=== PATIENT | female | born 1950 | race Caucasian/White ===

== ENCOUNTER 2025-05-27 11:36 | Emergency (ER) | payer BC, MEDICARE, SELFPAY ==
--- NOTE | ~2025-05-27 | CT_ITS ---
EXAMINATION: CT HEAD WITHOUT CONTRAST CLINICAL INFORMATION: Fall, head trauma COMPARISON: None available. TECHNIQUE: Contiguous axial imaging was performed from the skull base to vertex without intravenous administration of contrast. This CT examination was performed using dose optimization techniques as appropriate, variously including the following: *Automated exposure control *Adjustment of mA and/or kV according to patient size (this includes techniques or standardized protocols for targeted exams where dose is matched to indication/reason for exam; i.e. extremities or head) *Use of iterative reconstruction technique FINDINGS: There is no acute ischemic change. There is no intracranial hemorrhage. There is no mass-effect or midline shift. There is mild generalized atrophy Basal cisterns and ventricles are within normal limits for age/cerebral volume. Orbits are symmetrical and unremarkable. Paranasal sinuses and mastoid air cells are pneumatized. There are no bony abnormalities. CT/CT head/brain wo IV con IMPRESSION: No acute intracranial abnormality. Electronically signed by: Satya Alegria MD 05/27/2025 01:12 PM [facility]
--- NOTE | ~2025-05-27 | CT_ITS ---
EXAMINATION: CT CERVICAL SPINE WITHOUT CONTRAST CLINICAL INFORMATION: Fall, head trauma COMPARISON: None available. TECHNIQUE: Axial imaging was performed from the base of the skull through T2 without IV contrast. Coronal and sagittal reformatted images were generated from the original axial data set. ALARA: The examination used one or more of the following radiation dose reduction techniques: Automated exposure control, iterative reconstruction, and/or adjustment of mA and/or KV. FINDINGS: There is straightening of the cervical lordosis. There is no prevertebral soft tissue swelling. There are osteophytes and degenerative irregularity of the anterior C1-C2 articulation. There are uncovertebral osteophytes in the mid to upper cervical spine. There is nonsegmentation of the left C2-3 facets. There are facet osteophytes throughout cervical spine on the left and in the mid to upper cervical spine on the right. There is a 14 mm short axis lymph node left of midline, adjacent the trachea, in the prevascular region at the level of the sternoclavicular joints. CT/CT cervical spine wo IV con IMPRESSION: Suspected mediastinal adenopathy. Consider nonemergent CT chest without contrast. There is straightening of the expected cervical lordosis. This can be idiopathic, but can also be related to degenerative change, muscle spasm, or posterior soft tissue injury. Uncovertebral and facet osteoarthritis Electronically signed by: Satya Alegria MD 05/27/2025 01:26 PM [facility]
--- NOTE | 2025-05-27 11:39 | ED.FALL ---
HPI - Fall General Chief Complaint: Fall Stated Complaint: FALL/KNEELING,HIT HEAD/L FACE LAC NO BLEEDIN,-LOC, Time Seen by Provider: 05/27/25 11:38 Source: patient, EMS, RN notes reviewed and old records reviewed Mode of arrival: EMS History of Present Illness ED Provider: Ellie Coon PA-C HPI Narrative: 74-year-old female with no significant past medical history presenting to the ED via EMS s/p mechanical trip and fall with + head strike and facial laceration [employer]. Patient states she bent down to pick something up and table slid forward causing her to fall and hit face on table. Denies LOC. Does take baby ASA. denies symptoms prior to fall. Up and ambulatory independently after incident, denies headache, neck/back pain, nausea/ vomiting, vision change or loss, lightheadedness / dizziness, CP/SOB. Tetanus unknown Related Data Previous Rx's ?Medication ?Instructions ?Recorded acetaminophen 500 mg capsule 1,000 mg (2 x 500 mg) PO Q6H 5 05/28/25 days #20 caps ibuprofen 400 mg tablet 400 mg PO Q6H PRN pain 5 days #20 05/28/25 tabs lidocaine 5 % topical patch 1 patch topical DAILY PRN pain #15 05/28/25 ea ondansetron 4 mg disintegrating 4 mg PO Q8H PRN nausea and 05/28/25 tablet vomiting #4 tabs oxycodone 5 mg tablet 5 mg PO Q6H PRN pain #10 tabs 05/28/25 Allergies Allergy/AdvReac Type Severity Reaction Status Date / Time No Known Allergies Allergy Verified 05/28/25 09:01 Review of Systems Review of Systems: Yes all other systems are reviewed and are negative Constitutional: Constitutional: Reports as per HPI Neurologic: Denies Abnormal speech present [facility] Past Medical History Attestation statement: The following information was validated with the patient. Source: old records reviewed Physical Exam Vital Signs: Vital Signs: Last Vital Signs Temp 98.1 F 05/27/25 14:36 Pulse 78 05/27/25 14:36 Resp 16 05/27/25 14:36 BP 119/55 L 05/27/25 14:36 Pulse Ox 95 05/27/25 14:36 O2 Del Method Room Air 05/27/25 14:36 BMI result Body Mass Index 35.6 Const: General: cooperative, healthy appearing and no acute distress Orientation/consciousness: patient oriented x3 Limitations: no limitations HEENT: Other: 1cm laceration noted to right eyebrow. Bleeding controlled. Head: Yes atraumatic Ears: hearing grossly normal bilaterally General nose exam: Normal external nose present Face and sinus: Yes normal facial exam Mouth: Normal oral and palatal mucosa present Throat: Yes posterior oropharynx normal Eyes: General: appearance normal, both eyes and all related structures Pupils: Equal, round and reactive pupils present EOM: EOMs intact bilaterally Neck: Other: C-collar in place Neck: Yes normal visual inspection and Yes no meningeal signs Resp: Effort & Inspection: normal respiratory effort and no respiratory distress Cardio: Rate: regular rate GI: Inspection: Yes normal to inspection Palpation (GI): Soft to palpation, nontender, no guarding and not rigid Back/Spine/Pelvis: Other: No midline cervical/thoracic/lumbar spinous tenderness/step-off or deformity Skin: Rashes: no rashes Wounds: no wounds Neuro: General: patient oriented x3, tone normal, moves all extremities, no meningeal signs, no focal motor deficits and CN's II-XI intact bilaterally Cranial nerves: Yes CN's II-XII intact bilaterally, Yes Equal, round and reactive pupils present and Yes Bilaterally intact EOM present Cognition (Neuro): normal cognition Speech: No Abnormal speech present Motor exam (neuro): 5/5 motor strength present throughout Extrem: General: Yes normal to inspection Course Course Course Narrative: 2:02 PM 05/27/2025 (Ellie Coon PA-C): CT head/brain wo IV con IMPRESSION: No acute intracranial abnormality. CT cervical spine wo IV con IMPRESSION: Suspected mediastinal adenopathy. Consider nonemergent CT chest without contrast. There is straightening of the expected cervical lordosis. This can be idiopathic, but can also be related to degenerative change, muscle spasm, or posterior soft tissue injury. Uncovertebral and facet osteoarthritis Results discussed with patient - patient is supplied with copy of CT cervical spine results. Recommended close outpatient PCP follow-up for further nonemergent chest CT discussed worrisome signs and symptoms and strict return precautions, and when to return to the emergency department. They verbalized understanding and feel safe for discharge at this time. Medications Administered Discontinued Medications Generic Name Dose Route Start Last Admin Trade Name Freq PRN Reason Stop Dose Admin Diphtheria/Tetanus/Acell Pertussis 0.5 ml 05/27/25 11:57 05/27/25 12:25 Diphth,Pertus(Acell),Tet Adult 0.5 Ml Syringe IM 05/27/25 11:58 0.5 ml .ONCE ONE Administration Procedures Laceration Laceration 1: Site: face Side (If applicable): right Size (cm): 1 Description: linear Depth: simple, single layer Skin layer closed with: skin adhesive Medical Decision Making Medical Decision Making MDM Narrative: 74-year-old female with no significant past medical history presenting to the ED via EMS s/p mechanical trip and fall with + head strike and facial laceration [employer]. Patient states she bent down to pick something up and table slid forward causing her to fall and hit face on table. on exam vital signs stable, NAD, nontoxic appearing, C-collar in place, no midline spinous tenderness throughout. No focal neuro deficits. Laceration noted to right eyebrow. Concern for ICH. Lower suspicion for fracture, metabolic abnormalities or infectious etiology. Unlikely ACS / dissection or CVA Plan: Head / C-spine CT, update tetanus, Dermabond wound Please refer to course for remaining clinical decision making, interpretation of labs/imaging results, and discussions with consultants and/or family members. Differential Diagnosis Differential Diagnoses: The differential diagnosis associated with the presentation includes As above Admission/Observation Consideration of admission/observation: Escalation of care including admission/observation considered Lab Data [facility] Lab Attestation statement: I reviewed the patient's lab results. Independent Interpretation I performed an independent interpretation of an: CT Scan Radiology Impression Discussion of test interpretation with radiology: I have reviewed the radiologist's reading. Independent Historian Clinical information obtained from an independent historian. History obtained from or confirmed by: EMS External Record Review External record reviewed: Inpatient record, Office record, Outpatient record, Prior outpatient labs, Prior outpatient radiology, Primary care record and Outside ED record Tests considered The following testing was considered but not selected: As above Prescription Management I considered prescription management with: Other Chronic Conditions Patient?s care impacted by: Other Social Determinants Patient?s care significantly limited by Social Determinants of Health including: Other Social Determinant of Health Discharge Plan Discharge Clinical Impression: Facial laceration, Fall, Head injury, Mediastinal adenopathy Patient Disposition: Home, Self-Care Instructions: Laceration (DC), Head Injury (DC) Additional Instructions: your head CT is reassuring. The CAT scan of your neck shows suspected mediastinal adenopathy. It is recommended that you have a outpatient chest CT with your primary care doctor. Please have close follow-up with them she can obtain this as soon as possible. Your wound was repaired with skin glue, avoid getting wet, keep area dry and clean if area begins to look infected, it is red, there is pus drainage or you have fever returns to the emergency department Review of concern worsening headache, neck pain, weakness, nausea or vomiting return to the ED CT cervical spine wo IV con IMPRESSION: Suspected mediastinal adenopathy. Consider nonemergent CT chest without contrast. There is straightening of the expected cervical lordosis. This can be idiopathic, but can also be related to degenerative change, muscle spasm, or posterior soft tissue injury. Uncovertebral and facet osteoarthritis Prescriptions: No Action acetaminophen 500 mg capsule 1,000 mg PO Q6H 5 Days Qty: 20 0RF ibuprofen 400 mg tablet 400 mg PO Q6H PRN (Reason: pain) 5 Days Qty: 20 0RF lidocaine 5 % adhesive patch,medicated 1 patch topical DAILY PRN (Reason: pain) Qty: 15 0RF Rx Instructions: leave on most painful area for up to 12 hrs oxycodone 5 mg tablet 5 mg PO Q6H PRN (Reason: pain) Qty: 10 0RF Rx Instructions: Partial Fill upon patient request. ondansetron 4 mg tablet,disintegrating 4 mg PO Q8H PRN (Reason: nausea and vomiting) Qty: 4 0RF Referrals: Brea Garcia PA [Primary Care Provider, Hospitalist] - 5 days Interventions: ED Discharge Assessment Last Done: 05/27/25 14:36 Discharge Date/Time: 05/27/25 14:37 Print Language: Faroese
[2025-05-27 11:50] VITALS: BP 128/72; PULSE 85; O2SAT 99
[2025-05-27 12:14] VITALS: BP 136/69; PULSE 82; RESP 18; TEMP 37.1; O2SAT 94; BMI 35.6
[2025-05-27] MEDS: Diphth,Pertus(ACell),Tet Adult 0.5 ML SYRINGE IM (12:25)
[2025-05-27 13:31] VITALS: BP 119/55; PULSE 78; RESP 16; TEMP 36.7; O2SAT 95
[2025-05-27 14:36] VITALS: BP 119/55; PULSE 78; RESP 16; TEMP 36.7; O2SAT 95
--- NOTE | 2025-05-27 14:36 | PC.NURSE ---
Per patient request patient taking [facility] shuttle back to provide place.
--- OUTSIDE RECORDS SUMMARY | 2025-05-27 15:32 | XMS_ITS | Continuity of Care Document ---
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 Reviewed the tests and lab values. Reviewed specialist consults. Reviewed allergies Reviewed medications and refills given. Answered all of patient's questions Discussed plan of care with patient. Patient is agreeable to the current plan of care. Advised patient to take medications according to the instructions on the label. Consultations and referrals as necessary I have spend 35 minutes in reviewing medications, allergies, vaccinations, problems, vitals, labs, detailed history, detailed examination, medical decision making, counselling, and documenting. Education was provided on healthy nutrition, including a diet rich in fruits and vegetables, minimizing simple carbohydrates, salt, and saturated fats. Encouraged regular cardiovascular exercise such as walking at least 30 minutes daily, 5 times per week. Emphasized preventive health measures and educated pt on fall prevention and community-based lifestyle interventions to help reduce health risks and promote healthy living. 4 months f/u with labs lipid, A1C, CMP 1. Type 2 Diabetes Mellitus Diabetes management continues effectively with Metformin 500 mg twice daily. Her glycemic control is stable with an A1c of 6.3%. 2. Hypertension Managed on lisinopril and metoprolol with stable blood pressure readings. No significant symptoms reported; cardiology follow-up in place. 3. Dyslipidemia Managed on atorvastatin. Cholesterol levels are satisfactory, encouraged to maintain a heart-healthy diet. 4. Sinus Congestion Mild sinus concerns are noted. Consideration may be given to using an OTC allergy medication. 1. Essential Hypertension Hypertension is managed by discontinuing lisinopril and initiating losartan 50 mg due to a suspected medication-linked cough. The patient's blood pressure was 150/90 mmHg. A follow-up will occur in one month to assess the efficacy of losartan. 2. Type 2 Diabetes Mellitus Diabetes control will be evaluated with blood work prior to the next visit. The patient is maintained on metformin 500 mg. 3. Chronic Cough The chronic cough is likely related to lisinopril use. The patient should follow up next month and monitor whether symptoms improve with the switch to losartan. 4. Hyperlipidemia The patient continues on atorvastatin 40 mg, and a fasting blood test before the next visit will guide further therapy. 5. Emphysema Emphysema is monitored through respiratory assessments with the intent of avoiding exacerbations. 1. Hypertension The patient presents with elevated blood pressure of 150/100 mmHg, indicating her current regimen of losartan 50 mg is not providing adequate control, despite her reported adherence. The plan is to increase her losartan dosage to 100 mg daily. She has been advised to obtain a blood pressure cuff to monitor her readings at home while at rest and to report the values back to the clinic. A 90-day prescription will be sent. 2. Type 2 Diabetes Mellitus The patient's diabetes is suboptimally controlled, as evidenced by a Hemoglobin A1c of 7.0%. Her adherence to blood glucose monitoring is intermittent. The plan is to increase her metformin to be taken twice daily. Prescriptions for test strips and lancets will be sent to the pharmacy to facilitate more regular home monitoring. 3. Mild Emphysema The patient has a history of mild emphysema and is a former smoker, but currently denies any respiratory symptoms such as shortness of breath. An inhaler will be prescribed for as-needed use, and she was instructed to consult with the pharmacist for proper usage technique. 4. Follow-up and Coordination of Care The patient finds the commute from [place] difficult and is actively seeking a new primary care physician closer to her home. As a contingency, a follow-up appointment will be scheduled in three months. The patient was instructed to cancel this appointment if she establishes care with a new provider. 1. Hypertension The patient's current medication, losartan, is considered ineffective. The plan is to discontinue losartan and prescribe chlorthalidone. She will continue taking metoprolol 25 mg. The patient is instructed to monitor her blood pressure at home and report the readings to the office. 2. Diabetes Mellitus The patient was instructed to begin taking metformin. Not available 05/09/2025 15:48:02 Plan of Treatment Reminders Order Date Submit Date Provider Last Modified By Organization Details Last Modified Time Details Appointments None recorded. Lab None recorded. Referral None recorded. Procedures None recorded. Surgeries None recorded. Imaging None recorded. Medication Orders chlorthalid one 25 mg tablet 2024 025 [facility] #[id number], [address] [place], [address], 13:59:09 Patient TargetsNo targets recorded. Patient Instructions Encounter Date Encounter Id Patient Instructions Last Modified By Organization Details Last Modified Time 05/09/2025 [id number] - Stop taking losartan. - You can tell the pharmacy that your medication was changed and you will not be picking up the losartan that is ready for you. 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 - Start taking metformin. 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 - Continue checking your blood pressure at home. - Call the office with your blood pressure readings. Not available 05/09/2025 15:46:09 Please note: Parts of this encounter note have been generated by AI based on audio conversation. Patient consent was required prior to utilizing this technology. Content review was required prior to finalizing the note. Not available 05/09/2025 15:46:09 Reason for Referral None Reported. Results Created Date Observation Date Name Description Value Unit Range Abnormal Flag Note LastModifiedBy Organization Detail LastModifiedTime 04/22/2004/22/2025 HEMOG LOBIN A1C hemoglobin A1C 7.0 % 4.4-6. 3 high Metho dolog y korey e to enzym atic HbA1c metho d. Refer ence range s and resul ts allen jimy to previ ous metho d. Not Available [address] , [place], [address], 04/22/2025 12:05:32 04/22/2004/22/2025 COMPR EHENS SUZIE METAB OLIC PANEL sodium 141 mEq/L 133-14 5 normal Not Available [address], [address], 04/22/2025 12:21:53 04/22/20 25 04/22/2025 COMPR EHENS SUZIE METAB OLIC PANEL potassium 4.5 mEq/L 3.5-5. 1 normal Not Available [address], [address], 04/22/2025 12:21:53 04/22/20 25 04/22/2025 COMPR EHENS SUZIE METAB OLIC PANEL chloride 106 mEq/L 98-112 normal Not Available [address], [address], 04/22/2025 12:21:53 04/22/20 25 04/22/2025 COMPR EHENS SUZIE METAB OLIC PANEL carbon dioxide 24 mEq/L 22-31 normal Not Available [address], [address], 04/22/2025 12:21:53 04/22/20 25 04/22/2025 COMPR EHENS SUZIE METAB OLIC PANEL anion gap 11 mEq/L 5-15 normal Not Available [address], [address], 04/22/2025 12:21:53 04/22/20 25 04/22/2025 COMPR EHENS SUZIE METAB OLIC PANEL blood urea nitrogen (BUN) 11 mg/dL 10-20 normal Not Available [address], [address], 04/22/2025 12:21:53 04/22/20 25 04/22/2025 COMPR EHENS SUZIE METAB OLIC PANEL creatinine 0.75 mg/dL 0.50-1 .02 normal Not Available [address], [address], 04/22/2025 12:21:53 04/22/20 25 04/22/2025 COMPR EHENS SUZIE METAB OLIC PANEL est.glomerul ar filtration rate > 60 Units : mL/mi n/1.7 3 m2 Estim ated GFR (eGFR ) shoul d not be used for patie nts with acute kidne y injur y or ESRD (crea tinin e shoul d be at stead y state and stabl e to use). eGFR is calcu lated using the Natio nal Kidne y Found ation 2020 CKD-E PI creat inine equat ion, which is now the recom cr d equat ion to estim ate GFR based on creat inine per lates t KDIGO (Kidn ey Disea se Impro ving Globa l Outco mes) Guide lines . KDIGO recom mends CKD now be class ified based on cause , GFR categ ory, and album inuri a categ ory. GFR categ ories will not be repor tony by the lab for G1 or G2 (eGFR >60). GFR categ ories shoul d be assig beau as: eGFR 45-59 = G3a (mild ly to moder ately decre ased) , eGFR 30-44 = G3b (mode ratel y to sever marc decre ased) , eGFR 15-29 G4 (danny rely decre ased) , eGFR< 15 G5 (kidn ey failu re). Not Available [address], [address], 04/22/2025 12:21:53 04/22/2004/22/2025 COMPR EHENS SUZIE METAB OLIC PANEL glucose 100 mg/dL 70-100 normal Fasti ng Refer ence Inter diony: 70-10 0mg/d L Non-f astin g Refer ence Inter diony: 70-14 0mg/d L Not Available [address], [address], 04/22/2025 12:21:53 04/22/2004/22/2025 COMPR EHENS SUZIE METAB OLIC PANEL calcium 9.3 mg/dL 8.4-10 .4 normal Not Available [address], [address], 04/22/2025 12:21:53 04/22/2030 0404/22/2025 COMPR EHENS SUZIE METAB OLIC PANEL bilirubin total 0.6 mg/dL 0.3-1. 2 normal Not Available [address], [address], 04/22/2025 12:21:53 04/22/20 25 04/22/2025 COMPR EHENS SUZIE METAB OLIC PANEL aspartate amino transferase 17 IU/L 11-34 normal Not Available [address], [address], 04/22/2025 12:21:53 04/22/20 25 04/22/2025 COMPR EHENS SUZIE METAB OLIC PANEL alanine aminotransfe rase 14 IU/L <34 Not Available [address], [address], 04/22/2025 12:21:53 04/22/20 25 04/22/2025 COMPR EHENS SUZIE METAB OLIC PANEL total protein 7.5 g/dL 5.8-8. 1 normal Not Available [address], [address], 04/22/2025 12:21:53 04/22/20 25 04/22/2025 COMPR EHENS SUZIE METAB OLIC PANEL albumin 4.0 g/dL 2.5-5. 0 normal Not Available [address], [address], 04/22/2025 12:21:53 04/22/20 25 04/22/2025 COMPR EHENS SUZIE METAB OLIC PANEL alkaline phosphatase 117 IU/L 40-150 normal Not Available [address], [address], 04/22/2025 12:21:53 04/22/20 25 04/22/2025 LIPID PANEL triglyceride s 117 mg/dL normal Audra l <=150 Audra l 150-1 99 Borde rline High 200-4 99 High >=500 Very High Not Available [address], [address], 04/22/2025 12:21:54 04/22/2004/22/2025 LIPID PANEL cholesterol 128 mg/dL normal Keenan able <200 Keenan able 200-2 39 Borde rline High >=240 High Not Available [address], [address], 04/22/2025 12:21:54 04/22/2004/22/2025 LIPID PANEL LDL cholesterol calculated 64 mg/dL normal Optim al <100 Optim al 100-1 29 Near optim al 130-1 59 Borde rline High 160-1 89 High >=190 Very High Not Available [address], [address], 04/22/2025 12:21:54 04/22/2004/22/2025 LIPID PANEL HDL cholesterol 41 mg/dL <40 Low >=60 Optim al Not Available [address], [address], 04/22/2025 12:21:54 Result Notes None recorded. Problems Name Problem SNOMED Code Status Onset Date Resolution Date Notes Provider Name and Address Organization Details Recorded Time Type 2 diabetes mellitus 35908589 Active 2018 KATIE Ravi [address] [place] [address], [address], [place], [address] , [place] - PMA/WIP 5 15:16:55 Hyperten sive disorder 63697304 Active 2018 Not Available [facility] 2 20:28:52 Body mass index 25-29 - overweig ht 424321851 Completed 201811/12/2020 Aleks diaz, [place] - PMA/WIP 1 11:37:29 Cardiova scular stress test abnormal 304138881 Active 2020 Not Available [facility] 2 20:28:52 Body mass index 30+ - obesity 243946199 Active 2020 Not Available [facility] 2 20:28:52 Stented coronary artery 786364616 Active 2020 LAD 95% [facility] December 2020 Not Available [facility] 2 20:28:52 Coronary arterios clerosis 20500804 Active 2020 Not Available [facility] 2 20:28:52 Mixed hyperlip idemia 023710645 Active 2024 KATIE Ravi [address] [facility], [address], [place], [address] , [place] - PMA/WIP 5 15:16:53 Problem Notes None recorded. Medical Equipment None Reported. Allergies Allergen ID Allergen Name Allergen Category Reaction Reaction Severity Criticality Documentation Date Start Date Code Code System Note Provider Name and Address Organization Details Recorded Time 70 lisinopri l medicatio n cough Not available Not available 04/01/2025 71191 RxNorm KATIE Ravi [address] [facility], [address], [place], [address], [place] - PMA/WIP 5 11:41:23 Medications Name Sig Start Date Stop Date Status Note LastModified by Organization Details LastModified Time losartan 50 mg tablet TAKE 1 TABLET BY MOUTH EVERY DAY 05/06 completed Not Available Not Available Not Available amoxicill in 500 mg capsule TAKE 1 CAPSULE BY MOUTH FOUR TIMES A DAY 01/24 completed Not Available Not Available Not Available atorvasta tin 40 mg tablet TAKE 1 TABLET BY MOUTH AT BEDTIME 2024 active Not Available Not Available Not Avai lable metformin 500 mg tablet TAKE 1 TABLET BY MOUTH TWICE A DAY 08/20 completed Not Available Not Available Not Available azithromy oscar 250 mg tablet TAKE 2 TABLETS (500 MG) BY ORAL ROUTE ONCE DAILY FOR 1 DAY THEN 1 TABLET (250 MG) BY ORAL ROUTE ONCE DAILY FOR 4 DAYS completed Not Available Not Available Not Available ibuprofen 800 mg tablet 09/06 completed Not Available Not Available Not Available ondansetr on HCl 4 mg tablet 01/08 completed Not Available Not Available Not Available chlorthal idone 25 mg tablet Take 1 tablet every day by oral route for 90 days. 2024 active Not Available Not Available Not Avai lable amlodipin e 5 mg tablet Take 1 tablet every day by oral route for 90 days. 2024 active Not Available Not Available Not Avai lable ketorolac 0.5 % eye drops INSTILL 1 DROP IN RIGHT EYE DAILY STARTING THE DAY BEFORE SURGERY 06/27 completed Not Available Not Available Not Available oxycodone -acetamin ophen 5 mg-325 mg tablet TAKE 1 TABLET BY MOUTH FOUR TIMES A DAY 01/24 completed Not Available Not Available Not Available prednisol one acetate 1 % eye drops,aiyana pension INSTILL 1 DROP IN RIGHT EYE FOUR TIMES A DAY STARTING AFTER SURGERY 06/27 completed Not Available Not Available Not Available lisinopri l 10 mg tablet TAKE 1 TABLET BY MOUTH EVERY DAY 04/01 completed Not Available Not Available Not Available polymyxin B sulfate 10,000 unit-trim ethoprim 1 mg/mL eye drops INSTILL 1 DROP IN SURGICAL EYE 4 TIMES A DAY STARTING THE DAY BEFORE SURGERY 06/27 completed Not Available Not Available Not Available nitroglyc lexx 0.4 mg sublingua l tablet PUT 1 TABLET UNDER TONGUE EVERY 5 MINS UP TO 3X NEEDED FOR CHEST PAIN. CALL 911 IF PAIN PERSISTS 06/18 completed Not Available Not Available Not Available Longs Adult Low Strength ASA 81 mg tablet,de layed release Take 1 tablet every day by oral route. active Not Available Not Available No t Available lisinopri l 5 mg tablet TAKE 2 TABLET BY MOUTH EVERY DAY 11/12 completed Not Available Not Available Not Available metoprolo l succinate ER 25 mg tablet,ex tended release 24 hr Take 1 tablet every day by oral route. 2024 active Not Available Not Available Not Avai lable albuterol sulfate HFA 90 mcg/actua tion aerosol inhaler INHALE 2 PUFFS EVERY 4 HOURS BY INHALATI ON ROUTE. active Not Available Not Available No t Available losartan 100 mg tablet Take 1 tablet every day by oral route for 90 days. 05/09 completed Not Available Not Available Not Available metformin ER 500 mg tablet,ex tended release 24 hr Take 2 tablets twice a day by oral route for 90 days. 2024 active Not Available Not Available Not Avai lable metformin ER 1,000 mg tablet,ex tended release 24hr (osmotic) TAKE 1 TABLET BY MOUTH TWICE A DAY 03/08 completed Not Available Not Available Not Available metformin ER 1,000 mg tablet,ex tended release 24 hr Take 1 tablet twice a day by oral route for 30 days. 03/08 completed Not Available Not Available Not Available Prevnar 13 (PF) 0.5 mL intramusc ular syringe 01/08 completed Not Available Not Available Not Available OneTouch Delica Lancets 33 gauge CHECK BLOOD SUGAR ONCE DAILY NIDDM E11.9 active Not Available Not Available No t Available Brilinta 90 mg tablet TAKE 1 TABLET BY MOUTH TWICE A DAY 03/[address] Meléndez stopped it 2 months ago Not Available Not Available Not Available Brilinta stent 12/2020 LAD 09/23 completed Not Available Not Available Not Available OneTouch Verio test strips USE TO TEST ONCE DAILY active Not Available Not Available No t Available Fluzone High-Dose (PF) 180 mcg/0.5 mL intramusc ular syringe 01/08 completed Not Available Not Available Not Available Vitals Date Recorded Body height Body mass index (BMI) Body weight Oxygen saturation Heart rate Systolic And Diastolic Provider Name and Address Organization Details Last Updated DateTime 5 157.48 cm 36.8 kg/m2 90326.0 7 g 96 % 81 /min 160/100 mm[Hg] Jarred power [place] - PMA/WIP 5 13:18:05 Social History Question Answer Notes LastModified by Organizat ion Details LastModified Time Tobacco Smoking Status Never Smoker Not Available [facility] 03/20/2020 03:13:01 Do You Have An Advance Directive? No Information not available 08/20/2020 Are You Blind Or Do You Have Difficulty Seeing? No Information not available 08/20/2020 Is Blood Transfusion Acceptable In An Emergency? Yes Information not available 08/20/2020 What Is Your Level Of Caffeine Consumption? Moderate Coffee - 2-3 Cups Information not available 08/20/2020 Are You Deaf Or Do You Have Serious Difficulty Hearing? No Information not available 08/20/2020 What Type Of Diet Are You Following? REGULAR Med Diet Information not available 08/20/2020 What Is The Highest Grade Or Level Of School You Have Completed Or The Highest Degree You Have Received? AF05797-2 Information not available 08/20/2020 Have There Been Any Changes To Your Family Or Social Situation? No Information not available 08/20/2020 Do You Have Any Pets? No Information not available 08/20/2020 What Is Your Relationship Status? Single Information not available 08/20/2020 Do You Use Your Seat Belt Or Car Seat Routinely? Yes Information not available 08/20/2020 Are You Sexually Active? No Information not available 08/20/2020 Do You Have Smoke And Carbon Monoxide Detectors In Your Home? No Information not available 08/20/2020 Do You Have Difficulty Walking Or Climbing Stairs? No Information not available 08/20/2020 Sex: Unknown Functional Status Question Answer Note LastModified by Organizat ion Details LastModified Time Do you use any illicit or recreational drugs? No Information not available 08/20/2020 Do you or have you ever used any other forms of tobacco or nicotine? No Information not available 08/20/2020 Are you currently employed? No Information not available 08/20/2020 Are you able to walk independently without assistance or assistive devices? YESWOREST Information not available 08/20/2020 Do you have difficulty doing errands alone? No Information not available 08/20/2020 Are you able to care for yourself independently? 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 No Information not available 08/20/2020 What is your exercise level? Occasional eery other day, 60min Information not available 08/20/2020 Mental Status Question Answer Note LastModified by Organization D etails LastModified Time Do you have difficulty concentrating, remembering or making decisions? No Information no t available 08/20/2020 Family History Relationship Description Onset Age of this Age Resolved Age Notes LastModified by Organization Details LastModified Time Father Hypertensive disorder Not available 2018 09:04:15 Mother Hypertensive disorder Not available 2018 09:04:15 Notes:- Non-contributory fro m provided conversation. - Family history was not discussed during the visit. Medical History No medical history recorded. Gynecological History Statement/Question Response Date of Last Pap Smear Sexually Active? N Obstetrics History GPAL:G 0 P 0 0 0 0 Immunizations Vaccine Type Date Status Note Provider Nam e and Address Organization Details Recorded Time Influenza, adjuvanted, quadrivalent, PF 2 completed KATIE Ravi [address] [place] [address], [place], [address], [place] - PMA/WIP 01/24/2023 12:50:11 COVID-19, mRNA, LNP-S, bivalent, PF, 30 mcg/0.3 mL dose 2 completed KATIE Ravi [address] [place] [address], [place], [address], [place] - PMA/WIP 04/01/2025 11:37:14 pneumococcal polysaccharide PPV23 9 completed KATIE Ravi [address] [place] [address], [place], [address], [place] - PMA/WIP 04/01/2025 11:37:14 Influenza, split virus, quadrivalent, preservative 9 completed KATIE Ravi [address] [place] [address], [place], [address], [place] - PMA/WIP 04/01/2025 11:37:14 influenza nasal, unspecified formulation 4 completed Ernestina Otto null, [place] - PMA/WIP 06/27/2024 13:14:39 SARS-COV-2 (COVID-19) vaccine, UNSPECIFIED 4 completed Ernestina Otto null, [place] - PMA/WIP 06/27/2024 13:14:49 Influenza, split virus, quadrivalent, preservative 0 completed KATIE Ravi [address] [place] [address], [place], [address], [place] - PMA/WIP 06/17/2023 16:03:45 COVID-19, mRNA, LNP-S, PF, 30 mcg/0.3 mL dose 1 completed Not Available [facility] 05/20/2025 08:08:59 COVID-19, mRNA, LNP-S, PF, 30 mcg/0.3 mL dose 1 completed Not Available [facility] 05/20/2025 08:08:59 Influenza, high-dose, quadrivalent, PF 3 completed Not Available [facility] 05/20/2025 08:08:59 Influenza, high-dose, trivalent, PF 5 completed Not Available [facility] 05/20/2025 08:08:59 COVID-19, mRNA, LNP-S, PF, 30 mcg/0.3 mL dose 1 completed Not Available [facility] 05/20/2025 08:08:59 Influenza, high-dose, quadrivalent, PF 1 completed Not Available [facility] 05/20/2025 08:08:59 COVID-19, mRNA, LNP-S, PF, mary-sucrose, 30 mcg/0.3 mL 5 completed Not Available [facility] 05/20/2025 08:08:59 Influenza, high-dose, trivalent, PF 8 completed Not Available [facility] 05/20/2025 08:08:59 Pneumococcal conjugate PCV 13 8 completed Not Available [facility] 05/20/2025 08:08:59 Influenza, split virus, quadrivalent, PF 9 completed KATIE Ravi [address] [place] [address], [place], [address], [place] - PMA/WIP 04/01/2025 11:37:14 Past Encounters Encounter ID Performer Location Encounter Start Date Encounter Closed Date Diagnosis/Indication Diagnosis SNOMED-CT Code Diagnosis ICD10 Code Diagnosis IMO Codes Diagnosis Note [id number] MD Paulette Tomlinisabell wiggins [place] [address] [place] [address] 05/06/2025 11:21:05 05/06/2025 13:18:51 Coronary arteriosclerosis 46309969 I25.10 [id number] #CAD: past medical history of obstructiv e coronary artery disease status post PCI with a drug-eludi ng stent to the LAD on December 26, 2020 at [facility] Lipid control: atorvastat in 40mgAC: Brilinta 90mg stopped December 26tente d coronary arteryabno rmal stress testFollow ing cardiology The patient is stable and asymptomat ic. The patient is to continue low-dose aspirin for secondary prevention . The patient has been counseled regarding heart healthy diet and exercise. Last visit with cards : Dr. Garner 22 November Screening for malignant neoplasm of colon 443978578 Z12.11 cologuard negative 12/2021, recheck in 2024 Screening mammography 24 045572 Z12.31 DECLINES Cough 19673286 R05.9 chronic cough since march She was seen here for pre-op. LDCT ordered due to her chronic cough for the past weeks. Her surgery has been postponedC XR was negative. She is here to go over the LDCT resultsShe denies any hemoptysis , weight loss LDCT as follows:Mi ld emphysemat ous lung disease. No acute chest finding.In terval placement of left anterior descending coronary artery stent. She is treated with zpak. She feels much better today Thyroid nodule 103499487 E04.1 Recent LDCT showed a noduleTHYR OID: There is a 1.8 cm nodule in the superior mediastinu m on series 2 image 26 which isinferior to the thyroid isthmus which may be on the basis of a exophytic thyroid nodule. Itmeasures 48 Hounsfield units internal density. This is unchanged from CT of the chest dated2020 EKG: T wave abnormal 164 703256 R94.31 new changes on EKG borderline st dep ov 0.5 t wave inversion on lateral leads and ASA Metoprolol , Nitro (if use this to ER) ETT fairly quickly new changes since Jan 2019 Type 2 toyn betes mellitus 83760947 E11.9 Medication s: metformin 500mg bid Reports compliance to medication s and dietDenies any hypoglycem ic episodesDe nies any SE to medication s Recent labs done on: 025- A1C: 6.3- BS: 5- microalbum in: not testedEndo referral and f/u: none Current Symptoms: noneMicrov ascular complicati ons: None Macrovascu lar complicati ons: none [place] [facility] exam: self check advisedLas t dental exam: encouraged to find anew dentist O n ACEi/ARB yesOn appropriat e statin if indicatedY es Management :Medicatio ns: continue current medication s. Lifestyle Modificati ons: Dietary advice, exercise recommenda tions, weight management . Monitoring : Home blood glucose monitoring , frequency of HbA1c checks. Education: Discussed the importance of glycemic control, potential complicati ons, and adherence to the treatment plan. Specialist Referrals: Referral to endocrinol ogist, ophthalmol ogist, or nephrologi st if indicated Follow-Up: Schedule follow-up visit in 3 months or sooner for lab f/u Hypertensive disorder 38 013220 I10 BP: 128/80Medi cation: metoprolol succinate ER 25mg and lisinopril 10mgDenies any SE. Reports compliance Plan:- Medication management : Continue current regimen- Encourage the patient to adopt a heart-heal thy diet rich in fruits, vegetables , and whole grains, and to reduce sodium intake.- Recommend regular aerobic exercise for at least 30 minutes a day, five days a week.- Advise the patient to limit alcohol intake and quit smoking if applicable . Monitoring : continue home BP monitoring Education: Provide patient education on the importance of medication adherence, lifestyle modificati ons, and the risks associated with uncontroll ed hypertensi on. follow up:- BP will be re-evaluat ed again in the f/u appointmen t.- regular labs and f/u stop lisinopril (cough)sta rt losartan 50mgrechec k with labs in a month Body mass index 30+ - obesity 751828911 Z68.31 Counseled on the Mediterran john diet: Daily consumptio n of vegetables , fruits, whole grains and healthy fats Weekly intake of fish, poultry, beans and eggs Moderate portions of dairy products Limited intake of red meat Focus on meal prep times, portion size and avoid processed foods. Snacks on carrots, apples, hard fruits and veggies. Counseled on the recommenda tions of weekly exercise to include daily aerobic exercise of atleast 20min. Active jobs do not count for this and it requires actually formalized exercise time, i.e. walking program which can be done inside or outside in any weather. Also should do some type of simple stretching /strengthe willie program. Total weekly exercise should be >=150min. Cardiovasc ular stress test abnormal 731021794 R94.39 CARDS [facility] medical history of obstructiv e coronary artery disease status post PCI with a drug-eluti ng stent to the LAD on December 26, 2020 at [facility] Pigmented skin lesion 20 2181950 L81.9 not interested in dermbirthm ark Stented co ronary artery 715478591 Z95.5 Not taking any nitro anymoreNo chest pain Anxiety 93252046 F41.9 stable Screening for malignant neoplasm of cervix 070399472 Z12.4 Not interested in seeing a PENSION AGENT now Body mass index 25-29 - overweight 129164307 Z68.25 stable Exposure t o SARS-CoV-2 892761410 Z20.828 Covid-19 discussion : patient was instructed on safety precaution s including frequent hand washing, social distancing , avoiding touching face with hands, and covering mouth with arm/elbow when coughing or sneezing. the symptoms of Covid 19 were reviewed and the patient was instructed on when to self quarantine , when to call the PCP, and when to seek emergency care. Systolic murmur 63634551 R01.1 - declines echo today - does not know what it is, but sounds? minimal - rec echo after next visit - declined today Bilateral cataracts 9572 2004 H26.9 Done recently and doing well Blood in urine 83725406 R31.9 She had trace blood in the urine past visits.no UTI symptomsch ecking Screening mammography of bilateral breasts 0427680926 65411 Z12.31 not interested Tobacco non-user [id number] 001 09914 Z13.89 never a smoker Ex-drinker 53791302 F10. 21 long time ago Active or passive immunization 844744423 Z23 Encouraged to get shingles and pneumococc alYearly flu and COVID boostersTD AP every 10 years Mixed hyperlipidemia 267 505146 E78.2 68385 Medication : atorvastat in 40mg Labs done on 08/07/2024 Triglyceri charmaine: 86Choleste rol:121LDL :55HDL:49 Reports compliance Denies any SE to the medication continue current regimen as directed. Patient is advised on low fat, low calorie diet, weight loss and regular exercise. Also advised on medication compliance and regular labs every 3 months. Vitamin D deficiency 347 95871 E55.9 vitamin D level: 28 Lab done on 08/07/2024 Medication : nonePrescr iption: none What You Can Do to Increase Vitamin D LevelsIncr ease Sunlight Exposure Aim for 15-30 minutes of midday sun (without sunscreen) on bare skin (face, arms, or legs) several times a week.If you live in a region with limited sunlight, supplement ation is often necessary. Eat More Vitamin D-Rich Foods Fatty Fish ([place], Mackerel, Tuna, Sardines)E gg YolksForti fied Foods (Milk, Thomas Juice, Cereals, Plant-base d Milk)Mushr ooms (Sun-expos ed varieties like Maitake & Shiitake)C od Liver Oil (Very high in Vitamin D)Consider a Vitamin D Supplement Vitamin D3 (cholecalc iferol) is preferred over D2 for better absorption .Typical dosage for deficiency : 2438-7429 IU daily (Check with a doctor for the right dose).Pair with Vitamin K2 & Magnesium Vitamin K2 helps direct calcium to bones (found in fermented foods, dairy, and natto).Mag nesium helps activate Vitamin D (found in nuts, seeds, and leafy greens). Pulmonary emphysema 8743 3001 J43.9 [id number] Ted Torrez MD [address] [place] [address] 05/07/2025 10:55:05 05/07/2025 13:26:21 Coronary arteriosclerosis 76412557 I25.10 [id number] #CAD: past medical history of obstructiv e coronary artery disease status post PCI with a drug-eludi ng stent to the LAD on December 26, 2020 at [facility] Lipid control: atorvastat in 40mgAC: Brilinta 90mg stopped December 26tente d coronary arteryabno rmal stress testFollow ing cardiology The patient is stable and asymptomat ic. The patient is to continue low-dose aspirin for secondary prevention . The patient has been counseled regarding heart healthy diet and exercise. Last visit with cards : Dr. Garner 22 November Screening for malignant neoplasm of colon 133302369 Z12.11 cologuard negative 12/2021, recheck in 2024 Screening mammography 24 536867 Z12.31 DECLINES Cough 54897289 R05.9 chronic cough since march She was seen here for pre-op. LDCT ordered due to her chronic cough for the past weeks. Her surgery has been postponedC XR was negative. She is here to go over the LDCT resultsShe denies any hemoptysis , weight loss LDCT as follows:Mi ld emphysemat ous lung disease. No acute chest finding.In terval placement of left anterior descending coronary artery stent. She is treated with zpak. She feels much better today Thyroid nodule 884967115 E04.1 Recent LDCT showed a noduleTHYR OID: There is a 1.8 cm nodule in the superior mediastinu m on series 2 image 26 which isinferior to the thyroid isthmus which may be on the basis of a exophytic thyroid nodule. Itmeasures 48 Hounsfield units internal density. This is unchanged from CT of the chest dated2020 EKG: T wave abnormal 164 296665 R94.31 new changes on EKG borderline st dep ov 0.5 t wave inversion on lateral leads and ASA Metoprolol , Nitro (if use this to ER) ETT fairly quickly new changes since Jan 2019 Type 2 tony betes mellitus 49147490 E11.9 Medication s: metformin 500mg bid Reports compliance to medication s and dietDenies any hypoglycem ic episodesDe nies any SE to medication s Recent labs done on: 025- A1C: 6.3- BS: 5- microalbum in: not testedEndo referral and f/u: none Current Symptoms: noneMicrov ascular complicati ons: None Macrovascu lar complicati ons: none [place] exam: [place], [place] [facility] foot exam: self check advisedLas t dental exam: encouraged to find anew dentist O n ACEi/ARB yesOn appropriat e statin if indicatedY es Management :Medicatio ns: continue current medication s. Lifestyle Modificati ons: Dietary advice, exercise recommenda tions, weight management . Monitoring : Home blood glucose monitoring , frequency of HbA1c checks. Education: Discussed the importance of glycemic control, potential complicati ons, and adherence to the treatment plan. Specialist Referrals: Referral to endocrinol ogist, ophthalmol ogist, or nephrologi st if indicated Follow-Up: Schedule follow-up visit in 3 months or sooner for lab f/u Hypertensive disorder 38 050830 I10 BP: 128/80Medi cation: metoprolol succinate ER 25mg and lisinopril 10mgDenies any SE. Reports compliance Plan:- Medication management : Continue current regimen- Encourage the patient to adopt a heart-heal thy diet rich in fruits, vegetables , and whole grains, and to reduce sodium intake.- Recommend regular aerobic exercise for at least 30 minutes a day, five days a week.- Advise the patient to limit alcohol intake and quit smoking if applicable . Monitoring : continue home BP monitoring Education: Provide patient education on the importance of medication adherence, lifestyle modificati ons, and the risks associated with uncontroll ed hypertensi on. follow up:- BP will be re-evaluat ed again in the f/u appointmen t.- regular labs and f/u stop lisinopril (cough)sta rt losartan 50mgrechec k with labs in a month Body mass index 30+ - obesity 164799606 Z68.31 Counseled on the Mediterran john diet: Daily consumptio n of vegetables , fruits, whole grains and healthy fats Weekly intake of fish, poultry, beans and eggs Moderate portions of dairy products Limited intake of red meat Focus on meal prep times, portion size and avoid processed foods. Snacks on carrots, apples, hard fruits and veggies. Counseled on the recommenda tions of weekly exercise to include daily aerobic exercise of atleast 20min. Active jobs do not count for this and it requires actually formalized exercise time, i.e. walking program which can be done inside or outside in any weather. Also should do some type of simple stretching /strengthe willie program. Total weekly exercise should be >=150min. Cardiovasc ular stress test abnormal 164405492 R94.39 CARDS [facility] medical history of obstructiv e coronary artery disease status post PCI with a drug-eluti ng stent to the LAD on December 26, 2020 at [facility] Pigmented skin lesion 20 7835451 L81.9 not interested in dermbirthm ark Stented co ronary artery 381444864 Z95.5 Not taking any nitro anymoreNo chest pain Anxiety 39669506 F41.9 stable Screening for malignant neoplasm of cervix 143048653 Z12.4 Not interested in seeing a PENSION AGENT now Body mass index 25-29 - overweight 112821847 Z68.25 stable Exposure t o SARS-CoV-2 423790515 Z20.828 Covid-19 discussion : patient was instructed on safety precaution s including frequent hand washing, social distancing , avoiding touching face with hands, and covering mouth with arm/elbow when coughing or sneezing. the symptoms of Covid 19 were reviewed and the patient was instructed on when to self quarantine , when to call the PCP, and when to seek emergency care. Systolic murmur 91353392 R01.1 - declines echo today - does not know what it is, but sounds? minimal - rec echo after next visit - declined today Bilateral cataracts 9572 2004 H26.9 Done recently and doing well Blood in urine 11044892 R31.9 She had trace blood in the urine past visits.no UTI symptomsch ecking Screening mammography of bilateral breasts 3059126692 68032 Z12.31 not interested Tobacco non-user 4672831 001 95640 Z13.89 never a smoker Ex-drinker 58777745 F10. 21 long time ago Active or passive immunization 184372146 Z23 Encouraged to get shingles and pneumococc alYearly flu and COVID boostersTD AP every 10 years Mixed hyperlipidemia 267 013439 E78.2 81176 Medication : atorvastat in 40mg Labs done on 08/07/2024 Triglyceri charmaine: 86Choleste rol:121LDL :55HDL:49 Reports compliance Denies any SE to the medication continue current regimen as directed. Patient is advised on low fat, low calorie diet, weight loss and regular exercise. Also advised on medication compliance and regular labs every 3 months. Vitamin D deficiency 347 36319 E55.9 vitamin D level: 28 Lab done on 08/07/2024 Medication : nonePrescr iption: none What You Can Do to Increase Vitamin D LevelsIncr ease Sunlight Exposure Aim for 15-30 minutes of midday sun (without sunscreen) on bare skin (face, arms, or legs) several times a week.If you live in a region with limited sunlight, supplement ation is often necessary. Eat More Vitamin D-Rich Foods Fatty Fish ([place], Mackerel, Tuna, Sardines)E gg YolksForti fied Foods (Milk, Thomas Juice, Cereals, Plant-base d Milk)Mushr ooms (Sun-expos ed varieties like Maitake & Shiitake)C od Liver Oil (Very high in Vitamin D)Consider a Vitamin D Supplement Vitamin D3 (cholecalc iferol) is preferred over D2 for better absorption .Typical dosage for deficiency : 4206-9471 IU daily (Check with a doctor for the right dose).Pair with Vitamin K2 & Magnesium Vitamin K2 helps direct calcium to bones (found in fermented foods, dairy, and natto).Mag nesium helps activate Vitamin D (found in nuts, seeds, and leafy greens). Pulmonary emphysema 8743 3001 J43.9 6850480 LDCT: mild emphysema [id number] Ted Torrez MD [address] [address] 05/09/2025 13:14:49 05/09/2025 15:49:17 Coronary arteriosclerosis 23731344 I25.10 [id number] #CAD: past medical history of obstructiv e coronary artery disease status post PCI with a drug-eludi ng stent to the LAD on December 26, 2020 at [facility] Lipid control: atorvastat in 40mgAC: Brilinta 90mg stopped December 26tente d coronary arteryabno rmal stress testFollow ing cardiology The patient is stable and asymptomat ic. The patient is to continue low-dose aspirin for secondary prevention . The patient has been counseled regarding heart healthy diet and exercise. Last visit with cards : Dr. Garner 22 November Screening for malignant neoplasm of colon 120168497 Z12.11 cologuard negative 12/2021, recheck in 2024 Screening mammography 24 836056 Z12.31 DECLINES Cough 48208545 R05.9 chronic cough since march She was seen here for pre-op. LDCT ordered due to her chronic cough for the past weeks. Her surgery has been postponedC XR was negative. She is here to go over the LDCT resultsShe denies any hemoptysis , weight loss LDCT as follows:Mi ld emphysemat ous lung disease. No acute chest finding.In terval placement of left anterior descending coronary artery stent. She is treated with zpak. She feels much better today Thyroid nodule 732617091 E04.1 Recent LDCT showed a noduleTHYR OID: There is a 1.8 cm nodule in the superior mediastinu m on series 2 image 26 which isinferior to the thyroid isthmus which may be on the basis of a exophytic thyroid nodule. Itmeasures 48 Hounsfield units internal density. This is unchanged from CT of the chest dated2020 EKG: T wave abnormal 164 682684 R94.31 new changes on EKG borderline st dep ov 0.5 t wave inversion on lateral leads and ASA Metoprolol , Nitro (if use this to ER) ETT fairly quickly new changes since Jan 2019 Type 2 tony betes mellitus 35297199 E11.9 Medication s: metformin 500mg bid Reports compliance to medication s and dietDenies any hypoglycem ic episodesDe nies any SE to medication s Recent labs done on: 025- A1C: 6.3- BS: 5- microalbum in: not testedEndo referral and f/u: none Current Symptoms: noneMicrov ascular complicati ons: None Macrovascu lar complicati ons: none [place] exam: [place], [place] [facility] foot exam: self check advisedLas t dental exam: encouraged to find anew dentist O n ACEi/ARB yesOn appropriat e statin if indicatedY es Management :Medicatio ns: continue current medication s. Lifestyle Modificati ons: Dietary advice, exercise recommenda tions, weight management . Monitoring : Home blood glucose monitoring , frequency of HbA1c checks. Education: Discussed the importance of glycemic control, potential complicati ons, and adherence to the treatment plan. Specialist Referrals: Referral to endocrinol ogist, ophthalmol ogist, or nephrologi st if indicated Follow-Up: Schedule follow-up visit in 3 months or sooner for lab f/u Hypertensive disorder 38 405021 I10 BP: 128/80Medi cation: metoprolol succinate ER 25mg and chlorthali done 25Denies any SE. Reports compliance Plan:- Medication management : Continue current regimen- Encourage the patient to adopt a heart-heal thy diet rich in fruits, vegetables , and whole grains, and to reduce sodium intake.- Recommend regular aerobic exercise for at least 30 minutes a day, five days a week.- Advise the patient to limit alcohol intake and quit smoking if applicable . Monitoring : continue home BP monitoring Education: Provide patient education on the importance of medication adherence, lifestyle modificati ons, and the risks associated with uncontroll ed hypertensi on. follow up:- BP will be re-evaluat ed again in the f/u appointmen t.- regular labs and f/u stop lisinopril (cough)sta rt losartan 50mg, did not work, stopstarte d chlorthali done Body mass index 30+ - obesity 480292539 Z68.31 Counseled on the Mediterran john diet: Daily consumptio n of vegetables , fruits, whole grains and healthy fats Weekly intake of fish, poultry, beans and eggs Moderate portions of dairy products Limited intake of red meat Focus on meal prep times, portion size and avoid processed foods. Snacks on carrots, apples, hard fruits and veggies. Counseled on the recommenda tions of weekly exercise to include daily aerobic exercise of atleast 20min. Active jobs do not count for this and it requires actually formalized exercise time, i.e. walking program which can be done inside or outside in any weather. Also should do some type of simple stretching /strengthe willie program. Total weekly exercise should be >=150min. Cardiovasc ular stress test abnormal 201112603 R94.39 CARDS [facility] medical history of obstructiv e coronary artery disease status post PCI with a drug-erika ng stent to the LAD on December 26, 2020 at [facility] Pigmented skin lesion 20 9375269 L81.9 not interested in dermbirthm ark Stented co ronary artery 575260338 Z95.5 Not taking any nitro anymoreNo chest pain Anxiety 65633046 F41.9 stable Screening for malignant neoplasm of cervix 962987953 Z12.4 Not interested in seeing a PENSION AGENT now Body mass index 25-29 - overweight 106364830 Z68.25 stable Exposure t o SARS-CoV-2 843817836 Z20.828 Covid-19 discussion : patient was instructed on safety precaution s including frequent hand washing, social distancing , avoiding touching face with hands, and covering mouth with arm/elbow when coughing or sneezing. the symptoms of Covid 19 were reviewed and the patient was instructed on when to self quarantine , when to call the PCP, and when to seek emergency care. Systolic murmur 48554876 R01.1 - declines echo today - does not know what it is, but sounds? minimal - rec echo after next visit - declined today Bilateral cataracts 9572 2003 H26.9 Done recently and doing well Blood in urine 79239769 R31.9 She had trace blood in the urine past visits.no UTI symptomsch ecking Screening mammography of bilateral breasts 7811716506 71908 Z12.31 not interested Tobacco non-user 7008550 001 13529 Z13.89 never a smoker Ex-drinker 83780207 F10. 21 long time ago Active or passive immunization 895108215 Z23 Encouraged to get shingles and pneumococc alYearly flu and COVID boostersTD AP every 10 years Mixed hyperlipidemia 267 326496 E78.2 75554 Medication : atorvastat in 40mg Labs done on 08/07/2024 Triglyceri charmaine: 86Choleste rol:121LDL :55HDL:49 Reports compliance Denies any SE to the medication continue current regimen as directed. Patient is advised on low fat, low calorie diet, weight loss and regular exercise. Also advised on medication compliance and regular labs every 3 months. Vitamin D deficiency 347 63017 E55.9 vitamin D level: 28 Lab done on 08/07/2024 Medication : nonePrescr iption: none What You Can Do to Increase Vitamin D LevelsIncr ease Sunlight Exposure Aim for 15-30 minutes of midday sun (without sunscreen) on bare skin (face, arms, or legs) several times a week.If you live in a region with limited sunlight, supplement ation is often necessary. Eat More Vitamin D-Rich Foods Fatty Fish ([place], Mackerel, Tuna, Sardines)E gg YolksForti fied Foods (Milk, Thomas Juice, Cereals, Plant-base d Milk)Mushr ooms (Sun-expos ed varieties like Maitake & Shiitake)C od Liver Oil (Very high in Vitamin D)Consider a Vitamin D Supplement Vitamin D3 (cholecalc iferol) is preferred over D2 for better absorption .Typical dosage for deficiency : 0105-6042 IU daily (Check with a doctor for the right dose).Pair with Vitamin K2 & Magnesium Vitamin K2 helps direct calcium to bones (found in fermented foods, dairy, and natto).Mag nesium helps activate Vitamin D (found in nuts, seeds, and leafy greens). Pulmonary emphysema 8743 3001 J43.9 8700576 LDCT: mild emphysema Health Concerns Section Related Observation LastModified by Organization Detai ls LastModified Time None Recorded Concern Status LastModified by Organization Details LastModified Time None Recorded Payers Encounter Date Sequence Insurance Name Policy Number Policy Lewis Covered Member ID Lewis Member ID Guarantor Name 05/09/2025 1 [place]ICARE [place]: [employer] Fatoumata Hewitt [id number] Fatoumata Hewitt 05/09/2025 2 BS-ID: [employer] [id number] Fatoumata Hewitt [id number] Fatoumata Hewitt Notes Date Note Type Note Provider Name and Address Organization Details Recorded Time 05/09/2025 text/html The patient is a 74 year old female presenting for follow-up on hypertension management. Her current regimen is believed to be ineffective. She is currently taking losartan, which will be discontinued, and she remains on metoprolol 25 mg. She has also been advised to start taking metformin. KATIE Ravi [address] [place] [address], [facility] [address], [place], [address], [place] - PMA/WIP 05/09/2025 15:48:28 OBGyn Episode No OBEpisode recorded.
--- OUTSIDE RECORDS SUMMARY | 2025-05-27 15:32 | XMS_ITS | Continuity of Care Document ---
Author Organization [facility] Address [address] [address] Care Team Providers Care Rn Community Name Role Phone [facility] OTHER [facility] (CARDIOLOGY) OTHER IWONA ROSENBERG Primary Care Provider Assessment Encounter Date Assessment Date Assessment LastModified by Organization Details LastModified Time 05/13/2025 05/13/2025 151/99 150/109 This is a established patient office visit with moderate complexity medical decision-making. time spend 35 minutes Reviewed the tests and lab values. Reviewed specialist consults. Reviewed allergies Reviewed medications and refills given. Answered all of patient's questions Discussed plan of care with patient. Patient is agreeable to the current plan of care. Advised patient to take medications according to the instructions on the label. Consultations and referrals as necessary 1. Type 2 Diabetes Mellitus Diabetes management [...] Care The patient finds the commute from [place] difficult and is actively seeking a new primary care physician closer to her home. As a contingency, a follow-up appointment will be scheduled in three months. The patient was instructed to cancel this appointment if she establishes care with a new provider. 1. Hypertension The patient's home blood pressure readings are elevated, with values of 168/92 mmHg and 161/102 mmHg noted. She is currently on two tablets of losartan 100 mg. She was provided with instructions for accurate home blood pressure measurement, which include resting quietly for five minutes before taking a reading. A follow-up call is scheduled for later today to obtain a new reading. 2. Continuity of Care The patient requires her medical records to be sent to [facility] to establish new primary care. Staff member Argenis will contact the patient to facilitate a signed release of information. This is a established patient office visit [...] Care The patient finds the commute from [place] difficult and is actively seeking a new [...] patient was instructed to begin taking metformin. 1. Hypertension The patient reports elevated home blood pressure readings of 151/99 mmHg and 160/109 mmHg, despite being on metoprolol and a diuretic. Due to persistent hypertension, amlodipine will be added to her medication regimen. She will continue to monitor her blood pressure at home, with a follow-up call scheduled in one week to assess her response to the new medication. 2. Abnormal weight gain The patient noted an increase in her weight to 193.6 pounds, which may be a contributing factor to her elevated blood pressure. Not available 05/13/2025 15:24:01 Plan of Treatment Reminders Order Date Submit Date Provider Last Modified By Organization Details Last Modified Time Details Appointments None recorded. Lab None recorded. Referral None recorded. Procedures None recorded. Surgeries None recorded. Imaging None recorded. Medication Orders amlodipine 5 mg tablet 2024 025 [facility][id number], [address] [facility] [place], [address], 15:22:41 Patient TargetsNo targets recorded. Patient Instructions Encounter Date Encounter Id Patient Instructions Last Modified By Organization Details Last Modified Time 05/13/2025 [id number] - You will start a new medication for your blood pressure called amlodipine. - Continue to take your other medications, including metoprolol, the water pill, and metformin. - Keep checking your blood pressure at home and write down the numbers. - The pharmacy will have your new prescription ready today, and you can pick it up tomorrow. - Expect a follow-up call from the doctor's office next Tuesday to check on how you are doing with the new medication. Not available 05/13/2025 15:24:01 Please note: Parts of this encounter note have been generated by AI based on audio conversation. Patient consent was required prior to utilizing this technology. Content review was required prior to finalizing the note. Not available 05/13/2025 15:24:01 Reason for Referral None Reported. Results Created Date Observation Date Name Description Value Unit Range Abnormal Flag Note LastModifiedBy Organization Detail LastModifiedTime 04/22/2004/22/2025 HEMOG LOBIN A1C hemoglobin A1C 7.0 % 4.4-6. 3 high Metho dolog y korey e to enzym atic HbA1c metho d. Refer ence range s and resul ts allen jimy to previ ous metho d. Not Available [address], [address], 04/22/2025 12:05:32 04/22/2004/22/2025 COMPR EHENS SUZIE METAB OLIC PANEL sodium 141 mEq/L 133-14 5 normal Not Available [address], [address], 04/22/2025 12:21:53 04/22/2004/22/2025 COMPR EHENS SUZIE METAB OLIC PANEL potassium 4.5 mEq/L 3.5-5. 1 normal Not Available [address], [address], 04/22/2025 12:21:53 04/22/20 25 04/22/2025 COMPR EHENS SUZIE METAB OLIC PANEL chloride 106 mEq/L 98-112 normal Not Available [address], [address], 04/22/2025 12:21:53 04/22/20 25 04/22/2025 COMPR EHENS SUZIE METAB OLIC PANEL carbon dioxide 24 mEq/L 22-31 normal Not Available [address], [address], 04/22/2025 12:21:53 04/22/20 25 04/22/2025 COMPR EHENS SUZIE METAB OLIC PANEL anion gap 11 mEq/L 5-15 normal Not Available [address], [address], 04/22/2025 12:21:53 04/22/20 25 04/22/2025 COMPR EHENS SUZIE METAB OLIC PANEL blood urea nitrogen (BUN) 11 mg/dL 10-20 normal Not Available [address], [address], 04/22/2025 12:21:53 04/22/20 25 04/22/2025 COMPR EHENS SUZIE METAB OLIC PANEL creatinine 0.75 mg/dL 0.50-1 .02 normal Not Available [address], [address], 04/22/2025 12:21:53 04/22/2004/22/2025 COMPR EHENS SUZIE METAB OLIC PANEL est.glomerul [...] G5 (kidn ey failu re). Not Available [address], [address], 04/22/2025 12:21:53 04/22/2004/22/2025 COMPR EHENS SUZIE METAB OLIC PANEL glucose 100 mg/dL 70-100 normal Fasti ng Refer ence Inter diony: 70-10 0mg/d L Non-f astin g Refer ence Inter diony: 70-14 0mg/d L Not Available [address], [address], 04/22/2025 12:21:53 04/22/20 25 04/22/2025 COMPR EHENS SUZIE METAB OLIC PANEL calcium 9.3 mg/dL 8.4-10 .4 normal Not Available [address], [address], 04/22/2025 12:21:53 04/22/20 25 04/22/2025 COMPR EHENS SUZIE METAB OLIC PANEL bilirubin total 0.6 mg/dL 0.3-1. 2 normal Not Available [address], [address], 04/22/2025 12:21:53 04/22/20 25 04/22/2025 COMPR EHENS SUZIE METAB OLIC PANEL aspartate amino transferase 17 IU/L 11-34 normal Not Available [address], [address], 04/22/2025 12:21:53 04/22/2004/22/2025 COMPR EHENS SUZIE METAB OLIC PANEL alanine aminotransfe rase 14 IU/L <34 Not Available [address], [address], 04/22/2025 12:21:53 04/22/20 25 04/22/2025 COMPR EHENS SUZIE METAB OLIC PANEL total protein 7.5 g/dL 5.8-8. 1 normal Not Available [address], [address], 04/22/2025 12:21:53 04/22/2004/22/2025 COMPR EHENS SUZIE METAB OLIC PANEL albumin 4.0 g/dL 2.5-5. 0 normal Not Available [address], [address], 04/22/2025 12:21:53 04/22/20 25 04/22/2025 COMPR EHENS SUZIE METAB OLIC PANEL alkaline phosphatase 117 IU/L 40-150 normal Not Available [address], [address], 04/22/2025 12:21:53 04/22/20 25 04/22/2025 LIPID PANEL triglyceride s 117 mg/dL normal Audra l <=150 Audra l 150-1 99 Borde rline High 200-4 99 High >=500 Very High Not Available [address], [address], 04/22/2025 12:21:54 04/22/2004/22/2025 LIPID PANEL cholesterol 128 mg/dL normal Keenan able <200 Keenan able 200-2 39 Borde rline High >=240 High Not Available [address], [address], 04/22/2025 12:21:54 04/22/20 25 04/22/2025 LIPID PANEL LDL cholesterol calculated 64 mg/dL normal Optim al <100 Optim al 100-1 29 Near optim al 130-1 59 Borde rline High 160-1 89 High >=190 Very High Not Available [address], [address], 04/22/2025 12:21:54 04/22/20 25 04/22/2025 LIPID PANEL HDL cholesterol 41 mg/dL <40 Low >=60 Optim al Not Available [address], [address], 04/22/2025 12:21:54 Result Notes None recorded. Problems Name Problem SNOMED Code Status Onset Date Resolution Date Notes Provider Name and Address Organization Details Recorded Time Type 2 diabetes mellitus 50194027 Active 2018 KATIE Ravi [address] [place] [address], [place], [address] , [place] - PMA/WIP 5 15:16:55 Hyperten sive disorder 94967023 Active 2018 Not Available [facility] 2 20:28:52 Body mass index 25-29 - overweig ht 412931179 Completed 201811/12/2020 Aleks diaz [place] - PMA/WIP 1 11:37:29 Cardiova scular stress test abnormal 062478259 Active 2020 Not Available [facility] 2 20:28:52 Body mass index 30+ - obesity 721090551 Active 2020 Not Available [facility] 2 20:28:52 Stented coronary artery 390318844 Active 2020 LAD 95% [facility] December 2020 Not Available [facility] 2 20:28:52 Coronary arterios clerosis 52399744 Active 2020 Not Available [facility] 2 20:28:52 Mixed hyperlip idemia 127701431 Active 2024 KATIE Ravi [address] [place] [address], [place], [address] , [place] - PMA/WIP 5 15:16:53 Problem Notes None recorded. Medical Equipment None Reported. Allergies Allergen ID Allergen Name Allergen Category Reaction Reaction Severity Criticality Documentation Date Start Date Code Code System Note Provider Name and Address Organization Details Recorded Time 7018 lisinopri l medicatio n cough Not available Not available 04/01/2025 81024 RxNorm KATIE Ravi [address] [facility], [address], [place], [address], [facility] - PMA/WIP 5 11:41:23 Medications Name Sig [...] Not Available No t Available Fluzone High-Dose 4120-3483 (PF) 180 mcg/0.5 mL intramusc ular syringe 01/08 completed Not Available Not Available Not Available Vitals None Recorded Social History Question Answer Notes LastModified by Organizat ion Details LastModified Time Tobacco Smoking Status Never Smoker Not Available [facility] 03/20/2020 03:13:01 Do You Have An Advance [...] Or The Highest Degree You Have Received? [id number] Information not available 08/20/2020 Have There Been [...] Immunizations Vaccine Type Date Status Note Provider Austyn lora and Address Organization Details Recorded Time Influenza, adjuvanted, quadrivalent, PF 2 completed KATIE Ravi [address] [place] [address], [address], [place], [address], [place] - PMA/WIP 01/24/2023 12:50:11 COVID-19, mRNA, LNP-S, bivalent, PF, 30 mcg/0.3 mL dose 2 completed KATIE Ravi [address] [place] [address], [place], [address], [facility] - PMA/WIP 04/01/2025 11:37:14 pneumococcal polysaccharide PPV23 9 completed Iwona Rosenberg [place] [address], [place], [address], [place] - PMA/WIP 04/01/2025 11:37:14 Influenza, split virus, quadrivalent, preservative 9 completed Iwona Rosenberg [address], [place] [address], [place], [address], [place] - PMA/WIP 04/01/2025 11:37:14 influenza nasal, unspecified formulation 4 completed Ernestina Otto null, [place] - PMA/WIP 06/27/2024 13:14:39 SARS-COV-2 (COVID-19) vaccine, UNSPECIFIED 4 completed Ernestina Otto null, [place] - PMA/WIP 06/27/2024 13:14:49 Influenza, split virus, quadrivalent, preservative 0 completed Iwona Rosenberg [address] [place] [address], [place], [address], [place] - PMA/WIP 06/17/2023 16:03:45 COVID-19, mRNA, LNP-S, PF, 30 mcg/0.3 mL dose 1 completed Not Available [facility] 05/20/2025 08:08:59 COVID-19, mRNA, LNP-S, PF, 30 mcg/0.3 mL dose 1 completed Not Available [facility] 05/20/2025 08:08:59 Influenza, high-dose, quadrivalent, PF 3 completed Not Available [facility] 05/20/2025 08:08:59 Influenza, high-dose, trivalent, PF 5 completed Not Available [facility] 05/20/2025 08:08:59 COVID-19, mRNA, LNP-S, PF, 30 mcg/0.3 mL dose 1 completed Not Available [facility] 05/20/2025 08:08:59 Influenza, high-dose, quadrivalent, PF 1 completed Not Available [facility] 05/20/2025 08:08:59 COVID-19, mRNA, LNP-S, PF, mary-sucrose, 30 mcg/0.3 mL 5 completed Not Available [facility] 05/20/2025 08:08:59 Influenza, high-dose, trivalent, PF 8 completed Not Available [facility] 05/20/2025 08:08:59 Pneumococcal conjugate PCV 13 8 completed Not Available [facility] 05/20/2025 08:08:59 Influenza, split virus, quadrivalent, PF 9 completed KATIE Ravi [address] [place] [address], [place], [address], [facility] - PMA/WIP 04/01/2025 11:37:14 Past Encounters Encounter ID Performer Location Encounter Start Date Encounter Closed Date Diagnosis/Indication Diagnosis SNOMED-CT Code Diagnosis ICD10 Code Diagnosis IMO Codes Diagnosis Note [id number] Ted Torrez MD [address] [address] 05/06/2025 11:21:05 05/06/2025 13:18:51 Coronary arteriosclerosis 29262726 I25.10 [id number] #CAD: past medical history of obstructiv e coronary artery disease status post PCI with a drug-eludi ng stent to the LAD on December 26, 2020 at [facility] Lipid control: atorvastat in 40mgAC: Brilinta 90mg stopped December 26tente d coronary arteryabno rmal stress testFollow ing cardiology The patient is stable and asymptomat ic. The patient is to continue low-dose aspirin for secondary prevention . The patient has been counseled regarding heart healthy diet and exercise. Last visit with cards : Dr. Garner 22 November Screening for malignant neoplasm of colon 969916888 Z12.11 cologuard negative 12/2021, recheck in 2024 Screening mammography 24 602446 Z12.31 DECLINES Cough 86317831 R05.9 chronic cough since march She was [...] She feels much better today Thyroid nodule 845220365 E04.1 Recent LDCT showed a noduleTHYR OID: There is a 1.8 cm nodule in the superior mediastinu m on series 2 image 26 which isinferior to the thyroid isthmus which may be on the basis of a exophytic thyroid nodule. Itmeasures 48 Hounsfield units internal density. This is unchanged from CT of the chest dated2020 EKG: T wave abnormal 164 799135 R94.31 new changes on EKG borderline st dep ov 0.5 t wave inversion on lateral leads and ASA Metoprolol , Nitro (if use this to ER) ETT fairly quickly new changes since Jan 2019 Type 2 tony betes mellitus 52578290 E11.9 Medication s: metformin 500mg bid Reports compliance to medication s and dietDenies any hypoglycem ic episodesDe nies any SE to medication s Recent labs done on: 025- A1C: 6.3- BS: 5- microalbum in: not testedEndo referral and f/u: none Current Symptoms: noneMicrov ascular complicati ons: None Macrovascu lar complicati ons: none L ast eye exam: Apr, 2024 huntly eyeLast foot exam: self check advisedLas t [...] sooner for lab f/u Hypertensive disorder 38 866534 I10 BP: 128/80Medi cation: metoprolol succinate ER [...] month Body mass index 30+ - obesity 000555428 Z68.31 Counseled on the Mediterran john diet: [...] be >=150min. Cardiovasc ular stress test abnormal 533897513 R94.[address] medical history of obstructiv e coronary artery disease status post PCI with a drug-jaguti ng stent to the LAD on December 26, 2020 at [facility] Pigmented skin lesion 20 3120663 L81.9 not interested in dermbirthm ark Stented co ronary artery 718185909 Z95.5 Not taking any nitro anymoreNo chest pain Anxiety 35147582 F41.9 stable Screening for malignant neoplasm of cervix 956848124 Z12.4 Not interested in seeing a VISUAL MERCHANDISING MANAGER now Body mass index 25-29 - overweight 660091634 Z68.25 stable Exposure t o SARS-CoV-2 370755991 Z20.828 Covid-19 discussion : patient was instructed on safety precaution s including frequent hand washing, social distancing , avoiding touching face with hands, and covering mouth with arm/elbow when coughing or sneezing. the symptoms of Covid 19 were reviewed and the patient was instructed on when to self quarantine , when to call the PCP, and when to seek emergency care. Systolic murmur 59776244 R01.1 - declines echo today - does not know what it is, but sounds? minimal - rec echo after next visit - declined today Bilateral cataracts 9572 2004 H26.9 Done recently and doing well Blood in urine 44072200 R31.9 She had trace blood in the urine past visits.no UTI symptomsch ecking Screening mammography of bilateral breasts 4572313561 18703 Z12.31 not interested Tobacco non-user 2713784 001 12991 Z13.89 never a smoker Ex-drinker 60611842 F10. 21 long time ago Active or passive immunization 060004650 Z23 Encouraged to get shingles and pneumococc alYearly flu and COVID boostersTD AP every 10 years Mixed hyperlipidemia 267 249389 E78.2 73849 Medication : atorvastat in 40mg Labs done on 08/07/2024 Triglyceri charmaine: 86Choleste rol:121LDL :55HDL:49 Reports compliance Denies any SE to the medication continue current regimen as directed. Patient is advised on low fat, low calorie diet, weight loss and regular exercise. Also advised on medication compliance and regular labs every 3 months. Vitamin D deficiency 347 51779 E55.9 vitamin D level: 28 Lab done [...] Eat More Vitamin D-Rich Foods Fatty Fish (Misenheimer, Mackerel, Tuna, Sardines)E gg YolksForti fied Foods (Milk, [place] Juice, Cereals, Plant-base d Milk)Mushr ooms (Sun-expos ed varieties like Maitake & Shiitake)C od Liver Oil (Very high in Vitamin D)Consider a Vitamin D Supplement Vitamin D3 (cholecalc iferol) is preferred over D2 for better absorption .Typical dosage for deficiency : 3547-3336 IU daily (Check with a doctor for the right dose).Pair with Vitamin K2 & Magnesium Vitamin K2 helps direct calcium to bones (found in fermented foods, dairy, and natto).Mag nesium helps activate Vitamin D (found in nuts, seeds, and leafy greens). Pulmonary emphysema 8743 3001 J43.9 [id number] Ted Torrez MD [facility] dimitri [place] [address] [place] [address] 05/07/2025 10:55:05 05/07/2025 13:26:21 Coronary arteriosclerosis 76921436 I25.10 [id number] #CAD: past medical history of obstructiv e coronary artery disease status post PCI with a drug-eludi ng stent to the LAD on December 26, 2020 at [facility] Lipid control: atorvastat in 40mgAC: Brilinta 90mg stopped December 26tente d coronary arteryabno rmal stress testFollow ing cardiology The patient is stable and asymptomat ic. The patient is to continue low-dose aspirin for secondary prevention . The patient has been counseled regarding heart healthy diet and exercise. Last visit with cards : Dr. Garner 22 November Screening for malignant neoplasm of colon 094887844 Z12.11 cologuard negative 12/2021, recheck in 2024 Screening mammography 24 885538 Z12.31 DECLINES Cough 09711735 R05.9 chronic cough since march She was [...] She feels much better today Thyroid nodule 009799558 E04.1 Recent LDCT showed a noduleTHYR OID: There is a 1.8 cm nodule in the superior mediastinu m on series 2 image 26 which isinferior to the thyroid isthmus which may be on the basis of a exophytic thyroid nodule. Itmeasures 48 Hounsfield units internal density. This is unchanged from CT of the chest dated2020 EKG: T wave abnormal 164 203029 R94.31 new changes on EKG borderline st dep ov 0.5 t wave inversion on lateral leads and ASA Metoprolol , Nitro (if use this to ER) ETT fairly quickly new changes since Jan 2019 Type 2 tony betes mellitus 58269786 E11.9 Medication s: metformin 500mg bid Reports compliance to medication s and dietDenies any hypoglycem ic episodesDe nies any SE to medication s Recent labs done on: 025- A1C: 6.3- BS: 5- microalbum in: not testedEndo referral and f/u: none Current Symptoms: noneMicrov ascular complicati ons: None Macrovascu lar complicati ons: none L ast eye exam: Apr, 2024 huntly eyeLast foot exam: self check advisedLas t [...] sooner for lab f/u Hypertensive disorder 38 597490 I10 BP: 128/80Medi cation: metoprolol succinate ER [...] month Body mass index 30+ - obesity 648459957 Z68.31 Counseled on the Mediterran john diet: [...] be >=150min. Cardiovasc ular stress test abnormal 428200527 R94.39 CARDS [facility] medical history of obstructiv e coronary artery disease status post PCI with a drug-eluti ng stent to the LAD on December 26, 2020 at [facility] Pigmented skin lesion 20 9049035 L81.9 not interested in dermbirthm ark Stented co ronary artery 602284322 Z95.5 Not taking any nitro anymoreNo chest pain Anxiety 74547324 F41.9 stable Screening for malignant neoplasm of cervix 893620425 Z12.4 Not interested in seeing a VISUAL MERCHANDISING MANAGER now Body mass index 25-29 - overweight 376090268 Z68.25 stable Exposure t o SARS-CoV-2 765847234 Z20.828 Covid-19 discussion : patient was instructed on safety precaution s including frequent hand washing, social distancing , avoiding touching face with hands, and covering mouth with arm/elbow when coughing or sneezing. the symptoms of Covid 19 were reviewed and the patient was instructed on when to self quarantine , when to call the PCP, and when to seek emergency care. Systolic murmur 50112367 R01.1 - declines echo today - does not know what it is, but sounds? minimal - rec echo after next visit - declined today Bilateral cataracts 9572 2003 H26.9 Done recently and doing well Blood in urine 56488591 R31.9 She had trace blood in the urine past visits.no UTI symptomsch ecking Screening mammography of bilateral breasts 0329384253 57063 Z12.31 not interested Tobacco non-user 7476499 001 69245 Z13.89 never a smoker Ex-drinker 11464273 F10. 21 long time ago Active or passive immunization 935637826 Z23 Encouraged to get shingles and pneumococc alYearly flu and COVID boostersTD AP every 10 years Mixed hyperlipidemia 267 640798 E78.2 55934 Medication : atorvastat in 40mg Labs done on 08/07/2024 Triglyceri charmaine: 86Choleste rol:121LDL :55HDL:49 Reports compliance Denies any SE to the medication continue current regimen as directed. Patient is advised on low fat, low calorie diet, weight loss and regular exercise. Also advised on medication compliance and regular labs every 3 months. Vitamin D deficiency 347 84901 E55.9 vitamin D level: 28 Lab done [...] Eat More Vitamin D-Rich Foods Fatty Fish (Misenheimer, Mackerel, Tuna, Sardines)E gg YolksForti fied Foods (Milk, [place] Juice, Cereals, Plant-base d Milk)Mushr ooms (Sun-expos ed varieties like Maitake & Shiitake)C od Liver Oil (Very high in Vitamin D)Consider a Vitamin D Supplement Vitamin D3 (cholecalc iferol) is preferred over D2 for better absorption .Typical dosage for deficiency : 0494-6805 IU daily (Check with a doctor for the right dose).Pair with Vitamin K2 & Magnesium Vitamin K2 helps direct calcium to bones (found in fermented foods, dairy, and natto).Mag nesium helps activate Vitamin D (found in nuts, seeds, and leafy greens). Pulmonary emphysema 8743 3001 J43.9 2511362 LDCT: mild emphysema [id number] Ted Torrez MD [address] [place] [address] 05/09/2025 13:14:49 05/09/2025 15:49:17 Coronary arteriosclerosis 24665318 I25.10 [id number] #CAD: past medical history of obstructiv e coronary artery disease status post PCI with a drug-eludi ng stent to the LAD on December 26, 2020 at [facility] Lipid control: atorvastat in 40mgAC: Brilinta 90mg stopped December 26tente d coronary arteryabno rmal stress testFollow ing cardiology The patient is stable and asymptomat ic. The patient is to continue low-dose aspirin for secondary prevention . The patient has been counseled regarding heart healthy diet and exercise. Last visit with cards : Dr. Garner 22 November Screening for malignant neoplasm of colon 709353276 Z12.11 cologuard negative 12/2021, recheck in 2024 Screening mammography 24 801086 Z12.31 DECLINES Cough 50577679 R05.9 chronic cough since march She was [...] She feels much better today Thyroid nodule 130003801 E04.1 Recent LDCT showed a noduleTHYR OID: There is a 1.8 cm nodule in the superior mediastinu m on series 2 image 26 which isinferior to the thyroid isthmus which may be on the basis of a exophytic thyroid nodule. Itmeasures 48 Hounsfield units internal density. This is unchanged from CT of the chest dated2020 EKG: T wave abnormal 164 613921 R94.31 new changes on EKG borderline st dep ov 0.5 t wave inversion on lateral leads and ASA Metoprolol , Nitro (if use this to ER) ETT fairly quickly new changes since Jan 2019 Type 2 tony betes mellitus 26586429 E11.9 Medication s: metformin 500mg bid Reports compliance to medication s and dietDenies any hypoglycem ic episodesDe nies any SE to medication s Recent labs done on: 025- A1C: 6.3- BS: 5- microalbum in: not testedEndo referral and f/u: none Current Symptoms: noneMicrov ascular complicati ons: None Macrovascu lar complicati ons: none L ast eye exam: Apr, 2024 huntly eyeLast foot exam: self check advisedLas t [...] sooner for lab f/u Hypertensive disorder 38 678075 I10 BP: 128/80Medi cation: metoprolol succinate ER [...] done Body mass index 30+ - obesity 005633272 Z68.31 Counseled on the Mediterran john diet: [...] be >=150min. 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 the symptoms of Covid 19 were reviewed and the patient was instructed on when to self quarantine , when to call the PCP, and when to seek emergency care. Systolic murmur 61995824 R01.1 - declines echo today - does not know what it is, but sounds? minimal - rec echo after next visit - declined today Bilateral cataracts 9572 2004 H26.9 Done recently and doing well Blood in urine 21725897 R31.9 She had trace blood in the urine past visits.no UTI symptomsch ecking Screening mammography of bilateral breasts [id number] 76767 Z12.31 not interested Tobacco non-user [id number] 001 53478 Z13.89 never a smoker Ex-drinker 38392917 F10. 21 long time ago Active or passive immunization 874132003 Z23 Encouraged to get shingles and pneumococc alYearly flu and COVID boostersTD AP every 10 years Mixed hyperlipidemia 267 639934 E78.2 45347 Medication : atorvastat in 40mg Labs done on 08/07/2024 Triglyceri charmaine: 86Choleste rol:121LDL :55HDL:49 Reports compliance Denies any SE to the medication continue current regimen as directed. Patient is advised on low fat, low calorie diet, weight loss and regular exercise. Also advised on medication compliance and regular labs every 3 months. Vitamin D deficiency 347 77020 E55.9 vitamin D level: 28 Lab done [...] Eat More Vitamin D-Rich Foods Fatty Fish (Misenheimer, Mackerel, Tuna, Sardines)E gg YolksForti fied Foods (Milk, [place] Juice, Cereals, Plant-base d Milk)Mushr ooms (Sun-expos ed varieties like Maitake & Shiitake)C od Liver Oil (Very high in Vitamin D)Consider a Vitamin D Supplement Vitamin D3 (cholecalc iferol) is preferred over D2 for better absorption .Typical dosage for deficiency : 6173-2828 IU daily (Check with a doctor for the right dose).Pair with Vitamin K2 & Magnesium Vitamin K2 helps direct calcium to bones (found in fermented foods, dairy, and natto).Mag nesium helps activate Vitamin D (found in nuts, seeds, and leafy greens). Pulmonary emphysema 8743 3001 J43.9 6192466 LDCT: mild emphysema 66039 MD Sheree Tomlin [place] [address] [place] [address] 05/13/2025 09:53:52 05/14/2025 13:06:35 Coronary arteriosclerosis 29916567 I25.10 [id number] #CAD: past medical history of obstructiv e coronary artery disease status post PCI with a drug-eludi ng stent to the LAD on December 26, 2020 at [facility] Lipid control: atorvastat in 40mgAC: Brilinta 90mg stopped December 262Stente d coronary arteryabno rmal stress testFollow ing cardiology The patient is stable and asymptomat ic. The patient is to continue low-dose aspirin for secondary prevention . The patient has been counseled regarding heart healthy diet and exercise. Last visit with cards : Dr. Garner 22 November Screening for malignant neoplasm of colon 001112358 Z12.11 cologuard negative 12/2021, recheck in 2024 Screening mammography 24 836749 Z12.31 DECLINES Cough 87379238 R05.9 chronic cough since march She was [...] She feels much better today Thyroid nodule 204179790 E04.1 Recent LDCT showed a noduleTHYR OID: There is a 1.8 cm nodule in the superior mediastinu m on series 2 image 26 which isinferior to the thyroid isthmus which may be on the basis of a exophytic thyroid nodule. Itmeasures 48 Hounsfield units internal density. This is unchanged from CT of the chest dated2020 EKG: T wave abnormal 164 122333 R94.31 new changes on EKG borderline st dep ov 0.5 t wave inversion on lateral leads and ASA Metoprolol , Nitro (if use this to ER) ETT fairly quickly new changes since Jan 2019 Type 2 tony betes mellitus 76045141 E11.9 Medication s: metformin 500mg bid Reports compliance to medication s and dietDenies any hypoglycem ic episodesDe nies any SE to medication s Recent labs done on: 025- A1C: 6.3- BS: 5- microalbum in: not testedEndo referral and f/u: none Current Symptoms: noneMicrov ascular complicati ons: None Macrovascu lar complicati ons: none L ast eye exam: Apr, 2024 huntly eyeLast foot exam: self check advisedLas t [...] sooner for lab f/u Hypertensive disorder 38 256488 I10 BP: elevatedMe dication: metoprolol succinate ER 25mg, chlorthali done 25, amlodipine 5mgDenies any SE. Reports compliance Plan:- Medication management [...] f/u appointmen t.- regular labs and f/u Body mass index 30+ - obesity 257724843 Z68.31 Counseled on the Mediterran john diet: [...] be >=150min. 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 the symptoms of Covid 19 were reviewed and the patient was instructed on when to self quarantine , when to call the PCP, and when to seek emergency care. Systolic murmur 06635619 R01.1 - declines echo today - does not know what it is, but sounds? minimal - rec echo after next visit - declined today Bilateral cataracts 9572 2004 H26.9 Done recently and doing well Blood in urine 05956143 R31.9 She had trace blood in the urine past visits.no UTI symptomsch ecking Screening mammography of bilateral breasts 2816632333 70779 Z12.31 not interested Tobacco non-user [id number] 001 71928 Z13.89 never a smoker Ex-drinker 70578906 F10. 21 long time ago Active or passive immunization 071634922 Z23 Encouraged to get shingles and pneumococc alYearly flu and COVID boostersTD AP every 10 years Mixed hyperlipidemia 267 693640 E78.2 83045 Medication : atorvastat in 40mg Labs done on 08/07/2024 Triglyceri charmaine: 86Choleste rol:121LDL :55HDL:49 Reports compliance Denies any SE to the medication continue current regimen as directed. Patient is advised on low fat, low calorie diet, weight loss and regular exercise. Also advised on medication compliance and regular labs every 3 months. Vitamin D deficiency 347 10820 E55.9 vitamin D level: 28 Lab done [...] Eat More Vitamin D-Rich Foods Fatty Fish ([place], Mackerel, Tuna, Sardines)E gg YolksForti fied Foods (Milk, [place] Juice, Cereals, Plant-base d Milk)Mushr ooms (Sun-expos ed varieties like Maitake & Shiitake)C od Liver Oil (Very high in Vitamin D)Consider a Vitamin D Supplement Vitamin D3 (cholecalc iferol) is preferred over D2 for better absorption .Typical dosage for deficiency : 1813-1637 IU daily (Check with a doctor for the right dose).Pair with Vitamin K2 & Magnesium Vitamin K2 helps direct calcium to bones (found in fermented foods, dairy, and natto).Mag nesium helps activate Vitamin D (found in nuts, seeds, and leafy greens). Pulmonary emphysema 8743 3001 J43.9 3810122 LDCT: mild emphysema Health Concerns Section Related Observation LastModified by Organization Jerrellai ls LastModified Time None Recorded Concern Status LastModified by Organization Details LastModified Time None Recorded Payers Encounter Date Sequence Insurance Name Policy Number Policy Lewis Covered Member ID Lewis Member ID Guarantor Name 05/13/2025 1 [place]IC[place] [employer] Fatoumata Hewitt [id number] Fatoumata Hewitt 05/13/2025 2 BCBS-ID: [facility] - [employer] [id number] Fatoumata Hewitt [id number] Fatoumata Hewitt Notes Date Note Type Note Provider Name and Address Organization Details Recorded Time 05/13/2025 text/html The patient is a 74 year old female presenting for follow-up on her elevated blood pressure. She has been monitoring her blood pressure at home and reports recent readings of 151/99 mmHg and 160/109 mmHg. Her current medications include metoprolol, a diuretic, low-dose aspirin, and metformin. She also reports recent weight gain, weighing 193.6 pounds this morning. KATIE Ravi [address], [address], [place], [address], [place] - PMA/WIP 05/13/2025 21:37:34 OBGyn Episode No OBEpisode recorded.
--- OUTSIDE RECORDS SUMMARY | 2025-05-27 15:32 | XMS_ITS | Continuity of Care Document ---
Author Organization TIFFANY [facility]DLE/[facility]urel[facility] Address [address] [address] Care Team Providers Care Rod Mill Tender Name Role Phone [facility] OTHER [phone] [facility] (CARDIOLOGY) OTHER IWONA SUERO Primary Care Provider Assessment Encounter Date Assessment Date Assessment LastModified by Organization Details LastModified Time 05/06/2025 05/06/2025 This is a established patient office visit [...] and referrals as necessary I have spend 45 minutes in reviewing medications, allergies, vaccinations, problems, [...] Care The patient finds the commute from [place] difficult and is actively seeking a new primary care physician closer to her home. As a contingency, a follow-up appointment will be scheduled in three months. The patient was instructed to cancel this appointment if she establishes care with a new provider. Not available 05/06/2025 11:57:57 Plan of Treatment Reminders Order Date Submit Date Provider Last Modified By Organization Details Last Modified Time Details Appointments None recorded. Lab None recorded. Referral None recorded. Procedures None recorded. Surgeries None recorded. Imaging None recorded. Medication Orders albuterol sulfate HFA 90 mcg/actuat ion aerosol inhaler 2024 025 [id number], [address] [place], [address], 11:56:43 losartan 100 mg tablet 2024 025 [id number], [address] [place], [address], 13:57:31 metformin ER 500 mg tablet,ext ended release 24 hr 2024 025 [id number], [address] [place], [address], 11:53:09 OneTouch Verio test strips 2024 025 [id number], [address] [place], [address], 11:54:55 Patient TargetsNo targets recorded. Patient Instructions Encounter Date Encounter Id Patient Instructions Last Modified By Organization Details Last Modified Time 05/06/2025 [id number] - Take 100 mg of losartan every day for your blood pressure. - If you have 50 mg losartan pills left, take two pills at the same time. - Take your metformin medication two times a day for your diabetes. - Get a blood pressure machine to use at home. - Check your blood pressure in the morning when you are resting quietly, and call the office with the results. - Check your blood sugar with your monitor more often. - A new prescription for an inhaler will be sent to your pharmacy for you to use only when you have trouble breathing. - Ask the pharmacist to show you how to use your new inhaler. - We have scheduled a follow-up appointment for you in three months, just in case you need it. - You should look for a new doctor closer to your home in [place]. - If you find a new doctor, please let us know so we can send them your medical records and you can cancel your follow-up appointment. Not available 05/06/2025 11:57:57 Please note: Parts of this encounter note have been generated by AI based on audio conversation. Patient consent was required prior to utilizing this technology. Content review was required prior to finalizing the note. Not available 05/06/2025 11:57:57 Reason for Referral None Reported. Results Created Date Observation Date Name Description Value Unit Range Abnormal Flag Note LastModifiedBy Organization Detail LastModifiedTime 04/22/2004/22/2025 HEMOG LOBIN A1C hemoglobin A1C 7.0 % 4.4-6. 3 high Metho dolog y nair e to enzym atic HbA1c metho d. Refer ence range s and resul ts allen bluele to previ ous metho d. Not Available [address], [address], 04/22/2025 12:05:32 04/22/2004/22/2025 COMPR EHENS SUZIE METAB OLIC PANEL sodium 141 mEq/L 133-14 5 normal Not Available [address], [address], 04/22/2025 12:21:53 04/22/2004/22/2025 COMPR EHENS SUZIE METAB OLIC PANEL potassium 4.5 mEq/L 3.5-5. 1 normal Not Available [address], [address], 04/22/2025 12:21:53 04/22/2004/22/2025 COMPR EHENS SUZIE METAB OLIC PANEL chloride 106 mEq/L 98-112 normal Not Available [address], [address], 04/22/2025 12:21:53 04/22/2004/22/2025 COMPR EHENS SUZIE METAB OLIC PANEL carbon dioxide 24 mEq/L 22-31 normal Not Available [address], [address], 04/22/2025 12:21:53 04/22/20 25 04/22/2025 COMPR EHENS SUZIE METAB OLIC PANEL anion gap 11 mEq/L 5-15 normal Not Available [address], [address], 04/22/2025 12:21:53 04/22/20 25 04/22/2025 COMPR EHENS SUZIE METAB OLIC PANEL blood urea nitrogen (BUN) 11 mg/dL 10-20 normal Not Available [address], [address], 04/22/2025 12:21:53 04/22/20 25 04/22/2025 COMPR EHENS SUZIE METAB OLIC PANEL creatinine 0.75 mg/dL 0.50-1 .02 normal Not Available [address], [address], 04/22/2025 12:21:53 04/22/2004/22/2025 COMPR EHENS SUZIE METAB [...] G5 (kidn ey failu re). Not Available [address], [address], 04/22/2025 12:21:53 04/22/20 25 04/22/2025 COMPR EHENS SUZIE METAB OLIC PANEL glucose 100 mg/dL 70-100 normal Fasti ng Refer ence Inter diony: 70-10 0mg/d L Non-f astin g Refer ence Inter diony: 70-14 0mg/d L Not Available [address], [address], 04/22/2025 12:21:53 04/22/20 25 04/22/2025 COMPR EHENS SUZIE METAB OLIC PANEL calcium 9.3 mg/dL 8.4-10 .4 normal Not Available [address], [address], 04/22/2025 12:21:53 04/22/20 25 04/22/2025 COMPR EHENS SUZIE METAB OLIC PANEL bilirubin total 0.6 mg/dL 0.3-1. 2 normal Not Available [address], [address], 04/22/2025 12:21:53 04/22/20 25 04/22/2025 COMPR EHENS SUZIE METAB OLIC PANEL aspartate amino transferase 17 IU/L 11-34 normal Not Available [address], [address], 04/22/2025 12:21:53 04/22/20 25 04/22/2025 COMPR EHENS SUZIE METAB OLIC PANEL alanine aminotransfe rase 14 IU/L <34 Not Available [address], [address], 04/22/2025 12:21:53 04/22/20 25 04/22/2025 COMPR EHENS SUZIE METAB OLIC PANEL total protein 7.5 g/dL 5.8-8. 1 normal Not Available [address], [address], 04/22/2025 12:21:53 04/22/2004/22/2025 COMPR EHENS SUZIE METAB OLIC PANEL albumin 4.0 g/dL 2.5-5. 0 normal Not Available [address], [address], 04/22/2025 12:21:53 04/22/2004/22/2025 COMPR EHENS SUZIE METAB OLIC PANEL alkaline phosphatase 117 IU/L 40-150 normal Not Available [address], [address], 04/22/2025 12:21:53 04/22/2004/22/2025 LIPID PANEL triglyceride s 117 mg/dL normal Audra l <=150 Audra l 150-1 99 Borde rline High 200-4 99 High >=500 Very High Not Available [address], [address], 04/22/2025 12:21:54 04/22/2004/22/2025 LIPID PANEL cholesterol 128 mg/dL normal Keenan able <200 Keenan able 200-2 39 Borde rline High >=240 High Not Available [address], [address], 04/22/2025 12:21:54 04/22/2004/22/2025 LIPID PANEL LDL cholesterol calculated 64 mg/dL normal Optim al <100 Optim al 100-1 29 Near optim al 130-1 59 Borde rline High 160-1 89 High >=190 Very High Not Available [address], [address], 04/22/2025 12:21:54 04/22/2004/22/2025 LIPID PANEL HDL cholesterol 41 mg/dL <40 Low >=60 Optim al Not Available [address], [address], 04/22/2025 12:21:54 Result Notes None recorded. Problems Name Problem SNOMED Code Status Onset Date Resolution Date Notes Provider Name and Address Organization Details Recorded Time Type 2 diabetes mellitus 52220733 Active 2018 KATIE Ravi [address] [place] [address], [place], [address] , [place] - PMA/WIP 5 15:16:55 Hyperten sive disorder 28331821 Active 2018 Not Available [facility] 2 20:28:52 Body mass index 25-29 - overweig ht 767181754 Completed 201811/12/2020 Aleks Osiris null, [place] - PMA/WIP 1 11:37:29 Cardiova scular stress test abnormal 421525509 Active 2020 Not Available [facility] 2 20:28:52 Body mass index 30+ - obesity 102809432 Active 2020 Not Available [facility] 2 20:28:52 Stented coronary artery 478924586 Active 2020 LAD 95% [facility] December 2020 Not Available [facility] 2 20:28:52 Coronary arterios clerosis 88890249 Active 2020 Not Available [facility] 2 20:28:52 Mixed hyperlip idemia 493235749 Active 2024 KATIE Ravi [address] [place] [address], [place], [address] , [place] - PMA/WIP 5 15:16:53 Problem Notes None recorded. Medical Equipment None Reported. Allergies Allergen ID Allergen Name Allergen Category Reaction Reaction Severity Criticality Documentation Date Start Date Code Code System Note Provider Name and Address Organization Details Recorded Time 7018 lisinopri l medicatio n cough Not available Not available 04/01/2025 97368 RxNorm KATIE Ravi [address] [place] [address], [place], [address], [place] - PMA/WIP 5 11:41:23 Medications [...] Not Available Not Available Not Available OneTouch Yasmin Lancets 33 gauge CHECK BLOOD SUGAR ONCE [...] Not Available No t Available Fluzone High-Dose 2351-6915 (PF) 180 mcg/0.5 mL intramusc ular syringe 01/08 completed Not Available Not Available Not Available Vitals Date Recorded Body height Body mass index (BMI) Body weight Oxygen saturation Heart rate Systolic And Diastolic Provider Name and Address Organization Details Last Updated DateTime 5 157.48 cm 37.4 kg/m2 71715 g 96 % 89 /min 150/100 mm[Hg] Marli Oliver-geovanny ach [place] - PMA/WIP 5 11:26:02 Social History Question Answer Notes LastModified by Organizat ion Details LastModified Time Tobacco Smoking Status Never Smoker Not Available [facility] 03/20/2020 03:13:01 Do You Have An Advance [...] Or The Highest Degree You Have Received? DV29646-0 Information not available 08/20/2020 Have There Been [...] adjuvanted, quadrivalent, PF 2 completed KATIE Ravi [address] [place] [address], [place], [address], [place] - PMA/WIP 01/24/2023 12:50:11 COVID-19, mRNA, LNP-S, bivalent, PF, 30 mcg/0.3 mL dose 2 completed KATIE Ravi [address] [place] [address], [place], [address], [place] - PMA/WIP 04/01/2025 11:37:14 pneumococcal polysaccharide PPV23 9 completed KATIE Ravi [address] [place] [address], [place], [address], [place] - PMA/WIP 04/01/2025 11:37:14 Influenza, split virus, quadrivalent, preservative 9 completed KATIE Ravi [address] [place] [address], [place], [address], [place] - PMA/WIP 04/01/2025 11:37:14 influenza nasal, unspecified formulation 4 completed Ernestina Otto null, [place] - PMA/WIP 06/27/2024 13:14:39 SARS-COV-2 (COVID-19) vaccine, UNSPECIFIED 4 completed Ernestina Otto null, [place] - PMA/WIP 06/27/2024 13:14:49 Influenza, split virus, quadrivalent, preservative 0 completed KATIE Ravi [address] [place] [address], [place], [address], [place] - PMA/WIP 06/17/2023 16:03:45 COVID-19, mRNA, LNP-S, PF, 30 mcg/0.3 mL dose 1 completed Not Available [facility] 05/20/2025 08:08:59 COVID-19, mRNA, LNP-S, PF, 30 mcg/0.3 mL dose 1 completed Not Available [facility] 05/20/2025 08:08:59 Influenza, high-dose, quadrivalent, PF 3 completed Not Available [facility] 05/20/2025 08:08:59 Influenza, high-dose, trivalent, PF 5 completed Not Available [facility] 05/20/2025 08:08:59 COVID-19, mRNA, LNP-S, PF, 30 mcg/0.3 mL dose 1 completed Not Available [facility] 05/20/2025 08:08:59 Influenza, high-dose, quadrivalent, PF 1 completed Not Available [facility] 05/20/2025 08:08:59 COVID-19, mRNA, LNP-S, PF, mary-sucrose, 30 mcg/0.3 mL 5 completed Not Available [facility] 05/20/2025 08:08:59 Influenza, high-dose, trivalent, PF 8 completed Not Available [facility] 05/20/2025 08:08:59 Pneumococcal conjugate PCV 13 8 completed Not Available [facility] 05/20/2025 08:08:59 Influenza, split virus, quadrivalent, PF 9 completed KATIE Ravi [address] [facility], [address], [place], [address], [place] - PMA/WIP 04/01/2025 11:37:14 Past Encounters Encounter ID Performer Location Encounter Start Date Encounter Closed Date Diagnosis/Indication Diagnosis SNOMED-CT Code Diagnosis ICD10 Code Diagnosis IMO Codes Diagnosis Note [id number] Ted Torrez MD [facility] [address] [facility] [address] [place] [address] 05/06/2025 11:21:05 05/06/2025 13:18:51 Coronary arteriosclerosis 86211894 I25.10 [id number] #CAD: past medical history of obstructiv e coronary artery disease status post PCI with a drug-eludi ng stent to the LAD on December 26, 2020 at [facility] Lipid control: atorvastat in 40mgAC: Brilinta 90mg stopped December 26tente d coronary arteryabno rmal stress testFollow ing cardiology The patient is stable and asymptomat ic. The patient is to continue low-dose aspirin for secondary prevention . The patient has been counseled regarding heart healthy diet and exercise. Last visit with cards : Dr. Garner 22 November Screening for malignant neoplasm of colon 406340235 Z12.11 cologuard negative 12/2021, recheck in 2024 Screening mammography 24 908355 Z12.31 DECLINES Cough 83351881 R05.9 chronic cough since march She was [...] She feels much better today Thyroid nodule 078836787 E04.1 Recent LDCT showed a noduleTHYR OID: There is a 1.8 cm nodule in the superior mediastinu m on series 2 image 26 which isinferior to the thyroid isthmus which may be on the basis of a exophytic thyroid nodule. Itmeasures 48 Hounsfield units internal density. This is unchanged from CT of the chest dated2020 EKG: T wave abnormal 164 721590 R94.31 new changes on EKG borderline st dep ov 0.5 t wave inversion on lateral leads and ASA Metoprolol , Nitro (if use this to ER) ETT fairly quickly new changes since Jan 2019 Type 2 tony betes mellitus 08991651 E11.9 Medication s: metformin 500mg bid Reports compliance to medication s and dietDenies any hypoglycem ic episodesDe nies any SE to medication s Recent labs done on: 025- A1C: 6.3- BS: 5- microalbum in: not testedEndo referral and f/u: none Current Symptoms: noneMicrov ascular complicati ons: None Macrovascu lar complicati ons: none [place] [facility] self check advisedLas t [...] sooner for lab f/u Hypertensive disorder 38 900880 I10 BP: 128/80Medi cation: metoprolol succinate ER [...] month Body mass index 30+ - obesity 593681916 Z68.31 Counseled on the Mediterran john diet: [...] be >=150min. Cardiovasc ular stress test abnormal 564781701 R94.39 CARDS [facility] medical history of obstructiv e coronary artery disease status post PCI with a drug-eluti ng stent to the LAD on December 26, 2020 at [facility] Pigmented skin lesion 20 0516427 L81.9 not interested in dermbirthm ark Stented co ronary artery 995771798 Z95.5 Not taking any nitro anymoreNo chest pain Anxiety 84808985 F41.9 stable Screening for malignant neoplasm of cervix 858940890 Z12.4 Not interested in seeing a SEATING CAPTAIN now Body mass index 25-29 - overweight 955450139 Z68.25 stable Exposure t o SARS-CoV-2 931273868 Z20.828 Covid-19 discussion : patient was instructed on safety precaution s including frequent hand washing, social distancing , avoiding touching face with hands, and covering mouth with arm/elbow when coughing or sneezing. the symptoms of Covid 19 were reviewed and the patient was instructed on when to self quarantine , when to call the PCP, and when to seek emergency care. Systolic murmur 40888684 R01.1 - declines echo today - does not know what it is, but sounds? minimal - rec echo after next visit - declined today Bilateral cataracts 9572 2004 H26.9 Done recently and doing well Blood in urine 72542293 R31.9 She had trace blood in the urine past visits.no UTI symptomsch ecking Screening mammography of bilateral breasts 4311856313 20911 Z12.31 not interested Tobacco non-user 6885227 001 44651 Z13.89 never a smoker Ex-drinker 18006208 F10. 21 long time ago Active or passive immunization 253389937 Z23 Encouraged to get shingles and pneumococc alYearly flu and COVID boostersTD AP every 10 years Mixed hyperlipidemia 267 955033 E78.2 11138 Medication : atorvastat in 40mg Labs done on 08/07/2024 Triglyceri charmaine: 86Choleste rol:121LDL :55HDL:49 Reports compliance Denies any SE to the medication continue current regimen as directed. Patient is advised on low fat, low calorie diet, weight loss and regular exercise. Also advised on medication compliance and regular labs every 3 months. Vitamin D deficiency 347 41536 E55.9 vitamin D level: 28 Lab done [...] Eat More Vitamin D-Rich Foods Fatty Fish (Rio, Mackerel, Tuna, Sardines)E gg YolksForti fied Foods (Milk, Cherry Juice, Cereals, Plant-base d Milk)Mushr ooms (Sun-expos ed varieties like Maitake & Shiitake)C od Liver Oil (Very high in Vitamin D)Consider a Vitamin D Supplement Vitamin D3 (cholecalc iferol) is preferred over D2 for better absorption .Typical dosage for deficiency : 9897-7824 IU daily (Check with a doctor for the right dose).Pair with Vitamin K2 & Magnesium Vitamin K2 helps direct calcium to bones (found in fermented foods, dairy, and natto).Mag nesium helps activate Vitamin D (found in nuts, seeds, and leafy greens). Pulmonary emphysema 8743 3001 J43.9 0863332 Health Concerns Section Related Observation LastModified by Organization Detai ls LastModified Time None Recorded Concern Status LastModified by Organization Details LastModified Time None Recorded Payers Encounter Date Sequence Insurance Name Policy Number Policy Lewis Covered Member ID Lewis Member ID Guarantor Name 05/06/2025 1 MEDICARE B-[place]: [employer] Fatoumata Campbell Marcelina [id number] Fatoumata Adrian Marcelina 05/06/2025 2 BS-ID: [employer] [id number] Fatoumata A Marcelina [id number] Fatoumata Hewitt Notes Date Note Type Note Provider Name and Address Organization Details Recorded Time 05/06/2025 text/html The patient is a 74 year old female presenting for management of her chronic conditions. She has a history of hypertension and is currently taking losartan 50 mg, which she took this morning, and metoprolol. The patient does not monitor her blood pressure at home. Regarding her history of diabetes, her recent Hemoglobin A1c was elevated at 7.0. She takes metformin and checks her blood sugar intermittently but has noticed it has been a little elevated recently. The patient also has a history of a trace of emphysema and is a former smoker. She denies any current problems with breathing. The patient resides in [place] and reports difficulty with the long travel to the clinic, and she is planning to find a new primary care physician closer to her home. KATIE Ravi [address] [facility], [address], [place], [address], [place] - PMA/WIP 05/06/2025 13:15:51 OBGyn Episode No OBEpisode recorded.
--- OUTSIDE RECORDS SUMMARY | 2025-05-27 15:32 | XMS_ITS | Data Portability ---
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 As a contingency, a follow-up appointment will be scheduled in three months. The patient was instructed to cancel this appointment if she establishes care with a new provider. Not available 05/06/2025 11:57:57 05/07/2025 05/07/2025 This is a established patient office visit [...] Care The patient finds the commute from [place] difficult and is actively seeking a new [...] her medical records to be sent to [facility] to establish new primary care. Staff member Argenis will contact the patient to facilitate a signed release of information. Not available 05/07/2025 13:22:15 05/09/2025 05/09/2025 This is a established patient [...] Care The patient finds the commute from [place] difficult and is actively seeking a new [...] begin taking metformin. Not available 05/09/2025 15:48:02 05/13/2025 05/13/2025 151/99 150/109 This is a [...] Care The patient finds the commute from [place] difficult and is actively seeking a new [...] her medical records to be sent to [facility] to establish new primary care. Staff [...] Care The patient finds the commute from [place] difficult and is actively seeking a new [...] elevated blood pressure. Not available 05/13/2025 15:24:01 05/20/2025 05/20/2025 128/92 124/82 ------> 120/94 135/93 121/98 1. Type 2 Diabetes Mellitus Diabetes management [...] Care The patient finds the commute from [place] difficult and is actively seeking a new [...] later today to obtain a new reading. 1. Type 2 Diabetes Mellitus Diabetes management [...] Care The patient finds the commute from [place] difficult and is actively seeking a new [...] contributing factor to her elevated blood pressure. Hypertension: Assessment The patient is a 74-year-old female with hypertension, presenting for chronic management. Her self-monitored blood pressure readings show fluctuating diastolic pressures, with some readings above the target goal, such as 128/92 mmHg and 135/104 mmHg, though one recent reading of 124/83 mmHg was good. Plan The patient was advised to continue monitoring her blood pressure daily. She was counseled on lifestyle modifications including salt intake reduction, weight reduction, and exercise. Refills for all her current medications will be provided to bridge her care until she establishes with a new primary care provider. She was strongly encouraged to schedule an appointment with her new primary care provider as soon as possible. A follow-up call is scheduled with Emma on the at 3:00 PM to review blood pressure readings. Acid indigestion: Assessment The patient reports acid indigestion, which she suspects is related to her diuretic medication. Plan The patient was advised that she can take [id number] Tums for her symptoms. Procedure Documentation: No procedures were performed during the visit. Not available 05/20/2025 15:42:09 Plan of Treatment Reminders Order Date Submit Date Provider Last Modified By Organization Details Last Modified Time Details Appointments None recorded. Lab None recorded. Referral None recorded. Procedures None recorded. Surgeries None recorded. Imaging None recorded. Medication Orders atorvastati n 40 mg tablet 2024 025 [facility], [address] [place], [address], 15:42:01 amlodipine 5 mg tablet 2024 025 [facility], [address] [place], [address], 15:42:00 chlorthalid one 25 mg tablet 2024 [facility], [address] [place], [address], 15:42:01 metformin ER 500 mg tablet,exte nded release 24 hr 2024 025 [facility], [address] [place], [address], 15:42:00 metoprolol succinate ER 25 mg tablet,exte nded release 24 hr 2024 025 [facility], [address] [place], [address], 15:42:00 amlodipine 5 mg tablet 2024 025 [facility], [address] [place], [address], 15:22:41 chlorthalid one 25 mg tablet 2024 025 [facility], [address] [place], [address], 13:59:09 albuterol sulfate HFA 90 mcg/actuati on aerosol inhaler 2024 025 [facility], [address] [place], [address], 13:14:07 albuterol sulfate HFA 90 mcg/actuati on aerosol inhaler 2024 025 [facility] [address] [place], [address], 11:56:43 losartan 100 mg tablet 2024 025 [facility] [address] [place], [address], 13:57:31 metformin ER 500 mg tablet,exte nded release 24 hr 2024 025 [facility] [address] [place], [address], 11:53:09 OneTouch Verio test strips 2024 025 [facility] [address] [place], [address], 11:54:55 Patient TargetsNo targets recorded. Patient Instructions Encounter Date Encounter Id Patient Instructions Last Modified By Organization Details Last Modified Time 05/06/2025 [id number] - Take 100 mg of losartan every [...] new doctor closer to your home in [place]. - If you find a new doctor, [...] finalizing the note. Not available 05/06/2025 11:57:57 05/07/2025 [id number] - To take your blood pressure, put the cuff on, sit quietly for five minutes with your legs touching the floor, and then press the start button. - A member of our staff, Argenis, will call you to help with sending your medical records to [facility]. - Expect a call back around 2 p.m. to check your blood pressure reading. Not available 05/07/2025 13:15:40 Please note: Parts of this encounter note have been generated by AI based on audio conversation. Patient consent was required prior to utilizing this technology. Content review was required prior to finalizing the note. Not available 05/07/2025 13:15:40 05/09/2025 [id number] - Stop taking losartan. - You can tell the pharmacy that your medication was changed and you will not be picking up the losartan that is ready for you. 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 - Start taking metformin. - supervisor slitting and shipping - strepsinol. - Continue checking your blood pressure at home. - Call the office with your blood pressure readings. Not available 05/09/2025 15:46:09 Please note: Parts of this encounter note have been generated by AI based on audio conversation. Patient consent was required prior to utilizing this technology. Content review was required prior to finalizing the note. Not available 05/09/2025 15:46:09 05/13/2025 [id number] - You will start a new medication [...] finalizing the note. Not available 05/13/2025 15:24:01 05/20/2025 [id number] - Continue to check your blood pressure every morning. - Try to reduce the salt in your diet, lose weight, and get some exercise. - You can take Tums for your acid indigestion. - Please call to make an appointment with your new primary care doctor as soon as possible. - We are sending refills for your medications to the pharmacy. - Expect a call from Emma on the at 3:00 PM to check on your blood pressure readings. - Be careful in the cold weather to avoid slipping and falling. - Call us if you have any problems. Not available 05/20/2025 15:42:06 Please note: Parts of this encounter note have been generated by AI based on audio conversation. Patient consent was required prior to utilizing this technology. Content review was required prior to finalizing the note. Not available 05/20/2025 15:42:06 Reason for Referral None Reported. Results Created Date Observation Date Name Description Value Unit Range Abnormal Flag Note LastModifiedBy Organization Detail LastModifiedTime 04/22/2004/22/2025 HEMOG LOBIN A1C hemoglobin A1C 7.0 % 4.4-6. 3 high Metho dolog y korey e to enzym atic HbA1c metho d. Refer ence range s and resul suresh ahn to previ ous metho d. Not Available [address], [address], 04/22/2025 12:05:32 04/22/2004/22/2025 COMPR EHENS SUZIE METAB OLIC PANEL sodium 141 mEq/L 133-14 5 normal Not Available [address], [address], 04/22/2025 12:21:53 04/22/20 25 04/22/2025 COMPR EHENS SUZIE METAB OLIC PANEL potassium 4.5 mEq/L 3.5-5. 1 normal Not Available [address], [address], 04/22/2025 12:21:53 04/22/20 25 04/22/2025 COMPR EHENS SUZIE METAB OLIC PANEL chloride 106 mEq/L 98-112 normal Not Available [address], [address], 04/22/2025 12:21:53 04/22/20 25 04/22/2025 COMPR EHENS SUZIE METAB OLIC PANEL carbon dioxide 24 mEq/L 22-31 normal Not Available [address], [address], 04/22/2025 12:21:53 04/22/2004/22/2025 COMPR EHENS SUZIE METAB OLIC PANEL anion gap 11 mEq/L 5-15 normal Not Available [address], [address], 04/22/2025 12:21:53 04/22/20 25 04/22/2025 COMPR EHENS SUZIE METAB OLIC PANEL blood urea nitrogen (BUN) 11 mg/dL 10-20 normal Not Available [address], [address], 04/22/2025 12:21:53 04/22/20 25 04/22/2025 COMPR EHENS SUZIE METAB OLIC PANEL creatinine 0.75 mg/dL 0.50-1 .02 normal Not Available [address], [address], 04/22/2025 12:21:53 04/22/20 25 04/22/2025 COMPR EHENS SUZIE METAB OLIC PANEL est.glomerul ar filtration rate > 60 Units : mL/mi n/1.7 3 m2 Estim ated GFR (eGFR ) shoul d not be used for patie nts with acute kidne y injur y or ESRD (crea tishain e radhaul d be at stead y state and stabl e to use). eGFR is calcu lated using the Natio nal Kidne y Found ation 2020 CKD-E PI creat inine equat ion, which is now the recom cr d equat ion to estim ate GFR based on creat inine per etta t KDIGO (Kidn ey Disea se Impro [...] G5 (kidn ey failu re). Not Available [address], [address], 04/22/2025 12:21:53 04/22/2004/22/2025 COMPR EHENS SUZIE METAB OLIC PANEL glucose 100 mg/dL 70-100 normal Fasti ng Refer ence Inter diony: 70-10 0mg/d L Non-f astin g Refer ence Inter diony: 70-14 0mg/d L Not Available [address], [address], 04/22/2025 12:21:53 04/22/20 25 04/22/2025 COMPR EHENS SUZIE METAB OLIC PANEL calcium 9.3 mg/dL 8.4-10 .4 normal Not Available [address], [address], 04/22/2025 12:21:53 04/22/2004/22/2025 COMPR EHENS SUZIE METAB OLIC PANEL bilirubin total 0.6 mg/dL 0.3-1. 2 normal Not Available [address], [address], 04/22/2025 12:21:53 04/22/2004/22/2025 COMPR EHENS SUZIE METAB OLIC PANEL aspartate amino transferase 17 IU/L 11-34 normal Not Available [address], [address], 04/22/2025 12:21:53 04/22/20 25 04/22/2025 COMPR EHENS SUZIE METAB OLIC PANEL alanine aminotransfe rase 14 IU/L <34 Not Available [address], [address], 04/22/2025 12:21:53 04/22/20 25 04/22/2025 COMPR EHENS SUZIE METAB OLIC PANEL total protein 7.5 g/dL 5.8-8. 1 normal Not Available [address], [address], 04/22/2025 12:21:53 04/22/20 25 04/22/2025 COMPR EHENS SUZIE METAB OLIC PANEL albumin 4.0 g/dL 2.5-5. 0 normal Not Available [address], [address], 04/22/2025 12:21:53 04/22/20 25 04/22/2025 COMPR EHENS SUZIE METAB OLIC PANEL alkaline phosphatase 117 IU/L 40-150 normal Not Available [address], [address], 04/22/2025 12:21:53 04/22/20 25 04/22/2025 LIPID PANEL triglyceride s 117 mg/dL normal Audra l <=150 Audra l 150-1 99 Borde rline High 200-4 99 High >=500 Very High Not Available [address], [address], 04/22/2025 12:21:54 04/22/20 25 04/22/2025 LIPID PANEL cholesterol 128 mg/dL normal Keenan able <200 Keenan able 200-2 39 Borde rline High >=240 High Not Available [address], [address], 04/22/2025 12:21:54 04/22/20 25 04/22/2025 LIPID PANEL LDL cholesterol calculated 64 mg/dL normal Optim al <100 Optim al 100-1 29 Near optim al 130-1 59 Borde rline High 160-1 89 High >=190 Very High Not Available [address] [place], [address], 04/22/2025 12:21:54 04/22/20 25 04/22/2025 LIPID PANEL HDL cholesterol 41 mg/dL <40 Low >=60 Optim al Not Available [facility] [address] [place], [address], 04/22/2025 12:21:54 Result Notes None recorded. Problems Name Problem SNOMED Code Status Onset Date Resolution Date Notes Provider Name and Address Organization Details Recorded Time Type 2 diabetes mellitus 60104020 Active 2018 [address]ATIE Ravi [address] [place] [address], [place], [address] , [facility] - PMA/WIP 5 15:16:55 Hyperten sive disorder 95469519 Active 2018 Not Available [facility] 2 20:28:52 Body mass index 25-29 - overweig ht 750949312 Completed 201811/12/2020 Miya diaz, [place] - PMA/WIP 1 11:37:29 Cardiova scular stress test abnormal 852128037 Active 2020 Not Available [facility] 2 20:28:52 Body mass index 30+ - obesity 712638911 Active 2020 Not Available [facility] 2 20:28:52 Stented coronary artery 864596878 Active 2020 LAD 95% [facility] December 2020 Not Available [facility] 2 20:28:52 Coronary arterios clerosis 53387727 Active 2020 Not Available [facility] 2 20:28:52 Mixed hyperlip idemia 557253629 Active 2024 KATIE Ravi [address] [facility] [address], [place], [address] , [facility] - PMA/WIP 5 15:16:53 Problem Notes None recorded. Medical Equipment None Reported. Allergies Allergen ID Allergen Name Allergen Category Reaction Reaction Severity Criticality Documentation Date Start Date Code Code System Note Provider Name and Address Organization Details Recorded Time 70 lisinopri l medicatio n cough Not available Not available 04/01/2025 78440 RxNorm KATIE Ravi [address] [facility], [address], [place], [address], [facility] - PMA/WIP 5 11:41:23 Medications Name Sig [...] completed Not Available Not Available Not Available [employer] Hoffman Lancets 33 gauge CHECK BLOOD SUGAR ONCE [...] Not Available No t Available Fluzone High-Dose [id number] (PF) 180 mcg/0.5 mL intramusc ular syringe 01/08 completed Not Available Not Available Not Available Vitals Date Recorded Body height Body mass index (BMI) Body weight Oxygen saturation Heart rate Systolic And Diastolic Provider Name and Address Organization Details Last Updated DateTime 5 157.48 cm 37.4 kg/m2 02252 g 96 % 89 /min 150/100 mm[Hg] Marli Sheikh ach [place] - [facility] 5 11:26:02 Date Recorded Body height Body mass index (BMI) Body weight Oxygen saturation Heart rate Systolic And Diastolic Provider Name and Address Organization Details Last Updated DateTime 5 157.48 cm 36.8 kg/m2 92209.0 7 g 96 % 81 /min 160/100 mm[Hg] Marli Sheikh ach [place] - PMA/WIP 5 13:18:05 Social History Question Answer Notes LastModified by Organizat ion Details LastModified Time Tobacco Smoking Status Never Smoker Not Available [facility] 03/20/2020 03:13:01 Do You Have An Advance [...] Or The Highest Degree You Have Received? [id number] Information not available 08/20/2020 Have There Been [...] adjuvanted, quadrivalent, PF 2 completed KATIE Ravi [address] [place] [address], [place], [address], [place] - PMA/WIP 01/24/2023 12:50:11 COVID-19, mRNA, LNP-S, bivalent, PF, 30 mcg/0.3 mL dose 2 completed KATIE Ravi [address] [place] [address], [place], [address], [place] - P[facility]IP 04/01/2025 11:37:14 pneumococcal polysaccharide PPV23 9 completed KATIE Ravi [address] [place] [address], [place], [address], [place] - PMA/[facility]IP 04/01/2025 11:37:14 Influenza, split virus, quadrivalent, preservative 9 completed KATIE Ravi [address] [place] [address], [place], [address], [place] - PMA/[facility]IP 04/01/2025 11:37:14 influenza nasal, unspecified formulation 4 completed Ernestina Otto null, [place] - P[facility]IP 06/27/2024 13:14:39 SARS-COV-2 (COVID-19) vaccine, UNSPECIFIED 4 completed Ernestina Otto null, [place] - [facility]IP 06/27/2024 13:14:49 Influenza, split virus, quadrivalent, preservative 0 completed KATIE Ravi [address] [place] [address], [place], [address], [place] - PMA/WIP 06/17/2023 16:03:45 COVID-19, mRNA, LNP-S, PF, 30 mcg/0.3 mL dose 1 completed Not Available [facility] 05/20/2025 08:08:59 COVID-19, mRNA, LNP-S, PF, 30 mcg/0.3 mL dose 1 completed Not Available [facility] 05/20/2025 08:08:59 Influenza, high-dose, quadrivalent, PF 3 completed Not Available [facility] 05/20/2025 08:08:59 Influenza, high-dose, trivalent, PF 5 completed Not Available [facility] 05/20/2025 08:08:59 COVID-19, mRNA, LNP-S, PF, 30 mcg/0.3 mL dose 1 completed Not Available [facility] 05/20/2025 08:08:59 Influenza, high-dose, quadrivalent, PF 1 completed Not Available [facility] 05/20/2025 08:08:59 COVID-19, mRNA, LNP-S, PF, mary-sucrose, 30 mcg/0.3 mL 5 completed Not Available [facility] 05/20/2025 08:08:59 Influenza, high-dose, trivalent, PF 8 completed Not Available [facility] 05/20/2025 08:08:59 Pneumococcal conjugate PCV 13 8 completed Not Available [facility] 05/20/2025 08:08:59 Influenza, split virus, quadrivalent, PF 9 completed KATIE Ravi [address] [place] [address], [place], [address], [place] - PMA/WIP 04/01/2025 11:37:14 Past Encounters Encounter ID Performer Location Encounter Start Date Encounter Closed Date Diagnosis/Indication Diagnosis SNOMED-CT Code Diagnosis ICD10 Code Diagnosis IMO Codes Diagnosis Note [id number] MD Sheree Monsivais [address] [place] [address] 08/21/2018 09:12:57 08/22/2018 14:17:40 [id number] MD Sheree Monsivais [address] [place], [place] [address] 12/21/2018 08:42:56 12/25/2018 07:23:31 [id number] MIYA mosley [address] [address] [place] [address] 05/15/2019 08:32:27 05/16/2019 07:52:46 Type 2 diabetes mellitus 93293010 E11.9 Hypertensive disorder 38 453472 I10 Body mass index 25-29 - overweight 022473844 Z68.25 Hyperlipidemia 60126840 E78.5 Systolic murmur 87844154 R01.1 - declines echo today - does not know what it is, but sounds? minimal - rec echo after next visit - declined today [id number] MIYA mosley [place] [address] [place], [place] [address] 09/07/2019 09:52:00 09/07/2019 14:15:04 Type 2 diabetes mellitus 87316096 E11.9 fbs have been excellent with around 100 she had cut back the metformin to 500mg daily and could do a trial of no meds if so check FBS and if < 126 can remain off she perferrs to stay on Hypertensive disorder 38 655940 I10 might consider home bp monitor - last time was okay Exposure t o SARS-CoV-2 330184746 Z20.828 Covid-19 discussion : patient was instructed on safety precaution s including frequent hand washing, social distancing , avoiding touching face with hands, and covering mouth with arm/elbow when coughing or sneezing. the symptoms of Covid 19 were reviewed and the patient was instructed on when to self quarantine , when to call the PCP, and when to seek emergency care. [id number] MIYA mosley [place] [address] [place], [place] [address] 01/09/2020 08:26:27 01/09/2020 19:29:31 Body mass index 25-29 - overweight 261757557 Z68.25 stable Hypertensive disorder 38 984252 I10 might consider home bp monitor - last time was okay okay today as well Type 2 tony betes mellitus 27460426 E11.9 fbs have been excellent with around 100 she had cut back the metformin to 500mg daily and could do a trial of no meds if so check FBS and if < 126 can remain off she prefers to stay on Anxiety 43802318 F41.9 stable with out meds, not a sig issues and sounds just like normal living MIYA Patelisabell [place] [address] [place] [address] 08/20/2020 13:04:23 08/20/2020 17:10:22 Screening mammography 18179405 Z12.31 DECLINES Screening for malignant neoplasm of colon 970729907 Z12.11 may not want to do can EKG: T wave abnormal 164 558006 R94.31 new changes on EKG borderline st dep ov 0.5 t wave inversion on lateral leads and ASA Metoprolol , Nitro (if use this to ER) ETT fairly quickly new changes since Jan 2019 Type 2 tony betes mellitus 33134494 E11.9 a1c okay here today follow closely Hyperlipidemia 22450013 E78.5 lipids not able to Hypertensive disorder 38 997713 I10 might consider home bp monitor - last time was okay okay today as well [id number] MIYA Patellos [facility] [place] [address] [place] [address] 11/12/2020 10:49:46 11/12/2020 12:07:41 Body mass index 30+ - obesity 439388427 Z68.31 Counseled on the Mediterran john diet: [...] be >=150min. Cardiovasc ular stress test abnormal 632912864 R94.39 CARDS managing has upcoming imaging Hypertensive disorder 38 345094 I10 might consider home bp monitor - last time was okay okay today as well Type 2 tony betes mellitus 08411186 E11.9 a1c okay follow closely diet controlled RD consult Hyperlipidemia 81373489 E78.5 lipitor will check next visit Pigmented skin lesion 20 3646308 L81.9 [id number] K[address] Ravi [address] [address] 04/08/2021 08:45:27 04/08/2021 17:25:04 Hypertensive disorder 30224089 I10 On goal today at 120/76Medi cation: Lisinopril 10mg and metoprolol succinate 25mg , continue Type 2 tony betes mellitus 56071878 E11.9 #T2DM:A1C 5.6 on 08/20/2020 Not on any medication s Mixed hyperlipidemia 267 724295 E78.2 #HLD:Medic ations: atorvastat in 40mg, continue Coronary arteriosclerosis 99219748 I25.10 #CAD:LIpid control: atorvastat in 40mgAC: Brilinta 90mgStente d coronary arteryabno rmal stress testFollow ing cardiology Last visit with cards : November 2020Next visit with cards: June 21, 2020 [id number] KATIE Ravi [address] [address] 08/05/2021 08:46:49 08/06/2021 08:34:08 Hypertensive disorder 34552145 I10 On goal today at 120/76Medi cation: Lisinopril 10mg and metoprolol succinate 25mg , continue Type 2 tony betes mellitus 42773475 E11.9 #T2DM:A1C 5.6 on 08/20/2020 Not on any medication s Mixed hyperlipidemia 267 835445 E78.2 #HLD:Medic ations: atorvastat in 40mg, continue Coronary arteriosclerosis 79510394 I25.10 #CAD:LIpid control: atorvastat in 40mgAC: Brilinta 90mg (can stop on December 26)Stent ed coronary arteryabno rmal stress testFollow ing cardiology Last visit with cards : November 2020Next visit with cards: June 21, 2020 [id number] [facility] [address] [place] [address] 12/02/2021 08:44:34 12/04/2021 08:11:13 Coronary arteriosclerosis 26563160 I25.10 #CAD:LIpid control: atorvastat in 40mgAC: Brilinta 90mg (can stop on December 26)Stent ed coronary arteryabno rmal stress testFollow ing cardiology (Rosy staton) Last visit with cards : Jun 2020Next visit with cards: Jun 2021 Body mass index 30+ - obesity 121744544 Z68.31 Still 5 pounds loss Hypertensive disorder 38 438608 I10 On goal today at 120/76Medi cation: Lisinopril 10mg and metoprolol succinate 25mg , continue Stented co ronary artery 617679407 Z95.5 Not taking any nitro anymoreNo chest pain Cardiovasc ular stress test abnormal 057615692 R94.39 following cards Type 2 tony betes mellitus 64123026 E11.9 #T2DM:A1C 5.6 on 08/20/2020 Not on any medication s Anxiety 06018383 F41.9 stable Screening for malignant neoplasm of colon 221719068 Z12.11 Never had a colonoscop yNo family hx of colon cancerNo blood in the stool Screening mammography 24 876928 Z12.31 screening Screening for malignant neoplasm of cervix 092427314 Z12.4 Not interested in seeing a RECONCILING CLERK now [id number] Ted [facility]rez [facility] [address] [place] [address] 03/04/2022 09:02:01 03/07/2022 13:13:26 Screening mammography 11030107 Z12.31 DECLINES Screening for malignant neoplasm of colon 649108375 Z12.11 negative cologuard - 12/28 EKG: T wave abnormal 164 260377 R94.31 new changes on EKG borderline st dep ov 0.5 t wave inversion on lateral leads and ASA Metoprolol , Nitro (if use this to ER) ETT fairly quickly new changes since Jan 2019 Type 2 tony betes mellitus 35156339 E11.9 a1c 6.9 okay here today follow closely Hypertensive disorder 38 354330 I10 might consider home bp monitor - last time was okay okay today as well Body mass index 25-29 - overweight 236707062 Z68.25 stable Anxiety 94928000 F41.9 stable with out meds, not a sig issues and sounds just like normal living Exposure t o SARS-CoV-2 371846040 Z20.828 Covid-19 discussion : patient was instructed on safety precaution s including frequent hand washing, social distancing , avoiding touching face with hands, and covering mouth with arm/elbow when coughing or sneezing. the symptoms of Covid 19 were reviewed and the patient was instructed on when to self quarantine , when to call the PCP, and when to seek emergency care. Systolic murmur 58612067 R01.1 - declines echo today - does not know what it is, but sounds? minimal - rec echo after next visit - declined today Body mass index 30+ - obesity 191142478 Z68.31 Counseled on the Mediterran john diet: [...] be >=150min. Cardiovasc ular stress test abnormal 708951489 R94.39 CARDS managing has upcoming imaging Pigmented skin lesion 20 9598354 L81.9 not interested in dermbirthm ark Mixed hyperlipidemia 267 763239 E78.2 #HLD:Medic ations: atorvastat in 40mg, continue Coronary arteriosclerosis 12115410 I25.10 #CAD:LIpid control: atorvastat in 40mgAC: Brilinta 90mgStente d coronary arteryabno rmal stress testFollow ing cardiology Last visit with cards : November 2020Next visit with cards: June 21, 2020 Stented co ronary artery 561284066 Z95.5 Not taking any nitro anymoreNo chest pain Screening for malignant neoplasm of cervix 410383919 Z12.4 Not interested in seeing a RECONCILING CLERK now Bilateral cataracts 9572 2003 H26.9 noted [id number] MD Sheree Tomlin [address] [facility] [place] [address] 06/18/2022 13:00:01 06/22/2022 12:55:33 Screening mammography 19238448 Z12.31 DECLINES Screening for malignant neoplasm of colon 866364367 Z12.11 cologuard negative 12/2021 EKG: T wave abnormal 164 423577 R94.31 new changes on EKG borderline st dep ov 0.5 t wave inversion on lateral leads and ASA Metoprolol , Nitro (if use this to ER) ETT fairly quickly new changes since Jan 2019 Type 2 tony betes mellitus 64071949 E11.9 a1c okay here today follow closely Hyperlipidemia 68353449 E78.5 lipids not able to Hypertensive disorder 38 351788 I10 might consider home bp monitor - last time was okay okay today as well Body mass index 30+ - obesity 081389052 Z68.31 Counseled on the Mediterran john diet: [...] be >=150min. Cardiovasc ular stress test abnormal 357388488 R94.39 CARDS managing has upcoming imaging Pigmented skin lesion 20 2651293 L81.9 not interested in dermbirthm ark Mixed hyperlipidemia 267 134316 E78.2 #HLD:Medic ations: atorvastat in 40mg, continue Coronary arteriosclerosis 44956023 I25.10 #CAD:LIpid control: atorvastat in 40mgAC: Brilinta 90mg stopped December 26tente d coronary arteryabno rmal stress testFollow ing cardiology Last visit with cards : November 2020Next visit with cards: June 21, 2020 Stented co ronary artery 923006101 Z95.5 Not taking any nitro anymoreNo chest pain Anxiety 00717600 F41.9 stable Screening for malignant neoplasm of cervix 477600555 Z12.4 Not interested in seeing a RECONCILING CLERK now Body mass index 25-29 - overweight 896315226 Z68.25 stable Exposure t o SARS-CoV-2 684464889 Z20.828 Covid-19 discussion : patient was instructed on safety precaution s including frequent hand washing, social distancing , avoiding touching face with hands, and covering mouth with arm/elbow when coughing or sneezing. the symptoms of Covid 19 were reviewed and the patient was instructed on when to self quarantine , when to call the PCP, and when to seek emergency care. Systolic murmur 69428218 R01.1 - declines echo today - does not know what it is, but sounds? minimal - rec echo after next visit - declined today Bilateral cataracts 9572 2003 H26.9 noted [id number] Ted Torrez MD [address] [place] [address] 07/23/2022 12:59:02 07/27/2022 09:41:10 Screening mammography 14308513 Z12.31 DECLINES Screening for malignant neoplasm of colon 990054377 Z12.11 cologuard negative 12/2021 EKG: T wave abnormal 164 700211 R94.31 new changes on EKG borderline st dep ov 0.5 t wave inversion on lateral leads and ASA Metoprolol , Nitro (if use this to ER) ETT fairly quickly new changes since Jan 2019 Type 2 tony betes mellitus 54397562 E11.9 a1c 5.8 okay here today follow closely Hyperlipidemia 44916322 E78.5 lipids not able to Hypertensive disorder 38 432253 I10 might consider home bp monitor - last time was okay okay today as well Body mass index 30+ - obesity 083634305 Z68.31 Counseled on the Mediterran john diet: [...] be >=150min. Cardiovasc ular stress test abnormal 168868588 R94.39 CARDS managing has upcoming imaging Pigmented skin lesion 20 4629365 L81.9 not interested in dermbirthm ark Mixed hyperlipidemia 267 508358 E78.2 #HLD:Medic ations: atorvastat in 40mg, continue Coronary arteriosclerosis 51155304 I25.10 #CAD:LIpid control: atorvastat in 40mgAC: Brilinta 90mg stopped December 26tente d coronary arteryabno rmal stress testFollow ing cardiology Last visit with cards : November 2020Next visit with cards: June 21, 2020 Stented co ronary artery 103854568 Z95.5 Not taking any nitro anymoreNo chest pain Anxiety 15551079 F41.9 stable Screening for malignant neoplasm of cervix 341350770 Z12.4 Not interested in seeing a RECONCILING CLERK now Body mass index 25-29 - overweight 077349577 Z68.25 stable Exposure t o SARS-CoV-2 876547512 Z20.828 Covid-19 discussion : patient was instructed on safety precaution s including frequent hand washing, social distancing , avoiding touching face with hands, and covering mouth with arm/elbow when coughing or sneezing. the symptoms of Covid 19 were reviewed and the patient was instructed on when to self quarantine , when to call the PCP, and when to seek emergency care. Systolic murmur 78679944 R01.1 - declines echo today - does not know what it is, but sounds? minimal - rec echo after next visit - declined today Bilateral cataracts 9572 2004 H26.9 noted Blood in urine 38457989 R31.9 She had trace blood in the urine past visits.no UTI symptomsch ecking [id number] MD Sheree Tomlin [address] [place], [place] [address] 09/23/2022 12:44:32 09/23/2022 13:34:57 Screening mammography 43217394 Z12.31 DECLINES Screening for malignant neoplasm of colon 395897752 Z12.11 cologuard negative 12/2021, recheck in 2024 EKG: T wave abnormal 164 419965 R94.31 new changes on EKG borderline st dep ov 0.5 t wave inversion on lateral leads and ASA Metoprolol , Nitro (if use this to ER) ETT fairly quickly new changes since Jan 2019 Type 2 tony betes mellitus 08592406 E11.9 #T2DM:Medi cations:me tformin ER 1000mgRepo rts compliance A1C: 5.8encoura ged losing weight, getting regular physical activity and following a healthy, reduced-ca lacy eating plan. Hyperlipidemia 08708833 E78.5 #Hyperlipi demia:Medi cations: atorvastat in 40mgReport s compliance Last lipid panelDenie s any muscle pain or joint pain Hypertensive disorder 38 441971 I10 Medication s: metoprolol succinate ER 25mg and lisinopril 10mgReport s compliance Last kidney panel stableDeni es chest pain, SOB, headache, dizziness Body mass index 30+ - obesity 908814599 Z68.31 Counseled on the Mediterran john diet: [...] be >=150min. Cardiovasc ular stress test abnormal 776155431 R94.39 CARDS managing Pigmented skin lesion 20 0486014 L81.9 not interested in dermbirthm ark Coronary arteriosclerosis 52767690 I25.10 #CAD:Lipid control: atorvastat in 40mgAC: Brilinta 90mg stopped December 26tente d coronary arteryabno rmal stress testFollow ing cardiology Last visit with cards : Dr. Garner Stented co ronary artery 459249784 Z95.5 Not taking any nitro anymoreNo chest pain Anxiety 26812362 F41.9 stable Screening for malignant neoplasm of cervix 648532731 Z12.4 Not interested in seeing a RECONCILING CLERK now Body mass index 25-29 - overweight 800166520 Z68.25 stable Exposure t o SARS-CoV-2 472858694 Z20.828 Covid-19 discussion : patient was instructed on safety precaution s including frequent hand washing, social distancing , avoiding touching face with hands, and covering mouth with arm/elbow when coughing or sneezing. the symptoms of Covid 19 were reviewed and the patient was instructed on when to self quarantine , when to call the PCP, and when to seek emergency care. Systolic murmur 13616467 R01.1 - declines echo today - does not know what it is, but sounds? minimal - rec echo after next visit - declined today Bilateral cataracts 9572 2003 H26.9 noted Blood in urine 60321416 R31.9 She had trace blood in the urine past visits.no UTI symptomsch ecking [id number] Ted Torrez MD [address] [address] 01/24/2023 12:43:26 02/10/2023 09:29:49 Screening mammography 34946668 Z12.31 DECLINES Screening for malignant neoplasm of colon 296926220 Z12.11 cologuard negative 12/2021, recheck in 2024 EKG: T wave abnormal 164 397252 R94.31 new changes on EKG borderline st dep ov 0.5 t wave inversion on lateral leads and ASA Metoprolol , Nitro (if use this to ER) ETT fairly quickly new changes since Jan 2019 Type 2 tony betes mellitus 12077768 E11.9 #T2DM:Medi cations:me tformin ER 1000mgRepo rts compliance A1C: 5.8encoura ged losing weight, getting regular physical activity and following a healthy, reduced-ca lacy eating plan.nair ed to 500mg twice a dayNow the A1C: is 6.2. patient wants to wait before increasing the tablets. Hyperlipidemia 93471884 E78.5 #Hyperlipi demia:Medi cations: atorvastat in 40mgReport s compliance Last lipid panelDenie s any muscle pain or joint pain Hypertensive disorder 38 598253 I10 Medication s: metoprolol succinate ER 25mg and lisinopril 10mgReport s compliance Last kidney panel stableDeni es chest pain, SOB, headache, dizziness Body mass index 30+ - obesity 800650834 Z68.31 Counseled on the Mediterran john diet: [...] be >=150min. Cardiovasc ular stress test abnormal 370951724 R94.39 CARDS managing Pigmented skin lesion 20 0590395 L81.9 not interested in dermbirthm ark Coronary arteriosclerosis 47552049 I25.10 #CAD:Lipid control: atorvastat in 40mgAC: Brilinta 90mg stopped December 262Stente d coronary arteryabno rmal stress testFollow ing cardiology Last visit with cards : Dr. Garner Stented co ronary artery 123545191 Z95.5 Not taking any nitro anymoreNo chest pain Anxiety 57026168 F41.9 stable Screening for malignant neoplasm of cervix 089165274 Z12.4 Not interested in seeing a RECONCILING CLERK now Body mass index 25-29 - overweight 452368916 Z68.25 stable Exposure t o SARS-CoV-2 096582521 Z20.828 Covid-19 discussion : patient was instructed on safety precaution s including frequent hand washing, social distancing , avoiding touching face with hands, and covering mouth with arm/elbow when coughing or sneezing. the symptoms of Covid 19 were reviewed and the patient was instructed on when to self quarantine , when to call the PCP, and when to seek emergency care. Systolic murmur 87923324 R01.1 - declines echo today - does not know what it is, but sounds? minimal - rec echo after next visit - declined today Bilateral cataracts 9572 2004 H26.9 noted Blood in urine 77830837 R31.9 She had trace blood in the urine past visits.no UTI symptomsch ecking [id number] MD Sheree Tomlin [address] [facility] [place] [address] 06/13/2023 09:51:07 06/14/2023 15:00:03 Screening mammography 16628166 Z12.31 DECLINES Screening for malignant neoplasm of colon 669192010 Z12.11 cologuard negative 12/2021, recheck in 2024 EKG: T wave abnormal 164 894742 R94.31 new changes on EKG borderline st dep ov 0.5 t wave inversion on lateral leads and ASA Metoprolol , Nitro (if use this to ER) ETT fairly quickly new changes since Jan 2019 Type 2 tony betes mellitus 13528582 E11.9 #T2DM:Medi cations:me tformin ER 1000mgRepo rts compliance A1C: 5.8encoura ged losing weight, getting regular physical activity and following a healthy, reduced-ca lacy eating plan.nair ed to 500mg twice a dayNow the A1C: is 6.2. patient wants to wait before increasing the tablets. Hyperlipidemia 08020702 E78.5 #Hyperlipi demia:Medi cations: atorvastat in 40mgReport s compliance Last lipid panelDenie s any muscle pain or joint pain Hypertensive disorder 38 223762 I10 Medication s: metoprolol succinate ER 25mg and lisinopril 10mgReport s compliance Last kidney panel stableDeni es chest pain, SOB, headache, dizziness Body mass index 30+ - obesity 070785452 Z68.31 Counseled on the Mediterran john diet: [...] be >=150min. Cardiovasc ular stress test abnormal 612101676 R94.39 CARDS managing Pigmented skin lesion 20 3053370 L81.9 not interested in dermbirthm ark Coronary arteriosclerosis 55547553 I25.10 #CAD:Lipid control: atorvastat in 40mgAC: Brilinta 90mg stopped December 262Stente d coronary arteryabno rmal stress testFollow ing cardiology Last visit with cards : Dr. Garner Stented co ronary artery 787217379 Z95.5 Not taking any nitro anymoreNo chest pain Anxiety 48234057 F41.9 stable Screening for malignant neoplasm of cervix 063603268 Z12.4 Not interested in seeing a RECONCILING CLERK now Body mass index 25-29 - overweight 537859656 Z68.25 stable Exposure t o SARS-CoV-2 537761760 Z20.828 Covid-19 discussion : patient was instructed on safety precaution s including frequent hand washing, social distancing , avoiding touching face with hands, and covering mouth with arm/elbow when coughing or sneezing. the symptoms of Covid 19 were reviewed and the patient was instructed on when to self quarantine , when to call the PCP, and when to seek emergency care. Systolic murmur 95977445 R01.1 - declines echo today - does not know what it is, but sounds? minimal - rec echo after next visit - declined today Bilateral cataracts 9572 2003 H26.9 noted Blood in urine 83106737 R31.9 She had trace blood in the urine past visits.no UTI symptomsch ecking Pre-surger y evaluation 010475961 Z01.818 #pre-op evaluation :- based on 2014 ACC/AHA pre-op cardiovasc ular evaluation for patient undergoing non-cardia c surgery pt is undergoing low/interm ediate/hig h risk surgery and has low risk factors for cardiac complicati ons-report s ability to achieve >4 METS functional capacity without limitation s-chart, labs, EKG reviewed-c hronic illnesses stable-pt cleared for surgery at discretion of operating surgeon Cough 68364648 R05.9 chronic cough since ENDUM- CXR normal- CTChest ordered [id number] MD Sheree Tomlin [address] [place] [address] 06/17/2023 07:51:11 06/21/2023 09:09:04 Cough 31219825 R05.9 chronic cough since s visit was carried out as a telehealth visit by telephone. I reached the patient at their home from my office. After descriptio n of the limitation s of telephone consultati on, they agreed to verbally proceed. She was seen here for pre-op. LDCT ordered due to her chronic cough for the past weeks. Her surgery has been postponedC XR was negative. She is here to go over the LDCT resultsShe denies any hemoptysis , weight loss LDCT as follows: Mild emphysemat ous lung disease. No acute chest finding.In terval placement of left anterior descending coronary artery stent. She is treated with zpak. She feels much better today Thyroid nodule 695395792 E04.1 Recent LDCT showed a noduleTHYR OID: There is a 1.8 cm nodule in the superior mediastinu m on series 2 image 26 which isinferior to the thyroid isthmus which may be on the basis of a exophytic thyroid nodule. Itmeasures 48 Hounsfield units internal density. This is unchanged from CT of the chest dated2020 Screening mammography 24 742048 Z12.31 DECLINES Screening for malignant neoplasm of colon 532182486 Z12.11 cologuard negative 12/2021, recheck in 2024 EKG: T wave abnormal 164 242762 R94.31 new changes on EKG borderline st dep ov 0.5 t wave inversion on lateral leads and ASA Metoprolol , Nitro (if use this to ER) ETT fairly quickly new changes since Jan 2019 Type 2 tony betes mellitus 65326288 E11.9 #T2DM:Medi cations:me tformin ER 1000mgRepo rts compliance A1C: 5.8encoura ged losing weight, getting regular physical activity and following a healthy, reduced-ca lacy eating plan.nair ed to 500mg twice a dayNow the A1C: is 6.2. patient wants to wait before increasing the tablets. Hyperlipidemia 59864568 E78.5 #Hyperlipi demia:Medi cations: atorvastat in 40mgReport s compliance Last lipid panelDenie s any muscle pain or joint pain Hypertensive disorder 38 704518 I10 Medication s: metoprolol succinate ER 25mg and lisinopril 10mgReport s compliance Last kidney panel stableDeni es chest pain, SOB, headache, dizziness Body mass index 30+ - obesity 260301794 Z68.31 Counseled on the Mediterran john diet: [...] be >=150min. Cardiovasc ular stress test abnormal 731844381 R94.39 CARDS managing Pigmented skin lesion 20 2181705 L81.9 not interested in dermbirthm ark Coronary arteriosclerosis 27423381 I25.10 #CAD:Lipid control: atorvastat in 40mgAC: Brilinta 90mg stopped December 262Stente d coronary arteryabno rmal stress testFollow ing cardiology Last visit with cards : Dr. Garner Stented co ronary artery 093441504 Z95.5 Not taking any nitro anymoreNo chest pain Anxiety 85475510 F41.9 stable Screening for malignant neoplasm of cervix 061902028 Z12.4 Not interested in seeing a RECONCILING CLERK now Body mass index 25-29 - overweight 915543453 Z68.25 stable Exposure t o SARS-CoV-2 093863194 Z20.828 Covid-19 discussion : patient was instructed on safety precaution s including frequent hand washing, social distancing , avoiding touching face with hands, and covering mouth with arm/elbow when coughing or sneezing. the symptoms of Covid 19 were reviewed and the patient was instructed on when to self quarantine , when to call the PCP, and when to seek emergency care. Systolic murmur 29564095 R01.1 - declines echo today - does not know what it is, but sounds? minimal - rec echo after next visit - declined today Bilateral cataracts 9572 2003 H26.9 noted Blood in urine 13215387 R31.9 She had trace blood in the urine past visits.no UTI symptomsch ecking Pre-surger y evaluation 099726005 Z01.818 #pre-op evaluation :- based on 2014 ACC/AHA pre-op cardiovasc ular evaluation for patient undergoing non-cardia c surgery pt is undergoing low/interm ediate/hig h risk surgery and has low risk factors for cardiac complicati ons-report s ability to achieve >4 METS functional capacity without limitation s-chart, labs, EKG reviewed-c hronic illnesses stable-pt cleared for surgery at discretion of operating surgeon [id number] Ted Torrez MD [address] [place] [address] 08/04/2023 10:48:32 08/04/2023 13:39:34 Adult health examination 135392694 Z00.00 Health Wellness:d iscussed seat belt wear 100% of timesunblo ck and sun avoidance, all seasonsexe rcise encouraged 150min a week in > 20min episodes. Active job does not accomplish the same thing and this requires formal exercise.C ounsel on health eating and the mediterran john diet. Focusing on eating unprocesse d foods and keeping red meat < 2 times per week and enjoying meal prep and time at the table. Avoid fast food, processed foods, and sugarColon cancer screen to start at age 50 for normal risk; discussed about colonoscop y vs Cologuard; discussed Cologuard and efficacy Screening for malignant neoplasm of colon 057760356 Z12.11 cologuard negative 12/2021, recheck in 2025 Screening mammography 24 590919 Z12.31 DECLINES Cough 75873959 R05.9 chronic cough since s visit was carried out as a telehealth visit by telephone. I reached the patient at their home from my office. After descriptio n of the limitation s of telephone consultati on, they agreed to verbally proceed. She was seen here for pre-op. LDCT ordered due to her chronic cough for the past weeks. Her surgery has been postponedC XR was negative. She is here to go over the LDCT resultsShe denies any hemoptysis , weight loss LDCT as follows: Mild emphysemat ous lung disease. No acute chest finding.In terval placement of left anterior descending coronary artery stent. She is treated with zpak. She feels much better today Thyroid nodule 382655653 E04.1 Recent LDCT showed a noduleTHYR OID: There is a 1.8 cm nodule in the superior mediastinu m on series 2 image 26 which isinferior to the thyroid isthmus which may be on the basis of a exophytic thyroid nodule. Itmeasures 48 Hounsfield units internal density. This is unchanged from CT of the chest dated2020 EKG: T wave abnormal 164 882721 R94.31 new changes on EKG borderline st dep ov 0.5 t wave inversion on lateral leads and ASA Metoprolol , Nitro (if use this to ER) ETT fairly quickly new changes since Jan 2019 Type 2 tony betes mellitus 22150227 E11.9 #T2DM:Medi cations:me tformin ER 500mg bid, continueRe ports compliance A1C: 5.8encoura ged losing weight, getting regular physical activity and following a healthy, reduced-ca lacy eating plan.nair ed to 500mg twice a day Hyperlipidemia 51905382 E78.5 #Hyperlipi demia:Medi cations: atorvastat in 40mgReport s compliance Last lipid panelDenie s any muscle pain or joint pain Hypertensive disorder 38 120822 I10 Medication s: metoprolol succinate ER 25mg and lisinopril 10mgReport s compliance Last kidney panel stableDeni es chest pain, SOB, headache, dizziness Body mass index 30+ - obesity 096785981 Z68.31 Counseled on the Mediterran john diet: [...] be >=150min. Cardiovasc ular stress test abnormal 427718936 R94.39 CARDS managing Pigmented skin lesion 20 0739615 L81.9 not interested in dermbirthm ark Coronary arteriosclerosis 23152463 I25.10 #CAD:Lipid control: atorvastat in 40mgAC: Brilinta 90mg stopped December 26tente d coronary arteryabno rmal stress testFollow ing cardiology Last visit with cards : Dr. Garner Stented co ronary artery 231247784 Z95.5 Not taking any nitro anymoreNo chest pain Anxiety 17139100 F41.9 stable Screening for malignant neoplasm of cervix 200424686 Z12.4 Not interested in seeing a RECONCILING CLERK now Body mass index 25-29 - overweight 316260382 Z68.25 stable Exposure t o SARS-CoV-2 971712173 Z20.828 Covid-19 discussion : patient was instructed on safety precaution s including frequent hand washing, social distancing , avoiding touching face with hands, and covering mouth with arm/elbow when coughing or sneezing. the symptoms of Covid 19 were reviewed and the patient was instructed on when to self quarantine , when to call the PCP, and when to seek emergency care. Systolic murmur 27062144 R01.1 - declines echo today - does not know what it is, but sounds? minimal - rec echo after next visit - declined today Bilateral cataracts 9572 2003 H26.9 noted Blood in urine 33390323 R31.9 She had trace blood in the urine past visits.no UTI symptomsch ecking Pre-surger y evaluation 507432412 Z01.818 #pre-op evaluation :- based on 2014 ACC/AHA pre-op cardiovasc ular evaluation for patient undergoing non-cardia c surgery pt is undergoing low/interm ediate/hig h risk surgery and has low risk factors for cardiac complicati ons-report s ability to achieve >4 METS functional capacity without limitation s-chart, labs, EKG reviewed-c hronic illnesses stable-pt cleared for surgery at discretion of operating surgeon [id number] MD Sheree Tomlin [address] [facility] [place] [address] 08/17/2023 10:56:14 08/17/2023 11:47:36 EKG: T wave abnormal 654893995 R94.31 new changes on EKG borderline st dep ov 0.5 t wave inversion on lateral leads and ASA Metoprolol , Nitro (if use this to ER) ETT fairly quickly new changes since Jan 2019 Type 2 tony betes mellitus 99364839 E11.9 #T2DM:Medi cations:me tformin ER 1000mgRepo rts compliance A1C: 5.8encoura ged losing weight, getting regular physical activity and following a healthy, reduced-ca lacy eating plan.nair ed to 500mg twice a dayNow the A1C: is 6.2. patient wants to wait before increasing the tablets. Hyperlipidemia 36715356 E78.5 #Hyperlipi demia:Medi cations: atorvastat in 40mgReport s compliance Last lipid panelDenie s any muscle pain or joint pain Hypertensive disorder 38 729488 I10 Medication s: metoprolol succinate ER 25mg and lisinopril 10mgReport s compliance Last kidney panel stableDeni es chest pain, SOB, headache, dizziness Cardiovasc ular stress test abnormal 266861725 R94.39 CARDS managing Coronary arteriosclerosis 85895987 I25.10 #CAD:Lipid control: atorvastat in 40mgAC: Brilinta 90mg stopped December 262Stente d coronary arteryabno rmal stress testFollow ing cardiology Last visit with cards : Dr. Garner Stented co ronary artery [id number] Z95.5 Not taking any nitro anymoreNo chest pain Anxiety 02041348 F41.9 stable Systolic murmur 09889348 R01.1 - declines echo today - does not know what it is, but sounds? minimal - rec echo after next visit - declined today Bilateral cataracts 9572 2003 H26.9 noted Pre-surger y evaluation 989139858 Z01.818 #pre-op evaluation :- based on ACC/AHA pre-op cardiovasc ular evaluation for patient undergoing non-cardia c surgery pt is undergoing low risk surgery and has low risk factors for cardiac complicati ons-report s ability to achieve >4 METS functional capacity without limitation s-chart, labs, EKG reviewed-c hronic illnesses stable-pt cleared for surgery at discretion of operating surgeon [id number] MD Paulette Tomlinisabell mosley [address] [place] [address] 11/03/2023 09:30:35 11/03/2023 10:36:39 Screening for malignant neoplasm of colon 422129346 Z12.11 cologuard negative 12/2021, recheck in 2024 Screening mammography 24 000356 Z12.31 DECLINES Cough 38267477 R05.9 chronic cough since s visit was carried out as a telehealth visit by telephone. I reached the patient at their home from my office. After descriptio n of the limitation s of telephone consultati on, they agreed to verbally proceed. She was seen here for pre-op. LDCT ordered due to her chronic cough for the past weeks. Her surgery has been postponedC XR was negative. She is here to go over the LDCT resultsShe denies any hemoptysis , weight loss LDCT as follows: Mild emphysemat ous lung disease. No acute chest finding.In terval placement of left anterior descending coronary artery stent. She is treated with zpak. She feels much better today Thyroid nodule 864290549 E04.1 Recent LDCT showed a noduleTHYR OID: There is a 1.8 cm nodule in the superior mediastinu m on series 2 image 26 which isinferior to the thyroid isthmus which may be on the basis of a exophytic thyroid nodule. Itmeasures 48 Hounsfield units internal density. This is unchanged from CT of the chest dated2020 EKG: T wave abnormal 164 403661 R94.31 new changes on EKG borderline st dep ov 0.5 t wave inversion on lateral leads and ASA Metoprolol , Nitro (if use this to ER) ETT fairly quickly new changes since Jan 2019 Type 2 tony betes mellitus 31870042 E11.9 #T2DM:Medi cations:me tformin ER 500mg bid, continueRe ports compliance A1C: 5.8encoura ged losing weight, getting regular physical activity and following a healthy, reduced-ca lacy eating plan.nair ed to 500mg twice a day Hyperlipidemia 90550272 E78.5 #Hyperlipi demia:Medi cations: atorvastat in 40mgReport s compliance Last lipid panelDenie s any muscle pain or joint pain Hypertensive disorder 38 610438 I10 Medication s: metoprolol succinate ER 25mg and lisinopril 10mgReport s compliance Last kidney panel stableDeni es chest pain, SOB, headache, dizziness Body mass index 30+ - obesity 534342715 Z68.31 Counseled on the Mediterran john diet: [...] be >=150min. Cardiovasc ular stress test abnormal 066250326 R94.39 CARDS managing Pigmented skin lesion 20 0640308 L81.9 not interested in dermbirthm ark Coronary arteriosclerosis 59305227 I25.10 #CAD:Lipid control: atorvastat in 40mgAC: Brilinta 90mg stopped December 262Stente d coronary arteryabno rmal stress testFollow ing cardiology Last visit with cards : Dr. Garner 22 November Stented co ronary artery 275455656 Z95.5 Not taking any nitro anymoreNo chest pain Anxiety 92535798 F41.9 stable Screening for malignant neoplasm of cervix 691945572 Z12.4 Not interested in seeing a RECONCILING CLERK now Body mass index 25-29 - overweight 021648143 Z68.25 stable Exposure t o SARS-CoV-2 686807432 Z20.828 Covid-19 discussion : patient was instructed on safety precaution s including frequent hand washing, social distancing , avoiding touching face with hands, and covering mouth with arm/elbow when coughing or sneezing. the symptoms of Covid 19 were reviewed and the patient was instructed on when to self quarantine , when to call the PCP, and when to seek emergency care. Systolic murmur 81022441 R01.1 - declines echo today - does not know what it is, but sounds? minimal - rec echo after next visit - declined today Bilateral cataracts 9572 2004 H26.9 Done recently and doing well Blood in urine 14022518 R31.9 She had trace blood in the urine past visits.no UTI symptomsch ecking 11303 Ted Torrez MD [address] [address] 02/03/2024 09:59:29 02/03/2024 10:49:02 Screening for malignant neoplasm of colon 162469100 Z12.11 cologuard negative 12/2021, recheck in 2024 Screening mammography 24 591629 Z12.31 DECLINES Cough 56408761 R05.9 chronic cough since s visit was carried out as a telehealth visit by telephone. I reached the patient at their home from my office. After descriptio n of the limitation s of telephone consultati on, they agreed to verbally proceed. She was seen here for pre-op. LDCT ordered due to her chronic cough for the past weeks. Her surgery has been postponedC XR was negative. She is here to go over the LDCT resultsShe denies any hemoptysis , weight loss LDCT as follows: Mild emphysemat ous lung disease. No acute chest finding.In terval placement of left anterior descending coronary artery stent. She is treated with zpak. She feels much better today Thyroid nodule 081554510 E04.1 Recent LDCT showed a noduleTHYR OID: There is a 1.8 cm nodule in the superior mediastinu m on series 2 image 26 which isinferior to the thyroid isthmus which may be on the basis of a exophytic thyroid nodule. Itmeasures 48 Hounsfield units internal density. This is unchanged from CT of the chest dated2020 EKG: T wave abnormal 164 971144 R94.31 new changes on EKG borderline st dep ov 0.5 t wave inversion on lateral leads and ASA Metoprolol , Nitro (if use this to ER) ETT fairly quickly new changes since Jan 2019 Type 2 tony betes mellitus 24237022 E11.9 #T2DM:Medi cations:me tformin ER 500mg bid, continueRe ports compliance A1C: 5.8encoura ged losing weight, getting regular physical activity and following a healthy, reduced-ca lacy eating plan.nair ed to 500mg twice a day Hyperlipidemia 18344635 E78.5 #Hyperlipi demia:Medi cations: atorvastat in 40mgReport s compliance Last lipid panelDenie s any muscle pain or joint pain Hypertensive disorder 38 036812 I10 Medication s: metoprolol succinate ER 25mg and lisinopril 10mgReport s compliance Last kidney panel stableDeni es chest pain, SOB, headache, dizziness Body mass index 30+ - obesity 971763560 Z68.31 Counseled on the Mediterran john diet: [...] be >=150min. Cardiovasc ular stress test abnormal 658380583 R94.39 CARDS managing Pigmented skin lesion 20 6169585 L81.9 not interested in dermbirthm ark Coronary arteriosclerosis 97863046 I25.10 #CAD:Lipid control: atorvastat in 40mgAC: Brilinta 90mg stopped December 262Stente d coronary arteryabno rmal stress testFollow ing cardiology Last visit with cards : Dr. Garner 22 November Stented co ronary artery 708312204 Z95.5 Not taking any nitro anymoreNo chest pain Anxiety 33763339 F41.9 stable Screening for malignant neoplasm of cervix 985962319 Z12.4 Not interested in seeing a RECONCILING CLERK now Body mass index 25-29 - overweight 370573111 Z68.25 stable Exposure t o SARS-CoV-2 101269841 Z20.828 Covid-19 discussion : patient was instructed on safety precaution s including frequent hand washing, social distancing , avoiding touching face with hands, and covering mouth with arm/elbow when coughing or sneezing. the symptoms of Covid 19 were reviewed and the patient was instructed on when to self quarantine , when to call the PCP, and when to seek emergency care. Systolic murmur 51458553 R01.1 - declines echo today - does not know what it is, but sounds? minimal - rec echo after next visit - declined today Bilateral cataracts 9572 2004 H26.9 Done recently and doing well Blood in urine 62276160 R31.9 She had trace blood in the urine past visits.no UTI symptomsch ecking Screening mammography of bilateral breasts 5759965107 51428 Z12.31 not interested Tobacco non-user [id number] 001 58562 Z13.89 never a smoker Ex-drinker 22040858 F10. 21 long time ago Active or passive immunization 225744345 Z23 Encouraged to get shingles and pneumococc alYearly flu and COVID boostersTD AP every 10 years 568[address] Ted Torrez MD [address] [place] [address] 06/27/2024 13:06:49 06/28/2024 09:18:33 Screening for malignant neoplasm of colon 758027321 Z12.11 cologuard negative 12/2021, recheck in 2024 Screening mammography 24 316477 Z12.31 DECLINES Cough 94344700 R05.9 chronic cough since s visit was carried out as a telehealth visit by telephone. I reached the patient at their home from my office. After descriptio n of the limitation s of telephone consultati on, they agreed to verbally proceed. She was seen here for pre-op. LDCT ordered due to her chronic cough for the past weeks. Her surgery has been postponedC XR was negative. She is here to go over the LDCT resultsShe denies any hemoptysis , weight loss LDCT as follows: Mild emphysemat ous lung disease. No acute chest finding.In terval placement of left anterior descending coronary artery stent. She is treated with zpak. She feels much better today Thyroid nodule 069754314 E04.1 Recent LDCT showed a noduleTHYR OID: There is a 1.8 cm nodule in the superior mediastinu m on series 2 image 26 which isinferior to the thyroid isthmus which may be on the basis of a exophytic thyroid nodule. Itmeasures 48 Hounsfield units internal density. This is unchanged from CT of the chest dated2020 EKG: T wave abnormal 164 556932 R94.31 new changes on EKG borderline st dep ov 0.5 t wave inversion on lateral leads and ASA Metoprolol , Nitro (if use this to ER) ETT fairly quickly new changes since Jan 2019 Type 2 tony betes mellitus 82619649 E11.9 #T2DM:Medi cations:me tformin ER 500mg bid, continueRe ports compliance A1C: 5.8encoura ged losing weight, getting regular physical activity and following a healthy, reduced-ca lacy eating plan.nair ed to 500mg twice a day Hyperlipidemia 15253747 E78.5 #Hyperlipi demia:Medi cations: atorvastat in 40mgReport s compliance Last lipid panelDenie s any muscle pain or joint pain Hypertensive disorder 38 235976 I10 Medication s: metoprolol succinate ER 25mg and lisinopril 10mgReport s compliance Last kidney panel stableDeni es chest pain, SOB, headache, dizziness Body mass index 30+ - obesity 580830284 Z68.31 Counseled on the Mediterran john diet: [...] be >=150min. Cardiovasc ular stress test abnormal 522394982 R94.39 CARDS managing Pigmented skin lesion 20 7035423 L81.9 not interested in dermbirthm ark Coronary arteriosclerosis 59239255 I25.10 #CAD:Lipid control: atorvastat in 40mgAC: Brilinta 90mg stopped December 262Stente d coronary arteryabno rmal stress testFollow ing cardiology Last visit with cards : Dr. Garner 22 November Stented co ronary artery 592912987 Z95.5 Not taking any nitro anymoreNo chest pain Anxiety 56889413 F41.9 stable Screening for malignant neoplasm of cervix 157235515 Z12.4 Not interested in seeing a RECONCILING CLERK now Body mass index 25-29 - overweight 012672982 Z68.25 stable Exposure t o SARS-CoV-2 326159243 Z20.828 Covid-19 discussion : patient was instructed on safety precaution s including frequent hand washing, social distancing , avoiding touching face with hands, and covering mouth with arm/elbow when coughing or sneezing. the symptoms of Covid 19 were reviewed and the patient was instructed on when to self quarantine , when to call the PCP, and when to seek emergency care. Systolic murmur 28499349 R01.1 - declines echo today - does not know what it is, but sounds? minimal - rec echo after next visit - declined today Bilateral cataracts 9572 2004 H26.9 Done recently and doing well Blood in urine 05554586 R31.9 She had trace blood in the urine past visits.no UTI symptomsch ecking Screening mammography of bilateral breasts 2814909797 47891 Z12.31 not interested Tobacco non-user 7669309 001 61731 Z13.89 never a smoker Ex-drinker 09348148 F10. 21 long time ago Active or passive immunization 786474121 Z23 Encouraged to get shingles and pneumococc alYearly flu and COVID boostersTD AP every 10 years Mixed hyperlipidemia 267 753704 E78.2 #HLD:Medic ations: atorvastat in 40mg, continue Vitamin D deficiency 347 10078 E55.9 low vitamin D 99119 MD Sheree Tomlin [address] [place] [address] 10/01/2024 14:28:55 10/01/2024 15:22:51 General examination of patient 058200441 Z00.01 87791587 Health Wellness:d iscussed seat belt wear 100% of timesunblo ck and sun avoidance, all seasonsexe rcise encouraged 150min a week in > 20min episodes. Active job does not accomplish the same thing and this requires formal exercise.C daisy on health eating and the mediterran john diet. Focusing on eating unprocesse d foods and keeping red meat < 2 times per week and enjoying meal prep and time at the table. Avoid fast food, processed foods, and sugarColon cancer screen to start at age 50 for normal risk; discussed about colonoscop y vs Cologuard; discussed Cologuard and efficacy Coronary arteriosclerosis 30163509 I25.10 0882465099 #CAD: past medical history of obstructiv e coronary artery disease status post PCI with a drug-eludi ng stent to the LAD on December 26, 2020 at [facility] Lipid control: atorvastat in 40mgAC: Brilinta 90mg stopped December 262Stente d coronary arteryabno rmal stress testFollow ing cardiology The patient is stable and asymptomat ic. The patient is to continue low-dose aspirin for secondary prevention . The patient has been counseled regarding heart healthy diet and exercise. Last visit with cards : Dr. Garner 22 November Screening for malignant neoplasm of colon 950285624 Z12.11 cologuard negative 12/2021, recheck in 2024 Screening mammography 24 399856 Z12.31 DECLINES Cough 40839907 R05.9 chronic cough since s visit was carried out as a telehealth visit by telephone. I reached the patient at their home from my office. After descriptio n of the limitation s of telephone consultati on, they agreed to verbally proceed. She was seen here for pre-op. LDCT ordered due to her chronic cough for the past weeks. Her surgery has been postponedC XR was negative. She is here to go over the LDCT resultsShe denies any hemoptysis , weight loss LDCT as follows: Mild emphysemat ous lung disease. No acute chest finding.In terval placement of left anterior descending coronary artery stent. She is treated with zpak. She feels much better today Thyroid nodule 838101636 E04.1 Recent LDCT showed a noduleTHYR OID: There is a 1.8 cm nodule in the superior mediastinu m on series 2 image 26 which isinferior to the thyroid isthmus which may be on the basis of a exophytic thyroid nodule. Itmeasures 48 Hounsfield units internal density. This is unchanged from CT of the chest dated2020 EKG: T wave abnormal 164 469932 R94.31 new changes on EKG borderline st dep ov 0.5 t wave inversion on lateral leads and ASA Metoprolol , Nitro (if use this to ER) ETT fairly quickly new changes since Jan 2019 Type 2 tony betes mellitus 68906638 E11.9 Medication s: metformin 500mg bid Reports compliance to medication s and dietDenies any hypoglycem ic episodesDe nies any SE to medication s Recent labs done on: 025- A1C: 6.3- BS: 5- microalbum in: not testedEndo referral and f/u: none Current Symptoms: noneMicrov ascular complicati ons: None Macrovascu lar complicati ons: none [facility] exam: [facility], 2024 [facility]: self check advisedLas t [...] sooner for lab f/u Hypertensive disorder 38 814379 I10 BP: 128/80Medi cation: metoprolol succinate ER [...] f/u Body mass index 30+ - obesity 080805329 Z68.31 Counseled on the Mediterran john diet: [...] be >=150min. Cardiovasc ular stress test abnormal 187703282 R94.[address] [facility] medical history of obstructiv e coronary artery disease status post PCI with a drug-eluti ng stent to the LAD on December 26, 2020 at [facility] Pigmented skin lesion 20 2754209 L81.9 not interested in dermbirthm ark Stented co ronary artery 637088969 Z95.5 Not taking any nitro anymoreNo chest pain Anxiety 94582095 F41.9 stable Screening for malignant neoplasm of cervix 490790473 Z12.4 Not interested in seeing a RECONCILING CLERK now Body mass index 25-29 - overweight 728621356 Z68.25 stable Exposure t o SARS-CoV-2 395364856 Z20.828 Covid-19 discussion : patient was instructed on safety precaution s including frequent hand washing, social distancing , avoiding touching face with hands, and covering mouth with arm/elbow when coughing or sneezing. the symptoms of Covid 19 were reviewed and the patient was instructed on when to self quarantine , when to call the PCP, and when to seek emergency care. Systolic murmur 62502460 R01.1 - declines echo today - does not know what it is, but sounds? minimal - rec echo after next visit - declined today Bilateral cataracts 9572 2004 H26.9 Done recently and doing well Blood in urine 17113730 R31.9 She had trace blood in the urine past visits.no UTI symptomsch ecking Screening mammography of bilateral breasts 6692625950 72522 Z12.31 not interested Tobacco non-user [id number] 001 80462 Z13.89 never a smoker Ex-drinker 52107586 F10. 21 long time ago Active or passive immunization 928265667 Z23 Encouraged to get shingles and pneumococc alYearly flu and COVID boostersTD AP every 10 years Mixed hyperlipidemia 267 259451 E78.2 72180 Medication : atorvastat in 40mg Labs done on 08/07/2024 Triglyceri charmaine: 86Choleste rol:121LDL :55HDL:49 Reports compliance Denies any SE to the medication continue current regimen as directed. Patient is advised on low fat, low calorie diet, weight loss and regular exercise. Also advised on medication compliance and regular labs every 3 months. Vitamin D deficiency 347 68624 E55.9 vitamin D level: 28 Lab done [...] Eat More Vitamin D-Rich Foods Fatty Fish (Goff, Mackerel, Tuna, Sardines)E gg YolksForti fied Foods (Milk, Burleson Juice, Cereals, Plant-base d Milk)Mushr ooms (Sun-expos ed varieties like Maitake & Shiitake)C od Liver Oil (Very high in Vitamin D)Consider a Vitamin D Supplement Vitamin D3 (cholecalc iferol) is preferred over D2 for better absorption .Typical dosage for deficiency : 5749-3650 IU daily (Check with a doctor for the right dose).Pair with Vitamin K2 & Magnesium Vitamin K2 helps direct calcium to bones (found in fermented foods, dairy, and natto).Mag nesium helps activate Vitamin D (found in nuts, seeds, and leafy greens). [address] MD Sheree Tomlin [address] [place] [address] 04/01/2025 11:01:07 04/01/2025 11:59:42 Coronary arteriosclerosis 44493359 I25.10 1231591227 #CAD: past medical history of obstructiv e coronary artery disease status post PCI with a drug-eludi ng stent to the LAD on December 26, 2020 at [facility] Lipid control: atorvastat in 40mgAC: Brilinta 90mg stopped December 26tente d coronary arteryabno rmal stress testFollow ing cardiology The patient is stable and asymptomat ic. The patient is to continue low-dose aspirin for secondary prevention . The patient has been counseled regarding heart healthy diet and exercise. Last visit with cards : Dr. Garner 22 November Screening for malignant neoplasm of colon 448880024 Z12.11 cologuard negative 12/2021, recheck in 2024 Screening mammography 24 760854 Z12.31 DECLINES Cough 57709892 R05.9 chronic cough since march She was [...] She feels much better today Thyroid nodule 242687678 E04.1 Recent LDCT showed a noduleTHYR OID: There is a 1.8 cm nodule in the superior mediastinu m on series 2 image 26 which isinferior to the thyroid isthmus which may be on the basis of a exophytic thyroid nodule. Itmeasures 48 Hounsfield units internal density. This is unchanged from CT of the chest dated2020 EKG: T wave abnormal 164 531527 R94.31 new changes on EKG borderline st dep ov 0.5 t wave inversion on lateral leads and ASA Metoprolol , Nitro (if use this to ER) ETT fairly quickly new changes since Jan 2019 Type 2 tony betes mellitus 21932110 E11.9 Medication s: metformin 500mg bid Reports compliance to medication s and dietDenies any hypoglycem ic episodesDe nies any SE to medication s Recent labs done on: 025- A1C: 6.3- BS: 5- microalbum in: not testedEndo referral and f/u: none Current Symptoms: noneMicrov ascular complicati ons: None Macrovascu lar complicati ons: none [place] [facility] eye exam: Apr, 2024 [facility]: self check advisedLas t [...] sooner for lab f/u Hypertensive disorder 38 988283 I10 BP: 128/80Medi cation: metoprolol succinate ER [...] month Body mass index 30+ - obesity 251840257 Z68.31 Counseled on the Mediterran john diet: [...] be >=150min. Cardiovasc ular stress test abnormal 564159977 R94.[address] [facility] medical history of obstructiv e coronary artery disease status post PCI with a drug-eluti ng stent to the LAD on December 26, 2020 at [facility] Pigmented skin lesion 20 9886173 L81.9 not interested in dermbirthm ark Stented co ronary artery 515429663 Z95.5 Not taking any nitro anymoreNo chest pain Anxiety 01138340 F41.9 stable Screening for malignant neoplasm of cervix 402588124 Z12.4 Not interested in seeing a RECONCILING CLERK now Body mass index 25-29 - overweight 842964663 Z68.25 stable Exposure t o SARS-CoV-2 199138683 Z20.828 Covid-19 discussion : patient was instructed on safety precaution s including frequent hand washing, social distancing , avoiding touching face with hands, and covering mouth with arm/elbow when coughing or sneezing. the symptoms of Covid 19 were reviewed and the patient was instructed on when to self quarantine , when to call the PCP, and when to seek emergency care. Systolic murmur 45716068 R01.1 - declines echo today - does not know what it is, but sounds? minimal - rec echo after next visit - declined today Bilateral cataracts 9572 2004 H26.9 Done recently and doing well Blood in urine 29189085 R31.9 She had trace blood in the urine past visits.no UTI symptomsch ecking Screening mammography of bilateral breasts 9262289569 26252 Z12.31 not interested Tobacco non-user 2912984 001 80324 Z13.89 never a smoker Ex-drinker 87855226 F10. 21 long time ago Active or passive immunization 201191292 Z23 Encouraged to get shingles and pneumococc alYearly flu and COVID boostersTD AP every 10 years Mixed hyperlipidemia 267 429893 E78.2 98339 Medication : atorvastat in 40mg Labs done on 08/07/2024 Triglyceri charmaine: 86Choleste rol:121LDL :55HDL:49 Reports compliance Denies any SE to the medication continue current regimen as directed. Patient is advised on low fat, low calorie diet, weight loss and regular exercise. Also advised on medication compliance and regular labs every 3 months. Vitamin D deficiency 347 56344 E55.9 vitamin D level: 28 Lab done [...] Eat More Vitamin D-Rich Foods Fatty Fish (Goff, Mackerel, Tuna, Sardines)E gg YolksForti fied Foods (Milk, Burleson Juice, Cereals, Plant-base d Milk)Mushr ooms (Sun-expos ed varieties like Maitake & Shiitake)C od Liver Oil (Very high in Vitamin D)Consider a Vitamin D Supplement Vitamin D3 (cholecalc iferol) is preferred over D2 for better absorption .Typical dosage for deficiency : 0210-7817 IU daily (Check with a doctor for the right dose).Pair with Vitamin K2 & Magnesium Vitamin K2 helps direct calcium to bones (found in fermented foods, dairy, and natto).Mag nesium helps activate Vitamin D (found in nuts, seeds, and leafy greens). 51889 MD Sheree Tomlin [place] [address] [place] [address] 05/06/2025 11:21:05 05/06/2025 13:18:51 Coronary arteriosclerosis 51082032 I25.10 8735035717 #CAD: past medical history of obstructiv e coronary artery disease status post PCI with a drug-eludi ng stent to the LAD on December 26, 2020 at [facility] Lipid control: atorvastat in 40mgAC: Brilinta 90mg stopped December 26tente d coronary arteryabno rmal stress testFollow ing cardiology The patient is stable and asymptomat ic. The patient is to continue low-dose aspirin for secondary prevention . The patient has been counseled regarding heart healthy diet and exercise. Last visit with cards : Dr. Garner 22 November Screening for malignant neoplasm of colon 653512376 Z12.11 cologuard negative 12/2021, recheck in 2024 Screening mammography 24 536787 Z12.31 DECLINES Cough 65477025 R05.9 chronic cough since march She was [...] She feels much better today Thyroid nodule 086788652 E04.1 Recent LDCT showed a noduleTHYR OID: There is a 1.8 cm nodule in the superior mediastinu m on series 2 image 26 which isinferior to the thyroid isthmus which may be on the basis of a exophytic thyroid nodule. Itmeasures 48 Hounsfield units internal density. This is unchanged from CT of the chest dated2020 EKG: T wave abnormal 164 114189 R94.31 new changes on EKG borderline st dep ov 0.5 t wave inversion on lateral leads and ASA Metoprolol , Nitro (if use this to ER) ETT fairly quickly new changes since Jan 2019 Type 2 tony betes mellitus 26807371 E11.9 Medication s: metformin 500mg bid Reports compliance to medication s and dietDenies any hypoglycem ic episodesDe nies any SE to medication s Recent labs done on: 025- A1C: 6.3- BS: 5- microalbum in: not testedEndo referral and f/u: none Current Symptoms: noneMicrov ascular complicati ons: None Macrovascu lar complicati ons: none [place] [facility] exam: Apr, 2024 [facility] [facility]: self check advisedLas t [...] sooner for lab f/u Hypertensive disorder 38 672339 I10 BP: 128/80Medi cation: metoprolol succinate ER [...] month Body mass index 30+ - obesity 178960797 Z68.31 Counseled on the Mediterran john diet: [...] be >=150min. Cardiovasc ular stress test abnormal 076660841 R94.39 CARDS managingpa medical history of obstructiv e coronary artery disease status post PCI with a drug-eluti ng stent to the LAD on December 26, 2020 at [facility] Pigmented skin lesion 20 5012593 L81.9 not interested in dermbirthm ark Stented co ronary artery 538429626 Z95.5 Not taking any nitro anymoreNo chest pain Anxiety 14997284 F41.9 stable Screening for malignant neoplasm of cervix 534052082 Z12.4 Not interested in seeing a RECONCILING CLERK now Body mass index 25-29 - overweight 102360114 Z68.25 stable Exposure t o SARS-CoV-2 047629483 Z20.828 Covid-19 discussion : patient was instructed on safety precaution s including frequent hand washing, social distancing , avoiding touching face with hands, and covering mouth with arm/elbow when coughing or sneezing. the symptoms of Covid 19 were reviewed and the patient was instructed on when to self quarantine , when to call the PCP, and when to seek emergency care. Systolic murmur 10320284 R01.1 - declines echo today - does not know what it is, but sounds? minimal - rec echo after next visit - declined today Bilateral cataracts 9572 2004 H26.9 Done recently and doing well Blood in urine 18958018 R31.9 She had trace blood in the urine past visits.no UTI symptomsch ecking Screening mammography of bilateral breasts [id number] 03473 Z12.31 not interested Tobacco non-user [id number] 001 42495 Z13.89 never a smoker Ex-drinker 77373651 F10. 21 long time ago Active or passive immunization 833469299 Z23 Encouraged to get shingles and pneumococc alYearly flu and COVID boostersTD AP every 10 years Mixed hyperlipidemia 267 021551 E78.2 02533 Medication : atorvastat in 40mg Labs done on 08/07/2024 Triglyceri charmaine: 86Choleste rol:121LDL :55HDL:49 Reports compliance Denies any SE to the medication continue current regimen as directed. Patient is advised on low fat, low calorie diet, weight loss and regular exercise. Also advised on medication compliance and regular labs every 3 months. Vitamin D deficiency 347 28800 E55.9 vitamin D level: 28 Lab done [...] Eat More Vitamin D-Rich Foods Fatty Fish (Goff, Mackerel, Tuna, Sardines)E gg YolksForti fied Foods (Milk, Burleson Juice, Cereals, Plant-base d Milk)Mushr ooms (Sun-expos ed varieties like Maitake & Shiitake)C od Liver Oil (Very high in Vitamin D)Consider a Vitamin D Supplement Vitamin D3 (cholecalc iferol) is preferred over D2 for better absorption .Typical dosage for deficiency : 7114-3265 IU daily (Check with a doctor for the right dose).Pair with Vitamin K2 & Magnesium Vitamin K2 helps direct calcium to bones (found in fermented foods, dairy, and natto).Mag nesium helps activate Vitamin D (found in nuts, seeds, and leafy greens). Pulmonary emphysema 8743 3001 J43.9 4660349 30630 Ted Torrez MD [address] [address] 05/07/2025 10:55:05 05/07/2025 13:26:21 Coronary arteriosclerosis 20519586 I25.10 [id number] #CAD: past medical history of obstructiv e coronary artery disease status post PCI with a drug-eludi ng stent to the LAD on December 26, 2020 at [facility] Lipid control: atorvastat in 40mgAC: Brilinta 90mg stopped December 26tente d coronary arteryabno rmal stress testFollow ing cardiology The patient is stable and asymptomat ic. The patient is to continue low-dose aspirin for secondary prevention . The patient has been counseled regarding heart healthy diet and exercise. Last visit with cards : Dr. Garner 22 November Screening for malignant neoplasm of colon 056987897 Z12.11 cologuard negative 12/2021, recheck in 2024 Screening mammography 24 252131 Z12.31 DECLINES Cough 96103167 R05.9 chronic cough since march She was [...] She feels much better today Thyroid nodule 429716908 E04.1 Recent LDCT showed a noduleTHYR OID: There is a 1.8 cm nodule in the superior mediastinu m on series 2 image 26 which isinferior to the thyroid isthmus which may be on the basis of a exophytic thyroid nodule. Itmeasures 48 Hounsfield units internal density. This is unchanged from CT of the chest dated2020 EKG: T wave abnormal 164 274711 R94.31 new changes on EKG borderline st dep ov 0.5 t wave inversion on lateral leads and ASA Metoprolol , Nitro (if use this to ER) ETT fairly quickly new changes since Jan 2019 Type 2 tony betes mellitus 93617728 E11.9 Medication s: metformin 500mg bid Reports compliance to medication s and dietDenies any hypoglycem ic episodesDe nies any SE to medication s Recent labs done on: 025- A1C: 6.3- BS: 5- microalbum in: not testedEndo referral and f/u: none Current Symptoms: noneMicrov ascular complicati ons: None Macrovascu lar complicati ons: none L ast eye exam: Apr, 2024 [place] [facility] exam: self check advisedLas t [...] sooner for lab f/u Hypertensive disorder 38 105228 I10 BP: 128/80Medi cation: metoprolol succinate ER [...] month Body mass index 30+ - obesity 120741872 Z68.31 Counseled on the Mediterran john diet: [...] be >=150min. Cardiovasc ular stress test abnormal 195586632 R94.[address] medical history of obstructiv e coronary artery disease status post PCI with a drug-eluti ng stent to the LAD on December 26, 2020 at [facility] Pigmented skin lesion 20 8389870 L81.9 not interested in dermbirthm ark Stented co ronary artery 141204942 Z95.5 Not taking any nitro anymoreNo chest pain Anxiety 13724767 F41.9 stable Screening for malignant neoplasm of cervix 548253135 Z12.4 Not interested in seeing a RECONCILING CLERK now Body mass index 25-29 - overweight 496666251 Z68.25 stable Exposure t o SARS-CoV-2 100265917 Z20.828 Covid-19 discussion : patient was instructed on safety precaution s including frequent hand washing, social distancing , avoiding touching face with hands, and covering mouth with arm/elbow when coughing or sneezing. the symptoms of Covid 19 were reviewed and the patient was instructed on when to self quarantine , when to call the PCP, and when to seek emergency care. Systolic murmur 76099822 R01.1 - declines echo today - does not know what it is, but sounds? minimal - rec echo after next visit - declined today Bilateral cataracts 9572 2004 H26.9 Done recently and doing well Blood in urine 70016754 R31.9 She had trace blood in the urine past visits.no UTI symptomsch ecking Screening mammography of bilateral breasts 5274337911 66028 Z12.31 not interested Tobacco non-user 0630207 001 18863 Z13.89 never a smoker Ex-drinker 38236406 F10. 21 long time ago Active or passive immunization 039706918 Z23 Encouraged to get shingles and pneumococc alYearly flu and COVID boostersTD AP every 10 years Mixed hyperlipidemia 267 514184 E78.2 76659 Medication : atorvastat in 40mg Labs done on 08/07/2024 Triglyceri charmaine: 86Choleste rol:121LDL :55HDL:49 Reports compliance Denies any SE to the medication continue current regimen as directed. Patient is advised on low fat, low calorie diet, weight loss and regular exercise. Also advised on medication compliance and regular labs every 3 months. Vitamin D deficiency 347 92958 E55.9 vitamin D level: 28 Lab done [...] Eat More Vitamin D-Rich Foods Fatty Fish (Goff, Mackerel, Tuna, Sardines)E gg YolksForti fied Foods (Milk, Burleson Juice, Cereals, Plant-base d Milk)Mushr ooms (Sun-expos ed varieties like Maitake & Shiitake)C od Liver Oil (Very high in Vitamin D)Consider a Vitamin D Supplement Vitamin D3 (cholecalc iferol) is preferred over D2 for better absorption .Typical dosage for deficiency : 8956-0631 IU daily (Check with a doctor for the right dose).Pair with Vitamin K2 & Magnesium Vitamin K2 helps direct calcium to bones (found in fermented foods, dairy, and natto).Mag nesium helps activate Vitamin D (found in nuts, seeds, and leafy greens). Pulmonary emphysema 8743 3001 J43.9 6433314 LDCT: mild emphysema 93218 Ted Torrez MD [address] [address] 05/09/2025 13:14:49 05/09/2025 15:49:17 Coronary arteriosclerosis 10366681 I25.10 [id number] #CAD: past medical history of obstructiv e coronary artery disease status post PCI with a drug-eludi ng stent to the LAD on December 26, 2020 at [facility] Lipid control: atorvastat in 40mgAC: Brilinta 90mg stopped December 26tente d coronary arteryabno rmal stress testFollow ing cardiology The patient is stable and asymptomat ic. The patient is to continue low-dose aspirin for secondary prevention . The patient has been counseled regarding heart healthy diet and exercise. Last visit with cards : Dr. Garner 22 November Screening for malignant neoplasm of colon 847325344 Z12.11 cologuard negative 12/2021, recheck in 2024 Screening mammography 24 625557 Z12.31 DECLINES Cough 03983087 R05.9 chronic cough since march She was [...] She feels much better today Thyroid nodule 027248627 E04.1 Recent LDCT showed a noduleTHYR OID: There is a 1.8 cm nodule in the superior mediastinu m on series 2 image 26 which isinferior to the thyroid isthmus which may be on the basis of a exophytic thyroid nodule. Itmeasures 48 Hounsfield units internal density. This is unchanged from CT of the chest dated2020 EKG: T wave abnormal 164 142214 R94.31 new changes on EKG borderline st dep ov 0.5 t wave inversion on lateral leads and ASA Metoprolol , Nitro (if use this to ER) ETT fairly quickly new changes since Jan 2019 Type 2 tony betes mellitus 59057668 E11.9 Medication s: metformin 500mg bid Reports compliance to medication s and dietDenies any hypoglycem ic episodesDe nies any SE to medication s Recent labs done on: 025- A1C: 6.3- BS: 5- microalbum in: not testedEndo referral and f/u: none Current Symptoms: noneMicrov ascular complicati ons: None Macrovascu lar complicati ons: none [place] ast eye exam: Apr, 2024 [place] [facility] exam: self check advisedLas t [...] sooner for lab f/u Hypertensive disorder 38 123287 I10 BP: 128/80Medi cation: metoprolol succinate ER [...] done Body mass index 30+ - obesity 631993490 Z68.31 Counseled on the Mediterran john diet: [...] be >=150min. Cardiovasc ular stress test abnormal 178537990 R94.[address] medical history of obstructiv e coronary artery disease status post PCI with a drug-eluti ng stent to the LAD on December 26, 2020 at [facility] Pigmented skin lesion 20 3954386 L81.9 not interested in dermbirthm ark Stented co ronary artery 051367032 Z95.5 Not taking any nitro anymoreNo chest pain Anxiety 61687966 F41.9 stable Screening for malignant neoplasm of cervix 703366744 Z12.4 Not interested in seeing a RECONCILING CLERK now Body mass index 25-29 - overweight 254200016 Z68.25 stable Exposure t o SARS-CoV-2 912565852 Z20.828 Covid-19 discussion : patient was instructed on safety precaution s including frequent hand washing, social distancing , avoiding touching face with hands, and covering mouth with arm/elbow when coughing or sneezing. the symptoms of Covid 19 were reviewed and the patient was instructed on when to self quarantine , when to call the PCP, and when to seek emergency care. Systolic murmur 22851947 R01.1 - declines echo today - does not know what it is, but sounds? minimal - rec echo after next visit - declined today Bilateral cataracts 9572 2004 H26.9 Done recently and doing well Blood in urine 07713176 R31.9 She had trace blood in the urine past visits.no UTI symptomsch ecking Screening mammography of bilateral breasts 6419423711 81124 Z12.31 not interested Tobacco non-user [id number] 001 21848 Z13.89 never a smoker Ex-drinker 59736720 F10. 21 long time ago Active or passive immunization 706180575 Z23 Encouraged to get shingles and pneumococc alYearly flu and COVID boostersTD AP every 10 years Mixed hyperlipidemia 267 501520 E78.2 33960 Medication : atorvastat in 40mg Labs done on 08/07/2024 Triglyceri charmaine: 86Choleste rol:121LDL :55HDL:49 Reports compliance Denies any SE to the medication continue current regimen as directed. Patient is advised on low fat, low calorie diet, weight loss and regular exercise. Also advised on medication compliance and regular labs every 3 months. Vitamin D deficiency 347 79862 E55.9 vitamin D level: 28 Lab done [...] Eat More Vitamin D-Rich Foods Fatty Fish (Goff, Mackerel, Tuna, Sardines)E gg YolksForti fied Foods (Milk, Burleson Juice, Cereals, Plant-base d Milk)Mushr ooms (Sun-expos ed varieties like Maitake & Shiitake)C od Liver Oil (Very high in Vitamin D)Consider a Vitamin D Supplement Vitamin D3 (cholecalc iferol) is preferred over D2 for better absorption .Typical dosage for deficiency : 1251-3503 IU daily (Check with a doctor for the right dose).Pair with Vitamin K2 & Magnesium Vitamin K2 helps direct calcium to bones (found in fermented foods, dairy, and natto).Mag nesium helps activate Vitamin D (found in nuts, seeds, and leafy greens). Pulmonary emphysema 8743 3001 J43.9 3146103 LDCT: mild emphysema 81310 Ted Torrez [facility] [address] [place] [address] 05/13/2025 09:53:52 05/14/2025 13:06:35 Coronary arteriosclerosis 83278080 I25.10 [id number] #CAD: past medical history of obstructiv e coronary artery disease status post PCI with a drug-eludi ng stent to the LAD on December 26, 2020 at [facility] Lipid control: atorvastat in 40mgAC: Brilinta 90mg stopped December 26tente d coronary arteryabno rmal stress testFollow ing cardiology The patient is stable and asymptomat ic. The patient is to continue low-dose aspirin for secondary prevention . The patient has been counseled regarding heart healthy diet and exercise. Last visit with cards : Dr. Garner 22 November Screening for malignant neoplasm of colon 521937776 Z12.11 cologuard negative 12/2021, recheck in 2024 Screening mammography 24 962676 Z12.31 DECLINES Cough 40010467 R05.9 chronic cough since march She was [...] She feels much better today Thyroid nodule 998246354 E04.1 Recent LDCT showed a noduleTHYR OID: There is a 1.8 cm nodule in the superior mediastinu m on series 2 image 26 which isinferior to the thyroid isthmus which may be on the basis of a exophytic thyroid nodule. Itmeasures 48 Hounsfield units internal density. This is unchanged from CT of the chest dated2020 EKG: T wave abnormal 164 163094 R94.31 new changes on EKG borderline st dep ov 0.5 t wave inversion on lateral leads and ASA Metoprolol , Nitro (if use this to ER) ETT fairly quickly new changes since Jan 2019 Type 2 tony betes mellitus 81264484 E11.9 Medication s: metformin 500mg bid Reports compliance to medication s and dietDenies any hypoglycem ic episodesDe nies any SE to medication s Recent labs done on: 025- A1C: 6.3- BS: 5- microalbum in: not testedEndo referral and f/u: none Current Symptoms: noneMicrov ascular complicati ons: None Macrovascu lar complicati ons: none L ast eye exam: Apr, 2024 [place] [facility] exam: self check advisedLas t [...] sooner for lab f/u Hypertensive disorder 38 431133 I10 BP: elevatedMe dication: metoprolol succinate ER [...] f/u Body mass index 30+ - obesity 308049712 Z68.31 Counseled on the Mediterran john diet: [...] be >=150min. Cardiovasc ular stress test abnormal 662945634 R94.[address] [facility] medical history of obstructiv e coronary artery disease status post PCI with a drug-eluti ng stent to the LAD on December 26, 2020 at [facility] Pigmented skin lesion 20 8288677 L81.9 not interested in dermbirthm ark Stented co ronary artery 779672756 Z95.5 Not taking any nitro anymoreNo chest pain Anxiety 75992387 F41.9 stable Screening for malignant neoplasm of cervix 981068619 Z12.4 Not interested in seeing a RECONCILING CLERK now Body mass index 25-29 - overweight 319262859 Z68.25 stable Exposure t o SARS-CoV-2 487156699 Z20.828 Covid-19 discussion : patient was instructed on safety precaution s including frequent hand washing, social distancing , avoiding touching face with hands, and covering mouth with arm/elbow when coughing or sneezing. the symptoms of Covid 19 were reviewed and the patient was instructed on when to self quarantine , when to call the PCP, and when to seek emergency care. Systolic murmur 20447094 R01.1 - declines echo today - does not know what it is, but sounds? minimal - rec echo after next visit - declined today Bilateral cataracts 9572 2004 H26.9 Done recently and doing well Blood in urine 71659386 R31.9 She had trace blood in the urine past visits.no UTI symptomsch ecking Screening mammography of bilateral breasts 4778134161 67412 Z12.31 not interested Tobacco non-user 0799642 001 84208 Z13.89 never a smoker Ex-drinker 35532872 F10. 21 long time ago Active or passive immunization 179136737 Z23 Encouraged to get shingles and pneumococc alYearly flu and COVID boostersTD AP every 10 years Mixed hyperlipidemia 267 430706 E78.2 66302 Medication : atorvastat in 40mg Labs done on 08/07/2024 Triglyceri charmaine: 86Choleste rol:121LDL :55HDL:49 Reports compliance Denies any SE to the medication continue current regimen as directed. Patient is advised on low fat, low calorie diet, weight loss and regular exercise. Also advised on medication compliance and regular labs every 3 months. Vitamin D deficiency 347 22915 E55.9 vitamin D level: 28 Lab done [...] Eat More Vitamin D-Rich Foods Fatty Fish (Goff, Mackerel, Tuna, Sardines)E gg YolksForti fied Foods (Milk, Burleson Juice, Cereals, Plant-base d Milk)Mushr ooms (Sun-expos ed varieties like Maitake & Shiitake)C od Liver Oil (Very high in Vitamin D)Consider a Vitamin D Supplement Vitamin D3 (cholecalc iferol) is preferred over D2 for better absorption .Typical dosage for deficiency : 6797-4405 IU daily (Check with a doctor for the right dose).Pair with Vitamin K2 & Magnesium Vitamin K2 helps direct calcium to bones (found in fermented foods, dairy, and natto).Mag nesium helps activate Vitamin D (found in nuts, seeds, and leafy greens). Pulmonary emphysema 8743 3001 J43.9 3644358 LDCT: mild emphysema 39779 MD Sheree Tomlin [address] [place] [address] [place] [address] 05/20/2025 08:08:23 05/21/2025 09:10:21 Coronary arteriosclerosis 09764387 I25.10 [id number] #CAD: past medical history of obstructiv e coronary artery disease status post PCI with a drug-eludi ng stent to the LAD on December 26, 2020 at [facility] Lipid control: atorvastat in 40mgAC: Brilinta 90mg stopped December 26tente d coronary arteryabno rmal stress testFollow ing cardiology The patient is stable and asymptomat ic. The patient is to continue low-dose aspirin for secondary prevention . The patient has been counseled regarding heart healthy diet and exercise. Last visit with cards : Dr. Garner 22 November Screening for malignant neoplasm of colon 768519019 Z12.11 cologuard negative 12/2021, recheck in 2024 Screening mammography 24 673287 Z12.31 DECLINES Cough 69394803 R05.9 chronic cough since march She was [...] She feels much better today Thyroid nodule 415417930 E04.1 Recent LDCT showed a noduleTHYR OID: There is a 1.8 cm nodule in the superior mediastinu m on series 2 image 26 which isinferior to the thyroid isthmus which may be on the basis of a exophytic thyroid nodule. Itmeasures 48 Hounsfield units internal density. This is unchanged from CT of the chest dated2020 EKG: T wave abnormal 164 200504 R94.31 new changes on EKG borderline st dep ov 0.5 t wave inversion on lateral leads and ASA Metoprolol , Nitro (if use this to ER) ETT fairly quickly new changes since Jan 2019 Type 2 tony betes mellitus 86852412 E11.9 Medication s: metformin 500mg bid Reports compliance to medication s and dietDenies any hypoglycem ic episodesDe nies any SE to medication s Recent labs done on: 025- A1C: 6.3- BS: 5- microalbum in: not testedEndo referral and f/u: none Current Symptoms: noneMicrov ascular complicati ons: None Macrovascu lar complicati ons: none L ast eye exam: Apr, 2024 [place] [facility] exam: self check advisedLas t [...] sooner for lab f/u Hypertensive disorder 38 479950 I10 BP: elevatedMe dication: metoprolol succinate ER [...] f/u Body mass index 30+ - obesity 622319856 Z68.31 Counseled on the Mediterran john diet: [...] be >=150min. Cardiovasc ular stress test abnormal 626497378 R94.[address] [facility] medical [facility] of obstructiv e coronary artery disease status post PCI with a drug-eluti ng stent to the LAD on December 26, 2020 at [facility] Pigmented skin lesion 20 8512719 L81.9 not interested in dermbirthm ark Stented co ronary artery 046641368 Z95.5 Not taking any nitro anymoreNo chest pain Anxiety 86173626 F41.9 stable Screening for malignant neoplasm of cervix 691184372 Z12.4 Not interested in seeing a RECONCILING CLERK now Body mass index 25-29 - overweight 278164087 Z68.25 stable Exposure t o SARS-CoV-2 233339342 Z20.828 Covid-19 discussion : patient was instructed on safety precaution s including frequent hand washing, social distancing , avoiding touching face with hands, and covering mouth with arm/elbow when coughing or sneezing. the symptoms of Covid 19 were reviewed and the patient was instructed on when to self quarantine , when to call the PCP, and when to seek emergency care. Systolic murmur 86251466 R01.1 - declines echo today - does not know what it is, but sounds? minimal - rec echo after next visit - declined today Bilateral cataracts 9572 2004 H26.9 Done recently and doing well Blood in urine 16920351 R31.9 She had trace blood in the urine past visits.no UTI symptomsch ecking Screening mammography of bilateral breasts 3554660850 87768 Z12.31 not interested Tobacco non-user 7148775 001 42123 Z13.89 never a smoker Ex-drinker 64595154 F10. 21 long time ago Active or passive immunization 931680050 Z23 Encouraged to get shingles and pneumococc alYearly flu and COVID boostersTD AP every 10 years Mixed hyperlipidemia 267 561087 E78.2 21108 Medication : atorvastat in 40mg Labs done on 08/07/2024 Triglyceri charmaine: 86Choleste rol:121LDL :55HDL:49 Reports compliance Denies any SE to the medication continue current regimen as directed. Patient is advised on low fat, low calorie diet, weight loss and regular exercise. Also advised on medication compliance and regular labs every 3 months. Vitamin D deficiency 347 66861 E55.9 vitamin D level: 28 Lab done [...] Eat More Vitamin D-Rich Foods Fatty Fish (Goff, Mackerel, Tuna, Sardines)E gg YolksForti fied Foods (Milk, Burleson Juice, Cereals, Plant-base d Milk)Mushr ooms (Sun-expos ed varieties like Maitake & Shiitake)C od Liver Oil (Very high in Vitamin D)Consider a Vitamin D Supplement Vitamin D3 (cholecalc iferol) is preferred over D2 for better absorption .Typical dosage for deficiency : 8489-9862 IU daily (Check with a doctor for the right dose).Pair with Vitamin K2 & Magnesium Vitamin K2 helps direct calcium to bones (found in fermented foods, dairy, and natto).Mag nesium helps activate Vitamin D (found in nuts, seeds, and leafy greens). Pulmonary emphysema [id number] J43.9 [id number] LDCT: mild emphysema Health Concerns Section Related Observation LastModified by Organization Detai ls LastModified Time None Recorded Concern Status LastModified by Organization Details LastModified Time None Recorded Advance Directives Directive N: Payers Insurance Date Sequence Insurance Name Policy Number Policy Lewis Covered Member ID Lewis Member ID Guarantor Name 05/06/2025 1 [place]IC[place] [employer] Fatoumata Hewitt [id number] Fatoumata Campbell Armazeem 05/19/2025 2 BCBS-ID: [facility] [employer] [id number] Fatoumata Hewitt [id number] Fatoumata Hewitt 06/27/2024 1 BCBS-ID [facility] [id number] Fatoumata Campbell Armazeem [id number] Fatoumata Hewitt Notes Date Note Type Note [...] problems with breathing. The patient resides in [place] and reports difficulty with the long travel to the clinic, and she is planning to find a new primary care physician closer to her home. KATIE Ravi [address] [place] [address], [phone], [employer] 05/06/2025 13:15:51 05/07/2025 text/html The patient is a 74 year old female presenting for follow-up on her hypertension. She has a home blood pressure machine and reports recent readings of 168/92 mmHg and 161/102 mmHg with a pulse of 78 bpm. She has been taking two tablets of losartan 50mg. The patient also reports needing to establish primary care at [facility], which requires her medical records to be sent. KATIE Ravi [address] [place] [address], [place], [phone], [employer] 05/07/2025 13:22:36 05/09/2025 text/html The patient is a 74 year old female presenting for follow-up on hypertension management. Her current regimen is believed to be ineffective. She is currently taking losartan, which will be discontinued, and she remains on metoprolol 25 mg. She has also been advised to start taking metformin. KATIE Ravi [address] [place] [address], [place], [phone], [employer] 05/09/2025 15:48:28 05/13/2025 text/html The patient is a 74 year old female presenting for follow-up on her elevated blood pressure. She has been monitoring her blood pressure at home and reports recent readings of 151/99 mmHg and 160/109 mmHg. Her current medications include metoprolol, a diuretic, low-dose aspirin, and metformin. She also reports recent weight gain, weighing 193.6 pounds this morning. KATIE Ravi [address] [facility], [place] [address], [place], [phone], [facility] [employer] 05/13/2025 21:37:34 05/20/2025 text/html The patient is a 74-year-old female presenting for management of chronic conditions, primarily hypertension. She reports feeling a little blah and has been monitoring her blood pressure at home in the mornings. Her recent readings include 128/92 mmHg today, 124/83 mmHg yesterday, 120/94 mmHg the day before, 135/104 mmHg on the , and 123/98 mmHg on the . Her weight today is 193.6 lbs. The patient also reports acid indigestion, which she believes may be a side effect of her water pill. The patient is in the process of establishing care with a new primary care provider and has not yet secured an appointment, but plans to call to schedule one. KATIE Ravi [address] [facility], [facility] [address], [place], [phone], [employer] 05/20/2025 22:21:41 OBGyn Episode No OBEpisode recorded.
--- OUTSIDE RECORDS SUMMARY | 2025-05-27 15:33 | XMS_ITS | Continuity of Care Document ---
Author Organization [facility]FF[facility] R[facility]DLE/Aureliano [facility] Address [address] [address] Care Team Providers Care Button Buttonhole Marker Name Role Phone [facility] OTHER [phone] [facility] (CARDIOLOGY) OTHER IWONA SUERO Primary Care Provider Assessment Encounter Date Assessment Date Assessment LastModified by Organization Details LastModified Time 05/20/2025 05/20/2025 128/92 124/82 ------> 120/94 135/93 [...] Care The patient finds the commute from [place] difficult and is actively seeking a new [...] Care The patient finds the commute from [place] difficult and is actively seeking a new [...] patient was advised that she can take oush-qab-xufwfhb Tums for her symptoms. Procedure Documentation: No procedures were performed during the visit. Not available 05/20/2025 15:42:09 Plan of Treatment Reminders Order Date Submit Date Provider Last Modified By Organization Details Last Modified Time Details Appointments None recorded. Lab None recorded. Referral None recorded. Procedures None recorded. Surgeries None recorded. Imaging None recorded. Medication Orders atorvastati n [address] [facility]/Pharmacy #[id number], [address] [place], [address], 5 15:42:01 amlodipine 5 mg tablet 2024 025 [facility]/Pharmacy #[id number], [address] [place], [address], 15:42:00 chlorthalid one 25 mg tablet 2024 025 [id number] [address] [place], [address], 15:42:01 metformin ER 500 mg tablet,exte nded release 24 hr 2024 025 [id number], [address] [place], [address], 15:42:00 metoprolol succinate ER 25 mg tablet,exte nded release 24 hr 2024 025 [id number], [address] [place], [address], 15:42:00 Patient TargetsNo targets recorded. Patient Instructions Encounter Date Encounter Id Patient Instructions Last Modified By Organization Details Last Modified Time 05/20/2025 [id number] - Continue to check your blood pressure [...] to enzym atic HbA1c metho d. Refer pattie sincere s and resul ts allen ahn to previ ous metho d. Not Available [address], [address], 04/22/2025 12:05:32 04/22/20 25 04/22/2025 COMPR EHENS SUZIE METAB OLIC PANEL sodium 141 mEq/L 133-14 5 normal Not Available [address], [address], 04/22/2025 12:21:53 04/22/20 25 04/22/2025 COMPR EHENS SUZIE METAB OLIC PANEL potassium 4.5 mEq/L 3.5-5. 1 normal Not Available [address], [address], 04/22/2025 12:21:53 04/22/20 25 04/22/2025 COMPR EHENS SUZIE METAB OLIC PANEL chloride 106 mEq/L 98-112 normal Not Available [address], [address], 04/22/2025 12:21:53 04/22/20 25 04/22/2025 COMPR EHENS SUZIE METAB OLIC PANEL carbon dioxide 24 mEq/L 22-31 normal Not Available [address], [address], 04/22/2025 12:21:53 04/22/20 25 04/22/2025 COMPR EHENS SUZIE METAB OLIC PANEL anion gap 11 mEq/L 5-15 normal Not Available [address], [address], 04/22/2025 12:21:53 04/22/20 25 04/22/2025 COMPR EHENS SUZIE METAB OLIC PANEL blood urea nitrogen (BUN) 11 mg/dL 10-20 normal Not Available [address], [address], 04/22/2025 12:21:53 11/04/22/2025 COMPR EHENS SUZIE METAB OLIC PANEL creatinine 0.75 mg/dL 0.50-1 .02 normal Not Available [address], [address], 04/22/2025 12:21:53 04/22/2004/22/2025 COMPR EHENS SUZIE METAB [...] (kidn ey failu re). Not Available [address], [address], 04/22/2025 12:21:53 04/22/2004/22/2025 COMPR EHENS SUZIE METAB OLIC PANEL glucose 100 mg/dL 70-100 normal Fasti ng Refer ence Inter diony: 70-10 0mg/d L Non-f astin g Refer ence Inter diony: 70-14 0mg/d L Not Available [address], [address], 04/22/2025 12:21:53 04/22/20 25 04/22/2025 COMPR EHENS SUZIE METAB OLIC PANEL calcium 9.3 mg/dL 8.4-10 .4 normal Not Available [address], [address], 04/22/2025 12:21:53 04/22/20 25 04/22/2025 COMPR EHENS SUZIE METAB OLIC PANEL bilirubin total 0.6 mg/dL 0.3-1. 2 normal Not Available [address], [address], 04/22/2025 12:21:53 04/22/20 25 04/22/2025 COMPR EHENS SUZIE METAB OLIC PANEL aspartate amino transferase 17 IU/L 11-34 normal Not Available [address], [address], 04/22/2025 12:21:53 04/22/20 25 04/22/2025 COMPR EHENS SUZIE METAB OLIC PANEL alanine aminotransfe rase 14 IU/L <34 Not Available [address], [address], 04/22/2025 12:21:53 04/22/20 25 04/22/2025 COMPR EHENS SUZIE METAB OLIC PANEL total protein 7.5 g/dL 5.8-8. 1 normal Not Available [address], [address], 04/22/2025 12:21:53 04/22/20 25 04/22/2025 COMPR EHENS SUZIE METAB OLIC PANEL albumin 4.0 g/dL 2.5-5. 0 normal Not Available [address], [address], 04/22/2025 12:21:53 04/22/20 25 04/22/2025 COMPR EHENS SUZIE METAB OLIC PANEL alkaline phosphatase 117 IU/L 40-150 normal Not Available [address], [address], 04/22/2025 12:21:53 04/22/2004/22/2025 LIPID PANEL triglyceride s 117 mg/dL normal Audra l <=150 Audra l 150-1 99 Borde rline High 200-4 99 High >=500 Very High Not Available [address], [address], 04/22/2025 12:21:54 04/22/2004/22/2025 LIPID PANEL cholesterol 128 mg/dL normal Keenan able <200 Keenan able 200-2 39 Borde rline High >=240 High Not Available [address], [address], 04/22/2025 12:21:54 04/22/2004/22/2025 LIPID PANEL LDL cholesterol calculated 64 mg/dL normal Optim al <100 Optim al 100-1 29 Near optim al 130-1 59 Borde rline High 160-1 89 High >=190 Very High Not Available [address], [address], 04/22/2025 12:21:54 04/22/2004/22/2025 LIPID PANEL HDL cholesterol 41 mg/dL <40 Low >=60 Optim al Not Available [address], [address], 04/22/2025 12:21:54 Result Notes None recorded. Problems Name Problem SNOMED Code Status Onset Date Resolution Date Notes Provider Name and Address Organization Details Recorded Time Type 2 diabetes mellitus 31481003 Active 2018 KATIE Ravi [address] [facility], [address], [place], [address] , [place] - PMA/WIP 5 15:16:55 Hyperten sive disorder 05076924 Active 2018 Not Available [facility] 2 20:28:52 Body mass index 25-29 - overweig ht 025458554 Completed 201811/12/2020 Aleks diaz [place] - PMA/WIP 1 11:37:29 Cardiova scular stress test abnormal 863921374 Active 2020 Not Available [facility] 2 20:28:52 Body mass index 30+ - obesity 373929302 Active 2020 Not Available [facility] 2 20:28:52 Stented coronary artery 536229421 Active 2020 LAD 95% [facility] December 2020 Not Available [facility] 2 20:28:52 Coronary arterios clerosis 72148266 Active 2020 Not Available [facility] 2 20:28:52 Mixed hyperlip idemia 272493513 Active 2024 KATIE Ravi [address] [place] [address], [place], [address] , [facility] - PMA/WIP 5 15:16:53 Problem Notes None recorded. Medical Equipment None Reported. Allergies Allergen ID Allergen Name Allergen Category Reaction Reaction Severity Criticality Documentation Date Start Date Code Code System Note Provider Name and Address Organization Details Recorded Time 7018 lisinopri l medicatio n cough Not available Not available 04/01/2025 23309 RxNorm KATIE Ravi [address] [address], [place], [address], [place] - PMA/WIP 5 11:41:23 Medications [...] day by oral route for 90 days. 12/01/ 2025 12/04 /2025 completed Not Available Not Available Not Available metformin ER 500 mg tablet,ex tended release 24 hr Take 2 tablets twice a day by oral route for 90 days. 2024 active Not Available Not Available Not Peyton rdz metformin ER 1,000 mg tablet,ex tended release [...] Tobacco Smoking Status Never Smoker Not Available [facility] 03/20/2020 03:13:01 Do You Have An Advance [...] Or The Highest Degree You Have Received? HI69017-4 Information not available 08/20/2020 Have There Been [...] adjuvanted, quadrivalent, PF 2 completed KATIE Ravi [address] [place] [address], [place], [address], [place] - PMA/WIP 01/24/2023 12:50:11 COVID-19, mRNA, LNP-S, bivalent, PF, 30 mcg/0.3 mL dose 2 completed KATIE Ravi [address] [place] [address], [place], [address], [place] - PMA/WIP 04/01/2025 11:37:14 pneumococcal polysaccharide PPV23 9 completed KATIE Ravi [address] [place] [address], [place], [address], [place] - PMA/WIP 04/01/2025 11:37:14 Influenza, split virus, quadrivalent, preservative 9 completed KATIE Ravi [address] [place] [address], [place], [address], [place] - PMA/WIP 04/01/2025 11:37:14 influenza nasal, unspecified formulation 4 completed Ernestina Otto null, [place] - PMA/WIP 06/27/2024 13:14:39 SARS-COV-2 (COVID-19) vaccine, UNSPECIFIED 4 completed Ernestina Otto null, [place] - PMA/WIP 06/27/2024 13:14:49 Influenza, split virus, quadrivalent, preservative 0 completed KATIE Ravi [address] [place] [address], [place], [address], [place] - PMA/WIP 06/17/2023 16:03:45 COVID-19, mRNA, LNP-S, PF, 30 mcg/0.3 mL dose 1 completed Not Available [facility] 05/20/2025 08:08:59 COVID-19, mRNA, LNP-S, PF, 30 mcg/0.3 mL dose 1 completed Not Available [facility] 05/20/2025 08:08:59 Influenza, high-dose, quadrivalent, PF 3 completed Not Available [facility] 05/20/2025 08:08:59 Influenza, high-dose, trivalent, PF 5 completed Not Available [facility] 05/20/2025 08:08:59 COVID-19, mRNA, LNP-S, PF, 30 mcg/0.3 mL dose 1 completed Not Available [facility] 05/20/2025 08:08:59 Influenza, high-dose, quadrivalent, PF 1 completed Not Available [facility] 05/20/2025 08:08:59 COVID-19, mRNA, LNP-S, PF, mary-sucrose, 30 mcg/0.3 mL 5 completed Not Available [facility] 05/20/2025 08:08:59 Influenza, high-dose, trivalent, PF 8 completed Not Available [facility] 05/20/2025 08:08:59 Pneumococcal conjugate PCV 13 8 completed Not Available [facility] 05/20/2025 08:08:59 Influenza, split virus, quadrivalent, PF 9 completed KATIE Ravi [address] [place] [address], [place], [address], [place] - PMA/WIP 04/01/2025 11:37:14 Past Encounters Encounter ID Performer Location Encounter Start Date Encounter Closed Date Diagnosis/Indication Diagnosis SNOMED-CT Code Diagnosis ICD10 Code Diagnosis IMO Codes Diagnosis Note [id number] MD Paulette Tomlinisabell mosley [address] [place] [address] [place] [address] 05/06/2025 11:21:05 05/06/2025 13:18:51 Coronary arteriosclerosis 78063894 I25.10 [id number] #CAD: past medical history of obstructiv e coronary artery disease status post PCI with a drug-eludi ng stent to the LAD on December 26, 2020 at [facility] Lipid control: atorvastat in 40mgAC: Brilinta 90mg stopped December 26tente d coronary arteryabno rmal stress testFollow ing cardiology The patient is stable and asymptomat ic. The patient is to continue low-dose aspirin for secondary prevention . The patient has been counseled regarding heart healthy diet and exercise. Last visit with cards : Dr. Garner 22 November Screening for malignant neoplasm of colon 214301046 Z12.11 cologuard negative 12/2021, recheck in 2024 Screening mammography 24 659995 Z12.31 DECLINES Cough 26513102 R05.9 chronic cough since march She was [...] She feels much better today Thyroid nodule 881598915 E04.1 Recent LDCT showed a noduleTHYR OID: There is a 1.8 cm nodule in the superior mediastinu m on series 2 image 26 which isinferior to the thyroid isthmus which may be on the basis of a exophytic thyroid nodule. Itmeasures 48 Hounsfield units internal density. This is unchanged from CT of the chest dated2020 EKG: T wave abnormal 164 474894 R94.31 new changes on EKG borderline st dep ov 0.5 t wave inversion on lateral leads and ASA Metoprolol , Nitro (if use this to ER) ETT fairly quickly new changes since Jan 2019 Type 2 tony betes mellitus 73412276 E11.9 Medication s: metformin 500mg bid Reports compliance to medication s and dietDenies any hypoglycem ic episodesDe nies any SE to medication s Recent labs done on: 025- A1C: 6.3- BS: 5- microalbum in: not testedEndo referral and f/u: none Current Symptoms: noneMicrov ascular complicati ons: None Macrovascu lar complicati ons: none [place] exam: Apr, [facility] [place] [facility]: self check advisedLas t [...] sooner for lab f/u Hypertensive disorder 38 939589 I10 BP: 128/80Medi cation: metoprolol succinate ER [...] month Body mass index 30+ - obesity 904804915 Z68.31 Counseled on the Mediterran john diet: [...] be >=150min. Cardiovasc ular stress test abnormal 406247415 R94.39 CARDS [facility] medical history of obstructiv e coronary artery disease status post PCI with a drug-eluti ng stent to the LAD on December 26, 2020 at [facility] Pigmented skin lesion 20 1828118 L81.9 not interested in dermbirthm ark Stented co ronary artery 339337022 Z95.5 Not taking any nitro anymoreNo chest pain Anxiety 94897532 F41.9 stable Screening for malignant neoplasm of cervix 442581515 Z12.4 Not interested in seeing a MANAGER PERFORMANCE IMPROVEMENT now Body mass index 25-29 - overweight 624300820 Z68.25 stable Exposure t o SARS-CoV-2 495956485 Z20.828 Covid-19 discussion : patient was instructed on safety precaution s including frequent hand washing, social distancing , avoiding touching face with hands, and covering mouth with arm/elbow when coughing or sneezing. the symptoms of Covid 19 were reviewed and the patient was instructed on when to self quarantine , when to call the PCP, and when to seek emergency care. Systolic murmur 70205399 R01.1 - declines echo today - does not know what it is, but sounds? minimal - rec echo after next visit - declined today Bilateral cataracts 9572 2004 H26.9 Done recently and doing well Blood in urine 64149391 R31.9 She had trace blood in the urine past visits.no UTI symptomsch ecking Screening mammography of bilateral breasts 7284793297 95568 Z12.31 not interested Tobacco non-user 4038274 001 20098 Z13.89 never a smoker Ex-drinker 35713964 F10. 21 long time ago Active or passive immunization 302391520 Z23 Encouraged to get shingles and pneumococc alYearly flu and COVID boostersTD AP every 10 years Mixed hyperlipidemia 267 238069 E78.2 16733 Medication : atorvastat in 40mg Labs done on 08/07/2024 Triglyceri charmaine: 86Choleste rol:121LDL :55HDL:49 Reports compliance Denies any SE to the medication continue current regimen as directed. Patient is advised on low fat, low calorie diet, weight loss and regular exercise. Also advised on medication compliance and regular labs every 3 months. Vitamin D deficiency 347 63432 E55.9 vitamin D level: 28 Lab done [...] Eat More Vitamin D-Rich Foods Fatty Fish (Victor, Mackerel, Tuna, Sardines)E gg YolksForti fied Foods (Milk, [place] Juice, Cereals, Plant-base d Milk)Mushr ooms (Sun-expos ed varieties like Maitake & Shiitake)C od Liver Oil (Very high in Vitamin D)Consider a Vitamin D Supplement Vitamin D3 (cholecalc iferol) is preferred over D2 for better absorption .Typical dosage for deficiency : 0407-5818 IU daily (Check with a doctor for the right dose).Pair with Vitamin K2 & Magnesium Vitamin K2 helps direct calcium to bones (found in fermented foods, dairy, and natto).Mag nesium helps activate Vitamin D (found in nuts, seeds, and leafy greens). Pulmonary emphysema 8743 3001 J43.9 [id number] Ted Torrez MD [address] [place] [address] 05/07/2025 10:55:05 05/07/2025 13:26:21 Coronary arteriosclerosis 68245670 I25.10 [id number] #CAD: past medical history of obstructiv e coronary artery disease status post PCI with a drug-eludi ng stent to the LAD on December 26, 2020 at [facility] Lipid control: atorvastat in 40mgAC: Brilinta 90mg stopped December 26tente d coronary arteryabno rmal stress testFollow ing cardiology The patient is stable and asymptomat ic. The patient is to continue low-dose aspirin for secondary prevention . The patient has been counseled regarding heart healthy diet and exercise. Last visit with cards : Dr. Garner 22 November Screening for malignant neoplasm of colon 491025731 Z12.11 cologuard negative 12/2021, recheck in 2024 Screening mammography 24 204147 Z12.31 DECLINES Cough 21154719 R05.9 chronic cough since march She was [...] She feels much better today Thyroid nodule 698892462 E04.1 Recent LDCT showed a noduleTHYR OID: There is a 1.8 cm nodule in the superior mediastinu m on series 2 image 26 which isinferior to the thyroid isthmus which may be on the basis of a exophytic thyroid nodule. Itmeasures 48 Hounsfield units internal density. This is unchanged from CT of the chest dated2020 EKG: T wave abnormal 164 115600 R94.31 new changes on EKG borderline st dep ov 0.5 t wave inversion on lateral leads and ASA Metoprolol , Nitro (if use this to ER) ETT fairly quickly new changes since Jan 2019 Type 2 tony betes mellitus 98283590 E11.9 Medication s: metformin 500mg bid Reports compliance to medication s and dietDenies any hypoglycem ic episodesDe nies any SE to medication s Recent labs done on: 025- A1C: 6.3- BS: 5- microalbum in: not testedEndo referral and f/u: none Current Symptoms: noneMicrov ascular complicati ons: None Macrovascu lar complicati ons: none L ast eye exam: Apr, 2024 [place] [facility] foot exam: self check advisedLas t [...] sooner for lab f/u Hypertensive disorder 38 442513 I10 BP: 128/80Medi cation: metoprolol succinate ER [...] month Body mass index 30+ - obesity 554390985 Z68.31 Counseled on the Mediterran john diet: [...] be >=150min. Cardiovasc ular stress test abnormal 122042198 R94.39 CARDS [facility] medical history of obstructiv e coronary artery disease status post PCI with a drug-eluti ng stent to the LAD on December 26, 2020 at [facility] Pigmented skin lesion 20 5123668 L81.9 not interested in dermbirthm ark Stented co ronary artery 940787507 Z95.5 Not taking any nitro anymoreNo chest pain Anxiety 57948153 F41.9 stable Screening for malignant neoplasm of cervix 602573625 Z12.4 Not interested in seeing a MANAGER PERFORMANCE IMPROVEMENT now Body mass index 25-29 - overweight 663357070 Z68.25 stable Exposure t o SARS-CoV-2 927687812 Z20.828 Covid-19 discussion : patient was instructed on safety precaution s including frequent hand washing, social distancing , avoiding touching face with hands, and covering mouth with arm/elbow when coughing or sneezing. the symptoms of Covid 19 were reviewed and the patient was instructed on when to self quarantine , when to call the PCP, and when to seek emergency care. Systolic murmur 14730124 R01.1 - declines echo today - does not know what it is, but sounds? minimal - rec echo after next visit - declined today Bilateral cataracts 9572 2004 H26.9 Done recently and doing well Blood in urine 85016184 R31.9 She had trace blood in the urine past visits.no UTI symptomsch ecking Screening mammography of bilateral breasts 6262721931 72515 Z12.31 not interested Tobacco non-user 3525891 001 47983 Z13.89 never a smoker Ex-drinker 28857118 F10. 21 long time ago Active or passive immunization 030094570 Z23 Encouraged to get shingles and pneumococc alYearly flu and COVID boostersTD AP every 10 years Mixed hyperlipidemia 267 257227 E78.2 80325 Medication : atorvastat in 40mg Labs done on 08/07/2024 Triglyceri charmaine: 86Choleste rol:121LDL :55HDL:49 Reports compliance Denies any SE to the medication continue current regimen as directed. Patient is advised on low fat, low calorie diet, weight loss and regular exercise. Also advised on medication compliance and regular labs every 3 months. Vitamin D deficiency 347 50707 E55.9 vitamin D level: 28 Lab done [...] Eat More Vitamin D-Rich Foods Fatty Fish (Victor, Mackerel, Tuna, Sardines)E gg YolksForti fied Foods (Milk, [place] Juice, Cereals, Plant-base d Milk)Mushr ooms (Sun-expos ed varieties like Maitake & Shiitake)C od Liver Oil (Very high in Vitamin D)Consider a Vitamin D Supplement Vitamin D3 (cholecalc iferol) is preferred over D2 for better absorption .Typical dosage for deficiency : 1161-1050 IU daily (Check with a doctor for the right dose).Pair with Vitamin K2 & Magnesium Vitamin K2 helps direct calcium to bones (found in fermented foods, dairy, and natto).Mag nesium helps activate Vitamin D (found in nuts, seeds, and leafy greens). Pulmonary emphysema 8743 3001 J43.9 4259481 LDCT: mild emphysema [id number] Ted Torrez MD [address] [address] 05/09/2025 13:14:49 05/09/2025 15:49:17 Coronary arteriosclerosis 05284118 I25.10 [id number] #CAD: past medical history of obstructiv e coronary artery disease status post PCI with a drug-eludi ng stent to the LAD on December 26, 2020 at [facility] Lipid control: atorvastat in 40mgAC: Brilinta 90mg stopped December 26tente d coronary arteryabno rmal stress testFollow ing cardiology The patient is stable and asymptomat ic. The patient is to continue low-dose aspirin for secondary prevention . The patient has been counseled regarding heart healthy diet and exercise. Last visit with cards : Dr. Garner 22 November Screening for malignant neoplasm of colon 845927073 Z12.11 cologuard negative 12/2021, recheck in 2024 Screening mammography 24 686077 Z12.31 DECLINES Cough 42581754 R05.9 chronic cough since march She was [...] She feels much better today Thyroid nodule 691823830 E04.1 Recent LDCT showed a noduleTHYR OID: There is a 1.8 cm nodule in the superior mediastinu m on series 2 image 26 which isinferior to the thyroid isthmus which may be on the basis of a exophytic thyroid nodule. Itmeasures 48 Hounsfield units internal density. This is unchanged from CT of the chest dated2020 EKG: T wave abnormal 164 797984 R94.31 new changes on EKG borderline st dep ov 0.5 t wave inversion on lateral leads and ASA Metoprolol , Nitro (if use this to ER) ETT fairly quickly new changes since Jan 2019 Type 2 tony betes mellitus 91843693 E11.9 Medication s: metformin 500mg bid Reports compliance to medication s and dietDenies any hypoglycem ic episodesDe nies any SE to medication s Recent labs done on: 025- A1C: 6.3- BS: 5- microalbum in: not testedEndo referral and f/u: none Current Symptoms: noneMicrov ascular complicati ons: None Macrovascu lar complicati ons: none L ast eye exam: Apr, 2024 [place] [facility] foot exam: self check advisedLas t [...] sooner for lab f/u Hypertensive disorder 38 552911 I10 BP: 128/80Medi cation: metoprolol succinate ER [...] done Body mass index 30+ - obesity 210914017 Z68.31 Counseled on the Mediterran john diet: [...] be >=150min. Cardiovasc ular stress test abnormal 746729701 R94.39 CARDS [facility] medical history of obstructiv e coronary artery disease status post PCI with a drug-erika ng stent to the LAD on December 26, 2020 at [facility] Pigmented skin lesion 20 2204504 L81.9 not interested in dermbirthm ark Stented co ronary artery 298628586 Z95.5 Not taking any nitro anymoreNo chest pain Anxiety 57316916 F41.9 stable Screening for malignant neoplasm of cervix 274348193 Z12.4 Not interested in seeing a MANAGER PERFORMANCE IMPROVEMENT now Body mass index 25-29 - overweight 646301041 Z68.25 stable Exposure t o SARS-CoV-2 917803184 Z20.828 Covid-19 discussion : patient was instructed on safety precaution s including frequent hand washing, social distancing , avoiding touching face with hands, and covering mouth with arm/elbow when coughing or sneezing. the symptoms of Covid 19 were reviewed and the patient was instructed on when to self quarantine , when to call the PCP, and when to seek emergency care. Systolic murmur 31495373 R01.1 - declines echo today - does not know what it is, but sounds? minimal - rec echo after next visit - declined today Bilateral cataracts 9572 2003 H26.9 Done recently and doing well Blood in urine 75987863 R31.9 She had trace blood in the urine past visits.no UTI symptomsch ecking Screening mammography of bilateral breasts 1196142685 60227 Z12.31 not interested Tobacco non-user 0503877 001 36578 Z13.89 never a smoker Ex-drinker 87581561 F10. 21 long time ago Active or passive immunization 559728170 Z23 Encouraged to get shingles and pneumococc alYearly flu and COVID boostersTD AP every 10 years Mixed hyperlipidemia 267 657465 E78.2 41027 Medication : atorvastat in 40mg Labs done on 08/07/2024 Triglyceri charmaine: 86Choleste rol:121LDL :55HDL:49 Reports compliance Denies any SE to the medication continue current regimen as directed. Patient is advised on low fat, low calorie diet, weight loss and regular exercise. Also advised on medication compliance and regular labs every 3 months. Vitamin D deficiency 347 67726 E55.9 vitamin D level: 28 Lab done [...] Eat More Vitamin D-Rich Foods Fatty Fish (Victor, Mackerel, Tuna, Sardines)E gg YolksForti fied Foods (Milk, [place] Juice, Cereals, Plant-base d Milk)Mushr ooms (Sun-expos ed varieties like Maitake & Shiitake)C od Liver Oil (Very high in Vitamin D)Consider a Vitamin D Supplement Vitamin D3 (cholecalc iferol) is preferred over D2 for better absorption .Typical dosage for deficiency : 1643-6749 IU daily (Check with a doctor for the right dose).Pair with Vitamin K2 & Magnesium Vitamin K2 helps direct calcium to bones (found in fermented foods, dairy, and natto).Mag nesium helps activate Vitamin D (found in nuts, seeds, and leafy greens). Pulmonary emphysema 8743 3001 J43.9 4504301 LDCT: mild emphysema 30112 Ted Torrez MD [facility] [place] [address] [facility] [address] 05/13/2025 09:53:52 05/14/2025 13:06:35 Coronary arteriosclerosis 91342108 I25.10 [id number] #CAD: past medical history of obstructiv e coronary artery disease status post PCI with a drug-eludi ng stent to the LAD on December 26, 2020 at [facility] Lipid control: atorvastat in 40mgAC: Brilinta 90mg stopped December 26tente d coronary arteryabno rmal stress testFollow ing cardiology The patient is stable and asymptomat ic. The patient is to continue low-dose aspirin for secondary prevention . The patient has been counseled regarding heart healthy diet and exercise. Last visit with cards : Dr. Garner 22 November Screening for malignant neoplasm of colon 931158964 Z12.11 cologuard negative 12/2021, recheck in 2024 Screening mammography 24 164280 Z12.31 DECLINES Cough 58348487 R05.9 chronic cough since march She was [...] She feels much better today Thyroid nodule 519153574 E04.1 Recent LDCT showed a noduleTHYR OID: There is a 1.8 cm nodule in the superior mediastinu m on series 2 image 26 which isinferior to the thyroid isthmus which may be on the basis of a exophytic thyroid nodule. Itmeasures 48 Hounsfield units internal density. This is unchanged from CT of the chest dated2020 EKG: T wave abnormal 164 596020 R94.31 new changes on EKG borderline st dep ov 0.5 t wave inversion on lateral leads and ASA Metoprolol , Nitro (if use this to ER) ETT fairly quickly new changes since Jan 2019 Type 2 tony betes mellitus 97979548 E11.9 Medication s: metformin 500mg bid Reports compliance to medication s and dietDenies any hypoglycem ic episodesDe nies any SE to medication s Recent labs done on: 025- A1C: 6.3- BS: 5- microalbum in: not testedEndo referral and f/u: none Current Symptoms: noneMicrov ascular complicati ons: None Macrovascu lar complicati ons: none L ast eye exam: Apr, 20[place] [facility]: self check advisedLas t [...] sooner for lab f/u Hypertensive disorder 38 680004 I10 BP: elevatedMe dication: metoprolol succinate ER [...] f/u Body mass index 30+ - obesity 888704003 Z68.31 Counseled on the Naseem elainen diet: Daily consumptio n of vegetables , [...] be >=150min. Cardiovasc ular stress test abnormal 163129380 R94.39 CARDS [facility] medical history of obstructiv e coronary artery disease status post PCI with a drug-eluti ng stent to the LAD on December 26, 2020 at [facility] Pigmented skin lesion 20 8700989 L81.9 not interested in dermbirthm ark Stented co ronary artery 969853972 Z95.5 Not taking any nitro anymoreNo chest pain Anxiety 20773221 F41.9 stable Screening for malignant neoplasm of cervix 519346184 Z12.4 Not interested in seeing a MANAGER [employer] now Body mass index 25-29 - overweight 834604270 Z68.25 stable Exposure t o SARS-CoV-2 103505998 Z20.828 Covid-19 discussion : patient was instructed on safety precaution s including frequent hand washing, social distancing , avoiding touching face with hands, and covering mouth with arm/elbow when coughing or sneezing. the symptoms of Covid 19 were reviewed and the patient was instructed on when to self quarantine , when to call the PCP, and when to seek emergency care. Systolic murmur 47127536 R01.1 - declines echo today - does not know what it is, but sounds? minimal - rec echo after next visit - declined today Bilateral cataracts 9572 2004 H26.9 Done recently and doing well Blood in urine 92360375 R31.9 She had trace blood in the urine past visits.no UTI symptomsch ecking Screening mammography of bilateral breasts 3539901481 23851 Z12.31 not interested Tobacco non-user 4868894 001 92219 Z13.89 never a smoker Ex-drinker 17659917 F10. 21 long time ago Active or passive immunization 218752437 Z23 Encouraged to get shingles and pneumococc alYearly flu and COVID boostersTD AP every 10 years Mixed hyperlipidemia 267 516855 E78.2 94669 Medication : atorvastat in 40mg Labs done on 08/07/2024 Triglyceri charmaine: 86Choleste rol:121LDL :55HDL:49 Reports compliance Denies any SE to the medication continue current regimen as directed. Patient is advised on low fat, low calorie diet, weight loss and regular exercise. Also advised on medication compliance and regular labs every 3 months. Vitamin D deficiency 347 48395 E55.9 vitamin D level: 28 Lab done [...] Eat More Vitamin D-Rich Foods Fatty Fish (Victor, Mackerel, Tuna, Sardines)E gg YolksForti fied Foods (Milk, [place] Juice, Cereals, Plant-base d Milk)Mushr ooms (Sun-expos ed varieties like Maitake & Shiitake)C od Liver Oil (Very high in Vitamin D)Consider a Vitamin D Supplement Vitamin D3 (cholecalc iferol) is preferred over D2 for better absorption .Typical dosage for deficiency : 9954-3336 IU daily (Check with a doctor for the right dose).Pair with Vitamin K2 & Magnesium Vitamin K2 helps direct calcium to bones (found in fermented foods, dairy, and natto).Mag nesium helps activate Vitamin D (found in nuts, seeds, and leafy greens). Pulmonary emphysema 8743 3001 J43.9 4291143 LDCT: mild emphysema 85910 Ted Torrez MD [facility] [address] [facility] [address] [facility] [place] [address] 05/20/2025 08:08:23 05/21/2025 09:10:21 Coronary arteriosclerosis 33687739 I25.10 [id number] #CAD: past medical history of obstructiv e coronary artery disease status post PCI with a drug-eludi ng stent to the LAD on December 26, 2020 at [facility] Lipid control: atorvastat in 40mgAC: Brilinta 90mg stopped December 26tente d coronary arteryabno rmal stress testFollow ing cardiology The patient is stable and asymptomat ic. The patient is to continue low-dose aspirin for secondary prevention . The patient has been counseled regarding heart healthy diet and exercise. Last visit with cards : Dr. Garner 22 November Screening for malignant neoplasm of colon 459937078 Z12.11 cologuard negative 12/2021, recheck in 2024 Screening mammography 24 867294 Z12.31 DECLINES Cough 78647867 R05.9 chronic cough since march She was [...] She feels much better today Thyroid nodule 605537057 E04.1 Recent LDCT showed a noduleTHYR OID: There is a 1.8 cm nodule in the superior mediastinu m on series 2 image 26 which isinferior to the thyroid isthmus which may be on the basis of a exophytic thyroid nodule. Itmeasures 48 Hounsfield units internal density. This is unchanged from CT of the chest dated2020 EKG: T wave abnormal 164 215349 R94.31 new changes on EKG borderline st dep ov 0.5 t wave inversion on lateral leads and ASA Metoprolol , Nitro (if use this to ER) ETT fairly quickly new changes since Jan 2019 Type 2 tony betes mellitus 67662707 E11.9 Medication s: metformin 500mg bid Reports compliance to medication s and dietDenies any hypoglycem ic episodesDe nies any SE to medication s Recent labs done on: 025- A1C: 6.3- BS: 5- microalbum in: not testedEndo referral and f/u: none Current Symptoms: noneMicrov ascular complicati ons: None Macrovascu lar complicati ons: none L ast eye exam: Apr, 2024 [place] [facility] foot exam: self check advisedLas t [...] sooner for lab f/u Hypertensive disorder 38 317742 I10 BP: elevatedMe dication: metoprolol succinate ER [...] f/u Body mass index 30+ - obesity 557181974 Z68.31 Counseled on the Mediterran john diet: [...] be >=150min. Cardiovasc ular stress test abnormal 175785924 R94.39 CARDS [facility] medical history of obstructiv e coronary artery disease status post PCI with a drug-eluti ng stent to the LAD on December 26, 2020 at [facility] Pigmented skin lesion 20 9594995 L81.9 not interested in dermbirthm ark Stented co ronary artery 746302149 Z95.5 Not taking any nitro anymoreNo chest pain Anxiety 17821471 F41.9 stable Screening for malignant neoplasm of cervix 903323098 Z12.4 Not interested in seeing a MANAGER [employer] now Body mass index 25-29 - overweight 521755828 Z68.25 stable Exposure t o SARS-CoV-2 983916184 Z20.828 Covid-19 discussion : patient was instructed on safety precaution s including frequent hand washing, social distancing , avoiding touching face with hands, and covering mouth with arm/elbow when coughing or sneezing. the symptoms of Covid 19 were reviewed and the patient was instructed on when to self quarantine , when to call the PCP, and when to seek emergency care. Systolic murmur 20130182 R01.1 - declines echo today - does not know what it is, but sounds? minimal - rec echo after next visit - declined today Bilateral cataracts 9572 2003 H26.9 Done recently and doing well Blood in urine 45099483 R31.9 She had trace blood in the urine past visits.no UTI symptomsch ecking Screening mammography of bilateral breasts 6783605071 22987 Z12.31 not interested Tobacco non-user 1219587 001 69866 Z13.89 never a smoker Ex-drinker 27306180 F10. 21 long time ago Active or passive immunization 320129705 Z23 Encouraged to get shingles and pneumococc alYearly flu and COVID boostersTD AP every 10 years Mixed hyperlipidemia 267 905787 E78.2 18625 Medication : atorvastat in 40mg Labs done on 08/07/2024 Triglyceri charmaine: 86Choleste rol:121LDL :55HDL:49 Reports compliance Denies any SE to the medication continue current regimen as directed. Patient is advised on low fat, low calorie diet, weight loss and regular exercise. Also advised on medication compliance and regular labs every 3 months. Vitamin D deficiency 347 27699 E55.9 vitamin D level: 28 Lab done [...] Eat More Vitamin D-Rich Foods Fatty Fish (Victor, Mackerel, Tuna, Sardines)E gg YolksForti fied Foods (Milk, [place] Juice, Cereals, Plant-base d Milk)Mushr ooms (Sun-expos ed varieties like Maitake & Shiitake)C od Liver Oil (Very high in Vitamin D)Consider a Vitamin D Supplement Vitamin D3 (cholecalc iferol) is preferred over D2 for better absorption .Typical dosage for deficiency : 4030-1990 IU daily (Check with a doctor for the right dose).Pair with Vitamin K2 & Magnesium Vitamin K2 helps direct calcium to bones (found in fermented foods, dairy, and natto).Mag nesium helps activate Vitamin D (found in nuts, seeds, and leafy greens). Pulmonary emphysema 8743 3001 J43.9 4998714 LDCT: mild emphysema Health Concerns Section Related Observation LastModified by Organization Detai ls LastModified Time None Recorded Concern Status LastModified by Organization Details LastModified Time None Recorded Payers Encounter Date Sequence Insurance Name Policy Number Policy Lewis Covered Member ID Lewis Member ID Guarantor Name 05/20/2025 1 MEDICARE B-[place]: [employer] Fatoumata Hewitt [id number] Fatoumata Hewitt 05/20/2025 2 BCBS-ID: [employer] [facility] [employer] [id number] Fatoumata Hewitt [id number] Fatoumata Hewitt Notes Date Note Type Note Provider Name and Address Organization Details Recorded Time 05/20/2025 text/html The patient is a 74-year-old [...] to call to schedule one. KATIE Ravi [address] [place] [address], [address], [place], [address], TIFFANY - PMA/WIP 05/20/2025 22:21:41 OBGyn Episode No OBEpisode recorded.
--- OUTSIDE RECORDS SUMMARY | 2025-05-27 15:33 | XMS_ITS | Continuity of Care Document ---
Author Organization [facility]FF[facility]urel[facility] Address [address] [address] Care Team Providers Care Creative Resource Manager Name Role Phone [facility] OTHER [facility] (CARDIOLOGY) OTHER IWONA SUERO Primary Care Provider [phone] Assessment Encounter Date Assessment Date Assessment LastModified by Organization Details LastModified Time 05/07/2025 05/07/2025 This is a established patient [...] Care The patient finds the commute from [place] difficult and is actively seeking a new [...] her medical records to be sent to [facility] to establish new primary care. Staff member Argenis will contact the patient to facilitate a signed release of information. Not available 05/07/2025 13:22:15 Plan of Treatment Reminders Order Date Submit Date Provider Last Modified By Organization Details Last Modified Time Details Appointments None recorded. Lab None recorded. Referral None recorded. Procedures None recorded. Surgeries None recorded. Imaging None recorded. Medication Orders albuterol sulfate HFA 90 mcg/actuat ion aerosol inhaler 2024 025 [facility]/Pharmacy #[id number], [address] [facility], [place], [address], 13:14:07 Patient TargetsNo targets recorded. Patient Instructions Encounter Date Encounter Id Patient Instructions Last Modified By Organization Details Last Modified Time 05/07/2025 [id number] - To take your blood pressure, put the cuff on, sit quietly for five minutes with your legs touching the floor, and then press the start button. - A member of our staff, Argenis, will call you to help with sending your medical records to [facility]. - Expect a call back around 2 p.m. to check your blood pressure reading. Not available 05/07/2025 13:15:40 Please note: Parts of this encounter note have been generated by AI based on audio conversation. Patient consent was required prior to utilizing this technology. Content review was required prior to finalizing the note. Not available 05/07/2025 13:15:40 Reason for Referral None Reported. Results Created Date Observation Date Name Description Value Unit Range Abnormal Flag Note LastModifiedBy Organization Detail LastModifiedTime 04/22/2004/22/2025 HEMOG LOBIN A1C hemoglobin A1C 7.0 % 4.4-6. 3 high Metho dolog y korey lora to enzym atic HbA1c metho d. Refer ence range s and resul ts allen ahn to previ ous metho d. Not Available [address], [address], 04/22/2025 12:05:32 04/22/20 25 04/22/2025 COMPR EHENS SUZIE METAB OLIC PANEL sodium 141 mEq/L 133-14 5 normal Not Available [address], [address], 04/22/2025 12:21:53 04/22/202025 COMPR EHENS SUZIE METAB OLIC PANEL potassium 4.5 mEq/L 3.5-5. 1 normal Not Available [address], [address], 04/22/2025 12:21:53 04/22/20 25 04/22/2025 COMPR EHENS SUZIE METAB OLIC PANEL chloride 106 mEq/L 98-112 normal Not Available [address], [address], 04/22/2025 12:21:53 04/22/20 25 04/22/2025 COMPR EHENS SUZIE METAB OLIC PANEL carbon dioxide 24 mEq/L 22-31 normal Not Available [address], [address], 04/22/2025 12:21:53 04/22/20 25 04/22/2025 COMPR EHENS SUZIE METAB OLIC PANEL anion gap 11 mEq/L 5-15 normal Not Available [address], [address], 04/22/2025 12:21:53 04/22/20 25 04/22/2025 COMPR EHENS SUZIE METAB OLIC PANEL blood urea nitrogen (BUN) 11 mg/dL 10-20 normal Not Available [address], [address], 04/22/2025 12:21:53 04/22/20 25 04/22/2025 COMPR EHENS SUZIE METAB OLIC PANEL creatinine 0.75 mg/dL 0.50-1 .02 normal Not Available [address], [address], 04/22/2025 12:21:53 04/22/20 25 04/22/2025 COMPR EHENS SUZIE METAB OLIC PANEL est.glomerul ar filtration rate > 60 Units : mL/mi n/1.7 3 m2 Estim ated GFR (eGFR ) juan c wiggins not be used for patie nts with [...] G5 (kidn ey failu re). Not Available [address], [address], 04/22/2025 12:21:53 04/22/2004/22/2025 COMPR EHENS SUZIE METAB OLIC PANEL glucose 100 mg/dL 70-100 normal Fasti ng Refer ence Inter diony: 70-10 0mg/d L Non-f astin g Refer ence Inter diony: 70-14 0mg/d L Not Available [address], [address], 04/22/2025 12:21:53 04/22/2004/22/2025 COMPR EHENS SUZIE METAB OLIC PANEL calcium 9.3 mg/dL 8.4-10 .4 normal Not Available [address], [address], 04/22/2025 12:21:53 04/22/2004/22/2025 COMPR EHENS SUZIE METAB OLIC PANEL bilirubin total 0.6 mg/dL 0.3-1. 2 normal Not Available [address], [address], 04/22/2025 12:21:53 04/22/20 25 04/22/2025 COMPR EHENS SUZIE METAB OLIC PANEL aspartate amino transferase 17 IU/L 11-34 normal Not Available [address], [address], 04/22/2025 12:21:53 04/22/20 25 04/22/2025 COMPR EHENS SUZIE METAB OLIC PANEL alanine aminotransfe rase 14 IU/L <34 Not Available [address], [address], 04/22/2025 12:21:53 04/22/20 25 04/22/2025 COMPR EHENS SUZIE METAB OLIC PANEL total protein 7.5 g/dL 5.8-8. 1 normal Not Available [address], [address], 04/22/2025 12:21:53 04/22/20 25 04/22/2025 COMPR EHENS SUZIE METAB OLIC PANEL albumin 4.0 g/dL 2.5-5. 0 normal Not Available [address], [address], 04/22/2025 12:21:53 04/22/20 25 04/22/2025 COMPR EHENS SUZIE METAB OLIC PANEL alkaline phosphatase 117 IU/L 40-150 normal Not Available [address], [address], 04/22/2025 12:21:53 04/22/20 25 04/22/2025 LIPID PANEL triglyceride s 117 mg/dL normal Audra l <=150 Audra l 150-1 99 Borde rline High 200-4 99 High >=500 Very High Not Available [address], [address], 04/22/2025 12:21:54 04/22/20 25 04/22/2025 LIPID PANEL cholesterol 128 mg/dL normal Keenan able <200 Keenan able 200-2 39 Borde rline High >=240 High Not Available [facility] [address] [place], [address], 04/22/2025 12:21:54 04/22/2004/22/2025 LIPID PANEL LDL cholesterol calculated 64 mg/dL normal Optim al <100 Optim al 100-1 29 Near optim al 130-1 59 Borde rline High 160-1 89 High >=190 Very High Not Available [facility] [place] [address] [place], [address], 04/22/2025 12:21:54 04/22/2004/22/2025 LIPID PANEL HDL cholesterol 41 mg/dL <40 Low >=60 Optim al Not Available [address], [address], 04/22/2025 12:21:54 Result Notes None recorded. Problems Name Problem SNOMED Code Status Onset Date Resolution Date Notes Provider Name and Address Organization Details Recorded Time Type 2 diabetes mellitus 11053325 Active 2018 KATIE Ravi [address] [facility], [address], [place], [address] , [place] - PMA/WIP 5 15:16:55 Hyperten sive disorder 87038563 Active 2018 Not Available [facility] 2 20:28:52 Body mass index 25-29 - overweig ht 874063117 Completed 201811/12/2020 Aleks diaz, [place] - PMA/WIP 1 11:37:29 Cardiova scular stress test abnormal 145860341 Active 2020 Not Available [facility] 2 20:28:52 Body mass index 30+ - obesity 884275213 Active 2020 Not Available [facility] 2 20:28:52 Stented coronary artery 727304797 Active 2020 LAD 95% [facility] December 2020 Not Available [facility] 2 20:28:52 Coronary arterios clerosis 37547342 Active 2020 Not Available [facility] 2 20:28:52 Mixed hyperlip idemia 144647975 Active 2024 KATIE Ravi [address] [facility], [address], [place], [address] , [place] - PMA/WIP 5 15:16:53 Problem Notes None recorded. Medical Equipment None Reported. Allergies Allergen ID Allergen Name Allergen Category Reaction Reaction Severity Criticality Documentation Date Start Date Code Code System Note Provider Name and Address Organization Details Recorded Time 7018 lisinopri l medicatio n cough Not available Not available 04/01/2025 95679 RxNorm KATIE Ravi [address] [facility], [facility] [address], [place], [address], [place] - PMA/WIP 5 11:41:23 Medications [...] Not Available No t Available Fluzone High-Dose [id number] (PF) 180 mcg/0.5 mL intramusc ular syringe 01/08 completed Not Available Not Available Not Available Vitals None Recorded Social History Question Answer Notes LastModified by Organizat ion Details LastModified Time Tobacco Smoking Status Never Smoker Not Available [facility] 03/20/2020 03:13:01 Do You Have An Advance [...] Or The Highest Degree You Have Received? PP61614-2 Information not available 08/20/2020 Have There Been [...] adjuvanted, quadrivalent, PF 2 completed KATIE Ravi [address] [place] [address], [place], [address], [place] P[place]/WIP 01/24/2023 12:50:11 COVID-19, mRNA, LNP-S, bivalent, PF, 30 mcg/0.3 mL dose 2 completed KATIE Ravi [address] [place] [address], [place], [address], [place]IP 04/01/2025 11:37:14 pneumococcal polysaccharide PPV23 9 completed KATIE Ravi [address] [place] [address], [place], [address], [place] 04/01/2025 11:37:14 Influenza, split virus, quadrivalent, preservative 9 completed KATIE Ravi [address] [place] [address], [place], [address], [place] 04/01/2025 11:37:14 influenza nasal, unspecified formulation 4 completed Ernestina Otto null, [place] - [place] 06/27/2024 13:14:39 SARS-COV-2 (COVID-19) vaccine, UNSPECIFIED 4 completed Ernestina Otto null, [place] 06/27/2024 13:14:49 Influenza, split virus, quadrivalent, preservative 0 completed KATIE Ravi [address] [place] [address], [place], [address], [place] 06/17/2023 16:03:45 COVID-19, mRNA, LNP-S, PF, 30 mcg/0.3 mL dose 1 completed Not Available [facility] 05/20/2025 08:08:59 COVID-19, mRNA, LNP-S, PF, 30 mcg/0.3 mL dose 1 completed Not Available [facility] 05/20/2025 08:08:59 Influenza, high-dose, quadrivalent, PF 3 completed Not Available [facility] 05/20/2025 08:08:59 Influenza, high-dose, trivalent, PF 5 completed Not Available [facility] 05/20/2025 08:08:59 COVID-19, mRNA, LNP-S, PF, 30 mcg/0.3 mL dose 1 completed Not Available [facility] 05/20/2025 08:08:59 Influenza, high-dose, quadrivalent, PF 1 completed Not Available [facility] 05/20/2025 08:08:59 COVID-19, mRNA, LNP-S, PF, mary-sucrose, 30 mcg/0.3 mL 5 completed Not Available [facility] 05/20/2025 08:08:59 Influenza, high-dose, trivalent, PF 8 completed Not Available [facility] 05/20/2025 08:08:59 Pneumococcal conjugate PCV 13 8 completed Not Available [facility] 05/20/2025 08:08:59 Influenza, split virus, quadrivalent, PF 9 completed KATIE Ravi [address] [facility], [facility] [address], [place], [address], [facility] - PMA/WIP 04/01/2025 11:37:14 Past Encounters Encounter ID Performer Location Encounter Start Date Encounter Closed Date Diagnosis/Indication Diagnosis SNOMED-CT Code Diagnosis ICD10 Code Diagnosis IMO Codes Diagnosis Note [id number] Ted Torrez MD [address] [address] 05/06/2025 11:21:05 05/06/2025 13:18:51 Coronary arteriosclerosis 92661533 I25.10 [id number] #CAD: past medical history of obstructiv e coronary artery disease status post PCI with a drug-eludi ng stent to the LAD on December 26, 2020 at [facility] Lipid control: atorvastat in 40mgAC: [...] November Screening for malignant neoplasm of colon 664928214 Z12.11 cologuard negative 12/2021, recheck in 2024 Screening mammography 24 424116 Z12.31 DECLINES Cough 25945451 R05.9 chronic cough since march She was [...] She feels much better today Thyroid nodule 891770561 E04.1 Recent LDCT showed a noduleTHYR OID: There is a 1.8 cm nodule in the superior mediastinu m on series 2 image 26 which isinferior to the thyroid isthmus which may be on the basis of a exophytic thyroid nodule. Itmeasures 48 Hounsfield units internal density. This is unchanged from CT of the chest dated2020 EKG: T wave abnormal 164 973626 R94.31 new changes on EKG borderline st dep ov 0.5 t wave inversion on lateral leads and ASA Metoprolol , Nitro (if use this to ER) ETT fairly quickly new changes since Jan 2019 Type 2 tony betes mellitus 41431421 E11.9 Medication s: metformin 500mg bid Reports compliance to medication s and dietDenies any hypoglycem ic episodesDe nies any SE to medication s Recent labs done on: 025- A1C: 6.3- BS: 5- microalbum in: not testedEndo referral and f/u: none Current Symptoms: noneMicrov ascular complicati ons: None Macrovascu lar complicati ons: none L [place] eye exam: Apr, 20[place] [facility] exam: self check advisedLas t [...] sooner for lab f/u Hypertensive disorder 38 577835 I10 BP: 128/80Medi cation: metoprolol succinate ER [...] month Body mass index 30+ - obesity 549209255 Z68.31 Counseled on the Mediterran john diet: [...] be >=150min. Cardiovasc ular stress test abnormal 036571645 R94.[address] medical history of obstructiv e coronary artery disease status post PCI with a drug-eluti ng stent to the LAD on December 26, 2020 at [facility] Pigmented skin lesion 20 5446906 L81.9 not interested in dermbirthm ark Stented co ronary artery 044913539 Z95.5 Not taking any nitro anymoreNo chest pain Anxiety 43618726 F41.9 stable Screening for malignant neoplasm of cervix 941520826 Z12.4 Not interested in seeing a INSURANCE BUSINESS ANALYST now Body mass index 25-29 - overweight 732191027 Z68.25 stable Exposure t o SARS-CoV-2 222825750 Z20.828 Covid-19 discussion : patient was instructed on safety precaution s including frequent hand washing, social distancing , avoiding touching face with hands, and covering mouth with arm/elbow when coughing or sneezing. the symptoms of Covid 19 were reviewed and the patient was instructed on when to self quarantine , when to call the PCP, and when to seek emergency care. Systolic murmur 80392142 R01.1 - declines echo today - does not know what it is, but sounds? minimal - rec echo after next visit - declined today Bilateral cataracts 9572 2004 H26.9 Done recently and doing well Blood in urine 23439695 R31.9 She had trace blood in the urine past visits.no UTI symptomsch ecking Screening mammography of bilateral breasts 9494889816 09520 Z12.31 not interested Tobacco non-user 6093632 001 28249 Z13.89 never a smoker Ex-drinker 92931487 F10. 21 long time ago Active or passive immunization 808038433 Z23 Encouraged to get shingles and pneumococc alYearly flu and COVID boostersTD AP every 10 years Mixed hyperlipidemia 267 757138 E78.2 08662 Medication : atorvastat in 40mg Labs done on 08/07/2024 Triglyceri charmaine: 86Choleste rol:121LDL :55HDL:49 Reports compliance Denies any SE to the medication continue current regimen as directed. Patient is advised on low fat, low calorie diet, weight loss and regular exercise. Also advised on medication compliance and regular labs every 3 months. Vitamin D deficiency 347 84169 E55.9 vitamin D level: 28 Lab done [...] Eat More Vitamin D-Rich Foods Fatty Fish (Brevig [place], Mackerel, Tuna, Sardines)E gg YolksForti fied Foods (Milk, Dekalb Juice, Cereals, Plant-base d Milk)Mushr ooms (Sun-expos ed varieties like Maitake & Shiitake)C od Liver Oil (Very high in Vitamin D)Consider a Vitamin D Supplement Vitamin D3 (cholecalc iferol) is preferred over D2 for better absorption .Typical dosage for deficiency : 2432-2929 IU daily (Check with a doctor for the right dose).Pair with Vitamin K2 & Magnesium Vitamin K2 helps direct calcium to bones (found in fermented foods, dairy, and natto).Mag nesium helps activate Vitamin D (found in nuts, seeds, and leafy greens). Pulmonary emphysema 8743 3001 J43.9 [id number] Ted Torrez MD [address] [place] [address] 05/07/2025 10:55:05 05/07/2025 13:26:21 Coronary arteriosclerosis 21223261 I25.10 [id number] #CAD: past medical history of obstructiv e coronary artery disease status post PCI with a drug-eludi ng stent to the LAD on December 26, 2020 at [facility] Lipid control: atorvastat in 40mgAC: [...] November Screening for malignant neoplasm of colon 680373265 Z12.11 cologuard negative 12/2021, recheck in 2024 Screening mammography 24 081274 Z12.31 DECLINES Cough 12837609 R05.9 chronic cough since march She was [...] She feels much better today Thyroid nodule 522581221 E04.1 Recent LDCT showed a noduleTHYR OID: There is a 1.8 cm nodule in the superior mediastinu m on series 2 image 26 which isinferior to the thyroid isthmus which may be on the basis of a exophytic thyroid nodule. Itmeasures 48 Hounsfield units internal density. This is unchanged from CT of the chest dated2020 EKG: T wave abnormal 164 036639 R94.31 new changes on EKG borderline st dep ov 0.5 t wave inversion on lateral leads and ASA Metoprolol , Nitro (if use this to ER) ETT fairly quickly new changes since Jan 2019 Type 2 tony betes mellitus 13465855 E11.9 Medication s: metformin 500mg bid Reports compliance to medication s and dietDenies any hypoglycem ic episodesDe nies any SE to medication s Recent labs done on: 025- A1C: 6.3- BS: 5- microalbum in: not testedEndo referral and f/u: none Current Symptoms: noneMicrov ascular complicati ons: None Macrovascu lar complicati ons: none L ast eye exam: Apr, 2024 [place] [facility] foot exam: self check advisedLas t [...] sooner for lab f/u Hypertensive disorder 38 810522 I10 BP: 128/80Medi cation: metoprolol succinate ER [...] month Body mass index 30+ - obesity 280063700 Z68.31 Counseled on the Mediterran john diet: [...] be >=150min. Cardiovasc ular stress test abnormal 639256324 R94.39 CARDS [facility] medical history of obstructiv e coronary artery disease status post PCI with a drug-eluti ng stent to the LAD on December 26, 2020 at [facility] Pigmented skin lesion 20 9298389 L81.9 not interested in dermbirthm ark Stented co ronary artery 805247325 Z95.5 Not taking any nitro anymoreNo chest pain Anxiety 77660784 F41.9 stable Screening for malignant neoplasm of cervix 510399737 Z12.4 Not interested in seeing a INSURANCE BUSINESS ANALYST now Body mass index 25-29 - overweight 887755493 Z68.25 stable Exposure t o SARS-CoV-2 212595647 Z20.828 Covid-19 discussion : patient was instructed on safety precaution s including frequent hand washing, social distancing , avoiding touching face with hands, and covering mouth with arm/elbow when coughing or sneezing. the symptoms of Covid 19 were reviewed and the patient was instructed on when to self quarantine , when to call the PCP, and when to seek emergency care. Systolic murmur 04810794 R01.1 - declines echo today - does not know what it is, but sounds? minimal - rec echo after next visit - declined today Bilateral cataracts 9572 2004 H26.9 Done recently and doing well Blood in urine 88368944 R31.9 She had trace blood in the urine past visits.no UTI symptomsch ecking Screening mammography of bilateral breasts 3450065967 73808 Z12.31 not interested Tobacco non-user 8107497 001 22381 Z13.89 never a smoker Ex-drinker 86987168 F10. 21 long time ago Active or passive immunization 653772736 Z23 Encouraged to get shingles and pneumococc alYearly flu and COVID boostersTD AP every 10 years Mixed hyperlipidemia 267 333077 E78.2 70903 Medication : atorvastat in 40mg Labs done on 08/07/2024 Triglyceri charmaine: 86Choleste rol:121LDL :55HDL:49 Reports compliance Denies any SE to the medication continue current regimen as directed. Patient is advised on low fat, low calorie diet, weight loss and regular exercise. Also advised on medication compliance and regular labs every 3 months. Vitamin D deficiency 347 15523 E55.9 vitamin D level: 28 Lab done [...] Eat More Vitamin D-Rich Foods Fatty Fish (Brevig [place], Mackerel, Tuna, Sardines)E gg YolksForti fied Foods (Milk, Dekalb Juice, Cereals, Plant-base d Milk)Mushr ooms (Sun-expos ed varieties like Maitake & Shiitake)C od Liver Oil (Very high in Vitamin D)Consider a Vitamin D Supplement Vitamin D3 (cholecalc iferol) is preferred over D2 for better absorption .Typical dosage for deficiency : 1640-9552 IU daily (Check with a doctor for the right dose).Pair with Vitamin K2 & Magnesium Vitamin K2 helps direct calcium to bones (found in fermented foods, dairy, and natto).Mag nesium helps activate Vitamin D (found in nuts, seeds, and leafy greens). Pulmonary emphysema 8743 3001 J43.9 9214517 LDCT: mild emphysema Health Concerns Section Related Observation LastModified by Organization Detai ls LastModified Time None Recorded Concern Status LastModified by Organization Details LastModified Time None Recorded Payers Encounter Date Sequence Insurance Name Policy Number Policy Lewis Covered Member ID Lewis Member ID Guarantor Name 05/07/2025 1 MEDICARE B-[place]: [employer] Fatoumata Hewitt [id number] Fatoumata Hewitt 05/07/2025 2 BS-ID: [facility] - [employer] [id number] Fatoumata Hewitt [id number] Fatoumata Hewitt Notes Date Note Type Note Provider Name and Address Organization Details Recorded Time 05/07/2025 text/html The patient is a 74 year old female presenting for follow-up on her hypertension. She has a home blood pressure machine and reports recent readings of 168/92 mmHg and 161/102 mmHg with a pulse of 78 bpm. She has been taking two tablets of losartan 50mg. The patient also reports needing to establish primary care at [facility], which requires her medical records to be sent. KATIE Raiv [address] [place] [address], [address], [place], [address], [place] - PMA/WIP 05/07/2025 13:22:36 OBGyn Episode No OBEpisode recorded.
--- OUTSIDE RECORDS SUMMARY | 2025-05-27 15:33 | XMS_ITS | Continuity of Care Document ---
Author Organization [facility]FFANY [facility]/Aureliano [facility] Address [address] [address] Care Team Providers Care Hydro Technician Name Role Phone [facility] OTHER [facility] (CARDIOLOGY) OTHER IWONA ROSENBERG Primary Care Provider Assessment Encounter Date Assessment Date Assessment LastModified by Organization Details LastModified Time 04/01/2025 04/01/2025 This is a established patient office visit [...] assessments with the intent of avoiding exacerbations. Not available 04/01/2025 11:44:47 Plan of Treatment Reminders Order Date Submit Date Provider Last Modified By Organization Details Last Modified Time Details Appointments None recorded. Lab lipid panel, serum 2024 [facility], [address] [place] [address], [address], 12:21:54 CMP, serum or plasma 2024 [facility], [address] [place] [address], [address], 12:21:53 HbA1c (hemoglobi n A1c), blood 2024 [facility], [address] [place] [address], [address], 12:05:32 Referral None recorded. Procedures None recorded. Surgeries None recorded. Imaging None recorded. Medication Orders losartan 50 mg tablet 2024 [facility][id number], [address] [facility], [place], [address], 11:53:20 Patient TargetsNo targets recorded. Patient Instructions Encounter Date Encounter Id Patient Instructions Last Modified By Organization Details Last Modified Time 04/01/2025 [id number] Please note: Parts of this encounter note have been generated by AI based on audio conversation. Patient consent was required prior to utilizing this technology. Content review was required prior to finalizing the note. Not available 04/01/2025 11:44:47 Reason for Referral None Reported. Results Created Date Observation Date Name Description Value Unit Range Abnormal Flag Note LastModifiedBy Organization Detail LastModifiedTime 04/22/2004/22/2025 HEMOG LOBIN A1C hemoglobin A1C 7.0 % 4.4-6. 3 high Metho dolog y nair e to enzym atic HbA1c metho d. Refer ence range s and resul ts allen rable to previ ous metho d. Not Available [address], [address], 04/22/2025 12:05:32 04/22/2004/22/2025 COMPR EHENS SUZIE METAB OLIC PANEL sodium 141 mEq/L 133-14 5 normal Not Available [address], [address], 04/22/2025 12:21:53 04/22/2004/22/2025 COMPR EHENS SUZIE METAB OLIC PANEL potassium 4.5 mEq/L 3.5-5. 1 normal Not Available [address], [address], 04/22/2025 12:21:53 04/22/20 25 04/22/2025 COMPR EHENS SUZIE METAB OLIC PANEL chloride 106 mEq/L 98-112 normal Not Available [address], [address], 04/22/2025 12:21:53 04/22/20 25 04/22/2025 COMPR EHENS SUZIE METAB OLIC PANEL carbon dioxide 24 mEq/L 22-31 normal Not Available [address], [address], 04/22/2025 12:21:53 04/22/2004/22/2025 COMPR EHENS SUZIE METAB OLIC PANEL anion gap 11 mEq/L 5-15 normal Not Available [address], [address], 04/22/2025 12:21:53 04/22/20 25 04/22/2025 COMPR EHENS SUZIE METAB OLIC PANEL blood urea nitrogen (BUN) 11 mg/dL 10-20 normal Not Available [address], [address], 04/22/2025 12:21:53 04/22/20 25 04/22/2025 COMPR EHENS SUZIE METAB OLIC PANEL creatinine 0.75 mg/dL 0.50-1 .02 normal Not Available [address], [address], 04/22/2025 12:21:53 04/22/20 25 04/22/2025 COMPR EHENS [...] G5 (kidn ey failu re). Not Available [address], [address], 04/22/2025 12:21:53 04/22/20 25 04/22/2025 COMPR EHENS SUZIE METAB OLIC PANEL glucose 100 mg/dL 70-100 normal Fasti ng Refer ence Inter diony: 70-10 0mg/d L Non-f astin g Refer ence Inter diony: 70-14 0mg/d L Not Available [address], [address], 04/22/2025 12:21:53 04/22/20 25 04/22/2025 COMPR EHENS SUZIE METAB OLIC PANEL calcium 9.3 mg/dL 8.4-10 .4 normal Not Available [address], [address], 04/22/2025 12:21:53 04/22/20 25 04/22/2025 COMPR EHENS SUZIE METAB OLIC PANEL bilirubin total 0.6 mg/dL 0.3-1. 2 normal Not Available [address], [address], 04/22/2025 12:21:53 04/22/20 25 04/22/2025 COMPR EHENS SUZIE METAB OLIC PANEL aspartate amino transferase 17 IU/L 11-34 normal Not Available [address], [address], 04/22/2025 12:21:53 04/22/20 25 04/22/2025 COMPR EHENS SUZIE METAB OLIC PANEL alanine aminotransfe rase 14 IU/L <34 Not Available [address], [address], 04/22/2025 12:21:53 04/22/20 25 04/22/2025 COMPR EHENS SUZIE METAB OLIC PANEL total protein 7.5 g/dL 5.8-8. 1 normal Not Available [address], [address], 04/22/2025 12:21:53 04/22/2004/22/2025 COMPR EHENS SUZIE METAB OLIC PANEL albumin 4.0 g/dL 2.5-5. 0 normal Not Available [address], [address], 04/22/2025 12:21:53 04/22/2004/22/2025 COMPR EHENS SUZIE METAB OLIC PANEL alkaline phosphatase 117 IU/L 40-150 normal Not Available [address], [address], 04/22/2025 12:21:53 04/22/2004/22/2025 LIPID PANEL triglyceride s 117 mg/dL normal Audra l <=150 Audra l 150-1 99 Borde rline High 200-4 99 High >=500 Very High Not Available [address], [address], 04/22/2025 12:21:54 04/22/2004/22/2025 LIPID PANEL cholesterol 128 mg/dL normal Keenan able <200 Keenan able 200-2 39 Borde rline High >=240 High Not Available [address], [address], 04/22/2025 12:21:54 04/22/2004/22/2025 LIPID PANEL LDL cholesterol calculated 64 mg/dL normal Optim al <100 Optim al 100-1 29 Near optim al 130-1 59 Borde rline High 160-1 89 High >=190 Very High Not Available [address], [address], 04/22/2025 12:21:54 04/22/2004/22/2025 LIPID PANEL HDL cholesterol 41 mg/dL <40 Low >=60 Optim al Not Available [address], [address], 04/22/2025 12:21:54 Result Notes None recorded. Problems Name Problem SNOMED Code Status Onset Date Resolution Date Notes Provider Name and Address Organization Details Recorded Time Type 2 diabetes mellitus 08794340 Active 2018 KATIE Ravi [address] [place] [address], [place], [address] , [place] - PMA/WIP 5 15:16:55 Hyperten sive disorder 40877372 Active 2018 Not Available [facility] 2 20:28:52 Body mass index 25-29 - overweig ht 123867156 Completed 201811/12/2020 Aleks Osiris null, [place] - PMA/WIP 1 11:37:29 Cardiova scular stress test abnormal 431094799 Active 2020 Not Available [facility] 2 20:28:52 Body mass index 30+ - obesity 950229713 Active 2020 Not Available [facility] 2 20:28:52 Stented coronary artery 040141773 Active 2020 LAD 95% [facility] December 2020 Not Available [facility] 2 20:28:52 Coronary arterios clerosis 57818562 Active 2020 Not Available [facility] 2 20:28:52 Mixed hyperlip idemia 046299907 Active 2024 KATIE Ravi [address] [place] [address], [place], [address] , [place] - PMA/WIP 5 15:16:53 Problem Notes None recorded. Medical Equipment None Reported. Allergies Allergen ID Allergen Name Allergen Category Reaction Reaction Severity Criticality Documentation Date Start Date Code Code System Note Provider Name and Address Organization Details Recorded Time 7018 lisinopri l medicatio n cough Not available Not available 04/01/2025 95076 RxNorm KATIE Ravi [address] [place] [address], [facility] [place], [address], [place] - PMA/WIP 5 11:41:23 Medications [...] Not Available No t Available Fluzone High-Dose 5093-6719 (PF) 180 mcg/0.5 mL intramusc ular syringe 01/08 completed Not Available Not Available Not Available Vitals Date Recorded Oxygen saturation Respiratory rate Systolic And Diastolic Provider Name and Address Organization Details Last Updated DateTime 04/01/2025 97 % 16 /min 138/90 mm[Hg] KATIE Ravi [address] [place] [address], [address], [place], [address], [place] - PMA/WIP 04/01/2025 11:59:11 Date Recorded Body height Body mass index (BMI) Body weight Heart rate Provider Name and Address Organization Details Last Updated DateTime 04/01/2025 157.48 cm 38 kg/m2 66823.49 g 100 /min Ernestina Otto [place] - PMA/WIP 04/01/2025 11:28:00 Social History Question Answer Notes LastModified by Organizat ion Details LastModified Time Tobacco Smoking Status Never Smoker Not Available [facility] 03/20/2020 03:13:01 Do You Have An [...] Or The Highest Degree You Have Received? [id number] Information not available 08/20/2020 Have There Been [...] adjuvanted, quadrivalent, PF 2 completed KATIE Ravi [address] [place] [address], [address], [place], [address], [place] - PMA/WIP 01/24/2023 12:50:11 COVID-19, mRNA, LNP-S, bivalent, PF, 30 mcg/0.3 mL dose 2 completed KATIE Ravi [address] [place] [address], [place] [address], [place], [address], [facility] - PMA/WIP 04/01/2025 11:37:14 pneumococcal polysaccharide PPV23 9 completed Iwona Rosenberg, [address], [place] [address], [place], [address], [facility] - PMA/WIP 04/01/2025 11:37:14 Influenza, split virus, quadrivalent, preservative 9 completed Iwona Rosenberg [address], [place] [address], [place], [address], [facility] - PMA/WIP 04/01/2025 11:37:14 influenza nasal, unspecified formulation 4 completed Ernestina Otto null, [place] - PMA/WIP 06/27/2024 13:14:39 SARS-COV-2 (COVID-19) vaccine, UNSPECIFIED 4 completed Ernestina Otto null, [place] - PMA/WIP 06/27/2024 13:14:49 Influenza, split virus, quadrivalent, preservative 0 completed Iwona Rosenberg [place] [address], [place], [address], [facility] - PMA/WIP 06/17/2023 16:03:45 COVID-19, mRNA, LNP-S, PF, 30 mcg/0.3 mL dose 1 completed Not Available [facility] 05/20/2025 08:08:59 COVID-19, mRNA, LNP-S, PF, 30 mcg/0.3 mL dose 1 completed Not Available [facility] 05/20/2025 08:08:59 Influenza, high-dose, quadrivalent, PF 3 completed Not Available [facility] 05/20/2025 08:08:59 Influenza, high-dose, trivalent, PF 5 completed Not Available [facility] 05/20/2025 08:08:59 COVID-19, mRNA, LNP-S, PF, 30 mcg/0.3 mL dose 1 completed Not Available [facility] 05/20/2025 08:08:59 Influenza, high-dose, quadrivalent, PF 1 completed Not Available [facility] 05/20/2025 08:08:59 COVID-19, mRNA, LNP-S, PF, mary-sucrose, 30 mcg/0.3 mL 5 completed Not Available [facility] 05/20/2025 08:08:59 Influenza, high-dose, trivalent, PF 8 completed Not Available [facility] 05/20/2025 08:08:59 Pneumococcal conjugate PCV 13 8 completed Not Available [facility] 05/20/2025 08:08:59 Influenza, split virus, quadrivalent, PF 9 completed KATIE Ravi [address] [facility], [place], [address], [place] - PMA/WIP 04/01/2025 11:37:14 Past Encounters Encounter ID Performer Location Encounter Start Date Encounter Closed Date Diagnosis/Indication Diagnosis SNOMED-CT Code Diagnosis ICD10 Code Diagnosis IMO Codes Diagnosis Note [id number] Ted Torrez MD [address] [address] 04/01/2025 11:01:07 04/01/2025 11:59:42 Coronary arteriosclerosis 94370921 I25.10 9705292713 #CAD: past medical history of obstructiv e coronary artery disease status post PCI with a drug-eludi ng stent to the LAD on December 26, 2020 at [facility] Lipid control: atorvastat in 40mgAC: [...] November Screening for malignant neoplasm of colon 021193446 Z12.11 cologuard negative 12/2021, recheck in 2024 Screening mammography 24 824534 Z12.31 DECLINES Cough 55950268 R05.9 chronic cough since march She was [...] She feels much better today Thyroid nodule 208118102 E04.1 Recent LDCT showed a noduleTHYR OID: There is a 1.8 cm nodule in the superior mediastinu m on series 2 image 26 which isinferior to the thyroid isthmus which may be on the basis of a exophytic thyroid nodule. Itmeasures 48 Hounsfield units internal density. This is unchanged from CT of the chest dated2020 EKG: T wave abnormal 164 685209 R94.31 new changes on EKG borderline st dep ov 0.5 t wave inversion on lateral leads and ASA Metoprolol , Nitro (if use this to ER) ETT fairly quickly new changes since Jan 2019 Type 2 tony betes mellitus 19073790 E11.9 Medication s: metformin 500mg bid Reports compliance to medication s and dietDenies any hypoglycem ic episodesDe nies any SE to medication s Recent labs done on: 025- A1C: 6.3- BS: 5- microalbum in: not testedEndo referral and f/u: none Current Symptoms: noneMicrov ascular complicati ons: None Macrovascu lar complicati ons: none L ast eye exam: Apr, 2024 [facility]: self check advisedLas t [...] sooner for lab f/u Hypertensive disorder 38 990071 I10 BP: 128/80Medi cation: metoprolol succinate ER [...] month Body mass index 30+ - obesity 052719995 Z68.31 Counseled on the Mediterran john diet: [...] be >=150min. Cardiovasc ular stress test abnormal 154299059 R94.39 [facility] of obstructiv e coronary artery disease status post PCI with a drug-erika ng stent to the LAD on December 26, 2020 at [facility] Pigmented skin lesion 20 8029425 L81.9 not interested in dermbirthm ark Stented co ronary artery 896699498 Z95.5 Not taking any nitro anymoreNo chest pain Anxiety 85031438 F41.9 stable Screening for malignant neoplasm of cervix 237288054 Z12.4 Not interested in seeing a ANESTHESIOLOGIST now Body mass index 25-29 - overweight 277115635 Z68.25 stable Exposure t o SARS-CoV-2 077668693 Z20.828 Covid-19 discussion : patient was instructed on safety precaution s including frequent hand washing, social distancing , avoiding touching face with hands, and covering mouth with arm/elbow when coughing or sneezing. the symptoms of Covid 19 were reviewed and the patient was instructed on when to self quarantine , when to call the PCP, and when to seek emergency care. Systolic murmur 07145329 R01.1 - declines echo today - does not know what it is, but sounds? minimal - rec echo after next visit - declined today Bilateral cataracts 9572 2004 H26.9 Done recently and doing well Blood in urine 65305067 R31.9 She had trace blood in the urine past visits.no UTI symptomsch ecking Screening mammography of bilateral breasts 8436731663 16244 Z12.31 not interested Tobacco non-user 2157640 001 43491 Z13.89 never a smoker Ex-drinker 61872031 F10. 21 long time ago Active or passive immunization 387458275 Z23 Encouraged to get shingles and pneumococc alYearly flu and COVID boostersTD AP every 10 years Mixed hyperlipidemia 267 502877 E78.2 [address] Medication : atorvastat in 40mg Labs done on 08/07/2024 Triglyceri charmaine: 86Choleste rol:121LDL :55HDL:49 Reports compliance Denies any SE to the medication continue current regimen as directed. Patient is advised on low fat, low calorie diet, weight loss and regular exercise. Also advised on medication compliance and regular labs every 3 months. Vitamin D deficiency 347 52316 E55.9 vitamin D level: 28 Lab done [...] Eat More Vitamin D-Rich Foods Fatty Fish (Knapp, Mackerel, Tuna, Sardines)E gg YolksForti fied Foods (Milk, Owen Juice, Cereals, Plant-base d Milk)Mushr ooms (Sun-expos ed varieties like Maitake & Shiitake)C od Liver Oil (Very high in Vitamin D)Consider a Vitamin D Supplement Vitamin D3 (cholecalc iferol) is preferred over D2 for better absorption .Typical dosage for deficiency : 0683-8097 IU daily (Check with a doctor for the right dose).Pair with Vitamin K2 & Magnesium Vitamin K2 helps direct calcium to bones (found in fermented foods, dairy, and natto).Mag nesium helps activate Vitamin D (found in nuts, seeds, and leafy greens). Health Concerns Section Related Observation LastModified by Organization Detai ls LastModified Time None Recorded Concern Status LastModified by Organization Details LastModified Time None Recorded Payers Encounter Date Sequence Insurance Name Policy Number Policy Lewis Covered Member ID Lewis Member ID Guarantor Name 04/01/2025 1 MEDICARE B-[place]: [employer] Fatoumata Hewitt [id number] Fatoumata Hewitt 04/01/2025 2 BS-ID: [facility] [employer] [id number] Fatoumata Hewitt [id number] Fatoumata Hewitt Notes Date Note Type Note Provider Name and Address Organization Details Recorded Time 04/01/2025 text/html #HTN: Medications: metoprolol succinate ER 25mg and lisinopril 10mg Reports compliance Last kidney panel stable Denies chest pain, SOB, headache, dizziness #T2DM: Medications:metform in ER 500mg bid Reports compliance Last A1C: 6.1 #CKD: Labs stable #Hyperlipidemia: Medications: atorvastatin 40mg Reports compliance Last lipid panel Denies any muscle pain or joint pain The patient is a 74-year-old female presenting with hypertension and a chronic cough. She discussed her concerns including recent weight gain and high blood pressure. Her chronic cough has been persistent over the years and possibly related to lisinopril. We addressed her concerns regarding the cough linked to the medication and her hypertension treatment. She adheres to medication including atorvastatin, lisinopril, metoprolol, and metformin. Immunizations recently included flu and COVID-19 shots without adverse reactions. A low-dose chest scan indicated emphysema, a new topic in this discussion. KATIE Ravi [address] [place] [address], [address], [place], [address], [place] - PMA/WIP 04/01/2025 11:59:31 OBGyn Episode No OBEpisode recorded.
== END 2025-05-27 14:37 | disposition home or self-care (01) ==
PROVIDERS: Emergency Provider Emergency Medicine; PCP Physician Assistant
DX: S01.81XA Laceration without foreign body of other part of head, initial encounter (principal); R51.9 Headache, unspecified; M54.2 Cervicalgia; W26.9XXA Contact with unspecified sharp object(s), initial encounter; Y93.01 Activity, walking, marching and hiking; Y92.9 Unspecified place or not applicable; Y99.8 Other external cause status; Z23 Encounter for immunization
CPT/HCPCS: 12011; 70450; 72125; 90471; 90715; 99282; 99284

== ENCOUNTER → 2025-05-27 11:49 | Outpatient (BNV) | payer BC, MEDICARE, SELFPAY | PROVIDERS: Emergency Provider Emergency Medicine; PCP Physician Assistant; Visit Provider Radiology Diagnostic Radiology | DX: M47.812 Spondylosis without myelopathy or radiculopathy, cervical region (principal); S09.90XA Unspecified injury of head, initial encounter; Z04.3 Encounter for examination and observation following other accident | CPT/HCPCS: 70450; 72125 ==

== ENCOUNTER 2025-05-28 08:53 | Emergency (ER) | payer BC, MEDICARE, SELFPAY ==
--- NOTE | ~2025-05-28 | XR_ITS ---
EXAMINATION: XR LUMBOSACRAL SPINE CLINICAL INFORMATION: low back pain, no fall COMPARISON: None available. TECHNIQUE: Three views of the lumbosacral spine. FINDINGS: There is normal lumbar lordosis. There is loss of L1 vertebral height suggestive of acute compression fracture. Rest of the lumbar vertebral heights are normal. There is loss of T11-T12, T10-11 disc heights. There is mild to moderate bilateral facet arthropathy at L5-S1 and L4-5 disc level. The paravertebral soft tissues are normal. XR/XR lumbar spine 2-3V IMPRESSION: Acute L1 compression fracture. For now CT of dorsolumbar spine without contrast can be performed. Kyphoplasty as part of treatment can be performed if CT is positive. Electronically signed by: Sudheer Turner MD 05/28/2025 12:11 PM [facility]ORIO CALLEJAS
[2025-05-28 08:57] VITALS: BP 150/78; PULSE 98; O2SAT 94
[2025-05-28 08:59] VITALS: BP 143/69; PULSE 95; RESP 18; TEMP 36.3; O2SAT 92; BMI 37.8
--- NOTE | 2025-05-28 11:36 | ED.BACK ---
HPI - Back Pain/Injury General Chief Complaint: Back Pain/Injury Stated Complaint: BACK PAIN PER EMS Time Seen by Provider: 05/28/25 11:12 Source: patient and EMS Mode of arrival: EMS Limitations: no limitations History of Present Illness ED Provider: HPI Narrative: 74-year-old woman presenting with lower back pain, has been going on for the past 4 days started after she coughed, yesterday presented to emergency department after a fall had CAT scan of the head and neck, presented because she has been dealing with back pain she states she had mentioned it but did not have any imaging done, she has been able to get up and go to the bathroom without assistance, has had no loss of bowel or bladder function, no fevers or chills, no dysuria or hematuria no numbness or weakness in the legs. Denies abdominal pain. Related Data Previous Rx's ?Medication ?Instructions ?Recorded acetaminophen 500 mg capsule 1,000 mg (2 x 500 mg) PO Q6H 5 05/28/25 days #20 caps ibuprofen 400 mg tablet 400 mg PO Q6H PRN pain 5 days #20 05/28/25 tabs lidocaine 5 % topical patch 1 patch topical DAILY PRN pain #15 05/28/25 ea oxycodone 5 mg tablet 5 mg PO Q6H PRN pain #10 tabs 05/28/25 Allergies Allergy/AdvReac Type Severity Reaction Status Date / Time No Known Allergies Allergy Verified 05/28/25 09:01 Review of Systems Constitutional: Constitutional: Reports as per [facility] Social History Social History Advance Directives: No Advance Directives Information Provided: Yes Physical Exam Exam: Exam: ?General: ?Bruising around the right eye with supraorbital laceration to the right that has been repaired, some minimal bruising around her right higgins ?PERRLA, EOMI, MMM, Neck: Supple, no LAD ?CV: RRR, no obvious murmurs appreciated ?Resp: ?No wheezing rales rhonchi no stridor moving air well Abd: ?Bowel sounds are present, no tenderness no rebound no rigidity MSK: FROM, strength 5/5 all extremities, able to lift her legs off the gurney, distal plantar flexion and dorsiflexion deep tendon reflexes +1 bilaterally, she was noted to have pain with positioning, paraspinal tenderness no midline tenderness no step-offs no bruising, pelvis is stable, distal neurovascular function intact Skin: Warm, dry, intact, ?Neuro: ?Alert and oriented x3, moving upper and lower extremities symmetrically, no obvious facial asymmetry noted, cranial nerves 2-12 intact Vital Signs: Vital Signs: Last Vital Signs Temp 97.8 F 05/28/25 15:52 Pulse 78 05/28/25 15:52 Resp 16 05/28/25 15:52 BP 116/50 L 05/28/25 15:52 Pulse Ox 93 05/28/25 15:52 O2 Del Method Room Air 05/28/25 15:52 BMI result Body Mass Index 37.8 Medications Administered Discontinued Medications Generic Name Dose Route Start Last Admin Trade Name Freq PRN Reason Stop Dose Admin Ketorolac Tromethamine 15 mg 05/28/25 11:36 05/28/25 11:46 Ketorolac Tromethamine 15 Mg/Ml Vial IM 05/28/25 11:37 15 mg ONCE ONE Administration Lidocaine 1 patch 05/28/25 11:36 05/28/25 11:45 Lidocaine 4 % Patch Adh..Patch TRANSDERMA 05/28/25 11:37 1 patch ONCE ONE Administration Protocol Ondansetron HCl 4 mg 05/28/25 13:08 05/28/25 13:10 Ondansetron Odt 4 Mg Tab.Rapdis TRANSLINGU 05/28/25 13:09 4 mg ONCE ONE Administration Ondansetron HCl 4 mg 05/28/25 14:37 05/28/25 14:40 Ondansetron Odt 4 Mg Tab.Rapdis TRANSLINGU 05/28/25 14:38 4 mg ONCE ONE Administration Oxycodone HCl 10 mg 05/28/25 11:36 05/28/25 11:46 Oxycodone Hcl Immed Release 5 Mg Tablet PO 05/28/25 11:37 10 mg ONCE ONE Administration Medical Decision Making Medical Decision Making MDM Narrative: 11:45 AM 05/28/2025 (Dr. Slim Bowser): Nontraumatic low back pain without red flags to suspect infectious etiology such as diskitis osteomyelitis and no cord compressive symptoms to suspect cauda equina, we will obtain x-rays, yesterday she was seen here for imaging of the head and neck, she states she is living at assisted living and has still been able to ambulate, she states she fell yesterday because of back pain and it started few days before that after she coughed. We will medicate for pain we will re-evaluate after imaging is obtained we will hold off any blood work urinalysis for now, and we will determine whether she is able to be discharged or requires SNF 12:20 PM 05/28/2025 (Dr. Slim Bowser): Sent a text to IR to see if kyphoplasty we will be available that I would get a CT, there was no intrusion to the spinal canal 1:06 PM 05/28/2025 (Dr. Slim Bowser): Patient ambulated quite well with a walker, agreeable for discharge, we will have a follow up with Dr. Brito, and at the time of this note patient vomited my suspicion is likely due to the fact that she received oxycodone she is opiate naive , she is not complaining of any back pain and now sitting up on the gurney feeling better 1:40 PM 05/28/2025 (Dr. Slim Bowser): Dr. Turner states can follow up outpatient, recommended CT which will obtain she is still feeling somewhat nauseous due to opiates but otherwise no longer vomiting, Dr. Turner saw patient at bedside 4:07 PM 05/28/2025 (Dr. Slim Bowser): Nausea has abated, she will be picked up Differential Diagnosis Differential Diagnoses: The differential diagnosis associated with the presentation includes (Diskitis, osteomyelitis, spinal epidural abscess, cauda equina, musculoskeletal pain) Admission/Observation Consideration of admission/observation: Escalation of care including admission/observation considered Consult Healthcare Provider Management of the patient was discussed with: Computer Repair Technician (Sent a tiger text to Dr. Turner to see if there is indication and availability for kyphoplasty) Independent Interpretation I performed an independent interpretation of an: Plain X-Ray (L1 compression, no evidence for bony protrusion into the spinal canal) Interpretation: XR/XR lumbar spine 2-3V IMPRESSION: Acute L1 compression fracture. For now CT of dorsolumbar spine without contrast can be performed. Kyphoplasty as part of treatment can be performed if CT is positive. Radiology Impression Discussion of test interpretation with radiology: I have reviewed the radiologist's reading. Independent Historian Clinical information obtained from an independent historian. History obtained from or confirmed by: EMS Discharge Plan Discharge Clinical Impression: Closed compression fracture of L1 vertebra Qualifiers: Encounter type: initial encounter Qualified Code(s): S32.010A - Wedge compression fracture of first lumbar vertebra, initial encounter for closed fracture Patient Disposition: Home, Self-Care Additional Instructions: Evaluated with back pain, x-rays revealed lumbar 1 compressive fracture, this is typically non operative fracture, but there are potential minimally invasive procedures for this type of fracture we will just common in postmenopausal women due to history of osteoporosis, Use lidocaine patches right over the area that hurts the most, and then ibuprofen 400 mg every 6 hours around the clock, Tylenol 975 mg every 6 hours for additional pain control and use oxycodone 5 mg every 4-6 hours for additional pain control Zofran as needed for nausea and vomiting associated with opiates, ambulate with a walker, any other issues concerns, numbness in the groin, loss of bowel or bladder function come back to the ER please make and appointment to follow up with Dr. Turner for potential intervention for this injury Prescriptions: New acetaminophen 500 mg capsule 1,000 mg PO Q6H 5 Days Qty: 20 0RF ibuprofen 400 mg tablet 400 mg PO Q6H PRN (Reason: pain) 5 Days Qty: 20 0RF lidocaine 5 % adhesive patch,medicated 1 patch topical DAILY PRN (Reason: pain) Qty: 15 0RF Rx Instructions: leave on most painful area for up to 12 hrs oxycodone 5 mg tablet 5 mg PO Q6H PRN (Reason: pain) Qty: 10 0RF Rx Instructions: Partial Fill upon patient request. Referrals: Sudheer Turner MD [Physician, Radiology] - 1 week Clinical Impression: Closed compression fracture of L1 vertebra Print Language: Korean
[2025-05-28] MEDS: Lidocaine 4 % Patch ADH..PATCH 1 PATCH TRANSDERMA (11:45)
[2025-05-28] MEDS: oxyCODONE HCl Immed Release 5 MG TABLET 10 MG PO (11:46)
--- NOTE | 2025-05-28 15:26 | PC.NURSE ---
assumed care of pt at 1500. report received from Xochitl STACY.
[2025-05-28 15:52] VITALS: BP 116/50; PULSE 78; RESP 16; TEMP 36.6; O2SAT 93
[2025-05-28 16:14] VITALS: BP 116/50; PULSE 78; RESP 16; TEMP 36.6; O2SAT 93
== END 2025-05-28 16:15 | disposition home or self-care (01) ==
PROVIDERS: Emergency Provider Emergency Medicine; PCP Physician Assistant
DX: S32.010A Wedge compression fracture of first lumbar vertebra, initial encounter for closed fracture (principal); W19.XXXA Unspecified fall, initial encounter; Y93.89 Activity, other specified; Y92.89 Other specified places as the place of occurrence of the external cause; Y99.8 Other external cause status; R11.2 Nausea with vomiting, unspecified; T40.605A Adverse effect of unspecified narcotics, initial encounter; Y92.230 Patient room in hospital as the place of occurrence of the external cause; Z87.828 Personal history of other (healed) physical injury and trauma
CPT/HCPCS: 72100; 96372; 99284; J1885

== ENCOUNTER → 2025-05-28 11:36 | Outpatient (BNV) | payer BC, MEDICARE, SELFPAY | PROVIDERS: Emergency Provider Emergency Medicine; PCP Physician Assistant; Visit Provider Radiology Diagnostic Radiology | DX: S32.010A Wedge compression fracture of first lumbar vertebra, initial encounter for closed fracture (principal) | CPT/HCPCS: 72100 ==

== ENCOUNTER 2025-05-30 04:11 | Inpatient (IN) | payer MEDICARE, BC, SELFPAY ==
[2025-05-30] VITALS (19 sets, daily range): BP systolic 107–164; BP diastolic 55–82; PULSE 64–94; RESP 12–24; TEMP 36.5–37.2; O2SAT 92–100; BMI 38.4
--- NOTE | ~2025-05-30 | CT_ITS ---
CLINICAL HISTORY: L1 fx severe pain leg weakness r o cord compressio --- Additional Notes or Special Instructions: Pt has known L1 fx, and was very uncomfortable for prior scan. Provider will give fetanyl before spine scan - R 20:48 CT lumbar spine without contrast Comparison: X-rays of the lumbar spine from 05/28/2025 Findings: Acute comminuted fracture of the L1 vertebral body. (2:). No definite pedicle or facet process involvement by CT. Minimal retropulsion of the upper dorsal fragment with mild/minimal spinal stenosis at T12-L1. Mild bilateral foraminal narrowing of the L3-L4. Mild right and moderate left foraminal narrowing at L4-L5, where disc bulge is noted. Additional disc bulge including L5-S1. Facet arthropathy is multifocal. Gas phenomenon includes left L4-L5 facet and bilateral L5-S1 facets. Additional gas phenomenon involves imaged SI joints with degenerative changes. Soft tissue swelling noted adjacent to the L1 compression fracture. Severe stool burden noted in the [id number]. IMPRESSION: 1. Acute L1 compression fracture redemonstrated with mild height loss in mild/minimal thoracolumbar spinal stenosis. 2. Additional CT findings of spinal stenosis include mild-moderate foraminal narrowing at L4-L5. 3. Facet arthropathy is multifocal. This document has been electronically signed by: Victoriano Sanchez MD on 05/30/2025 21:42:42
--- NOTE | ~2025-05-30 | CT_ITS ---
CLINICAL HISTORY: mediastinal adenopathy and hyponatremia CT chest without contrast Comparison: Chest x-ray from 05/30/2025 Findings: Small mediastinal hilar lymph nodes are nonspecific and may be reactive. Trace-small bilateral pleural effusions with underlying atelectasis/consolidation, left worse than right. Mild emphysematous changes and scarring also present. No pneumothorax. Mild cardiomegaly with coronary artery calcifications. 1 cm short axis lymph nodes of the mediastinum including thoracic inlet, including paratracheal are nonspecific and may be reactive. Cholelithiasis of the imaged abdomen. Acute comminuted L1 compression fracture with mild height loss. Additional multifocal mild vertebral height losses appear old/chronic. Fusion of the sternum manubrium. Degenerative changes include imaged shoulders. IMPRESSION: 1. Acute L1 compression fracture with mild height loss. 2. Mediastinal lymphadenopathy is nonspecific. Upper anterior paratracheal lymph node at the thoracic inlet measures 1 cm short axis. 3. Mild bibasilar atelectasis/consolidation, left worse than right. Recommend attention on follow-up to ensure resolution. 4. Cholelithiasis in the imaged abdomen. This document has been electronically signed by: Victoriano Sanchez MD on 05/30/2025 19:36:20
--- NOTE | ~2025-05-30 | CT_ITS ---
CLINICAL HISTORY: nausea vomiting, recent fall r o ICH CT head without contrast Comparison: Head CT from 05/27/2025 Findings: No acute intracranial hemorrhage. No midline shift or hydrocephalus. No large arterial territorial infarction by CT. Mild volume loss is generalized with thin apical subdural hygromas. Mild white matter lesions suggested as can be associated with small-vessel ischemic disease. Fluid and mucosal thickening includes imaged paranasal sinuses. Bilateral nasal bone deformities appear old/chronic. No acute skull fracture. Imaged mastoid air cells are well aerated. Right upper-lateral scalp lesion is nonspecific and may reflect sebaceous cysts with calcifications. Other scalp and dermatologic lesions considered. Previous cataract procedure changes with mild bilateral myopia. Lucencies associated with multiple remaining teeth in the [id number]. IMPRESSION: 1. No acute intracranial abnormality by CT. This document has been electronically signed by: Victoriano Sanchez MD on 05/30/2025 19:45:23
--- NOTE | ~2025-05-30 | XR_ITS ---
CLINICAL HISTORY: hematemesis --- Additional Notes or Special Instructions: upright, eval for free air 1 view chest x-ray Comparison: None provided Findings: The lungs are clear. Slight apical lucency suggesting emphysema. No pneumothorax. Heart size is normal. No acute fracture. IMPRESSION: 1. No acute findings. This document has been electronically signed by: Anh Hall MD on 05/30/2025 05:29:14
--- NOTE | ~2025-05-30 | CT_ITS ---
CLINICAL HISTORY: Nausea vomiting diarrhea and back pain --- Additional Notes or Special Instructions: r o obs uropathy, partial sbo, colitis CT abdomen and pelvis without contrast Comparison: None provided Findings: The lung bases are clear. Gallstone within a nondilated gallbladder. Unremarkable liver and spleen. No biliary ductal dilation. Pancreas, adrenal glands and kidneys demonstrate no acute process. No focal bowel wall thickening or inflammation. Small hiatal hernia. No bowel obstruction, pneumoperitoneum, or pneumatosis. The bladder is distended. Unremarkable uterus. Left ovary not seen. Cystic right adnexal lesion measuring up to 2.2 cm, incompletely characterized. No drainable fluid collections or adenopathy. No vascular dilation. The bones are intact. IMPRESSION: No obstructive uropathy. No findings to suggest colitis. No bowel obstruction. Normal appendix. Cholelithiasis without findings of acute cholecystitis. 2.2 cm right adnexal hypodense lesion, likely a cyst. Recommend further characterization with nonemergent pelvic ultrasound. Distended bladder. This document has been electronically signed by: Anh Hall MD on 05/30/2025 07:48:55
--- NOTE | 2025-05-30 04:36 | ECG_ITS ---
Test Reason : N/V Blood Pressure : */* mmHG Vent. Rate : 89 BPM Atrial Rate : 89 BPM P-R Int : 174 ms QRS Dur : 108 ms QT Int : 420 ms P-R-T Axes : 49 -27 51 degrees QTcB Int : 511 ms Normal sinus rhythm Minimal voltage criteria for LVH, may be normal variant ( [place] product ) Nonspecific ST and T wave abnormality Abnormal ECG No previous ECGs available Referred By: Kala Bruno Electronically Signed By: FARHANA PAULSON MD
[2025-05-30 04:44] LABS: Hematocrit 35.1 % (37.0-47.0); Hemoglobin 12.9 g/dl (12.0-16.0); Imm Gran Abs Auto 0.03 X10*3/uL (0.00-0.03); Imm Gran Pct Auto 0.3 % (0.0-0.4); Lymphocytes Absolute Auto 1.0 X10*3/uL (1.2-4.9); MANUAL DIFF FLAG NO; Mean Corpuscular HGB Conc 36.8 g/dl (31.0-35.0); Mean Corpuscular Hemoglobin 28.1 pg (27.0-33.0); Mean Corpuscular Volume 76.5 fL (80.0-98.0); NRBC Abs Auto 0.000 X10*3/uL (0.0-0.012); NRBC Pct Auto 0.0 /100WBC (0.0-0.2); Platelet Count 225 X10*3/uL (160-400); Red Blood Count 4.59 X10*6/uL (4.20-5.50); White Blood Count 11.3 X10*3/uL (4.8-10.8)
[2025-05-30 04:51] LABS: INTERNATIONAL NORM RATIO 1.1 (0.9-1.1); Prothrombin Time 13.0 SEC (11.2-13.5)
[2025-05-30] MEDS: Lactated Ringers 1,000 ML 999 ML IV (04:59)
[2025-05-30 05:02] LABS: Alanine Aminotransferase 21 U/L (0-31); Albumin Level 4.3 g/dL (3.5-5.0); Alkaline Phosphatase 115 U/L (39-117); Anion Gap 18 (12-20); Aspartate Amino Transferase 57 U/L (5-31); Blood Urea Nitrogen 25 mg/dL (9-16); Calcium 9.3 mg/dL (8.4-10.2); Carbon Dioxide 26 mmol/L (22-29); Chloride 70 mmol/L (96-108); Creatinine Clr Calc Pharmacy 44.8; Estimated Glomerular Filt Rate 43; Lipase 28 U/L (8-78); Potassium 3.4 mmol/L (3.3-5.1); Sodium 111 mmol/L (135-145); Total Protein 7.9 g/dL (6.5-8.0)
[2025-05-30 05:03] LABS: Troponin-I High Sensitivity 4.5 ng/L (<3.5-17.0)
--- NOTE | 2025-05-30 05:05 | PC.NURSE ---
critical Labs report to Warren Morales and Dr. alejandre
--- NOTE | 2025-05-30 05:06 | PC.NURSE ---
critical sodium reported to MD Bruno. per MD to stop ivf infusion. sats 86-87% on RA, placed on 2L NC. sats 96%. seizure precautions in place.
--- NOTE | 2025-05-30 05:13 | ED_ITS ---
HPI - Nausea/Vomiting/Diarrhea General Chief complaint: Nausea/Vomiting/Diarrhea Stated complaint: BACK PAIN/FX 1W,FROM NOHEMI PER EMS Time Seen by Provider: 05/30/25 04:21 Source: patient and EMS Mode of arrival: EMS Limitations: no limitations History of Present Illness ED Provider: Dr. Kala Bruno HPI Narrative: 74-year-old female who presents with persistent vomiting since receiving her first dose of oxycodone three days ago following discharge for an L1 compression fracture. Vomitus was initially brown and tonight appeared red. She reports poor oral intake (only Jell-O today) and has had no bowel movement ?in a while.? She denies abdominal pain, diarrhea, chest pain, or shortness of breath. She denies fever over the last 24 h and has had no sick contacts, though she was recently hospitalized. She notes ongoing back pain radiating to her hip. She reports intermittent numbness in the LLE. Bruising is present around her eye from prior trauma. Medication history notable for intolerance to oxycodone; prior use of acetaminophen and ibuprofen without issues. Past reactions to IV ibuprofen or acetaminophen are denied. She affirms history of hypertension, diabetes, thyroid disease (recent labs: low TSH, T4 about 5), and coronary stent. She reports taking only low-dose aspirin at home; she specifically denies taking other blood thinners. Related Data Previous Rx's ?Medication ?Instructions ?Recorded acetaminophen 500 mg capsule 1,000 mg (2 x 500 mg) PO Q6H 5 05/28/25 days #20 caps ibuprofen 400 mg tablet 400 mg PO Q6H PRN pain 5 day s #20 05/28/25 tabs lidocaine 5 % topical patch 1 patch topical DAILY PRN pain #15 05/28/25 ea ondansetron 4 mg disintegrating 4 mg PO Q8H PRN nausea and 05/28/25 tablet vomiting #4 tabs oxycodone 5 mg tablet 5 mg PO Q6H PRN pain #10 tab s 05/28/25 Allergies Allergy/AdvReac Type Severity Reaction Status Date / Time No Known Allergies Allergy Verified 05/30/25 04:36 Review of Systems 2 Review of Systems: as per HPI, full review of systems performed and negative but for the above mentioned pertinent positives and negatives. [facility] Social History Social History Do you have a plan to hurt others: No Plan Physical Exam 2 Exam: Exam: GENERAL: Ill-Appearing, appears uncomfortable. SKIN: Normal skin color for ethnicity, warm, dry, no rashes noted. HEENT:? Normocephalic, atraumatic, no stridor, dry mucous membranes, dentition intact, EOMI. NECK: Soft, supple, full ROM, midline structures nontender, no step-offs, no deformities, no lymphadenopathy. CHEST: Heart regular tachycardia, no murmurs, symmetric chest rise and fall. PULMONARY: Clear to auscultation bilaterally, diminished at the bases, no labored breathing, no wheezes/rhales/rhonchi. ABDOMINAL: Soft, nondistended, nontender, positive bowel sounds in all quadrants. : Deferred. MUSCULOSKELETAL: Normal tone, full range of motion, no deformities, no peripheral edema. NEURO: Alert and oriented x3, CN II through XII intact, equal strength and sensation bilateral upper and lower extremities, no focal neurologic deficits.? PSYCHIATRIC: Flat affect, fluid speech, good eye contact and appropriate demeanor. Vital Signs: Vital Signs: Last Vital Signs Temp 98.5 F 05/30/25 04:34 Pulse 89 05/30/25 05:06 Resp 16 05/30/25 05:06 BP 157/82 H 05/30/25 05:06 Pulse Ox 95 05/30/25 05:06 O2 Del Method Nasal Cannula 05/30/25 05:06 O2 Flow Rate 2 05/30/25 05:06 BMI result Body Mass Index 38.4 Medications Administered Discontinued Medications Generic Name Dose Route Start Last Admin Trade Name Freq PRN Reason Stop Dose Admin Famotidine 20 mg 05/30/25 04:33 05/30/25 04:59 Famotidine/Pf 20 Mg/2 Ml Vial IVPUSH 05/30/25 04:34 20 mg ONCE ONE Administration Lactated Ringer's 1,000 mls @ 999 mls/hr 05/30/25 04:33 05/30/25 05:05 Lr IV 05/30/25 05:33 Infused .Q1H1M ONE Infusion Ondansetron HCl 4 mg 05/30/25 04:33 05/30/25 04:30 Ondansetron Hcl 4 Mg/2 Ml Vial IVPUSH 05/30/25 04:34 4 mg ONCE ONE Administration Medical Decision Making Medical Decision Making [facility] Narrative: 74-year-old female with multiple comorbidities presenting with persistent vomiting and possible hematemesis after recent initiation of oxycodone, in the setting of lumbar compression fracture, chronic anticoagulation, and abnormal thyroid studies. Problem #1: Persistent vomiting / possible hematemesis Assessment: Ongoing emesis since oxycodone initiation; tonight emesis appears red. No abdominal pain; differential includes medication intolerance, upper GI irritation/bleed, viral gastroenteritis (influenza prevalence high). Plan: - Administer IV antiemetic. - Administer IV fluids for hydration. - Give IV famotidine (Pepcid). - Influenza swab. - Monitor for continued or rigoberto hematemesis; reassess hemoglobin when labs result. - Chest X-ray to evaluate other causes of nausea/vomiting and screen for pneumonia. Problem #2: Lumbar compression fracture with acute back pain Assessment: Known L1 compression fracture; pain radiates to hip. Plan: - Continue conservative pain management; avoid oxycodone due to intolerance. - Re-evaluate need for further spine imaging if neurologic deficits worsen. Problem #3: Acute hyponatremia Assessment: In the setting of acute vomiting/intolerance of oxycodone. Plan: - Fluid restriction. Holding IVF at this point. - Meets criteria for ICU admission - No seizure activity or focal neuro deficits, will continue to monitor closely. High risk for seizure in setting of acute hyponatremia. Follow-up: Await laboratory and imaging results while in ED. Disposition to be determined based on bloodwork, CXR, and clinical response to therapy. 5:28 AM 05/30/2025 (Dr. Kala Bruno, D.O.) case discussed with scouring machine operator on-call, Dr. Isabel, who will accept patient for admission. Differential Diagnosis Differential Diagnoses: The differential diagnosis associated with the presentation includes (as above) Admission/Observation Consideration of admission/observation: Escalation of care including admission/observation considered Consult Healthcare Provider Management of the patient was discussed with: Senior Living Sales Counselor (scouring machine operator ) Lab Data [facility] Lab Attestation statement: I reviewed the patient's lab results. 05/30/25 04:40 05/30/25 04:40 Labs: Lab Results 05/30/25 Range/Units 04:40 WBC 11.3 H (4.8-10.8) X10*3/uL RBC 4.59 (4.20-5.50) X10*6/uL Hgb 12.9 (12.0-16.0) g/dl Hct 35.1 L (37.0-47.0) % MCV 76.5 L (80.0-98.0) fL MCH 28.1 (27.0-33.0) pg MCHC 36.8 H (31.0-35.0) g/dl RDW 12.5 (11.0-16.0) % Plt Count 225 (160-400) X10*3/uL MPV 9.0 L (9.4-12.3) fL Immature Gran % (Auto) 0.3 (0.0-0.4) % Neut % (Auto) 82.2 H (45-73) % Lymph % (Auto) 9.0 L (20-40) % [place] % (Auto) 7.9 (2-11) % Eos % (Auto) 0.4 (0-4) % Baso % (Auto) 0.2 (0-2) % Lymph # (Auto) 1.0 L (1.2-4.9) X10*3/uL [place] # (Auto) 0.9 (0.1-1.2) X10*3/uL Eos # (Auto) 0.0 (0.0-0.4) X10*3/uL Baso # (Auto) 0.0 (0.0-0.2) X10*3/uL Abs Immat Gran (auto) 0.03 (0.00-0.03) X10*3/uL Absolute Neuts (auto) 9.3 H (2.0-8.3) x10*3/uL Absolute Nucleated RBC 0.000 (0.0-0.012) X10*3/uL Nucleated RBC % (auto) 0.0 (0.0-0.2) /100WBC PT 13.0 (11.2-13.5) SEC INR 1.1 (0.9-1.1) Sodium 111 L* (135-145) mmol/L Potassium 3.4 (3.3-5.1) mmol/L Chloride 70 L (96-108) mmol/L Carbon Dioxide 26 (22-29) mmol/L Anion Gap 18 (12-20) BUN 25 H (9-16) mg/dL Creatinine 1.22 (0.5-1.4) mg/dL Estim Creat Clear Calc 44.8 Estimated GFR 43 Random Glucose 171 H (60-115) mg/dL Calcium 9.3 (8.4-10.2) mg/dL Total Bilirubin 1.7 H (0.0-1.0) mg/dL AST 57 H (5-31) U/L ALT 21 (0-31) U/L Alkaline Phosphatase 115 (39-117) U/L Troponin I High Sens 4.5 (<3.5-17.0) ng/L Total Protein 7.9 (6.5-8.0) g/dL Albumin 4.3 (3.5-5.0) g/dL Lipase 28 (8-78) U/L Influenza Type A (PCR) NEGATIVE (Negative) Influenza Type B (PCR) NEGATIVE (Negative) RSV RNA Qual (PCR) NEGATIVE (Negative) SARS-CoV-2 RNA (RT-PCR) NEGATIVE (Negative) Independent Interpretation I performed an independent interpretation of an: EKG Interpretation: My independent interpretation of the ECG reveals normal sinus rhythm with rate of 89, leftward axis, QTC 511, no ST elevations or depressions to suggest ischemic changes, no previous for comparison. My independent interpretation of the chest x-ray reveals no consolidations, pulmonary edema, pleural effusion, pneumothorax, obvious bony abnormalities. Radiology Impression Discussion of test interpretation with radiology: I have reviewed the radiologist's reading. Independent Historian Clinical information obtained from an independent historian. History obtained from or confirmed by: EMS External Record Review External record reviewed: Inpatient record Chronic Conditions Patient?s care impacted by: Diabetes, Hypertension and Other (COPD) Social Determinants Patient?s care significantly limited by Social Determinants of Health including: Other Social Determinant of Health Critical Care Time Critical Care Time Critical Care Time: Yes Total Critical Care Time: 35 Attestation: CRITICAL CARE TIME: 35 minutes of critical care time was spent in direct patient care at the bedside or in the immediate area with this patient. Critical care was necessary to treat or prevent imminent or life-threatening deterioration of the following conditions acute hyponatremia due to vomiting. This patient is high risk for decompensation and/or . This time was spent assessing and managing the patient, interpreting labs and imaging, coordinating care with other medical providers, gathering history from either the patient, their representatives, EMS or chart review, and discussing management with ICU team. Discharge Plan Discharge Clinical Impression: Acute hyponatremia, Nausea and vomiting Patient Disposition: Admitted As Inpatient Print Language: German
[2025-05-30 05:23] LABS: Resp Syncy Virus RNA Qual PCR NEGATIVE (Negative); SARS COV2 PCR INHOUSE NEGATIVE (Negative)
--- OUTSIDE RECORDS SUMMARY | 2025-05-30 05:57 | XMS_ITS ---
time, i.e. walking program which can be done inside or outside in any weather. Also should do some type of simple stretching /strengthe willie program. Total weekly exercise should be >=150min. Cardiovasc ular stress test abnormal 286162099 R94.39 CARDS managing Pigmented skin lesion 20 1553849 L81.9 not interested in dermbirthm ark Coronary arteriosclerosis 95551540 I25.10 #CAD:Lipid control: atorvastat in 40mgAC: Brilinta 90mg stopped December 26tente d coronary arteryabno rmal stress testFollow ing cardiology Last visit with cards : Dr. Garner 22 November Stented co ronary artery 453562094 Z95.5 Not taking any nitro anymoreNo chest pain Anxiety 55080467 F41.9 stable Screening for malignant neoplasm of cervix 732522418 Z12.4 Not interested in seeing a EXERCISER HORSE now Body mass index 25-29 - overweight 642067551 Z68.25 stable Exposure t o SARS-CoV-2 682438282 Z20.828 Covid-19 discussion : patient was instructed on safety precaution s including frequent hand washing, social distancing , avoiding touching face with hands, and covering mouth with arm/elbow when coughing or sneezing. the symptoms of Covid 19 were reviewed and the patient was instructed on when to self quarantine , when to call the PCP, and when to seek emergency care. Systolic murmur 42035813 R01.1 - declines echo today - does not know what it is, but sounds? minimal - rec echo after next visit - declined today Bilateral cataracts 9572 2004 H26.9 Done recently and doing well Blood in urine 95323295 R31.9 She had trace blood in the urine past visits.no UTI symptomsch ecking Screening mammography of bilateral breasts 1351305423 06450 Z12.31 not interested Tobacco non-user [id number] 001 64601 Z13.89 never a smoker Ex-drinker 32644836 F10. 21 long time ago Active or passive immunization 273242956 Z23 Encouraged to get shingles and pneumococc alYearly flu and COVID boostersTD AP every 10 years Mixed hyperlipidemia 267 966607 E78.2 #HLD:Medic ations: atorvastat in 40mg, continue Vitamin D deficiency 347 20881 E55.9 low vitamin D 45914 MD Sheree Tomlin [address] [place] [address] 10/01/2024 14:28:55 10/01/2024 15:22:51 General examination of patient 411276612 Z00.01 14620735 Health Wellness:d iscussed seat belt wear 100% [...] Cologuard; discussed Cologuard and efficacy Coronary arteriosclerosis 84247879 I25.10 [id number] #CAD: past medical history of obstructiv e coronary artery disease status post PCI with a drug-eludi ng stent to the LAD on December 26, 2020 at [facility] Lipid control: atorvastat in 40mgAC: Brilinta 90mg stopped December 26tente d coronary arteryabno rmal stress testFollow ing cardiology The patient is stable and asymptomat ic. The patient is to continue low-dose aspirin for secondary prevention . The patient has been counseled regarding heart healthy diet and exercise. Last visit with cards : Dr. Garner 22 November Screening for malignant neoplasm of colon 794452404 Z12.11 cologuard negative 12/2021, recheck in 2024 Screening mammography 24 807152 Z12.31 DECLINES Cough 63030727 R05.9 chronic cough since s visit was [...] She feels much better today Thyroid nodule 886727314 E04.1 Recent LDCT showed a noduleTHYR OID: There is a 1.8 cm nodule in the superior mediastinu m on series 2 image 26 which isinferior to the thyroid isthmus which may be on the basis of a exophytic thyroid nodule. Itmeasures 48 Hounsfield units internal density. This is unchanged from CT of the chest dated2020 EKG: T wave abnormal 164 337525 R94.31 new changes on EKG borderline st dep ov 0.5 t wave inversion on lateral leads and ASA Metoprolol , Nitro (if use this to ER) ETT fairly quickly new changes since Jan 2019 Type 2 tony betes mellitus 83982187 E11.9 Medication s: metformin 500mg bid Reports compliance to medication s and dietDenies any hypoglycem ic episodesDe nies any SE to medication s Recent labs done on: 025- A1C: 6.3- BS: 5- microalbum in: not testedEndo referral and f/u: none Current Symptoms: noneMicrov ascular complicati ons: None Macrovascu lar complicati ons: none [place] exam: [place], 20[place] [facility] exam: self check advisedLas t [...] sooner for lab f/u Hypertensive disorder 38 897546 I10 BP: 128/80Medi cation: metoprolol succinate ER [...] f/u Body mass index 30+ - obesity 582777612 Z68.31 Counseled on the Mediterran jonh diet: Daily consumptio n of vegetables , [...] be >=150min. Cardiovasc ular stress test abnormal 108231361 R94.39 CARDS [facility] medical history of obstructiv e coronary artery disease status post PCI with a drug-eluti ng stent to the LAD on December 26, 2020 at [facility] Pigmented skin lesion 20 1332709 L81.9 not interested in dermbirthm ark Stented co ronary artery 337028160 Z95.5 Not taking any nitro anymoreNo chest pain Anxiety 05378833 F41.9 stable Screening for malignant neoplasm of cervix 709443323 Z12.4 Not interested in seeing a EXERCISER HORSE now Body mass index 25-29 - overweight 893391649 Z68.25 stable Exposure t o SARS-CoV-2 328535991 Z20.828 Covid-19 discussion : patient was instructed on safety precaution s including frequent hand washing, social distancing , avoiding touching face with hands, and covering mouth with arm/elbow when coughing or sneezing. the symptoms of Covid 19 were reviewed and the patient was instructed on when to self quarantine , when to call the PCP, and when to seek emergency care. Systolic murmur 27886472 R01.1 - declines echo today - does not know what it is, but sounds? minimal - rec echo after next visit - declined today Bilateral cataracts 9572 2004 H26.9 Done recently and doing well Blood in urine 14142392 R31.9 She had trace blood in the urine past visits.no UTI symptomsch ecking Screening mammography of bilateral breasts 1090222218 77421 Z12.31 not interested Tobacco non-user [id number] 001 63736 Z13.89 never a smoker Ex-drinker 99889754 F10. 21 long time ago Active or passive immunization 470308981 Z23 Encouraged to get shingles and pneumococc alYearly flu and COVID boostersTD AP every 10 years Mixed hyperlipidemia 267 708367 E78.2 60767 Medication : atorvastat in 40mg Labs done on 08/07/2024 Triglyceri charmaine: 86Choleste rol:121LDL :55HDL:49 Reports compliance Denies any SE to the medication continue current regimen as directed. Patient is advised on low fat, low calorie diet, weight loss and regular exercise. Also advised on medication compliance and regular labs every 3 months. Vitamin D deficiency 347 83967 E55.9 vitamin D level: 28 Lab done [...] Eat More Vitamin D-Rich Foods Fatty Fish ([place], Mackerel, Tuna, Sardines)E gg YolksForti fied Foods (Milk, [place] Juice, Cereals, Plant-base d Milk)Mushr ooms (Sun-expos ed varieties like Maitake & Shiitake)C od Liver Oil (Very high in Vitamin D)Consider a Vitamin D Supplement Vitamin D3 (cholecalc iferol) is preferred over D2 for better absorption .Typical dosage for deficiency : 9553-4456 IU daily (Check with a doctor for the right dose).Pair with Vitamin K2 & Magnesium Vitamin K2 helps direct calcium to bones (found in fermented foods, dairy, and natto).Mag nesium helps activate Vitamin D (found in nuts, seeds, and leafy greens). [address]372 Ted Torrez MD [address] [place] [address] 04/01/2025 11:01:07 04/01/2025 11:59:42 Coronary arteriosclerosis 35889446 I25.10 [id number] #CAD: past medical history of obstructiv e coronary artery disease status post PCI with a drug-eludi ng stent to the LAD on December 26, 2020 at [facility] Lipid control: atorvastat in 40mgAC: Brilinta 90mg stopped December 262Stente d coronary arteryabno rmal stress testFollow ing cardiology The patient is stable and asymptomat ic. The patient is to continue low-dose aspirin for secondary prevention . The patient has been counseled regarding heart healthy diet and exercise. Last visit with cards : Dr. Garner 22 November Screening for malignant neoplasm of colon 554359787 Z12.11 cologuard negative 12/2021, recheck in 2024 Screening mammography 24 808276 Z12.31 DECLINES Cough 93015808 R05.9 chronic cough since march She was [...] She feels much better today Thyroid nodule 970381681 E04.1 Recent LDCT showed a noduleTHYR OID: There is a 1.8 cm nodule in the superior mediastinu m on series 2 image 26 which isinferior to the thyroid isthmus which may be on the basis of a exophytic thyroid nodule. Itmeasures 48 Hounsfield units internal density. This is unchanged from CT of the chest dated2020 EKG: T wave abnormal 164 069255 R94.31 new changes on EKG borderline st dep ov 0.5 t wave inversion on lateral leads and ASA Metoprolol , Nitro (if use this to ER) ETT fairly quickly new changes since Jan 2019 Type 2 tony betes mellitus 77512676 E11.9 Medication s: metformin 500mg bid Reports compliance to medication s and dietDenies any hypoglycem ic episodesDe nies any SE to medication s Recent labs done on: 025- A1C: 6.3- BS: 5- microalbum in: not testedEndo referral and f/u: none Current Symptoms: noneMicrov ascular complicati ons: None Macrovascu lar complicati ons: none L [place] eye exam: Apr, 2024 [place] [facility] exam: self check advisedLas t [...] sooner for lab f/u Hypertensive disorder 38 459896 I10 BP: 128/80Medi cation: metoprolol succinate ER [...] month Body mass index 30+ - obesity 951324989 Z68.31 Counseled on the Mediterran john diet: [...] be >=150min. Cardiovasc ular stress test abnormal 431262257 R94.[address] medical history of obstructiv e coronary artery disease status post PCI with a drug-eluti ng stent to the LAD on December 26, 2020 at [facility] Pigmented skin lesion 20 6208607 L81.9 not interested in dermbirthm ark Stented co ronary artery 621876109 Z95.5 Not taking any nitro anymoreNo chest pain Anxiety 88010206 F41.9 stable Screening for malignant neoplasm of cervix 837370825 Z12.4 Not interested in seeing a EXERCISER HORSE now Body mass index 25-29 - overweight 666635065 Z68.25 stable Exposure t o SARS-CoV-2 701817190 Z20.828 Covid-19 discussion : patient was instructed on safety precaution s including frequent hand washing, social distancing , avoiding touching face with hands, and covering mouth with arm/elbow when coughing or sneezing. the symptoms of Covid 19 were reviewed and the patient was instructed on when to self quarantine , when to call the PCP, and when to seek emergency care. Systolic murmur 92224101 R01.1 - declines echo today - does not know what it is, but sounds? minimal - rec echo after next visit - declined today Bilateral cataracts 9572 2004 H26.9 Done recently and doing well Blood in urine 85497382 R31.9 She had trace blood in the urine past visits.no UTI symptomsch ecking Screening mammography of bilateral breasts 1421326104 77157 Z12.31 not interested Tobacco non-user 7949611 001 57294 Z13.89 never a smoker Ex-drinker 09147548 F10. 21 long time ago Active or passive immunization 759510715 Z23 Encouraged to get shingles and pneumococc alYearly flu and COVID boostersTD AP every 10 years Mixed hyperlipidemia 267 844846 E78.2 33125 Medication : atorvastat in 40mg Labs done on 08/07/2024 Triglyceri charmaine: 86Choleste rol:121LDL :55HDL:49 Reports compliance Denies any SE to the medication continue current regimen as directed. Patient is advised on low fat, low calorie diet, weight loss and regular exercise. Also advised on medication compliance and regular labs every 3 months. Vitamin D deficiency 347 31527 E55.9 vitamin D level: 28 Lab done [...] Eat More Vitamin D-Rich Foods Fatty Fish ([place], Mackerel, Tuna, Sardines)E gg YolksForti fied Foods (Milk, [place] Juice, Cereals, Plant-base d Milk)Mushr ooms (Sun-expos ed varieties like Maitake & Shiitake)C od Liver Oil (Very high in Vitamin D)Consider a Vitamin D Supplement Vitamin D3 (cholecalc iferol) is preferred over D2 for better absorption .Typical dosage for deficiency : 9501-8940 IU daily (Check with a doctor for the right dose).Pair with Vitamin K2 & Magnesium Vitamin K2 helps direct calcium to bones (found in fermented foods, dairy, and natto).Mag nesium helps activate Vitamin D (found in nuts, seeds, and leafy greens). 88788 MD Sheree Tomlin [address] [address] [place] [address] 05/06/2025 11:21:05 05/06/2025 13:18:51 Coronary arteriosclerosis 63434925 I25.10 [id number] #CAD: past medical history of obstructiv e coronary artery disease status post PCI with a drug-eludi ng stent to the LAD on December 26, 2020 at [facility] Lipid control: atorvastat in 40mgAC: Brilinta 90mg stopped December 26tente d coronary arteryabno rmal stress testFollow ing cardiology The patient is stable and asymptomat ic. The patient is to continue low-dose aspirin for secondary prevention . The patient has been counseled regarding heart healthy diet and exercise. Last visit with cards : Dr. Garner 22 November Screening for malignant neoplasm of colon 373687087 Z12.11 cologuard negative 12/2021, recheck in 2024 Screening mammography 24 241392 Z12.31 DECLINES Cough 92525859 R05.9 chronic cough since march She was [...] She feels much better today Thyroid nodule 856309671 E04.1 Recent LDCT showed a noduleTHYR OID: There is a 1.8 cm nodule in the superior mediastinu m on series 2 image 26 which isinferior to the thyroid isthmus which may be on the basis of a exophytic thyroid nodule. Itmeasures 48 Hounsfield units internal density. This is unchanged from CT of the chest dated2020 EKG: T wave abnormal 164 562281 R94.31 new changes on EKG borderline st dep ov 0.5 t wave inversion on lateral leads and ASA Metoprolol , Nitro (if use this to ER) ETT fairly quickly new changes since Jan 2019 Type 2 tony betes mellitus 22998279 E11.9 Medication s: metformin 500mg bid Reports compliance to medication s and dietDenies any hypoglycem ic episodesDe nies any SE to medication s Recent labs done on: 025- A1C: 6.3- BS: 5- microalbum in: not testedEndo referral and f/u: none Current Symptoms: noneMicrov ascular complicati ons: None Macrovascu lar complicati ons: none [place] exam: Apr, 2024 [place] [facility] exam: self check advisedLas t [...] sooner for lab f/u Hypertensive disorder 38 825886 I10 BP: 128/80Medi cation: metoprolol succinate ER [...] month Body mass index 30+ - obesity 528142403 Z68.31 Counseled on the Mediterran john diet: [...] be >=150min. Cardiovasc ular stress test abnormal 269899977 R94.39 CARDS [facility] medical history of obstructiv e coronary artery disease status post PCI with a drug-eluti ng stent to the LAD on December 26, 2020 at [facility] Pigmented skin lesion 20 6117903 L81.9 not interested in dermbirthm ark Stented co ronary artery 203373563 Z95.5 Not taking any nitro anymoreNo chest pain Anxiety 41018264 F41.9 stable Screening for malignant neoplasm of cervix 659762044 Z12.4 Not interested in seeing a EXERCISER HORSE now Body mass index 25-29 - overweight 863490260 Z68.25 stable Exposure t o SARS-CoV-2 846216672 Z20.828 Covid-19 discussion : patient was instructed on safety precaution s including frequent hand washing, social distancing , avoiding touching face with hands, and covering mouth with arm/elbow when coughing or sneezing. the symptoms of Covid 19 were reviewed and the patient was instructed on when to self quarantine , when to call the PCP, and when to seek emergency care. Systolic murmur 07964575 R01.1 - declines echo today - does not know what it is, but sounds? minimal - rec echo after next visit - declined today Bilateral cataracts 9572 2003 H26.9 Done recently and doing well Blood in urine 93545541 R31.9 She had trace blood in the urine past visits.no UTI symptomsch ecking Screening mammography of bilateral breasts 5400322818 40496 Z12.31 not interested Tobacco non-user 6593215 001 78065 Z13.89 never a smoker Ex-drinker 83624111 F10. 21 long time ago Active or passive immunization 824719233 Z23 Encouraged to get shingles and pneumococc alYearly flu and COVID boostersTD AP every 10 years Mixed hyperlipidemia 267 729131 E78.2 76997 Medication : atorvastat in 40mg Labs done on 08/07/2024 Triglyceri charmaine: 86Choleste rol:121LDL :55HDL:49 Reports compliance Denies any SE to the medication continue current regimen as directed. Patient is advised on low fat, low calorie diet, weight loss and regular exercise. Also advised on medication compliance and regular labs every 3 months. Vitamin D deficiency 347 07641 E55.9 vitamin D level: 28 Lab done [...] Eat More Vitamin D-Rich Foods Fatty Fish ([place], Mackerel, Tuna, Sardines)E gg YolksForti fied Foods (Milk, [place] Juice, Cereals, Plant-base d Milk)Mushr ooms (Sun-expos ed varieties like Maitake & Shiitake)C od Liver Oil (Very high in Vitamin D)Consider a Vitamin D Supplement Vitamin D3 (cholecalc iferol) is preferred over D2 for better absorption .Typical dosage for deficiency : 9456-1788 IU daily (Check with a doctor for the right dose).Pair with Vitamin K2 & Magnesium Vitamin K2 helps direct calcium to bones (found in fermented foods, dairy, and natto).Mag nesium helps activate Vitamin D (found in nuts, seeds, and leafy greens). Pulmonary emphysema 8743 3001 J43.9 4071122 00369 Ted Torrez MD [address] [address] 05/07/2025 10:55:05 05/07/2025 13:26:21 Coronary arteriosclerosis 77265074 I25.10 [id number] #CAD: past medical history of obstructiv e coronary artery disease status post PCI with a drug-eludi ng stent to the LAD on December 26, 2020 at [facility] Lipid control: atorvastat in 40mgAC: Brilinta 90mg stopped December 26tente d coronary arteryabno rmal stress testFollow ing cardiology The patient is stable and asymptomat ic. The patient is to continue low-dose aspirin for secondary prevention . The patient has been counseled regarding heart healthy diet and exercise. Last visit with cards : Dr. Garner 22 November Screening for malignant neoplasm of colon 513807773 Z12.11 cologuard negative 12/2021, recheck in 2024 Screening mammography 24 490708 Z12.31 DECLINES Cough 22150000 R05.9 chronic cough since march She was [...] She feels much better today Thyroid nodule 963681130 E04.1 Recent LDCT showed a noduleTHYR OID: There is a 1.8 cm nodule in the superior mediastinu m on series 2 image 26 which isinferior to the thyroid isthmus which may be on the basis of a exophytic thyroid nodule. Itmeasures 48 Hounsfield units internal density. This is unchanged from CT of the chest dated2020 EKG: T wave abnormal 164 467465 R94.31 new changes on EKG borderline st dep ov 0.5 t wave inversion on lateral leads and ASA Metoprolol , Nitro (if use this to ER) ETT fairly quickly new changes since Jan 2019 Type 2 tony betes mellitus 10577970 E11.9 Medication s: metformin 500mg bid Reports compliance to medication s and dietDenies any hypoglycem ic episodesDe nies any SE to medication s Recent labs done on: 025- A1C: 6.3- BS: 5- microalbum in: not testedEndo referral and f/u: none Current Symptoms: noneMicrov ascular complicati ons: None Macrovascu lar complicati ons: none [place] eye exam: Apr, 2024 [place] [facility] foot exam: self check advisedLas t [...] sooner for lab f/u Hypertensive disorder 38 541242 I10 BP: 128/80Medi cation: metoprolol succinate ER [...] month Body mass index 30+ - obesity 525358807 Z68.31 Counseled on the Mediterran john diet: [...] be >=150min. Cardiovasc ular stress test abnormal 577413071 R94.[address] medical history of obstructiv e coronary artery disease status post PCI with a drug-eluti ng stent to the LAD on December 26, 2020 at [facility] Pigmented skin lesion 20 3282143 L81.9 not interested in dermbirthm ark Stented co ronary artery 149847112 Z95.5 Not taking any nitro anymoreNo chest pain Anxiety 44095112 F41.9 stable Screening for malignant neoplasm of cervix 379403127 Z12.4 Not interested in seeing a EXERCISER HORSE now Body mass index 25-29 - overweight 604418488 Z68.25 stable Exposure t o SARS-CoV-2 700324085 Z20.828 Covid-19 discussion : patient was instructed on safety precaution s including frequent hand washing, social distancing , avoiding touching face with hands, and covering mouth with arm/elbow when coughing or sneezing. the symptoms of Covid 19 were reviewed and the patient was instructed on when to self quarantine , when to call the PCP, and when to seek emergency care. Systolic murmur 95594716 R01.1 - declines echo today - does not know what it is, but sounds? minimal - rec echo after next visit - declined today Bilateral cataracts 9572 2004 H26.9 Done recently and doing well Blood in urine 95196289 R31.9 She had trace blood in the urine past visits.no UTI symptomsch ecking Screening mammography of bilateral breasts 6963540093 80889 Z12.31 not interested Tobacco non-user 8305501 001 35013 Z13.89 never a smoker Ex-drinker 91970561 F10. 21 long time ago Active or passive immunization 910991189 Z23 Encouraged to get shingles and pneumococc alYearly flu and COVID boostersTD AP every 10 years Mixed hyperlipidemia 267 930510 E78.2 18845 Medication : atorvastat in 40mg Labs done on 08/07/2024 Triglyceri charmaine: 86Choleste rol:121LDL :55HDL:49 Reports compliance Denies any SE to the medication continue current regimen as directed. Patient is advised on low fat, low calorie diet, weight loss and regular exercise. Also advised on medication compliance and regular labs every 3 months. Vitamin D deficiency 347 29256 E55.9 vitamin D level: 28 Lab done [...] Eat More Vitamin D-Rich Foods Fatty Fish ([place], Mackerel, Tuna, Sardines)E gg YolksForti fied Foods (Milk, [place] Juice, Cereals, Plant-base d Milk)Mushr ooms (Sun-expos ed varieties like Maitake & Shiitake)C od Liver Oil (Very high in Vitamin D)Consider a Vitamin D Supplement Vitamin D3 (cholecalc iferol) is preferred over D2 for better absorption .Typical dosage for deficiency : 7038-5991 IU daily (Check with a doctor for the right dose).Pair with Vitamin K2 & Magnesium Vitamin K2 helps direct calcium to bones (found in fermented foods, dairy, and natto).Mag nesium helps activate Vitamin D (found in nuts, seeds, and leafy greens). Pulmonary emphysema 8743 3001 J43.9 4353659 LDCT: mild emphysema 09789 Ted Torrez MD [address] [address] 05/09/2025 13:14:49 05/09/2025 15:49:17 Coronary arteriosclerosis 20995367 I25.10 [id number] #CAD: past medical history of obstructiv e coronary artery disease status post PCI with a drug-eludi ng stent to the LAD on December 26, 2020 at [facility] Lipid control: atorvastat in 40mgAC: Brilinta 90mg stopped December 26tente d coronary arteryabno rmal stress testFollow ing cardiology The patient is stable and asymptomat ic. The patient is to continue low-dose aspirin for secondary prevention . The patient has been counseled regarding heart healthy diet and exercise. Last visit with cards : Dr. Garner 22 November Screening for malignant neoplasm of colon 693559023 Z12.11 cologuard negative 12/2021, recheck in 2024 Screening mammography 24 189171 Z12.31 DECLINES Cough 44529184 R05.9 chronic cough since march She was [...] She feels much better today Thyroid nodule 480852020 E04.1 Recent LDCT showed a noduleTHYR OID: There is a 1.8 cm nodule in the superior mediastinu m on series 2 image 26 which isinferior to the thyroid isthmus which may be on the basis of a exophytic thyroid nodule. Itmeasures 48 Hounsfield units internal density. This is unchanged from CT of the chest dated2020 EKG: T wave abnormal 164 461450 R94.31 new changes on EKG borderline st dep ov 0.5 t wave inversion on lateral leads and ASA Metoprolol , Nitro (if use this to ER) ETT fairly quickly new changes since Jan 2019 Type 2 tony betes mellitus 27297185 E11.9 Medication s: metformin 500mg bid Reports compliance to medication s and dietDenies any hypoglycem ic episodesDe nies any SE to medication s Recent labs done on: 025- A1C: 6.3- BS: 5- microalbum in: not testedEndo referral and f/u: none Current Symptoms: noneMicrov ascular complicati ons: None Macrovascu lar complicati ons: none [place] exam: Apr, 2024 [place] [facility] exam: self check advisedLas t [...] sooner for lab f/u Hypertensive disorder 38 603293 I10 BP: 128/80Medi cation: metoprolol succinate ER [...] done Body mass index 30+ - obesity 729349883 Z68.31 Counseled on the Mediterran john diet: [...] be >=150min. Cardiovasc ular stress test abnormal 725591117 R94.39 CARDS [facility] medical history of obstructiv e coronary artery disease status post PCI with a drug-eluti ng stent to the LAD on December 26, 2020 at [facility] Pigmented skin lesion 20 1224382 L81.9 not interested in dermbirthm ark Stented co ronary artery 234961405 Z95.5 Not taking any nitro anymoreNo chest pain Anxiety 23767536 F41.9 stable Screening for malignant neoplasm of cervix 787160456 Z12.4 Not interested in seeing a EXERCISER HORSE now Body mass index 25-29 - overweight 516325484 Z68.25 stable Exposure t o SARS-CoV-2 224709056 Z20.828 Covid-19 discussion : patient was instructed on safety precaution s including frequent hand washing, social distancing , avoiding touching face with hands, and covering mouth with arm/elbow when coughing or sneezing. the symptoms of Covid 19 were reviewed and the patient was instructed on when to self quarantine , when to call the PCP, and when to seek emergency care. Systolic murmur 50454963 R01.1 - declines echo today - does not know what it is, but sounds? minimal - rec echo after next visit - declined today Bilateral cataracts 9572 2004 H26.9 Done recently and doing well Blood in urine 58000321 R31.9 She had trace blood in the urine past visits.no UTI symptomsch ecking Screening mammography of bilateral breasts 6848789715 93318 Z12.31 not interested Tobacco non-user [id number] 001 68530 Z13.89 never a smoker Ex-drinker 51485024 F10. 21 long time ago Active or passive immunization 884876508 Z23 Encouraged to get shingles and pneumococc alYearly flu and COVID boostersTD AP every 10 years Mixed hyperlipidemia 267 336180 E78.2 78486 Medication : atorvastat in 40mg Labs done on 08/07/2024 Triglyceri charmaine: 86Choleste rol:121LDL :55HDL:49 Reports compliance Denies any SE to the medication continue current regimen as directed. Patient is advised on low fat, low calorie diet, weight loss and regular exercise. Also advised on medication compliance and regular labs every 3 months. Vitamin D deficiency 347 63624 E55.9 vitamin D level: 28 Lab done [...] Eat More Vitamin D-Rich Foods Fatty Fish ([place], Mackerel, Tuna, Sardines)E gg YolksForti fied Foods (Milk, [place] Juice, Cereals, Plant-base d Milk)Mushr ooms (Sun-expos ed varieties like Maitake & Shiitake)C od Liver Oil (Very high in Vitamin D)Consider a Vitamin D Supplement Vitamin D3 (cholecalc iferol) is preferred over D2 for better absorption .Typical dosage for deficiency : 1571-7110 IU daily (Check with a doctor for the right dose).Pair with Vitamin K2 & Magnesium Vitamin K2 helps direct calcium to bones (found in fermented foods, dairy, and natto).Mag nesium helps activate Vitamin D (found in nuts, seeds, and leafy greens). Pulmonary emphysema 8743 3001 J43.9 7696978 LDCT: mild emphysema 95239 MD Sheree Tomlin [address] [place] [address] 05/13/2025 09:53:52 05/14/2025 13:06:35 Coronary arteriosclerosis 15279939 I25.10 [id number] #CAD: past medical history of obstructiv e coronary artery disease status post PCI with a drug-eludi ng stent to the LAD on December 26, 2020 at [facility] Lipid control: atorvastat in 40mgAC: Brilinta 90mg stopped December 26tente d coronary arteryabno rmal stress testFollow ing cardiology The patient is stable and asymptomat ic. The patient is to continue low-dose aspirin for secondary prevention . The patient has been counseled regarding heart healthy diet and exercise. Last visit with cards : Dr. Garner 22 November Screening for malignant neoplasm of colon 894390373 Z12.11 cologuard negative 12/2021, recheck in 2024 Screening mammography 24 662208 Z12.31 DECLINES Cough 91505239 R05.9 chronic cough since march She was [...] She feels much better today Thyroid nodule 963259065 E04.1 Recent LDCT showed a noduleTHYR OID: There is a 1.8 cm nodule in the superior mediastinu m on series 2 image 26 which isinferior to the thyroid isthmus which may be on the basis of a exophytic thyroid nodule. Itmeasures 48 Hounsfield units internal density. This is unchanged from CT of the chest dated2020 EKG: T wave abnormal 164 215169 R94.31 new changes on EKG borderline st dep ov 0.5 t wave inversion on lateral leads and ASA Metoprolol , Nitro (if use this to ER) ETT fairly quickly new changes since Jan 2019 Type 2 tony betes mellitus 64746975 E11.9 Medication s: metformin 500mg bid Reports compliance to medication s and dietDenies any hypoglycem ic episodesDe nies any SE to medication s Recent labs done on: 025- A1C: 6.3- BS: 5- microalbum in: not testedEndo referral and f/u: none Current Symptoms: noneMicrov ascular complicati ons: None Macrovascu lar complicati ons: none [place], [place] [facility] [facility]: self check advisedLas t [...] sooner for lab f/u Hypertensive disorder 38 120159 I10 BP: elevatedMe dication: metoprolol succinate ER [...] f/u Body mass index 30+ - obesity 030431644 Z68.31 Counseled on the Mediterran john diet: [...] be >=150min. Cardiovasc ular stress test abnormal 607334413 R94.39 CARDS [facility] medical history of obstructiv e coronary artery disease status post PCI with a drug-eluti ng stent to the LAD on December 26, 2020 at [facility] Pigmented skin lesion 20 8983905 L81.9 not interested in dermbirthm ark Stented co ronary artery 755483556 Z95.5 Not taking any nitro anymoreNo chest pain Anxiety 03682338 F41.9 stable Screening for malignant neoplasm of cervix 108259618 Z12.4 Not interested in seeing a EXERCISER HORSE now Body mass index 25-29 - overweight 720700402 Z68.25 stable Exposure t o SARS-CoV-2 798347726 Z20.828 Covid-19 discussion : patient was instructed on safety precaution s including frequent hand washing, social distancing , avoiding touching face with hands, and covering mouth with arm/elbow when coughing or sneezing. the symptoms of Covid 19 were reviewed and the patient was instructed on when to self quarantine , when to call the PCP, and when to seek emergency care. Systolic murmur 62123710 R01.1 - declines echo today - does not know what it is, but sounds? minimal - rec echo after next visit - declined today Bilateral cataracts 9572 2004 H26.9 Done recently and doing well Blood in urine 65531121 R31.9 She had trace blood in the urine past visits.no UTI symptomsch ecking Screening mammography of bilateral breasts 8238470515 27485 Z12.31 not interested Tobacco non-user 1417677 001 02527 Z13.89 never a smoker Ex-drinker 02816691 F10. 21 long time ago Active or passive immunization 180583488 Z23 Encouraged to get shingles and pneumococc alYearly flu and COVID boostersTD AP every 10 years Mixed hyperlipidemia 267 738259 E78.2 30686 Medication : atorvastat in 40mg Labs done on 08/07/2024 Triglyceri charmaine: 86Choleste rol:121LDL :55HDL:49 Reports compliance Denies any SE to the medication continue current regimen as directed. Patient is advised on low fat, low calorie diet, weight loss and regular exercise. Also advised on medication compliance and regular labs every 3 months. Vitamin D deficiency 347 25766 E55.9 vitamin D level: 28 Lab done [...] Eat More Vitamin D-Rich Foods Fatty Fish ([place], Mackerel, Tuna, Sardines)E gg YolksForti fied Foods (Milk, [place] Juice, Cereals, Plant-base d Milk)Mushr ooms (Sun-expos ed varieties like Maitake & Shiitake)C od Liver Oil (Very high in Vitamin D)Consider a Vitamin D Supplement Vitamin D3 (cholecalc iferol) is preferred over D2 for better absorption .Typical dosage for deficiency : 3723-2508 IU daily (Check with a doctor for the right dose).Pair with Vitamin K2 & Magnesium Vitamin K2 helps direct calcium to bones (found in fermented foods, dairy, and natto).Mag nesium helps activate Vitamin D (found in nuts, seeds, and leafy greens). Pulmonary emphysema 8743 3001 J43.9 6930956 LDCT: mild emphysema 05930 MD Sheree Tomlin [address] [address] [place] [address] 05/20/2025 08:08:23 05/21/2025 09:10:21 Coronary arteriosclerosis 64123680 I25.10 [id number] #CAD: past medical history of obstructiv e coronary artery disease status post PCI with a drug-eludi ng stent to the LAD on December 26, 2020 at [facility] Lipid control: atorvastat in 40mgAC: Brilinta 90mg stopped December 26tente d coronary arteryabno rmal stress testFollow ing cardiology The patient is stable and asymptomat ic. The patient is to continue low-dose aspirin for secondary prevention . The patient has been counseled regarding heart healthy diet and exercise. Last visit with cards : Dr. Garner 22 November Screening for malignant neoplasm of colon 305801641 Z12.11 cologuard negative 12/2021, recheck in 2024 Screening mammography 24 848233 Z12.31 DECLINES Cough 32233853 R05.9 chronic cough since march She was [...] She feels much better today Thyroid nodule 117370724 E04.1 Recent LDCT showed a noduleTHYR OID: There is a 1.8 cm nodule in the superior mediastinu m on series 2 image 26 which isinferior to the thyroid isthmus which may be on the basis of a exophytic thyroid nodule. Itmeasures 48 Hounsfield units internal density. This is unchanged from CT of the chest dated2020 EKG: T wave abnormal 164 908475 R94.31 new changes on EKG borderline st dep ov 0.5 t wave inversion on lateral leads and ASA Metoprolol , Nitro (if use this to ER) ETT fairly quickly new changes since Jan 2019 Type 2 tony betes mellitus 29398624 E11.9 Medication s: metformin 500mg bid Reports compliance to medication s and dietDenies any hypoglycem ic episodesDe nies any SE to medication s Recent labs done on: 025- A1C: 6.3- BS: 5- microalbum in: not testedEndo referral and f/u: none Current Symptoms: noneMicrov ascular complicati ons: None Macrovascu lar complicati ons: none [place] exam: Apr, 2024 [place] [facility] [place] exam: self check advisedLas t [...] sooner for lab f/u Hypertensive disorder 38 132928 I10 BP: elevatedMe dication: metoprolol succinate ER [...] f/u Body mass index 30+ - obesity 327633549 Z68.31 Counseled on the Mediterran john diet: [...] be >=150min. Cardiovasc ular stress test abnormal 314846910 R94.[address] medical history of obstructiv e coronary artery disease status post PCI with a drug-eluti ng stent to the LAD on December 26, 2020 at [facility] Pigmented skin lesion 20 7891410 L81.9 not interested in dermbirthm ark Stented co ronary artery 783395449 Z95.5 Not taking any nitro anymoreNo chest pain Anxiety 58029386 F41.9 stable Screening for malignant neoplasm of cervix 191959790 Z12.4 Not interested in seeing a EXERCISER HORSE now Body mass index 25-29 - overweight 885297936 Z68.25 stable Exposure t o SARS-CoV-2 770175219 Z20.828 Covid-19 discussion : patient was instructed on safety precaution s including frequent hand washing, social distancing , avoiding touching face with hands, and covering mouth with arm/elbow when coughing or sneezing. the symptoms of Covid 19 were reviewed and the patient was instructed on when to self quarantine , when to call the PCP, and when to seek emergency care. Systolic murmur 09809162 R01.1 - declines echo today - does not know what it is, but sounds? minimal - rec echo after next visit - declined today Bilateral cataracts 9572 2004 H26.9 Done recently and doing well Blood in urine 47167989 R31.9 She had trace blood in the urine past visits.no UTI symptomsch ecking Screening mammography of bilateral breasts 2033203504 58592 Z12.31 not interested Tobacco non-user 5049363 001 38682 Z13.89 never a smoker Ex-drinker 30696050 F10. 21 long time ago Active or passive immunization 559240394 Z23 Encouraged to get shingles and pneumococc alYearly flu and COVID boostersTD AP every 10 years Mixed hyperlipidemia 267 933080 E78.2 45474 Medication : atorvastat in 40mg Labs done on 08/07/2024 Triglyceri charmaine: 86Choleste rol:121LDL :55HDL:49 Reports compliance Denies any SE to the medication continue current regimen as directed. Patient is advised on low fat, low calorie diet, weight loss and regular exercise. Also advised on medication compliance and regular labs every 3 months. Vitamin D deficiency 347 84683 E55.9 vitamin D level: 28 Lab done [...] Eat More Vitamin D-Rich Foods Fatty Fish ([place], Mackerel, Tuna, Sardines)E gg YolksForti fied Foods (Milk, [place] Juice, Cereals, Plant-base d Milk)Mushr ooms (Sun-expos ed varieties like Maitake & Shiitake)C od Liver Oil (Very high in Vitamin D)Consider a Vitamin D Supplement Vitamin D3 (cholecalc iferol) is preferred over D2 for better absorption .Typical dosage for deficiency : 1008-9115 IU daily (Check with a doctor for the right dose).Pair with Vitamin K2 & Magnesium Vitamin K2 helps direct calcium to bones (found in fermented foods, dairy, and natto).Mag nesium helps activate Vitamin D (found in nuts, seeds, and leafy greens). Pulmonary emphysema 8743 3001 J43.9 3108425 LDCT: mild emphysema Health Concerns Section Related Observation LastModified by Organization Detai ls LastModified Time None Recorded Concern Status LastModified by Organization Details LastModified Time None Recorded Advance Directives Directive N: Payers Insurance Date Sequence Insurance Name Policy Number Policy Lewis Covered Member ID Lewis Member ID Guarantor Name 05/06/2025 1 MEDICARE B-[place]: [employer] SERVICES Fatoumata Campbell Marcelina [id number] Fatoumata Adrian Arment 05/19/2025 2 BCBS-ID: [facility] [employer] [id number] Fatoumata Adrian Marcelina [id number] Fatoumata Adrian Armazeem 06/27/2024 1 BCBS-ID [facility] 104 Fatoumata Campbell Armazeem [id number] Fatoumata Hewitt Notes Date Note Type Note [...] problems with breathing. The patient resides in [place] and reports difficulty with the long travel to the clinic, and she is planning to find a new primary care physician closer to her home. KATIE Ravi [address] [place] [address], [place], [address], [employer] 05/06/2025 13:15:51 05/07/2025 text/html The patient is a 74 year old female presenting for follow-up on her hypertension. She has a home blood pressure machine and reports recent readings of 168/92 mmHg and 161/102 mmHg with a pulse of 78 bpm. She has been taking two tablets of losartan 50mg. The patient also reports needing to establish primary care at [facility], which requires her medical records to be sent. KATIE Ravi [address] [place] [address], [place], [address], [employer] 05/07/2025 13:22:36 05/09/2025 text/html The patient is a 74 year old female presenting for follow-up on hypertension management. Her current regimen is believed to be ineffective. She is currently taking losartan, which will be discontinued, and she remains on metoprolol 25 mg. She has also been advised to start taking metformin. KATIE Ravi [address] [facility], [place] [address], [place], [address], [employer] 05/09/2025 15:48:28 05/13/2025 text/html The patient is [...] 193.6 pounds this morning. KATIE Ravi [address] [facility], [place] [address], [place], [address], [employer] 05/13/2025 21:37:34 05/20/2025 text/html The patient is [...] call to schedule one. KATIE Ravi [address] [address], [place], [address], [employer] 05/20/2025 22:21:41 OBGyn Episode No OBEpisode recorded. Data Portability Created on: May 30, 2025 Fatoumata Hewitt .[id number] : 1950 Sex: Female Author Organization [employer], [place] Address [address] [place] [id number] Care Team Providers Care Direct Mail Manager Name Role Phone [facility] (CARDIOLOGY) OTHER [facility]ERO Primary Care [...] Care The patient finds the commute from [employer] [employer] difficult and is actively seeking a new [...] Care The patient finds the commute from [place] difficult and is actively seeking a new [...] her medical records to be sent to [facility] to establish new primary care. Staff [...] Care The patient finds the commute from [place] difficult and is actively seeking a new [...] Care The patient finds the commute from [place] difficult and is actively seeking a new [...] her medical records to be sent to [facility] to establish new primary care. Staff [...] Care The patient finds the commute from [place] difficult and is actively seeking a new [...] Care The patient finds the commute from [employer] [employer] difficult and is actively seeking a new [...] Care The patient finds the commute from [place] difficult and is actively seeking a new [...] patient was advised that she can take [id number] Tums for her symptoms. Procedure Documentation: No [...] [address] [facility] #0373, [address] [place], [address], 15:42:01 amlodipine 5 mg tablet [address] [facility] #0373, [address] [place], [address], 15:42:00 chlorthalid one 25 mg tablet [address] [facility] #0373, [address] [place], [address], 15:42:01 metformin ER 500 mg tablet,exte nded release [address] [facility] #0373, [address] [place], [address], 12/15/202 5 15:42:00 metoprolol succinate ER 25 mg tablet,exte nded release [address] [facility] #0373, [address] [place], [address], 5 15:42:00 amlodipine 5 mg tablet [address] [facility] #0373, [address] [place], [address], 5 15:22:41 chlorthalid one 25 mg tablet [address] [facility] #0373, [address] [place], [address], 13:59:09 albuterol sulfate HFA 90 mcg/actuati on aerosol inhaler 2024 [facility]25 [facility] [address] [place], [address], 5 13:14:07 albuterol sulfate HFA 90 mcg/actuati on aerosol inhaler 2024 025 [facility] [address] [place], [address], 11:56:43 losartan 100 mg tablet [address] [facility] #0373, [address] [place], [address], 5 13:57:31 metformin ER 500 mg tablet,exte nded release [address] [facility] #0373, [address] [place], [address], 5 11:53:09 OneTouch Verio test strips [address] [facility]0373, [address] [place], [address], 11:54:55 Patient TargetsNo targets recorded. Patient Instructions Encounter Date Encounter Id Patient Instructions Last Modified By Organization Details Last Modified Time 05/06/2025 [id number] - Take 100 mg of losartan every [...] new doctor closer to your home in [place]. - If you find a new doctor, [...] the note. Not available 05/06/2025 11:57:57 05/07/2025 [id number] - To take your blood pressure, put the cuff on, sit quietly for five minutes with your legs touching the floor, and then press the start button. - A member of our staff, Argenis, will call you to help with sending your medical records to [facility]. - Expect a call back around 2 p.m. to check your blood pressure reading. Not available 05/07/2025 13:15:40 Please note: Parts of this encounter note have been generated by AI based on audio conversation. Patient consent was required prior to utilizing this technology. Content review was required prior to finalizing the note. Not available 05/07/2025 13:15:40 05/09/2025 35001 - Stop taking losartan. - You can tell the pharmacy that your medication was changed and you will not be picking up the losartan that is ready for you. - header set up operator and start taking your new medication, chlorthalidone. - Start taking metformin. - header set up operator - strepsinol. - Continue checking your blood pressure at home. - Call the office with your blood pressure readings. Not available 05/09/2025 15:46:09 Please note: Parts of this encounter note have been generated by AI based on audio conversation. Patient consent was required prior to utilizing this technology. Content review was required prior to finalizing the note. Not available 05/09/2025 15:46:09 05/13/2025 [id number] - You will start a new medication [...] the note. Not available 05/13/2025 15:24:01 05/20/2025 56020 - Continue to check your blood pressure [...] to previ ous metho d. Not Available [address], [address], 04/22/2025 12:05:32 04/22/2004/22/2025 COMPR EHENS SUZIE METAB OLIC PANEL sodium 141 mEq/L 133-14 5 normal Not Available [address], [address], 04/22/2025 12:21:53 04/22/2004/22/2025 COMPR EHENS SUZIE METAB OLIC PANEL potassium 4.5 mEq/L 3.5-5. 1 normal Not Available [address], [address], 04/22/2025 12:21:53 04/22/20 25 04/22/2025 COMPR EHENS SUZIE METAB OLIC PANEL chloride 106 mEq/L 98-112 normal Not Available [address], [address], 04/22/2025 12:21:53 04/22/2004/22/2025 COMPR EHENS SUZIE METAB OLIC PANEL carbon dioxide 24 mEq/L 22-31 normal Not Available [address], [address], 04/22/2025 12:21:53 04/22/2004/22/2025 COMPR EHENS SUZIE METAB OLIC PANEL anion gap 11 mEq/L 5-15 normal Not Available [address], [address], 04/22/2025 12:21:53 04/22/20 25 04/22/2025 COMPR EHENS SUZIE METAB OLIC PANEL blood urea nitrogen (BUN) 11 mg/dL 10-20 normal Not Available [address], [address], 04/22/2025 12:21:53 04/22/20 25 04/22/2025 COMPR EHENS SUZIE METAB OLIC PANEL creatinine 0.75 mg/dL 0.50-1 .02 normal Not Available [address], [address], 04/22/2025 12:21:53 04/22/2004/22/2025 COMPR EHENS SUZIE METAB [...] G5 (kidn ey failu re). Not Available [address], [address], 04/22/2025 12:21:53 04/22/20 04/22/2025 COMPR EHENS SUZIE METAB OLIC PANEL glucose 100 mg/dL 70-100 normal Fasti ng Refer ence Inter diony: 70-10 0mg/d L Non-f astin g Refer ence Inter diony: 70-14 0mg/d L Not Available [address], [address], 04/22/2025 12:21:53 04/22/20 25 04/22/2025 COMPR EHENS SUZIE METAB OLIC PANEL calcium 9.3 mg/dL 8.4-10 .4 normal Not Available [address], [address], 04/22/2025 12:21:53 04/22/20 25 04/22/2025 COMPR EHENS SUZIE METAB OLIC PANEL bilirubin total 0.6 mg/dL 0.3-1. 2 normal Not Available [address], [address], 04/22/2025 12:21:53 04/22/20 25 04/22/2025 COMPR EHENS SUZIE METAB OLIC PANEL aspartate amino transferase 17 IU/L 11-34 normal Not Available [address], [address], 04/22/2025 12:21:53 04/22/20 25 04/22/2025 COMPR EHENS SUZIE METAB OLIC PANEL alanine aminotransfe rase 14 IU/L <34 Not Available [address], [address], 04/22/2025 12:21:53 04/22/20 25 04/22/2025 COMPR EHENS SUZIE METAB OLIC PANEL total protein 7.5 g/dL 5.8-8. 1 normal Not Available [address], [address], 04/22/2025 12:21:53 04/22/20 25 04/22/2025 COMPR EHENS SUZIE METAB OLIC PANEL albumin 4.0 g/dL 2.5-5. 0 normal Not Available [address], [address], 04/22/2025 12:21:53 04/22/2004/22/2025 COMPR EHENS SUZIE METAB OLIC PANEL alkaline phosphatase 117 IU/L 40-150 normal Not Available [address], [address], 04/22/2025 12:21:53 04/22/2004/22/2025 LIPID PANEL triglyceride s 117 mg/dL normal Audra l <=150 Audra l 150-1 99 Borde rline High 200-4 99 High >=500 Very High Not Available [address], [address], 04/22/2025 12:21:54 04/22/2004/22/2025 LIPID PANEL cholesterol 128 mg/dL normal Keenan able <200 Keenan able 200-2 39 Borde rline High >=240 High Not Available [address], [address], 04/22/2025 12:21:54 04/22/2004/22/2025 LIPID PANEL LDL cholesterol calculated 64 mg/dL normal Optim al <100 Optim al 100-1 29 Near optim al 130-1 59 Borde rline High 160-1 89 High >=190 Very High Not Available [address], [address], 04/22/2025 12:21:54 04/22/2004/22/2025 LIPID PANEL HDL cholesterol 41 mg/dL <40 Low >=60 Optim al Not Available [address], [address], 04/22/2025 12:21:54 Result Notes None recorded. Problems Name Problem SNOMED Code Status Onset Date Resolution Date Notes Provider Name and Address Organization Details Recorded Time Type 2 diabetes mellitus 71735756 Active 2018 KATIE Ravi [address] [facility], [address], [place], [address] , [place] - PMA/WIP 5 15:16:55 Hyperten sive disorder 45274889 Active 2018 Not Available [facility] 20:28:52 Body mass index 25-29 - overweig ht 191475209 Completed 201811/12/2020 Miya Hartman null, [place] - PMA/WIP 1 11:37:29 Cardiova scular stress test abnormal 075858887 Active 2020 Not Available [facility] 20:28:52 Body mass index 30+ - obesity 482967135 Active 2020 Not Available [facility] 20:28:52 Stented coronary artery 914362565 Active 2020 LAD 95% [facility] December 2020 Not Available [facility] 2 20:28:52 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 Medical Equipment None Reported. Allergies Allergen ID Allergen Name Allergen Category Reaction Reaction Severity Criticality Documentation Date Start Date Code Code System Note Provider Name and Address Organization Details Recorded Time 7018 lisinopri l medicatio n cough Not available Not available 04/01/2025 98530 RxNorm KATIE Ravi [address] [facility], [facility] [address], [place], [address], [place] - PMA/WIP 5 11:41:23 Medications [...] Not Available No t Available Fluzone High-Dose [id number] (PF) 180 mcg/0.5 mL intramusc ular syringe 01/08 completed Not Available Not Available Not Available Vitals Date Recorded Body height Body mass index (BMI) Body weight Oxygen saturation Heart rate Systolic And Diastolic Provider Name and Address Organization Details Last Updated DateTime 5 157.48 cm 37.4 kg/m2 60844 g 96 % 89 /min 150/100 mm[Hg] Jarred power [place] - PMA/WIP 5 11:26:02 Date Recorded Body height Body mass index (BMI) Body weight Oxygen saturation Heart rate Systolic And Diastolic Provider Name and Address Organization Details Last Updated DateTime 5 157.48 cm 36.8 kg/m2 23108.0 7 g 96 % 81 /min 160/100 mm[Hg] Jarred power [place] - PMA/WIP 5 13:18:05 Social History Question Answer Notes LastModified by [employer] Details LastModified Time Tobacco Smoking Status Never [...] Or The Highest Degree You Have Received? HM73749-1 Information not available 08/20/2020 Have There Been [...] Functional Status Question Answer Note LastModified by [employer] Details LastModified Time Do you use any [...] adjuvanted, quadrivalent, PF 2 completed KATIE Ravi [address] [place] [address], [address], [place], [address], [place] - PMA/WIP 01/24/2023 12:50:11 COVID-19, mRNA, LNP-S, bivalent, PF, 30 mcg/0.3 mL dose 2 completed KATIE Ravi [address] [place] [address], [place] [address], [place], [address], [place] - PMA/WIP 04/01/2025 11:37:14 pneumococcal polysaccharide PPV23 9 completed KATIE Ravi [address] [place] [address], [place] [address], [place], [address], [place] - PMA/WIP 04/01/2025 11:37:14 Influenza, split virus, quadrivalent, preservative 9 completed KATIE Ravi [address] [place] [address], [facility] [address], [place], [address], [place] - PMA/WIP 04/01/2025 11:37:14 influenza nasal, unspecified formulation 4 completed Ernestina Otto null, [place] - PMA/WIP 06/27/2024 13:14:39 SARS-COV-2 (COVID-19) vaccine, UNSPECIFIED 4 completed Ernestina Otto null, [place] - PMA/WIP 06/27/2024 13:14:49 Influenza, split virus, quadrivalent, preservative 0 completed KATIE Ravi [address] [place] [address], [place] [address], [place], [address], [place] - PMA/WIP 06/17/2023 16:03:45 COVID-19, mRNA, [...] high-dose, quadrivalent, PF 1 completed Not Available [facility] 05/20/2025 08:08:59 COVID-19, mRNA, LNP-S, PF, mary-sucrose, 30 mcg/0.3 mL 5 completed Not Available [facility] 05/20/2025 08:08:59 Influenza, high-dose, trivalent, PF 8 completed Not Available [facility] 05/20/2025 08:08:59 Pneumococcal conjugate PCV 13 8 completed Not Available [facility] 05/20/2025 08:08:59 Influenza, split virus, quadrivalent, PF 9 completed KATIE Ravi [address] [place] [address], [place], [address], [facility]/WIP 04/01/2025 11:37:14 Past Encounters Encounter ID Performer Location Encounter Start Date Encounter Closed Date Diagnosis/Indication Diagnosis SNOMED-CT Code Diagnosis ICD10 Code Diagnosis IMO Codes Diagnosis Note [id number] Justo Osborne MD [address] [address] 08/21/2018 09:12:57 08/22/2018 14:17:40 [id number] Justo Osborne MD [facility] [place] [address] [address] 12/21/2018 08:42:56 12/25/2018 07:23:31 [id number] MIYA HARTMAN [address] [address] 05/15/2019 08:32:27 05/16/2019 07:52:46 Type 2 diabetes mellitus 91612498 E11.9 Hypertensive disorder 38 004952 I10 Body mass index 25-29 - overweight 628880852 Z68.25 Hyperlipidemia 36675317 E78.5 Systolic murmur 42734358 R01.1 - declines echo today - does not know what it is, but sounds? minimal - rec echo after next visit - declined today [id number] MIYA Shirley [place] [address] [address] 09/07/2019 09:52:00 09/07/2019 14:15:04 Type 2 diabetes mellitus 09945936 E11.9 fbs have been excellent with around 100 she had cut back the metformin to 500mg daily and could do a trial of no meds if so check FBS and if < 126 can remain off she perferrs to stay on Hypertensive disorder 38 207201 I10 might consider home bp monitor - last time was okay Exposure t o SARS-CoV-2 268961864 Z20.828 Covid-19 discussion : patient was instructed on safety precaution s including frequent hand washing, social distancing , avoiding touching face with hands, and covering mouth with arm/elbow when coughing or sneezing. the symptoms of Covid 19 were reviewed and the patient was instructed on when to self quarantine , when to call the PCP, and when to seek emergency care. [id number] [place] [address] 01/09/2020 08:26:27 01/09/2020 19:29:31 Body mass index 25-29 - overweight 283737045 Z68.25 stable Hypertensive disorder 38 743557 I10 might consider home bp monitor - last time was okay okay today as well Type 2 tony betes mellitus 79409501 E11.9 fbs have been excellent with around 100 she had cut back the metformin to 500mg daily and could do a trial of no meds if so check FBS and if < 126 can remain off she prefers to stay on Anxiety 07595432 F41.9 stable with out meds, not a sig issues and sounds just like normal living MIYA HARTMAN [address] [address] 08/20/2020 13:04:23 08/20/2020 17:10:22 Screening mammography 25419180 Z12.31 DECLINES Screening for malignant neoplasm of colon 516298849 Z12.11 may not want to do can EKG: T wave abnormal 164 844194 R94.31 new changes on EKG borderline st dep ov 0.5 t wave inversion on lateral leads and ASA Metoprolol , Nitro (if use this to ER) ETT fairly quickly new changes since Jan 2019 Type 2 tony betes mellitus 56019802 E11.9 a1c okay here today follow closely Hyperlipidemia 45072861 E78.5 lipids not able to Hypertensive disorder 38 515549 I10 might consider home bp monitor - last time was okay okay today as well [id number] MIYA DEVAN [address] [address] 11/12/2020 10:49:46 11/12/2020 12:07:41 Body mass index 30+ - obesity 260156402 Z68.31 Counseled on the Mediterran john diet: [...] be >=150min. Cardiovasc ular stress test abnormal 178028846 R94.39 CARDS managing has upcoming imaging Hypertensive disorder 38 161205 I10 might consider home bp monitor - last time was okay okay today as well Type 2 tony betes mellitus 22674367 E11.9 a1c okay follow closely diet controlled RD consult Hyperlipidemia 90711033 E78.5 lipitor will check next visit Pigmented skin lesion 20 4509930 L81.9 [id number] KATIE Ravi [address] [address] 04/08/2021 08:45:27 04/08/2021 17:25:04 Hypertensive disorder 44750289 I10 On goal today at 120/76Medi cation: Lisinopril 10mg and metoprolol succinate 25mg , continue Type 2 tony betes mellitus 76325025 E11.9 #T2DM:A1C 5.6 on 08/20/2020 Not on any medication s Mixed hyperlipidemia 267 395065 E78.2 #HLD:Medic ations: atorvastat in 40mg, continue Coronary arteriosclerosis 61732410 I25.10 #CAD:LIpid control: atorvastat in 40mgAC: Brilinta 90mgStente d coronary arteryabno rmal stress testFollow ing cardiology Last visit with cards : November 2020Next visit with cards: June 21, 2020 [id number] KATIE Ravi [address] [address] 08/05/2021 08:46:49 08/06/2021 08:34:08 Hypertensive disorder 60753103 I10 On goal today at 120/76Medi cation: Lisinopril 10mg and metoprolol succinate 25mg , continue Type 2 tony betes mellitus 48399425 E11.9 #T2DM:A1C 5.6 on 08/20/2020 Not on any medication s Mixed hyperlipidemia 267 134128 E78.2 #HLD:Medic ations: atorvastat in 40mg, continue Coronary arteriosclerosis 57559334 I25.10 #CAD:LIpid control: atorvastat in 40mgAC: Brilinta 90mg (can stop on December 26)Stent ed coronary arteryabno rmal stress testFollow ing cardiology Last visit with cards : November 2020Next visit with cards: June 21, 2020 [id number] Ted Torrez MD [address] [address] 12/02/2021 08:44:34 12/04/2021 08:11:13 Coronary arteriosclerosis 51531581 I25.10 #CAD:LIpid control: atorvastat in 40mgAC: Brilinta 90mg (can stop on December 26)Stent ed coronary arteryabno rmal stress testFollow ing cardiology (Rosy staton) Last visit with cards : Jun 2020Next visit with cards: Jun 2021 Body mass index 30+ - obesity 910479773 Z68.31 Still 5 pounds loss Hypertensive disorder 38 992120 I10 On goal today at 120/76Medi cation: Lisinopril 10mg and metoprolol succinate 25mg , continue Stented co ronary artery 726557366 Z95.5 Not taking any nitro anymoreNo chest pain Cardiovasc ular stress test abnormal 058235084 R94.39 following cards Type 2 tony betes mellitus 79098301 E11.9 #T2DM:A1C 5.6 on 08/20/2020 Not on any medication s Anxiety 86583502 F41.9 stable Screening for malignant neoplasm of colon 773421261 Z12.11 Never had a colonoscop yNo family hx of colon cancerNo blood in the stool Screening mammography 24 957445 Z12.31 screening Screening for malignant neoplasm of cervix 350593745 Z12.4 Not interested in seeing a EXERCISER HORSE now [id number] Ted Torrez MD [address] [place] [address] 03/04/2022 09:02:01 03/07/2022 13:13:26 Screening mammography 99715835 Z12.31 DECLINES Screening for malignant neoplasm of colon 845975888 Z12.11 negative cologuard - 12/28 EKG: T wave abnormal 164 994137 R94.31 new changes on EKG borderline st dep ov 0.5 t wave inversion on lateral leads and ASA Metoprolol , Nitro (if use this to ER) ETT fairly quickly new changes since Jan 2019 Type 2 tony betes mellitus 64198208 E11.9 a1c 6.9 okay here today follow closely Hypertensive disorder 38 666570 I10 might consider home bp monitor - last time was okay okay today as well Body mass index 25-29 - overweight 727048467 Z68.25 stable Anxiety 54117152 F41.9 stable with out meds, not a sig issues and sounds just like normal living Exposure t o SARS-CoV-2 534886205 Z20.828 Covid-19 discussion : patient was instructed on safety precaution s including frequent hand washing, social distancing , avoiding touching face with hands, and covering mouth with arm/elbow when coughing or sneezing. the symptoms of Covid 19 were reviewed and the patient was instructed on when to self quarantine , when to call the PCP, and when to seek emergency care. Systolic murmur 12890110 R01.1 - declines echo today - does not know what it is, but sounds? minimal - rec echo after next visit - declined today Body mass index 30+ - obesity 668398482 Z68.31 Counseled on the Mediterran john diet: [...] be >=150min. Cardiovasc ular stress test abnormal 797606716 R94.39 CARDS managing has upcoming imaging Pigmented skin lesion 20 6284929 L81.9 not interested in dermbirthm ark Mixed hyperlipidemia 267 271780 E78.2 #HLD:Medic ations: atorvastat in 40mg, continue Coronary arteriosclerosis 28798635 I25.10 #CAD:LIpid control: atorvastat in 40mgAC: Brilinta 90mgStente d coronary arteryabno rmal stress testFollow ing cardiology Last visit with cards : November 2020Next visit with cards: June 21, 2020 Stented co ronary artery 368086582 Z95.5 Not taking any nitro anymoreNo chest pain Screening for malignant neoplasm of cervix 411801731 Z12.4 Not interested in seeing a EXERCISER HORSE now Bilateral cataracts 9572 2003 H26.9 noted [id number] MD Sheree Tomlin [address] [place] [address] [place] [address] 06/18/2022 13:00:01 06/22/2022 12:55:33 Screening mammography 15151239 Z12.31 DECLINES Screening for malignant neoplasm of colon 512473985 Z12.11 cologuard negative 12/2021 EKG: T wave abnormal 164 091438 R94.31 new changes on EKG borderline st dep ov 0.5 t wave inversion on lateral leads and ASA Metoprolol , Nitro (if use this to ER) ETT fairly quickly new changes since Jan 2019 Type 2 tony betes mellitus 70546023 E11.9 a1c okay here today follow closely Hyperlipidemia 95543494 E78.5 lipids not able to Hypertensive disorder 38 337609 I10 might consider home bp monitor - last time was okay okay today as well Body mass index 30+ - obesity 944517140 Z68.31 Counseled on the Mediterran john diet: [...] be >=150min. Cardiovasc ular stress test abnormal 461983438 R94.39 CARDS managing has upcoming imaging Pigmented skin lesion 20 1926010 L81.9 not interested in dermbirthm ark Mixed hyperlipidemia 267 174373 E78.2 #HLD:Medic ations: atorvastat in 40mg, continue Coronary arteriosclerosis 47906265 I25.10 #CAD:LIpid control: atorvastat in 40mgAC: Brilinta 90mg stopped December 26tente d coronary arteryabno rmal stress testFollow ing cardiology Last visit with cards : November 2020Next visit with cards: June 21, 2020 Stented co ronary artery 371674546 Z95.5 Not taking any nitro anymoreNo chest pain Anxiety 17198884 F41.9 stable Screening for malignant neoplasm of cervix 405023634 Z12.4 Not interested in seeing a EXERCISER HORSE now Body mass index 25-29 - overweight 982325013 Z68.25 stable Exposure t o SARS-CoV-2 826849830 Z20.828 Covid-19 discussion : patient was instructed on safety precaution s including frequent hand washing, social distancing , avoiding touching face with hands, and covering mouth with arm/elbow when coughing or sneezing. the symptoms of Covid 19 were reviewed and the patient was instructed on when to self quarantine , when to call the PCP, and when to seek emergency care. Systolic murmur 19285213 R01.1 - declines echo today - does not know what it is, but sounds? minimal - rec echo after next visit - declined today Bilateral cataracts 9572 2003 H26.9 noted [id number] MD Sheree Tomlin [address] [place] [address] 07/23/2022 12:59:02 07/27/2022 09:41:10 Screening mammography 63282993 Z12.31 DECLINES Screening for malignant neoplasm of colon 616806417 Z12.11 cologuard negative 12/2021 EKG: T wave abnormal 164 459935 R94.31 new changes on EKG borderline st dep ov 0.5 t wave inversion on lateral leads and ASA Metoprolol , Nitro (if use this to ER) ETT fairly quickly new changes since Jan 2019 Type 2 tony betes mellitus 97314427 E11.9 a1c 5.8 okay here today follow closely Hyperlipidemia 55700601 E78.5 lipids not able to Hypertensive disorder 38 166178 I10 might consider home bp monitor - last time was okay okay today as well Body mass index 30+ - obesity 750643051 Z68.31 Counseled on the Mediterran john diet: [...] be >=150min. Cardiovasc ular stress test abnormal 452203664 R94.39 CARDS managing has upcoming imaging Pigmented skin lesion 20 9780880 L81.9 not interested in dermbirthm ark Mixed hyperlipidemia 267 022628 E78.2 #HLD:Medic ations: atorvastat in 40mg, continue Coronary arteriosclerosis 41548824 I25.10 #CAD:LIpid control: atorvastat in 40mgAC: Brilinta 90mg stopped December 26tente d coronary arteryabno rmal stress testFollow ing cardiology Last visit with cards : November 2020Next visit with cards: June 21, 2020 Stented co ronary artery 781384779 Z95.5 Not taking any nitro anymoreNo chest pain Anxiety 81552875 F41.9 stable Screening for malignant neoplasm of cervix 978450447 Z12.4 Not interested in seeing a EXERCISER HORSE now Body mass index 25-29 - overweight 281623743 Z68.25 stable Exposure t o SARS-CoV-2 316605013 Z20.828 Covid-19 discussion : patient was instructed on safety precaution s including frequent hand washing, social distancing , avoiding touching face with hands, and covering mouth with arm/elbow when coughing or sneezing. the symptoms of Covid 19 were reviewed and the patient was instructed on when to self quarantine , when to call the PCP, and when to seek emergency care. Systolic murmur 72626023 R01.1 - declines echo today - does not know what it is, but sounds? minimal - rec echo after next visit - declined today Bilateral cataracts 9572 2003 H26.9 noted Blood in urine 36170759 R31.9 She had trace blood in the urine past visits.no UTI symptomsch ecking [id number] Ted Torrez MD [address] [place] [address] 09/23/2022 12:44:32 09/23/2022 13:34:57 Screening mammography 62222816 Z12.31 DECLINES Screening for malignant neoplasm of colon 245107903 Z12.11 cologuard negative 12/2021, recheck in 2024 EKG: T wave abnormal 164 721304 R94.31 new changes on EKG borderline st dep ov 0.5 t wave inversion on lateral leads and ASA Metoprolol , Nitro (if use this to ER) ETT fairly quickly new changes since Jan 2019 Type 2 tony betes mellitus 11555298 E11.9 #T2DM:Medi cations:me tformin ER 1000mgRepo rts compliance A1C: 5.8encoura ged losing weight, getting regular physical activity and following a healthy, reduced-ca lacy eating plan. Hyperlipidemia 10084514 E78.5 #Hyperlipi demia:Medi cations: atorvastat in 40mgReport s compliance Last lipid panelDenie s any muscle pain or joint pain Hypertensive disorder 38 891442 I10 Medication s: metoprolol succinate ER 25mg and lisinopril 10mgReport s compliance Last kidney panel stableDeni es chest pain, SOB, headache, dizziness Body mass index 30+ - obesity 859441069 Z68.31 Counseled on the Mediterran john diet: [...] be >=150min. Cardiovasc ular stress test abnormal 869193663 R94.39 CARDS managing Pigmented skin lesion 20 4923232 L81.9 not interested in dermbirthm ark Coronary arteriosclerosis 21227533 I25.10 #CAD:Lipid control: atorvastat in 40mgAC: Brilinta 90mg stopped December 262Stente d coronary arteryabno rmal stress testFollow ing cardiology Last visit with cards : Dr. Garner Stented co ronary artery 212751606 Z95.5 Not taking any nitro anymoreNo chest pain Anxiety 09435665 F41.9 stable Screening for malignant neoplasm of cervix 211482262 Z12.4 Not interested in seeing a EXERCISER HORSE now Body mass index 25-29 - overweight 894859375 Z68.25 stable Exposure t o SARS-CoV-2 151897482 Z20.828 Covid-19 discussion : patient was instructed on safety precaution s including frequent hand washing, social distancing , avoiding touching face with hands, and covering mouth with arm/elbow when coughing or sneezing. the symptoms of Covid 19 were reviewed and the patient was instructed on when to self quarantine , when to call the PCP, and when to seek emergency care. Systolic murmur 58512121 R01.1 - declines echo today - does not know what it is, but sounds? minimal - rec echo after next visit - declined today Bilateral cataracts 9572 2003 H26.9 noted Blood in urine 58548768 R31.9 She had trace blood in the urine past visits.no UTI symptomsch ecking [id number] MD Sheree Tomlin [address] [place] [address] 01/24/2023 12:43:26 02/10/2023 09:29:49 Screening mammography 98096328 Z12.31 DECLINES Screening for malignant neoplasm of colon 648921507 Z12.11 cologuard negative 12/2021, recheck in 2024 EKG: T wave abnormal 164 730184 R94.31 new changes on EKG borderline st dep ov 0.5 t wave inversion on lateral leads and ASA Metoprolol , Nitro (if use this to ER) ETT fairly quickly new changes since Jan 2019 Type 2 tony betes mellitus 08343122 E11.9 #T2DM:Medi cations:me tformin ER 1000mgRepo rts compliance A1C: 5.8encoura ged losing weight, getting regular physical activity and following a healthy, reduced-ca lacy eating plan.nair ed to 500mg twice a dayNow the A1C: is 6.2. patient wants to wait before increasing the tablets. Hyperlipidemia 02918988 E78.5 #Hyperlipi demia:Medi cations: atorvastat in 40mgReport s compliance Last lipid panelDenie s any muscle pain or joint pain Hypertensive disorder 38 721538 I10 Medication s: metoprolol succinate ER 25mg and lisinopril 10mgReport s compliance Last kidney panel stableDeni es chest pain, SOB, headache, dizziness Body mass index 30+ - obesity 852204360 Z68.31 Counseled on the Mediterran john diet: [...] be >=150min. Cardiovasc ular stress test abnormal 625655229 R94.39 CARDS managing Pigmented skin lesion 20 4351304 L81.9 not interested in dermbirthm ark Coronary arteriosclerosis 97338152 I25.10 #CAD:Lipid control: atorvastat in 40mgAC: Brilinta 90mg stopped December 26tente d coronary arteryabno rmal stress testFollow ing cardiology Last visit with cards : Dr. Garner Stented co ronary artery 950728607 Z95.5 Not taking any nitro anymoreNo chest pain Anxiety 22707338 F41.9 stable Screening for malignant neoplasm of cervix 349175666 Z12.4 Not interested in seeing a EXERCISER HORSE now Body mass index 25-29 - overweight 132215399 Z68.25 stable Exposure t o SARS-CoV-2 654527318 Z20.828 Covid-19 discussion : patient was instructed on safety precaution s including frequent hand washing, social distancing , avoiding touching face with hands, and covering mouth with arm/elbow when coughing or sneezing. the symptoms of Covid 19 were reviewed and the patient was instructed on when to self quarantine , when to call the PCP, and when to seek emergency care. Systolic murmur 19327427 R01.1 - declines echo today - does not know what it is, but sounds? minimal - rec echo after next visit - declined today Bilateral cataracts 9572 2003 H26.9 noted Blood in urine 01006622 R31.9 She had trace blood in the urine past visits.no UTI symptomsch ecking [id number] MD Sheree Tomlin [address] [address] [place] [address] 06/13/2023 09:51:07 06/14/2023 15:00:03 Screening mammography 21537303 Z12.31 DECLINES Screening for malignant neoplasm of colon 537926975 Z12.11 cologuard negative 12/2021, recheck in 2024 EKG: T wave abnormal 164 893367 R94.31 new changes on EKG borderline st dep ov 0.5 t wave inversion on lateral leads and ASA Metoprolol , Nitro (if use this to ER) ETT fairly quickly new changes since Jan 2019 Type 2 tony yarely mellitus 56650572 E11.9 #T2DM:Medi cations:me tformin ER 1000mgRepo rts compliance A1C: 5.8encoura ged losing weight, getting regular physical activity and following a healthy, reduced-ca lacy eating plan.nair ed to 500mg twice a dayNow the A1C: is 6.2. patient wants to wait before increasing the tablets. Hyperlipidemia 02447423 E78.5 #Hyperlipi demia:Medi cations: atorvastat in 40mgReport s compliance Last lipid panelDenie s any muscle pain or joint pain Hypertensive disorder 38 130416 I10 Medication s: metoprolol succinate ER 25mg and lisinopril 10mgReport s compliance Last kidney panel stableDeni es chest pain, SOB, headache, dizziness Body mass index 30+ - obesity 509275174 Z68.31 Counseled on the Mediterran john diet: [...] be >=150min. Cardiovasc ular stress test abnormal 355406014 R94.39 CARDS managing Pigmented skin lesion 20 8244437 L81.9 not interested in dermbirthm ark Coronary arteriosclerosis 09192531 I25.10 #CAD:Lipid control: atorvastat in 40mgAC: Brilinta 90mg stopped December 262Stente d coronary arteryabno rmal stress testFollow ing cardiology Last visit with cards : Dr. Garner Stented co ronary artery 935884662 Z95.5 Not taking any nitro anymoreNo chest pain Anxiety 42930569 F41.9 stable Screening for malignant neoplasm of cervix 271321602 Z12.4 Not interested in seeing a EXERCISER HORSE now Body mass index 25-29 - overweight 710562051 Z68.25 stable Exposure t o SARS-CoV-2 306536316 Z20.828 Covid-19 discussion : patient was instructed on safety precaution s including frequent hand washing, social distancing , avoiding touching face with hands, and covering mouth with arm/elbow when coughing or sneezing. the symptoms of Covid 19 were reviewed and the patient was instructed on when to self quarantine , when to call the PCP, and when to seek emergency care. Systolic murmur 86355143 R01.1 - declines echo today - does not know what it is, but sounds? minimal - rec echo after next visit - declined today Bilateral cataracts 9572 2003 H26.9 noted Blood in urine 16730847 R31.9 She had trace blood in the urine past visits.no UTI symptomsch ecking Pre-surger y evaluation [id number] Z01.818 #pre-op evaluation :- based on 2014 ACC/AHA pre-op cardiovasc ular evaluation for patient undergoing non-cardia c surgery pt is undergoing low/interm ediate/hig h risk surgery and has low risk factors for cardiac complicati ons-report s ability to achieve >4 METS functional capacity without limitation s-chart, labs, EKG reviewed-c hronic illnesses stable-pt cleared for surgery at discretion of operating surgeon Cough 25435520 R05.9 chronic cough since ENDUM- CXR normal- CTChest ordered [id number] MD Paulette Tomlinisabell mosley [address] [address] 06/17/2023 07:51:11 06/21/2023 09:09:04 Cough 81616439 R05.9 chronic cough since s visit was [...] She feels much better today Thyroid nodule 646831337 E04.1 Recent LDCT showed a noduleTHYR OID: There is a 1.8 cm nodule in the superior mediastinu m on series 2 image 26 which isinferior to the thyroid isthmus which may be on the basis of a exophytic thyroid nodule. Itmeasures 48 Hounsfield units internal density. This is unchanged from CT of the chest dated2020 Screening mammography 24 433181 Z12.31 DECLINES Screening for malignant neoplasm of colon 785069728 Z12.11 cologuard negative 12/2021, recheck in 2024 EKG: T wave abnormal 164 348771 R94.31 new changes on EKG borderline st dep ov 0.5 t wave inversion on lateral leads and ASA Metoprolol , Nitro (if use this to ER) ETT fairly quickly new changes since Jan 2019 Type 2 tony betes mellitus 25037653 E11.9 #T2DM:Medi cations:me tformin ER 1000mgRepo rts compliance A1C: 5.8encoura ged losing weight, getting regular physical activity and following a healthy, reduced-ca lacy eating plan.nair ed to 500mg twice a dayNow the A1C: is 6.2. patient wants to wait before increasing the tablets. Hyperlipidemia 26363063 E78.5 #Hyperlipi demia:Medi cations: atorvastat in 40mgReport s compliance Last lipid panelDenie s any muscle pain or joint pain Hypertensive disorder 38 025487 I10 Medication s: metoprolol succinate ER 25mg and lisinopril 10mgReport s compliance Last kidney panel stableDeni es chest pain, SOB, headache, dizziness Body mass index 30+ - obesity 433767112 Z68.31 Counseled on the Mediterran john diet: [...] be >=150min. Cardiovasc ular stress test abnormal 644450348 R94.39 CARDS managing Pigmented skin lesion 20 4440794 L81.9 not interested in dermbirthm ark Coronary arteriosclerosis 38265692 I25.10 #CAD:Lipid control: atorvastat in 40mgAC: Brilinta 90mg stopped December 26tente d coronary arteryabno rmal stress testFollow ing cardiology Last visit with cards : Dr. Garner Stented co ronary artery 842281737 Z95.5 Not taking any nitro anymoreNo chest pain Anxiety 92722193 F41.9 stable Screening for malignant neoplasm of cervix 596558187 Z12.4 Not interested in seeing a EXERCISER HORSE now Body mass index 25-29 - overweight 717555227 Z68.25 stable Exposure t o SARS-CoV-2 932420254 Z20.828 Covid-19 discussion : patient was instructed on safety precaution s including frequent hand washing, social distancing , avoiding touching face with hands, and covering mouth with arm/elbow when coughing or sneezing. the symptoms of Covid 19 were reviewed and the patient was instructed on when to self quarantine , when to call the PCP, and when to seek emergency care. Systolic murmur 47156235 R01.1 - declines echo today - does not know what it is, but sounds? minimal - rec echo after next visit - declined today Bilateral cataracts 9572 2003 H26.9 noted Blood in urine 28201267 R31.9 She had trace blood in the urine past visits.no UTI symptomsch ecking Pre-surger y evaluation 067448134 Z01.818 #pre-op evaluation :- based on 2014 ACC/AHA pre-op cardiovasc ular evaluation for patient undergoing non-cardia c surgery pt is undergoing low/interm ediate/hig h risk surgery and has low risk factors for cardiac complicati ons-report s ability to achieve >4 METS functional capacity without limitation s-chart, labs, EKG reviewed-c hronic illnesses stable-pt cleared for surgery at discretion of operating surgeon [id number] MD Sheree Tomlin [address] [place] [address] 08/04/2023 10:48:32 08/04/2023 13:39:34 Adult health examination 005315193 Z00.00 Health Wellness:d iscussed seat belt wear [...] efficacy Screening for malignant neoplasm of colon 528900266 Z12.11 cologuard negative 12/2021, recheck in 2024 Screening mammography 24 464940 Z12.31 DECLINES Cough 82162075 R05.9 chronic cough since s visit was [...] She feels much better today Thyroid nodule 732964160 E04.1 Recent LDCT showed a noduleTHYR OID: There is a 1.8 cm nodule in the superior mediastinu m on series 2 image 26 which isinferior to the thyroid isthmus which may be on the basis of a exophytic thyroid nodule. Itmeasures 48 Hounsfield units internal density. This is unchanged from CT of the chest dated2020 EKG: T wave abnormal 164 360905 R94.31 new changes on EKG borderline st dep ov 0.5 t wave inversion on lateral leads and ASA Metoprolol , Nitro (if use this to ER) ETT fairly quickly new changes since Jan 2019 Type 2 tony betes mellitus 61855612 E11.9 #T2DM:Medi cations:me tformin ER 500mg bid, continueRe ports compliance A1C: 5.8encoura ged losing weight, getting regular physical activity and following a healthy, reduced-ca lacy eating plan.nair ed to 500mg twice a day Hyperlipidemia 72021086 E78.5 #Hyperlipi demia:Medi cations: atorvastat in 40mgReport s compliance Last lipid panelDenie s any muscle pain or joint pain Hypertensive disorder 38 535026 I10 Medication s: metoprolol succinate ER 25mg and lisinopril 10mgReport s compliance Last kidney panel stableDeni es chest pain, SOB, headache, dizziness Body mass index 30+ - obesity 637186260 Z68.31 Counseled on the Mediterran john diet: [...] be >=150min. Cardiovasc ular stress test abnormal 148923874 R94.39 CARDS managing Pigmented skin lesion 20 2679539 L81.9 not interested in dermbirthm ark Coronary arteriosclerosis 24328396 I25.10 #CAD:Lipid control: atorvastat in 40mgAC: Brilinta 90mg stopped December 26tente d coronary arteryabno rmal stress testFollow ing cardiology Last visit with cards : Dr. Garner Stented co ronary artery 494815243 Z95.5 Not taking any nitro anymoreNo chest pain Anxiety 03857651 F41.9 stable Screening for malignant neoplasm of cervix 490086496 Z12.4 Not interested in seeing a EXERCISER HORSE now Body mass index 25-29 - overweight 577110694 Z68.25 stable Exposure t o SARS-CoV-2 706577880 Z20.828 Covid-19 discussion : patient was instructed on safety precaution s including frequent hand washing, social distancing , avoiding touching face with hands, and covering mouth with arm/elbow when coughing or sneezing. the symptoms of Covid 19 were reviewed and the patient was instructed on when to self quarantine , when to call the PCP, and when to seek emergency care. Systolic murmur 60683450 R01.1 - declines echo today - does not know what it is, but sounds? minimal - rec echo after next visit - declined today Bilateral cataracts 9572 2004 H26.9 noted Blood in urine 51110799 R31.9 She had trace blood in the urine past visits.no UTI symptomsch ecking Pre-surger y evaluation 508076025 Z01.818 #pre-op evaluation :- based on 2014 ACC/AHA pre-op cardiovasc ular evaluation for patient undergoing non-cardia c surgery pt is undergoing low/interm ediate/hig h risk surgery and has low risk factors for cardiac complicati ons-report s ability to achieve >4 METS functional capacity without limitation s-chart, labs, EKG reviewed-c hronic illnesses stable-pt cleared for surgery at discretion of operating surgeon [id number] Ted Torrez MD [address] [place] [address] 08/17/2023 10:56:14 08/17/2023 11:47:36 EKG: T wave abnormal 356129764 R94.31 new changes on EKG borderline st dep ov 0.5 t wave inversion on lateral leads and ASA Metoprolol , Nitro (if use this to ER) ETT fairly quickly new changes since Jan 2019 Type 2 tony betes mellitus 13807662 E11.9 #T2DM:Medi cations:me tformin ER 1000mgRepo rts compliance A1C: 5.8encoura ged losing weight, getting regular physical activity and following a healthy, reduced-ca lacy eating plan.nair ed to 500mg twice a dayNow the A1C: is 6.2. patient wants to wait before increasing the tablets. Hyperlipidemia 11796022 E78.5 #Hyperlipi demia:Medi cations: atorvastat in 40mgReport s compliance Last lipid panelDenie s any muscle pain or joint pain Hypertensive disorder 38 654202 I10 Medication s: metoprolol succinate ER 25mg and lisinopril 10mgReport s compliance Last kidney panel stableDeni es chest pain, SOB, headache, dizziness Cardiovasc ular stress test abnormal 316680970 R94.39 CARDS managing Coronary arteriosclerosis 06937828 I25.10 #CAD:Lipid control: atorvastat in 40mgAC: Brilinta 90mg stopped December 262Stente d coronary arteryabno rmal stress testFollow ing cardiology Last visit with cards : Dr. Garner Stented co ronary artery 406555154 Z95.5 Not taking any nitro anymoreNo chest pain Anxiety 71321431 F41.9 stable Systolic murmur 12164671 R01.1 - declines echo today - does not know what it is, but sounds? minimal - rec echo after next visit - declined today Bilateral cataracts 9572 2003 H26.9 noted Pre-surger y evaluation 119829315 Z01.818 #pre-op evaluation :- based on ACC/AHA pre-op cardiovasc ular evaluation for patient undergoing non-cardia c surgery pt is undergoing low risk surgery and has low risk factors for cardiac complicati ons-report s ability to achieve >4 METS functional capacity without limitation s-chart, labs, EKG reviewed-c hronic illnesses stable-pt cleared for surgery at discretion of operating surgeon [id number] MD Sheree Tomlin [place] [address] [place], [place] [address] 11/03/2023 09:30:35 11/03/2023 10:36:39 Screening for malignant neoplasm of colon 632469584 Z12.11 cologuard negative 12/2021, recheck in 2024 Screening mammography 24 458849 Z12.31 DECLINES Cough 36351298 R05.9 chronic cough since s visit was [...] She feels much better today Thyroid nodule 723033531 E04.1 Recent LDCT showed a noduleTHYR OID: There is a 1.8 cm nodule in the superior mediastinu m on series 2 image 26 which isinferior to the thyroid isthmus which may be on the basis of a exophytic thyroid nodule. Itmeasures 48 Hounsfield units internal density. This is unchanged from CT of the chest dated2020 EKG: T wave abnormal 164 917792 R94.31 new changes on EKG borderline st dep ov 0.5 t wave inversion on lateral leads and ASA Metoprolol , Nitro (if use this to ER) ETT fairly quickly new changes since Jan 2019 Type 2 tony betes mellitus 75526522 E11.9 #T2DM:Medi cations:me tformin ER 500mg bid, continueRe ports compliance A1C: 5.8encoura ged losing weight, getting regular physical activity and following a healthy, reduced-ca lacy eating plan.nair ed to 500mg twice a day Hyperlipidemia 21206417 E78.5 #Hyperlipi demia:Medi cations: atorvastat in 40mgReport s compliance Last lipid panelDenie s any muscle pain or joint pain Hypertensive disorder 38 156429 I10 Medication s: metoprolol succinate ER 25mg and lisinopril 10mgReport s compliance Last kidney panel stableDeni es chest pain, SOB, headache, dizziness Body mass index 30+ - obesity 163767603 Z68.31 Counseled on the Mediterran john diet: [...] be >=150min. Cardiovasc ular stress test abnormal 740022265 R94.39 CARDS managing Pigmented skin lesion 20 0599425 L81.9 not interested in dermbirthm ark Coronary arteriosclerosis 39897306 I25.10 #CAD:Lipid control: atorvastat in 40mgAC: Brilinta 90mg stopped December 262Stente d coronary arteryabno rmal stress testFollow ing cardiology Last visit with cards : Dr. Garner 22 November Stented co ronary artery 140964315 Z95.5 Not taking any nitro anymoreNo chest pain Anxiety 60297532 F41.9 stable Screening for malignant neoplasm of cervix 384663963 Z12.4 Not interested in seeing a EXERCISER HORSE now Body mass index 25-29 - overweight 545133041 Z68.25 stable Exposure t o SARS-CoV-2 548048464 Z20.828 Covid-19 discussion : patient was instructed on safety precaution s including frequent hand washing, social distancing , avoiding touching face with hands, and covering mouth with arm/elbow when coughing or sneezing. the symptoms of Covid 19 were reviewed and the patient was instructed on when to self quarantine , when to call the PCP, and when to seek emergency care. Systolic murmur 56368079 R01.1 - declines echo today - does not know what it is, but sounds? minimal - rec echo after next visit - declined today Bilateral cataracts 9572 2003 H26.9 Done recently and doing well Blood in urine 73226922 R31.9 She had trace blood in the urine past visits.no UTI symptomsch ecking [id number] MD Sheree Tomlin [place] [address] [place] [address] 02/03/2024 09:59:29 02/03/2024 10:49:02 Screening for malignant neoplasm of colon 399427665 Z12.11 cologuard negative 12/2021, recheck in 2024 Screening mammography 24 620222 Z12.31 DECLINES Cough 13472099 R05.9 chronic cough since s visit was [...] She feels much better today Thyroid nodule 019867451 E04.1 Recent LDCT showed a noduleTHYR OID: There is a 1.8 cm nodule in the superior mediastinu m on series 2 image 26 which isinferior to the thyroid isthmus which may be on the basis of a exophytic thyroid nodule. Itmeasures 48 Hounsfield units internal density. This is unchanged from CT of the chest dated2020 EKG: T wave abnormal 164 650288 R94.31 new changes on EKG borderline st dep ov 0.5 t wave inversion on lateral leads and ASA Metoprolol , Nitro (if use this to ER) ETT fairly quickly new changes since Jan 2019 Type 2 tony betes mellitus 66413289 E11.9 #T2DM:Medi cations:me tformin ER 500mg bid, continueRe ports compliance A1C: 5.8encoura ged losing weight, getting regular physical activity and following a healthy, reduced-ca lacy eating plan.nair ed to 500mg twice a day Hyperlipidemia 79302142 E78.5 #Hyperlipi demia:Medi cations: atorvastat in 40mgReport s compliance Last lipid panelDenie s any muscle pain or joint pain Hypertensive disorder 38 701472 I10 Medication s: metoprolol succinate ER 25mg and lisinopril 10mgReport s compliance Last kidney panel stableDeni es chest pain, SOB, headache, dizziness Body mass index 30+ - obesity 481032610 Z68.31 Counseled on the Mediterran john diet: [...] be >=150min. Cardiovasc ular stress test abnormal 286230171 R94.39 CARDS managing Pigmented skin lesion 20 2026156 L81.9 not interested in dermbirthm ark Coronary arteriosclerosis 70690402 I25.10 #CAD:Lipid control: atorvastat in 40mgAC: Brilinta 90mg stopped December 262Stente d coronary arteryabno rmal stress testFollow ing cardiology Last visit with cards : Dr. Garner 22 November Stented co ronary artery 391654267 Z95.5 Not taking any nitro anymoreNo chest pain Anxiety 71456631 F41.9 stable Screening for malignant neoplasm of cervix 739930042 Z12.4 Not interested in seeing a EXERCISER HORSE now Body mass index 25-29 - overweight 616855536 Z68.25 stable Exposure t o SARS-CoV-2 228862476 Z20.828 Covid-19 discussion : patient was instructed on safety precaution s including frequent hand washing, social distancing , avoiding touching face with hands, and covering mouth with arm/elbow when coughing or sneezing. the symptoms of Covid 19 were reviewed and the patient was instructed on when to self quarantine , when to call the PCP, and when to seek emergency care. Systolic murmur 45099779 R01.1 - declines echo today - does not know what it is, but sounds? minimal - rec echo after next visit - declined today Bilateral cataracts 9572 2004 H26.9 Done recently and doing well Blood in urine 14554330 R31.9 She had trace blood in the urine past visits.no UTI symptomsch ecking Screening mammography of bilateral breasts 0781171742 00647 Z12.31 not interested Tobacco non-user 3938088 001 06963 Z13.89 never a smoker Ex-drinker 63401269 F10. 21 long time ago Active or passive immunization 836405322 Z23 Encouraged to get shingles and pneumococc alYearly flu and COVID boostersTD AP every 10 years [address]75[address] eTd Torrez MD [address] [facility] [place] [address] 06/27/2024 13:06:49 06/28/2024 09:18:33 Screening for malignant neoplasm of colon 205384358 Z12.11 cologuard negative 12/2021, recheck in 2024 Screening mammography 24 854020 Z12.31 DECLINES Cough 31049265 R05.9 chronic cough since s visit was [...] She feels much better today Thyroid nodule 786720660 E04.1 Recent LDCT showed a noduleTHYR OID: There is a 1.8 cm nodule in the superior mediastinu m on series 2 image 26 which isinferior to the thyroid isthmus which may be on the basis of a exophytic thyroid nodule. Itmeasures 48 Hounsfield units internal density. This is unchanged from CT of the chest dated2020 EKG: T wave abnormal 164 989443 R94.31 new changes on EKG borderline st dep ov 0.5 t wave inversion on lateral leads and ASA Metoprolol , Nitro (if use this to ER) ETT fairly quickly new changes since Jan 2019 Type 2 tony betes mellitus 07774519 E11.9 #T2DM:Medi cations:me tformin ER 500mg bid, continueRe ports compliance A1C: 5.8encoura ged losing weight, getting regular physical activity and following a healthy, reduced-ca lacy eating plan.nair ed to 500mg twice a day Hyperlipidemia 56891849 E78.5 #Hyperlipi demia:Medi cations: atorvastat in 40mgReport s compliance Last lipid panelDenie s any muscle pain or joint pain Hypertensive disorder 38 610881 I10 Medication s: metoprolol succinate ER 25mg and lisinopril 10mgReport s compliance Last kidney panel stableDeni es chest pain, SOB, headache, dizziness Body mass index 30+ - obesity 878194523 Z68.31 Counseled on the Mediterran john diet: [...]
--- OUTSIDE RECORDS SUMMARY | 2025-05-30 05:57 | XMS_ITS | Continuity of Care Document ---
Author Organization [facility]FF[facility] Address [address] [address] Care Team Providers Care Sheet Cutting Operator Name Role Phone [facility] (CARDIOLOGY) OTHER IWONA SUERO Primary Care Provider [phone] Assessment Encounter Date Assessment Date Assessment LastModified [...] Care The patient finds the commute from [place] difficult and is actively seeking a new [...] 90 mcg/actuat ion aerosol inhaler 2024 025 [id number], [address] [place], [address], 11:56:43 losartan 100 mg tablet 2024 025 [id number], [address] [place], [address], 13:57:31 metformin ER 500 mg tablet,ext ended release 24 hr 2024 025 [id number], [address] [place], [address], 11:53:09 OneTouch Verio test strips 2024 025 [id number], [address] [place], [address], 11:54:55 Patient TargetsNo targets recorded. Patient Instructions Encounter Date Encounter Id Patient Instructions Last Modified By Organization Details Last Modified Time 05/06/2025 [id number] - Take 100 mg of losartan every [...] new doctor closer to your home in [place]. - If you find a new doctor, [...] to previ ous metho d. Not Available [address], [address], 04/22/2025 12:05:32 04/22/2004/22/2025 COMPR EHENS SUZIE METAB OLIC PANEL sodium 141 mEq/L 133-14 5 normal Not Available [address], [address], 04/22/2025 12:21:53 04/22/2004/22/2025 COMPR EHENS SUZIE METAB OLIC PANEL potassium 4.5 mEq/L 3.5-5. 1 normal Not Available [address], [address], 04/22/2025 12:21:53 04/22/2004/22/2025 COMPR EHENS SUZIE METAB OLIC PANEL chloride 106 mEq/L 98-112 normal Not Available [address], [address], 04/22/2025 12:21:53 04/22/2004/22/2025 COMPR EHENS SUZIE METAB OLIC PANEL carbon dioxide 24 mEq/L 22-31 normal Not Available [address], [address], 04/22/2025 12:21:53 04/22/20 25 04/22/2025 COMPR EHENS SUZIE METAB OLIC PANEL anion gap 11 mEq/L 5-15 normal Not Available [address], [address], 04/22/2025 12:21:53 04/22/20 25 04/22/2025 COMPR EHENS SUZIE METAB OLIC PANEL blood urea nitrogen (BUN) 11 mg/dL 10-20 normal Not Available [address], [address], 04/22/2025 12:21:53 04/22/20 25 04/22/2025 COMPR EHENS SUZIE METAB OLIC PANEL creatinine 0.75 mg/dL 0.50-1 .02 normal Not Available [address], [address], 04/22/2025 12:21:53 04/22/2004/22/2025 COMPR EHENS SUZIE METAB [...] G5 (kidn ey failu re). Not Available [address], [address], 04/22/2025 12:21:53 04/22/20 25 04/22/2025 COMPR EHENS SUZIE METAB OLIC PANEL glucose 100 mg/dL 70-100 normal Fasti ng Refer ence Inter diony: 70-10 0mg/d L Non-f astin g Refer ence Inter diony: 70-14 0mg/d L Not Available [address], [address], 04/22/2025 12:21:53 04/22/20 25 04/22/2025 COMPR EHENS SUZIE METAB OLIC PANEL calcium 9.3 mg/dL 8.4-10 .4 normal Not Available [address], [address], 04/22/2025 12:21:53 04/22/20 25 04/22/2025 COMPR EHENS SUZIE METAB OLIC PANEL bilirubin total 0.6 mg/dL 0.3-1. 2 normal Not Available [address], [address], 04/22/2025 12:21:53 04/22/20 25 04/22/2025 COMPR EHENS SUZIE METAB OLIC PANEL aspartate amino transferase 17 IU/L 11-34 normal Not Available [address], [address], 04/22/2025 12:21:53 04/22/20 25 04/22/2025 COMPR EHENS SUZIE METAB OLIC PANEL alanine aminotransfe rase 14 IU/L <34 Not Available [address], [address], 04/22/2025 12:21:53 04/22/20 25 04/22/2025 COMPR EHENS SUZIE METAB OLIC PANEL total protein 7.5 g/dL 5.8-8. 1 normal Not Available [address], [address], 04/22/2025 12:21:53 04/22/2004/22/2025 COMPR EHENS SUZIE METAB OLIC PANEL albumin 4.0 g/dL 2.5-5. 0 normal Not Available [address], [address], 04/22/2025 12:21:53 04/22/2004/22/2025 COMPR EHENS SUZIE METAB OLIC PANEL alkaline phosphatase 117 IU/L 40-150 normal Not Available [address], [address], 04/22/2025 12:21:53 04/22/2004/22/2025 LIPID PANEL triglyceride s 117 mg/dL normal Audra l <=150 Audra l 150-1 99 Borde rline High 200-4 99 High >=500 Very High Not Available [address], [address], 04/22/2025 12:21:54 04/22/2004/22/2025 LIPID PANEL cholesterol 128 mg/dL normal Keenan able <200 Keenan able 200-2 39 Borde rline High >=240 High Not Available [address], [address], 04/22/2025 12:21:54 04/22/2004/22/2025 LIPID PANEL LDL cholesterol calculated 64 mg/dL normal Optim al <100 Optim al 100-1 29 Near optim al 130-1 59 Borde rline High 160-1 89 High >=190 Very High Not Available [address], [address], 04/22/2025 12:21:54 04/22/2004/22/2025 LIPID PANEL HDL cholesterol 41 mg/dL <40 Low >=60 Optim al Not Available [address], [address], 04/22/2025 12:21:54 Result Notes None recorded. Problems Name Problem SNOMED Code Status Onset Date Resolution Date Notes Provider Name and Address Organization Details Recorded Time Type 2 diabetes mellitus 88465957 Active 2018 KATIE Ravi [address] [place] [address], [place], [address] , [place] - PMA/WIP 5 15:16:55 Hyperten sive disorder 62365602 Active 2018 Not Available [facility] 2 20:28:52 Body mass index 25-29 - overweig ht 992910468 Completed 201811/12/2020 Aleks Osiris null, [place] - PMA/WIP 1 11:37:29 Cardiova scular stress test abnormal 593860058 Active 2020 Not Available [facility] 2 20:28:52 Body mass index 30+ - obesity 927614708 Active 2020 Not Available [facility] 2 20:28:52 Stented coronary artery 068261314 Active 2020 LAD 95% [facility] December 2020 Not Available [facility] 2 20:28:52 Coronary arterios clerosis 35386081 Active 2020 Not Available [facility] 2 20:28:52 Mixed hyperlip idemia 876767872 Active 2024 KATIE Ravi [address] [place] [address], [place], [address] , [place] - PMA/WIP 5 15:16:53 Problem Notes None recorded. Medical Equipment None Reported. Allergies Allergen ID Allergen Name Allergen Category Reaction Reaction Severity Criticality Documentation Date Start Date Code Code System Note Provider Name and Address Organization Details Recorded Time 7018 lisinopri l medicatio n cough Not available Not available 04/01/2025 85885 RxNorm KATIE Ravi [address] [place] [address], [place], [address], [place] - PMA/WIP 5 11:41:23 Medications [...] Not Available No t Available Fluzone High-Dose 1346-0896 (PF) 180 mcg/0.5 mL intramusc ular syringe 01/08 completed Not Available Not Available Not Available Vitals Date Recorded Body height Body mass index (BMI) Body weight Oxygen saturation Heart rate Systolic And Diastolic Provider Name and Address Organization Details Last Updated DateTime 5 157.48 cm 37.4 kg/m2 [address]6032 g 96 % 89 /min 150/100 mm[Hg] Marli Oliver-geovanny ach [place] - PMA/WIP 5 11:26:02 Social History Question Answer Notes LastModified by Organizat ion Details LastModified Time Tobacco Smoking Status Never Smoker Not Available [facility] 03/20/2020 03:13:01 Do You Have An Advance [...] Or The Highest Degree You Have Received? WA93904-6 Information not available 08/20/2020 Have There Been [...] adjuvanted, quadrivalent, PF 2 completed KATIE Ravi [address] [place] [address], [place], [address], [place] - PMA/WIP 01/24/2023 12:50:11 COVID-19, mRNA, LNP-S, bivalent, PF, 30 mcg/0.3 mL dose 2 completed KATIE Ravi [address] [place] [address], [place], [address], [place] - PMA/WIP 04/01/2025 11:37:14 pneumococcal polysaccharide PPV23 9 completed KATIE Ravi [address] [place] [address], [place], [address], [place] - PMA/WIP 04/01/2025 11:37:14 Influenza, split virus, quadrivalent, preservative 9 completed KATIE Ravi [address] [place] [address], [place], [address], [place] - PMA/WIP 04/01/2025 11:37:14 influenza nasal, unspecified formulation 4 completed Ernestina Otto null, [place] - PMA/WIP 06/27/2024 13:14:39 SARS-COV-2 (COVID-19) vaccine, UNSPECIFIED 4 completed Ernestina Otto null, [place] - PMA/WIP 06/27/2024 13:14:49 Influenza, split virus, quadrivalent, preservative 0 completed KATIE Ravi [address] [place] [address], [place], [address], [place] - PMA/WIP 06/17/2023 16:03:45 COVID-19, mRNA, LNP-S, PF, 30 mcg/0.3 mL dose 1 completed Not Available [facility] 05/20/2025 08:08:59 COVID-19, mRNA, LNP-S, PF, 30 mcg/0.3 mL dose 1 completed Not Available [facility] 05/20/2025 08:08:59 Influenza, high-dose, quadrivalent, PF 3 completed Not Available [facility] 05/20/2025 08:08:59 Influenza, high-dose, trivalent, PF 5 completed Not Available [facility] 05/20/2025 08:08:59 COVID-19, mRNA, LNP-S, PF, 30 mcg/0.3 mL dose 1 completed Not Available [facility] 05/20/2025 08:08:59 Influenza, high-dose, quadrivalent, PF 1 completed Not Available [facility] 05/20/2025 08:08:59 COVID-19, mRNA, LNP-S, PF, mary-sucrose, 30 mcg/0.3 mL 5 completed Not Available [facility] 05/20/2025 08:08:59 Influenza, high-dose, trivalent, PF 8 completed Not Available [facility] 05/20/2025 08:08:59 Pneumococcal conjugate PCV 13 8 completed Not Available [facility] 05/20/2025 08:08:59 Influenza, split virus, quadrivalent, PF 9 completed KATIE Ravi [address] [facility], [address], [place], [address], [place] - PMA/WIP 04/01/2025 11:37:14 Past Encounters Encounter ID Performer Location Encounter Start Date Encounter Closed Date Diagnosis/Indication Diagnosis SNOMED-CT Code Diagnosis ICD10 Code Diagnosis IMO Codes Diagnosis Note [id number] Ted Torrez MD [facility] [address] [facility] [address] [place] [address] 05/06/2025 11:21:05 05/06/2025 13:18:51 Coronary arteriosclerosis 10880041 I25.10 [id number] #CAD: past medical history of obstructiv e coronary artery disease status post PCI with a drug-eludi ng stent to the LAD on December 26, 2020 at [facility] Lipid control: atorvastat in 40mgAC: Brilinta 90mg stopped December 26tente d coronary arteryabno rmal stress testFollow ing cardiology The patient is stable and asymptomat ic. The patient is to continue low-dose aspirin for secondary prevention . The patient has been counseled regarding heart healthy diet and exercise. Last visit with cards : Dr. Garner 22 November Screening for malignant neoplasm of colon 596131476 Z12.11 cologuard negative 12/2021, recheck in 2024 Screening mammography 24 240326 Z12.31 DECLINES Cough 70468252 R05.9 chronic cough since march She was [...] She feels much better today Thyroid nodule 815639828 E04.1 Recent LDCT showed a noduleTHYR OID: There is a 1.8 cm nodule in the superior mediastinu m on series 2 image 26 which isinferior to the thyroid isthmus which may be on the basis of a exophytic thyroid nodule. Itmeasures 48 Hounsfield units internal density. This is unchanged from CT of the chest dated2020 EKG: T wave abnormal 164 956462 R94.31 new changes on EKG borderline st dep ov 0.5 t wave inversion on lateral leads and ASA Metoprolol , Nitro (if use this to ER) ETT fairly quickly new changes since Jan 2019 Type 2 tony betes mellitus 03076504 E11.9 Medication s: metformin 500mg bid Reports compliance to medication s and dietDenies any hypoglycem ic episodesDe nies any SE to medication s Recent labs done on: 025- A1C: 6.3- BS: 5- microalbum in: not testedEndo referral and f/u: none Current Symptoms: noneMicrov ascular complicati ons: None Macrovascu lar complicati ons: none L ast eye exam: Apr, 2024 [facility] eyeLast foot exam: self check advisedLas t [...] sooner for lab f/u Hypertensive disorder 38 387077 I10 BP: 128/80Medi cation: metoprolol succinate ER [...] month Body mass index 30+ - obesity 144540411 Z68.31 Counseled on the Mediterran john diet: [...] be >=150min. Cardiovasc ular stress test abnormal 187191912 R94.39 [facility] medical history of obstructiv e coronary artery disease status post PCI with a drug-eluti ng stent to the LAD on December 26, 2020 at [facility] Pigmented skin lesion 20 8460549 L81.9 not interested in dermbirthm ark Stented co ronary artery 211688958 Z95.5 Not taking any nitro anymoreNo chest pain Anxiety 50524743 F41.9 stable Screening for malignant neoplasm of cervix 206540981 Z12.4 Not interested in seeing a CREDIT CONSULTANT now Body mass index 25-29 - overweight 459734236 Z68.25 stable Exposure t o SARS-CoV-2 102310915 Z20.828 Covid-19 discussion : patient was instructed on safety precaution s including frequent hand washing, social distancing , avoiding touching face with hands, and covering mouth with arm/elbow when coughing or sneezing. the symptoms of Covid 19 were reviewed and the patient was instructed on when to self quarantine , when to call the PCP, and when to seek emergency care. Systolic murmur 54470205 R01.1 - declines echo today - does not know what it is, but sounds? minimal - rec echo after next visit - declined today Bilateral cataracts 9572 2004 H26.9 Done recently and doing well Blood in urine 79761945 R31.9 She had trace blood in the urine past visits.no UTI symptomsch ecking Screening mammography of bilateral breasts 0976707487 22016 Z12.31 not interested Tobacco non-user 8331937 001 38236 Z13.89 never a smoker Ex-drinker 76772158 F10. 21 long time ago Active or passive immunization 723407851 Z23 Encouraged to get shingles and pneumococc alYearly flu and COVID boostersTD AP every 10 years Mixed hyperlipidemia 267 577118 E78.2 00633 Medication : atorvastat in 40mg Labs done on 08/07/2024 Triglyceri charmaine: 86Choleste rol:121LDL :55HDL:49 Reports compliance Denies any SE to the medication continue current regimen as directed. Patient is advised on low fat, low calorie diet, weight loss and regular exercise. Also advised on medication compliance and regular labs every 3 months. Vitamin D deficiency 347 57595 E55.9 vitamin D level: 28 Lab done [...] Eat More Vitamin D-Rich Foods Fatty Fish ([place], Mackerel, Tuna, Sardines)E gg YolksForti fied Foods (Milk, [place] Juice, Cereals, Plant-base d Milk)Mushr ooms (Sun-expos ed varieties like Maitake & Shiitake)C od Liver Oil (Very high in Vitamin D)Consider a Vitamin D Supplement Vitamin D3 (cholecalc iferol) is preferred over D2 for better absorption .Typical dosage for deficiency : 1243-0187 IU daily (Check with a doctor for the right dose).Pair with Vitamin K2 & Magnesium Vitamin K2 helps direct calcium to bones (found in fermented foods, dairy, and natto).Mag nesium helps activate Vitamin D (found in nuts, seeds, and leafy greens). Pulmonary emphysema 8743 3001 J43.9 5750887 Health Concerns Section Related Observation LastModified by Organization Detai ls LastModified Time None Recorded Concern Status LastModified by Organization Details LastModified Time None Recorded Payers Encounter Date Sequence Insurance Name Policy Number Policy Lewis Covered Member ID Lewis Member ID Guarantor Name 05/06/2025 1 MEDICARE B-[place]: [employer] Fatoumata Campbell Marcelina [id number] Fatoumata Adrian Marcelina 05/06/2025 2 BS-ID: [facility] [employer] [id number] Fatoumata A Marcelina [id number] Fatoumata Hewitt Notes Date Note Type Note [...] problems with breathing. The patient resides in [place] and reports difficulty with the long travel to the clinic, and she is planning to find a new primary care physician closer to her home. KATIE Ravi [address] [facility], [address], [place], [address], [place] - PMA/WIP 05/06/2025 13:15:51 OBGyn Episode No OBEpisode recorded.
--- OUTSIDE RECORDS SUMMARY | 2025-05-30 05:58 | XMS_ITS | Continuity of Care Document ---
Author Organization [facility] Address [address] [address] Care Team Providers Care Information Systems Planner Name Role Phone [facility] OTHER [phone] [facility] (CARDIOLOGY) OTHER IWONA ROSENBERG Primary Care Provider [phone] Assessment Encounter Date Assessment Date Assessment LastModified [...] None recorded. Lab lipid panel, serum 2024 [facility], [address] [place] [address], [address], 12:21:54 CMP, serum or plasma 2024 [facility], [address] [place] [address], [address], 12:21:53 HbA1c (hemoglobi n A1c), blood 2024 [facility], [address] [place] [address], [address], 12:05:32 Referral None recorded. Procedures None recorded. Surgeries None recorded. Imaging None recorded. Medication Orders losartan 50 mg tablet 2024 [id number], [address] [facility], [place], [address], 11:53:20 Patient TargetsNo targets recorded. Patient Instructions Encounter Date Encounter Id Patient Instructions Last Modified By Organization Details Last Modified Time 04/01/2025 [id number] Please note: Parts of this encounter note [...] % 4.4-6. 3 high Metho dolog y niar e to enzym atic HbA1c metho d. Refer ence range s and resul ts allen rable to previ ous metho d. Not Available [address], [address], 04/22/2025 12:05:32 04/22/2004/22/2025 COMPR EHENS SUZIE METAB OLIC PANEL sodium 141 mEq/L 133-14 5 normal Not Available [address], [address], 04/22/2025 12:21:53 04/22/2004/22/2025 COMPR EHENS SUZIE METAB OLIC PANEL potassium 4.5 mEq/L 3.5-5. 1 normal Not Available [address], [address], 04/22/2025 12:21:53 04/22/20 25 04/22/2025 COMPR EHENS SUZIE METAB OLIC PANEL chloride 106 mEq/L 98-112 normal Not Available [address], [address], 04/22/2025 12:21:53 04/22/20 25 04/22/2025 COMPR EHENS SUZIE METAB OLIC PANEL carbon dioxide 24 mEq/L 22-31 normal Not Available [address], [address], 04/22/2025 12:21:53 04/22/2004/22/2025 COMPR EHENS SUZIE METAB OLIC PANEL anion gap 11 mEq/L 5-15 normal Not Available [address], [address], 04/22/2025 12:21:53 04/22/20 25 04/22/2025 COMPR EHENS SUZIE METAB OLIC PANEL blood urea nitrogen (BUN) 11 mg/dL 10-20 normal Not Available [address], [address], 04/22/2025 12:21:53 04/22/20 25 04/22/2025 COMPR EHENS SUZIE METAB OLIC PANEL creatinine 0.75 mg/dL 0.50-1 .02 normal Not Available [address], [address], 04/22/2025 12:21:53 04/22/20 25 04/22/2025 COMPR EHENS [...] G5 (kidn ey failu re). Not Available [address], [address], 04/22/2025 12:21:53 04/22/20 25 04/22/2025 COMPR EHENS SUZIE METAB OLIC PANEL glucose 100 mg/dL 70-100 normal Fasti ng Refer ence Inter diony: 70-10 0mg/d L Non-f astin g Refer ence Inter diony: 70-14 0mg/d L Not Available [address], [address], 04/22/2025 12:21:53 04/22/20 25 04/22/2025 COMPR EHENS SUZIE METAB OLIC PANEL calcium 9.3 mg/dL 8.4-10 .4 normal Not Available [address], [address], 04/22/2025 12:21:53 04/22/20 25 04/22/2025 COMPR EHENS SUZIE METAB OLIC PANEL bilirubin total 0.6 mg/dL 0.3-1. 2 normal Not Available [address], [address], 04/22/2025 12:21:53 04/22/20 25 04/22/2025 COMPR EHENS SUZIE METAB OLIC PANEL aspartate amino transferase 17 IU/L 11-34 normal Not Available [address], [address], 04/22/2025 12:21:53 04/22/20 25 04/22/2025 COMPR EHENS SUZIE METAB OLIC PANEL alanine aminotransfe rase 14 IU/L <34 Not Available [address], [address], 04/22/2025 12:21:53 04/22/20 25 04/22/2025 COMPR EHENS SUZIE METAB OLIC PANEL total protein 7.5 g/dL 5.8-8. 1 normal Not Available [address], [address], 04/22/2025 12:21:53 04/22/2004/22/2025 COMPR EHENS SUZIE METAB OLIC PANEL albumin 4.0 g/dL 2.5-5. 0 normal Not Available [address], [address], 04/22/2025 12:21:53 04/22/2004/22/2025 COMPR EHENS SUZIE METAB OLIC PANEL alkaline phosphatase 117 IU/L 40-150 normal Not Available [address], [address], 04/22/2025 12:21:53 04/22/2004/22/2025 LIPID PANEL triglyceride s 117 mg/dL normal Audra l <=150 Audra l 150-1 99 Bor[place]line High 200-4 99 High >=500 Very High Not Available [address], [address], 04/22/2025 12:21:54 04/22/2004/22/2025 LIPID PANEL cholesterol 128 mg/dL normal Keenan able <200 Keenan able 200-2 39 [place]line High >=240 High Not Available [address], [address], 04/22/2025 12:21:54 04/22/2004/22/2025 LIPID PANEL LDL cholesterol calculated 64 mg/dL normal Optim al <100 Optim al 100-1 29 Near optim al 130-1 59 Borde [place]line High 160-1 89 High >=190 Very High Not Available [address], [address], 04/22/2025 12:21:54 04/22/2004/22/2025 LIPID PANEL HDL cholesterol 41 mg/dL <40 Low >=60 Optim al Not Available [address], [address], 04/22/2025 12:21:54 Result Notes None recorded. Problems Name Problem SNOMED Code Status Onset Date Resolution Date Notes Provider Name and Address Organization Details Recorded Time Type 2 diabetes mellitus 45651712 Active 2018 KATIE Ravi [address] [place] [address], [place], [address] , [place] - PMA/WIP 5 15:16:55 Hyperten sive disorder 31185684 Active 2018 Not Available [facility] 2 20:28:52 Body mass index 25-29 - overweig ht 071959499 Completed 201811/12/2020 Aleks Osiris null, [place] - PMA/WIP 1 11:37:29 Cardiova scular stress test abnormal 881774878 Active 2020 Not Available [facility] 2 20:28:52 Body mass index 30+ - obesity 435317451 Active 2020 Not Available [facility] 2 20:28:52 Stented coronary artery 209543191 Active 2020 LAD 95% [facility] December 2020 Not Available [facility] 2 20:28:52 Coronary arterios clerosis 56466586 Active 2020 Not Available [facility] 2 20:28:52 Mixed hyperlip idemia 295059437 Active 2024 KATIE Ravi [address] [place] [address], [place], [address] , [place] - PMA/WIP 5 15:16:53 Problem Notes None recorded. Medical Equipment None Reported. Allergies Allergen ID Allergen Name Allergen Category Reaction Reaction Severity Criticality Documentation Date Start Date Code Code System Note Provider Name and Address Organization Details Recorded Time 7018 lisinopri l medicatio n cough Not available Not available 04/01/2025 73914 RxNorm KATIE Ravi [address] [place] [address], [facility] [place], [address], [place] - PMA/WIP 5 11:41:23 Medications [...] Not Available No t Available Fluzone High-Dose 5097-0078 (PF) 180 mcg/0.5 mL intramusc ular syringe 01/08 completed Not Available Not Available Not Available Vitals Date Recorded Oxygen saturation Respiratory rate Systolic And Diastolic Provider Name and Address Organization Details Last Updated DateTime 04/01/2025 97 % 16 /min 138/90 mm[Hg] KATIE Ravi [address] [place] [address], [address], [place], [address], [place] - PMA/WIP 04/01/2025 11:59:11 Date Recorded Body height Body mass index (BMI) Body weight Heart rate Provider Name and Address Organization Details Last Updated DateTime 04/01/2025 157.48 cm 38 kg/m2 09005.49 g 100 /min Ernestina Otto [place] - PMA/WIP 04/01/2025 11:28:00 Social History Question Answer Notes LastModified by Organizat ion Details LastModified Time Tobacco Smoking Status Never Smoker Not Available [facility] 03/20/2020 03:13:01 Do You Have An Advance [...] Or The Highest Degree You Have Received? [id number] Information not available 08/20/2020 Have There Been [...] adjuvanted, quadrivalent, PF 2 completed KATIE Ravi [address] [place] [address], [address], [place], [address], [place] - PMA/WIP 01/24/2023 12:50:11 COVID-19, mRNA, LNP-S, bivalent, PF, 30 mcg/0.3 mL dose 2 completed KATIE Ravi [address] [place] [address], [place] [address], [place], [address], [facility] - PMA/WIP 04/01/2025 11:37:14 pneumococcal polysaccharide PPV23 9 completed Iwona Rosenberg, [address], [place] [address], [place], [address], [facility] - PMA/WIP 04/01/2025 11:37:14 Influenza, split virus, quadrivalent, preservative 9 completed Iwona Rosenberg [address], [place] [address], [place], [address], [facility] - PMA/WIP 04/01/2025 11:37:14 influenza nasal, unspecified formulation 4 completed Ernestina Otto null, [place] - PMA/WIP 06/27/2024 13:14:39 SARS-COV-2 (COVID-19) vaccine, UNSPECIFIED 4 completed Ernestina Otto null, [place] - PMA/WIP 06/27/2024 13:14:49 Influenza, split virus, quadrivalent, preservative 0 completed Iwona Rosenberg [place] [address], [place], [address], [facility] - PMA/WIP 06/17/2023 16:03:45 COVID-19, mRNA, LNP-S, PF, 30 mcg/0.3 mL dose 1 completed Not Available [facility] 05/20/2025 08:08:59 COVID-19, mRNA, LNP-S, PF, 30 mcg/0.3 mL dose 1 completed Not Available [facility] 05/20/2025 08:08:59 Influenza, high-dose, quadrivalent, PF 3 completed Not Available [facility] 05/20/2025 08:08:59 Influenza, high-dose, trivalent, PF 5 completed Not Available [facility] 05/20/2025 08:08:59 COVID-19, mRNA, LNP-S, PF, 30 mcg/0.3 mL dose 1 completed Not Available [facility] 05/20/2025 08:08:59 Influenza, high-dose, quadrivalent, PF 1 completed Not Available [facility] 05/20/2025 08:08:59 COVID-19, mRNA, LNP-S, PF, mary-sucrose, 30 mcg/0.3 mL 5 completed Not Available [facility] 05/20/2025 08:08:59 Influenza, high-dose, trivalent, PF 8 completed Not Available [facility] 05/20/2025 08:08:59 Pneumococcal conjugate PCV 13 8 completed Not Available [facility] 05/20/2025 08:08:59 Influenza, split virus, quadrivalent, PF 9 completed KATIE Ravi [address] [facility] [address], [place], [address], [place] - PMA/WIP 04/01/2025 11:37:14 Past Encounters Encounter ID Performer Location Encounter Start Date Encounter Closed Date Diagnosis/Indication Diagnosis SNOMED-CT Code Diagnosis ICD10 Code Diagnosis IMO Codes Diagnosis Note [id number] Ted Torrez MD [address] [address] 04/01/2025 11:01:07 04/01/2025 11:59:42 Coronary arteriosclerosis 47396451 I25.10 [id number] #CAD: past medical history of obstructiv e coronary artery disease status post PCI with a drug-eludi ng stent to the LAD on December 26, 2020 at [facility] Lipid control: atorvastat in 40mgAC: Brilinta 90mg stopped December 262Stente d coronary arteryabno rmal stress testFollow ing cardiology The patient is stable and asymptomat ic. The patient is to continue low-dose aspirin for secondary prevention . The patient has been counseled regarding heart healthy diet and exercise. Last visit with cards : Dr. Garner 22 November Screening for malignant neoplasm of colon 388538596 Z12.11 cologuard negative 12/2021, recheck in 2024 Screening mammography 24 947670 Z12.31 DECLINES Cough 58021610 R05.9 chronic cough since march She was [...] She feels much better today Thyroid nodule 300725532 E04.1 Recent LDCT showed a noduleTHYR OID: There is a 1.8 cm nodule in the superior mediastinu m on series 2 image 26 which isinferior to the thyroid isthmus which may be on the basis of a exophytic thyroid nodule. Itmeasures 48 Hounsfield units internal density. This is unchanged from CT of the chest dated2020 EKG: T wave abnormal 164 561097 R94.31 new changes on EKG borderline st dep ov 0.5 t wave inversion on lateral leads and ASA Metoprolol , Nitro (if use this to ER) ETT fairly quickly new changes since Jan 2019 Type 2 tony betes mellitus 04612589 E11.9 Medication s: metformin 500mg bid Reports compliance to medication s and dietDenies any hypoglycem ic episodesDe nies any SE to medication s Recent labs done on: 025- A1C: 6.3- BS: 5- microalbum in: not testedEndo referral and f/u: none Current Symptoms: noneMicrov ascular complicati ons: None Macrovascu lar complicati ons: none L [facility] exam: [facility]: self check advisedLas t [...] sooner for lab f/u Hypertensive disorder 38 984256 I10 BP: 128/80Medi cation: metoprolol succinate ER [...] month Body mass index 30+ - obesity 481249306 Z68.31 Counseled on the Mediterran john diet: [...] be >=150min. Cardiovasc ular stress test abnormal 776500782 R94.39 [facility] of obstructiv e coronary artery disease status post PCI with a drug-erika ng stent to the LAD on December 26, 2020 at [facility] Pigmented skin lesion 20 7381559 L81.9 not interested in dermbirthm ark Stented co ronary artery 211047901 Z95.5 Not taking any nitro anymoreNo chest pain Anxiety 51338935 F41.9 stable Screening for malignant neoplasm of cervix 577999449 Z12.4 Not interested in seeing a MORTGAGE COORDINATOR now Body mass index 25-29 - overweight 123189790 Z68.25 stable Exposure t o SARS-CoV-2 230571577 Z20.828 Covid-19 discussion : patient was instructed on safety precaution s including frequent hand washing, social distancing , avoiding touching face with hands, and covering mouth with arm/elbow when coughing or sneezing. the symptoms of Covid 19 were reviewed and the patient was instructed on when to self quarantine , when to call the PCP, and when to seek emergency care. Systolic murmur 77437033 R01.1 - declines echo today - does not know what it is, but sounds? minimal - rec echo after next visit - declined today Bilateral cataracts 9572 2004 H26.9 Done recently and doing well Blood in urine 40810889 R31.9 She had trace blood in the urine past visits.no UTI symptomsch ecking Screening mammography of bilateral breasts 1165384572 68845 Z12.31 not interested Tobacco non-user 4039995 001 04305 Z13.89 never a smoker Ex-drinker 19759867 F10. 21 long time ago Active or passive immunization 551940829 Z23 Encouraged to get shingles and pneumococc alYearly flu and COVID boostersTD AP every 10 years Mixed hyperlipidemia 267 613245 E78.2 14453 Medication : atorvastat in 40mg Labs done on 08/07/2024 Triglyceri charmaine: 86Choleste rol:121LDL :55HDL:49 Reports compliance Denies any SE to the medication continue current regimen as directed. Patient is advised on low fat, low calorie diet, weight loss and regular exercise. Also advised on medication compliance and regular labs every 3 months. Vitamin D deficiency 347 05732 E55.9 vitamin D level: 28 Lab done [...] Eat More Vitamin D-Rich Foods Fatty Fish (Stanford, Mackerel, Tuna, Sardines)E gg YolksForti fied Foods (Milk, Dyer Juice, Cereals, Plant-base d Milk)Mushr ooms (Sun-expos ed varieties like Maitake & Shiitake)C od Liver Oil (Very high in Vitamin D)Consider a Vitamin D Supplement Vitamin D3 (cholecalc iferol) is preferred over D2 for better absorption .Typical dosage for deficiency : 2275-7209 IU daily (Check with a doctor for [...] ID Guarantor Name 04/01/2025 1 MEDICARE B-[place]: [employer] Fatoumata Hewitt [id number] 2 Fatoumata Hewitt 04/01/2025 2 BS-ID: [employer] [id number] Fatoumata Hewitt [id number] Fatoumata Hewitt Notes Date Note Type Note [...] new topic in this discussion. KATIE Ravi [address] [place] [address], [address], [place], [address], [place] - PMA/WIP 04/01/2025 11:59:31 OBGyn Episode No OBEpisode recorded.
--- OUTSIDE RECORDS SUMMARY | 2025-05-30 05:58 | XMS_ITS | Continuity of Care Document ---
Author Organization [facility]FF[facility]DLE/Aureliano [facility] Address [address] [address] Care Team Providers Care Watershed Engineer Name Role Phone [facility] OTHER [phone] [facility] (CARDIOLOGY) OTHER IWONA SUERO Primary Care Provider [phone] Assessment Encounter Date Assessment Date Assessment LastModified [...] Care The patient finds the commute from [place] difficult and is actively seeking a new [...] Care The patient finds the commute from [place] difficult and is actively seeking a new [...] patient was advised that she can take [id number]-[id number] Tums for her symptoms. Procedure Documentation: No procedures were performed during the visit. Not available 05/20/2025 15:42:09 Plan of Treatment Reminders Order Date Submit Date Provider Last Modified By Organization Details Last Modified Time Details Appointments None recorded. Lab None recorded. Referral None recorded. Procedures None recorded. Surgeries None recorded. Imaging None recorded. Medication Orders atorvastati n 40 mg tablet 2024 025 [facility]/Pharmacy #[id number], [address] [place], [address], 5 15:42:01 amlodipine 5 mg tablet 2024 025 [facility]/Pharmacy #0373, [address] [place], [address], 15:42:00 chlorthalid one [address] [facility] [address] [place], [address], 15:42:01 metformin ER 500 mg tablet,exte nded release [address] [facility] [address] [place], [address], 15:42:00 metoprolol succinate ER 25 mg tablet,exte nded release [address] [facility] [address] [place], [address], 15:42:00 Patient TargetsNo targets recorded. Patient Instructions Encounter Date Encounter Id Patient Instructions Last Modified By Organization Details Last Modified Time 05/20/2025 [id number] - Continue to check your blood pressure [...] to previ ous metho d. Not Available [address], [address], 04/22/2025 12:05:32 04/22/20 25 04/22/2025 COMPR EHENS SUZIE METAB OLIC PANEL sodium 141 mEq/L 133-14 5 normal Not Available [address], [address], 04/22/2025 12:21:53 04/22/20 25 04/22/2025 COMPR EHENS SUZIE METAB OLIC PANEL potassium 4.5 mEq/L 3.5-5. 1 normal Not Available [address], [address], 04/22/2025 12:21:53 04/22/20 25 04/22/2025 COMPR EHENS SUZIE METAB OLIC PANEL chloride 106 mEq/L 98-112 normal Not Available [address], [address], 04/22/2025 12:21:53 04/22/20 25 04/22/2025 COMPR EHENS SUZIE METAB OLIC PANEL carbon dioxide 24 mEq/L 22-31 normal Not Available [address], [address], 04/22/2025 12:21:53 04/22/20 25 04/22/2025 COMPR EHENS SUZIE METAB OLIC PANEL anion gap 11 mEq/L 5-15 normal Not Available [address], [address], 04/22/2025 12:21:53 04/22/20 25 04/22/2025 COMPR EHENS SUZIE METAB OLIC PANEL blood urea nitrogen (BUN) 11 mg/dL 10-20 normal Not Available [address], [address], 04/22/2025 12:21:53 11/04/22/2025 COMPR EHENS SUZIE METAB OLIC PANEL creatinine 0.75 mg/dL 0.50-1 .02 normal Not Available [address], [address], 04/22/2025 12:21:53 04/22/2004/22/2025 COMPR EHENS SUZIE METAB [...] G5 (kidn ey failu re). Not Available [address], [address], 04/22/2025 12:21:53 04/22/2004/22/2025 COMPR EHENS SUZIE METAB OLIC PANEL glucose 100 mg/dL 70-100 normal Fasti ng Refer ence Inter diony: 70-10 0mg/d L Non-f astin g Refer ence Inter diony: 70-14 0mg/d L Not Available [address], [address], 04/22/2025 12:21:53 04/22/20 25 04/22/2025 COMPR EHENS SUZIE METAB OLIC PANEL calcium 9.3 mg/dL 8.4-10 .4 normal Not Available [address], [address], 04/22/2025 12:21:53 04/22/20 25 04/22/2025 COMPR EHENS SUZIE METAB OLIC PANEL bilirubin total 0.6 mg/dL 0.3-1. 2 normal Not Available [address], [address], 04/22/2025 12:21:53 04/22/20 25 04/22/2025 COMPR EHENS SUZIE METAB OLIC PANEL aspartate amino transferase 17 IU/L 11-34 normal Not Available [address], [address], 04/22/2025 12:21:53 04/22/20 25 04/22/2025 COMPR EHENS SUZIE METAB OLIC PANEL alanine aminotransfe rase 14 IU/L <34 Not Available [address], [address], 04/22/2025 12:21:53 04/22/20 25 04/22/2025 COMPR EHENS SUZIE METAB OLIC PANEL total protein 7.5 g/dL 5.8-8. 1 normal Not Available [address], [address], 04/22/2025 12:21:53 04/22/20 25 04/22/2025 COMPR EHENS SUZIE METAB OLIC PANEL albumin 4.0 g/dL 2.5-5. 0 normal Not Available [address], [address], 04/22/2025 12:21:53 04/22/20 25 04/22/2025 COMPR EHENS SUZIE METAB OLIC PANEL alkaline phosphatase 117 IU/L 40-150 normal Not Available [address], [address], 04/22/2025 12:21:53 04/22/2004/22/2025 LIPID PANEL triglyceride s 117 mg/dL normal Audra l <=150 Audra l 150-1 99 Borde rline High 200-4 99 High >=500 Very High Not Available [address], [address], 04/22/2025 12:21:54 04/22/2004/22/2025 LIPID PANEL cholesterol 128 mg/dL normal Keenan able <200 Keenan able 200-2 39 Borde rline High >=240 High Not Available [address], [address], 04/22/2025 12:21:54 04/22/2004/22/2025 LIPID PANEL LDL cholesterol calculated 64 mg/dL normal Optim al <100 Optim al 100-1 29 Near optim al 130-1 59 Borde rline High 160-1 89 High >=190 Very High Not Available [address], [address], 04/22/2025 12:21:54 04/22/2004/22/2025 LIPID PANEL HDL cholesterol 41 mg/dL <40 Low >=60 Optim al Not Available [address], [address], 04/22/2025 12:21:54 Result Notes None recorded. Problems Name Problem SNOMED Code Status Onset Date Resolution Date Notes Provider Name and Address Organization Details Recorded Time Type 2 diabetes mellitus 84725905 Active 2018 KATIE Ravi [address] [facility], [address], [place], [address] , [place] - PMA/WIP 5 15:16:55 Hyperten sive disorder 08546354 Active 2018 Not Available [facility] 2 20:28:52 Body mass index 25-29 - overweig ht 686145438 Completed 201811/12/2020 Aleks daiz [place] - PMA/WIP 1 11:37:29 Cardiova scular stress test abnormal 174945394 Active 2020 Not Available [facility] 2 20:28:52 Body mass index 30+ - obesity 043352862 Active 2020 Not Available [facility] 2 20:28:52 Stented coronary artery 037348107 Active 2020 LAD 95% [facility] December 2020 Not Available [facility] 2 20:28:52 Coronary arterios clerosis 57611524 Active 2020 Not Available [facility] 2 20:28:52 Mixed hyperlip idemia 039924045 Active 2024 KATIE Ravi [address] [place] [address], [place], [address] , [facility] - PMA/WIP 5 15:16:53 Problem Notes None recorded. Medical Equipment None Reported. Allergies Allergen ID Allergen Name Allergen Category Reaction Reaction Severity Criticality Documentation Date Start Date Code Code System Note Provider Name and Address Organization Details Recorded Time 7018 lisinopri l medicatio n cough Not available Not available 04/01/2025 56649 RxNorm KATIE Ravi [address] [address], [place], [address], [place] - PMA/WIP 5 11:41:23 Medications [...] Tobacco Smoking Status Never Smoker Not Available [facility] 03/20/2020 03:13:01 Do You Have An [...] Or The Highest Degree You Have Received? [id number] Information not available 08/20/2020 Have There Been [...] quadrivalent, PF 2 completed KATIE Ravi [address] [place] [address], [place], [address], [place] - PMA/WIP 01/24/2023 12:50:11 COVID-19, mRNA, LNP-S, bivalent, PF, 30 mcg/0.3 mL dose 2 completed KATIE Ravi [address] [place] [address], [place], [address], [place] - PMA/WIP 04/01/2025 11:37:14 pneumococcal polysaccharide PPV23 9 completed KATIE Ravi [address] [place] [address], [place], [address], [place] - PMA/WIP 04/01/2025 11:37:14 Influenza, split virus, quadrivalent, preservative 9 completed KATIE Ravi [address] [place] [address], [place], [address], [place] - PMA/WIP 04/01/2025 11:37:14 influenza nasal, unspecified formulation 4 completed Ernestina Otto null, [place] - PMA/WIP 06/27/2024 13:14:39 SARS-COV-2 (COVID-19) vaccine, UNSPECIFIED 4 completed Ernestina Otto null, [place] - PMA/WIP 06/27/2024 13:14:49 Influenza, split virus, quadrivalent, preservative 0 completed KATIE Ravi [address] [place] [address], [place], [address], [place] - PMA/WIP 06/17/2023 16:03:45 COVID-19, mRNA, LNP-S, PF, 30 mcg/0.3 mL dose 1 completed Not Available [facility] 05/20/2025 08:08:59 COVID-19, mRNA, LNP-S, PF, 30 mcg/0.3 mL dose 1 completed Not Available [facility] 05/20/2025 08:08:59 Influenza, high-dose, quadrivalent, PF 3 completed Not Available [facility] 05/20/2025 08:08:59 Influenza, high-dose, trivalent, PF 5 completed Not Available [facility] 05/20/2025 08:08:59 COVID-19, mRNA, LNP-S, PF, 30 mcg/0.3 mL dose 1 completed Not Available [facility] 05/20/2025 08:08:59 Influenza, high-dose, quadrivalent, PF 1 completed Not Available [facility] 05/20/2025 08:08:59 COVID-19, mRNA, LNP-S, PF, mary-sucrose, 30 mcg/0.3 mL 5 completed Not Available [facility] 05/20/2025 08:08:59 Influenza, high-dose, trivalent, PF 8 completed Not Available [facility] 05/20/2025 08:08:59 Pneumococcal conjugate PCV 13 8 completed Not Available [facility] 05/20/2025 08:08:59 Influenza, split virus, quadrivalent, PF 9 completed KATIE Ravi [address] [place] [address], [place], [address], [place] - PMA/WIP 04/01/2025 11:37:14 Past Encounters Encounter ID Performer Location Encounter Start Date Encounter Closed Date Diagnosis/Indication Diagnosis SNOMED-CT Code Diagnosis ICD10 Code Diagnosis IMO Codes Diagnosis Note [id number] MD Paulette Tomlinisabell [place] [address] [address] [place] [address] 05/06/2025 11:21:05 05/06/2025 13:18:51 Coronary arteriosclerosis 01668976 I25.10 [id number] #CAD: past medical history of obstructiv e coronary artery disease status post PCI with a drug-eludi ng stent to the LAD on December 26, 2020 at [facility] Lipid control: atorvastat in 40mgAC: Brilinta 90mg stopped December 26tente d coronary arteryabno rmal stress testFollow ing cardiology The patient is stable and asymptomat ic. The patient is to continue low-dose aspirin for secondary prevention . The patient has been counseled regarding heart healthy diet and exercise. Last visit with cards : Dr. Garner 22 November Screening for malignant neoplasm of colon 132784962 Z12.11 cologuard negative 12/2021, recheck in 2024 Screening mammography 24 893186 Z12.31 DECLINES Cough 05873436 R05.9 chronic cough since march She was [...] She feels much better today Thyroid nodule 058286713 E04.1 Recent LDCT showed a noduleTHYR OID: There is a 1.8 cm nodule in the superior mediastinu m on series 2 image 26 which isinferior to the thyroid isthmus which may be on the basis of a exophytic thyroid nodule. Itmeasures 48 Hounsfield units internal density. This is unchanged from CT of the chest dated2020 EKG: T wave abnormal 164 613399 R94.31 new changes on EKG borderline st dep ov 0.5 t wave inversion on lateral leads and ASA Metoprolol , Nitro (if use this to ER) ETT fairly quickly new changes since Jan 2019 Type 2 tony betes mellitus 31690557 E11.9 Medication s: metformin 500mg bid Reports compliance to medication s and dietDenies any hypoglycem ic episodesDe nies any SE to medication s Recent labs done on: 025- A1C: 6.3- BS: 5- microalbum in: not testedEndo referral and f/u: none Current Symptoms: noneMicrov ascular complicati ons: None Macrovascu lar complicati ons: none [facility] exam: Apr, [facility]: self check advisedLas t [...] sooner for lab f/u Hypertensive disorder 38 285051 I10 BP: 128/80Medi cation: metoprolol succinate ER [...] month Body mass index 30+ - obesity 076055010 Z68.31 Counseled on the Mediterran john diet: [...] be >=150min. Cardiovasc ular stress test abnormal 121574250 R94.39 CARDS [facility] medical history of obstructiv e coronary artery disease status post PCI with a drug-eluti ng stent to the LAD on December 26, 2020 at [facility] Pigmented skin lesion 20 3507575 L81.9 not interested in dermbirthm ark Stented co ronary artery 892655640 Z95.5 Not taking any nitro anymoreNo chest pain Anxiety 05814915 F41.9 stable Screening for malignant neoplasm of cervix 141946061 Z12.4 Not interested in seeing a BULK SYSTEM OPERATOR now Body mass index 25-29 - overweight 686528689 Z68.25 stable Exposure t o SARS-CoV-2 038433761 Z20.828 Covid-19 discussion : patient was instructed on safety precaution s including frequent hand washing, social distancing , avoiding touching face with hands, and covering mouth with arm/elbow when coughing or sneezing. the symptoms of Covid 19 were reviewed and the patient was instructed on when to self quarantine , when to call the PCP, and when to seek emergency care. Systolic murmur 68743107 R01.1 - declines echo today - does not know what it is, but sounds? minimal - rec echo after next visit - declined today Bilateral cataracts 9572 2004 H26.9 Done recently and doing well Blood in urine 73503650 R31.9 She had trace blood in the urine past visits.no UTI symptomsch ecking Screening mammography of bilateral breasts 2699543682 38826 Z12.31 not interested Tobacco non-user 6309785 001 78350 Z13.89 never a smoker Ex-drinker 38940151 F10. 21 long time ago Active or passive immunization 589393150 Z23 Encouraged to get shingles and pneumococc alYearly flu and COVID boostersTD AP every 10 years Mixed hyperlipidemia 267 743437 E78.2 00777 Medication : atorvastat in 40mg Labs done on 08/07/2024 Triglyceri charmaine: 86Choleste rol:121LDL :55HDL:49 Reports compliance Denies any SE to the medication continue current regimen as directed. Patient is advised on low fat, low calorie diet, weight loss and regular exercise. Also advised on medication compliance and regular labs every 3 months. Vitamin D deficiency 347 47950 E55.9 vitamin D level: 28 Lab done [...] Eat More Vitamin D-Rich Foods Fatty Fish (Julian, Mackerel, Tuna, Sardines)E gg YolksForti fied Foods (Milk, Columbia Juice, Cereals, Plant-base d Milk)Mushr ooms (Sun-expos ed varieties like Maitake & Shiitake)C od Liver Oil (Very high in Vitamin D)Consider a Vitamin D Supplement Vitamin D3 (cholecalc iferol) is preferred over D2 for better absorption .Typical dosage for deficiency : 2639-4501 IU daily (Check with a doctor for the right dose).Pair with Vitamin K2 & Magnesium Vitamin K2 helps direct calcium to bones (found in fermented foods, dairy, and natto).Mag nesium helps activate Vitamin D (found in nuts, seeds, and leafy greens). Pulmonary emphysema 8743 3001 J43.9 5130485 [id number] Ted Torrez MD [address] [place] [address] 05/07/2025 10:55:05 05/07/2025 13:26:21 Coronary arteriosclerosis 13439013 I25.10 [id number] #CAD: past medical history of obstructiv e coronary artery disease status post PCI with a drug-eludi ng stent to the LAD on December 26, 2020 at [facility] Lipid control: atorvastat in 40mgAC: Brilinta 90mg stopped December 26tente d coronary arteryabno rmal stress testFollow ing cardiology The patient is stable and asymptomat ic. The patient is to continue low-dose aspirin for secondary prevention . The patient has been counseled regarding heart healthy diet and exercise. Last visit with cards : Dr. Garner 22 November Screening for malignant neoplasm of colon 853518694 Z12.11 cologuard negative 12/2021, recheck in 2024 Screening mammography 24 157583 Z12.31 DECLINES Cough 90160980 R05.9 chronic cough since march She was [...] She feels much better today Thyroid nodule 767696033 E04.1 Recent LDCT showed a noduleTHYR OID: There is a 1.8 cm nodule in the superior mediastinu m on series 2 image 26 which isinferior to the thyroid isthmus which may be on the basis of a exophytic thyroid nodule. Itmeasures 48 Hounsfield units internal density. This is unchanged from CT of the chest dated2020 EKG: T wave abnormal 164 504189 R94.31 new changes on EKG borderline st dep ov 0.5 t wave inversion on lateral leads and ASA Metoprolol , Nitro (if use this to ER) ETT fairly quickly new changes since Jan 2019 Type 2 tony betes mellitus 23231135 E11.9 Medication s: metformin 500mg bid Reports compliance to medication s and dietDenies any hypoglycem ic episodesDe nies any SE to medication s Recent labs done on: 025- A1C: 6.3- BS: 5- microalbum in: not testedEndo referral and f/u: none Current Symptoms: noneMicrov ascular complicati ons: None Macrovascu lar complicati ons: none L ast eye exam: Apr, [facility]24 [facility] exam: self check advisedLas t [...] sooner for lab f/u Hypertensive disorder 38 261185 I10 BP: 128/80Medi cation: metoprolol succinate ER [...] month Body mass index 30+ - obesity 924478467 Z68.31 Counseled on the Mediterran john diet: [...] be >=150min. Cardiovasc ular stress test abnormal 745198341 R94.39 CARDS [facility] medical history of obstructiv e coronary artery disease status post PCI with a drug-eluti ng stent to the LAD on December 26, 2020 at [facility] Pigmented skin lesion 20 8521752 L81.9 not interested in dermbirthm ark Stented co ronary artery 214299134 Z95.5 Not taking any nitro anymoreNo chest pain Anxiety 48386456 F41.9 stable Screening for malignant neoplasm of cervix 519891078 Z12.4 Not interested in seeing a BULK SYSTEM OPERATOR now Body mass index 25-29 - overweight 213552390 Z68.25 stable Exposure t o SARS-CoV-2 830574844 Z20.828 Covid-19 discussion : patient was instructed on safety precaution s including frequent hand washing, social distancing , avoiding touching face with hands, and covering mouth with arm/elbow when coughing or sneezing. the symptoms of Covid 19 were reviewed and the patient was instructed on when to self quarantine , when to call the PCP, and when to seek emergency care. Systolic murmur 06505000 R01.1 - declines echo today - does not know what it is, but sounds? minimal - rec echo after next visit - declined today Bilateral cataracts 9572 2004 H26.9 Done recently and doing well Blood in urine 23363617 R31.9 She had trace blood in the urine past visits.no UTI symptomsch ecking Screening mammography of bilateral breasts 4964269077 73702 Z12.31 not interested Tobacco non-user 2713118 001 13292 Z13.89 never a smoker Ex-drinker 58694350 F10. 21 long time ago Active or passive immunization 986261182 Z23 Encouraged to get shingles and pneumococc alYearly flu and COVID boostersTD AP every 10 years Mixed hyperlipidemia 267 870931 E78.2 07661 Medication : atorvastat in 40mg Labs done on 08/07/2024 Triglyceri charmaine: 86Choleste rol:121LDL :55HDL:49 Reports compliance Denies any SE to the medication continue current regimen as directed. Patient is advised on low fat, low calorie diet, weight loss and regular exercise. Also advised on medication compliance and regular labs every 3 months. Vitamin D deficiency 347 14977 E55.9 vitamin D level: 28 Lab done [...] Eat More Vitamin D-Rich Foods Fatty Fish (Julian, Mackerel, Tuna, Sardines)E gg YolksForti fied Foods (Milk, Columbia Juice, Cereals, Plant-base d Milk)Mushr ooms (Sun-expos ed varieties like Maitake & Shiitake)C od Liver Oil (Very high in Vitamin D)Consider a Vitamin D Supplement Vitamin D3 (cholecalc iferol) is preferred over D2 for better absorption .Typical dosage for deficiency : 9665-2780 IU daily (Check with a doctor for the right dose).Pair with Vitamin K2 & Magnesium Vitamin K2 helps direct calcium to bones (found in fermented foods, dairy, and natto).Mag nesium helps activate Vitamin D (found in nuts, seeds, and leafy greens). Pulmonary emphysema 8743 3001 J43.9 6553991 LDCT: mild emphysema [id number] Ted Torrez MD [address] [address] 05/09/2025 13:14:49 05/09/2025 15:49:17 Coronary arteriosclerosis 71484254 I25.10 [id number] #CAD: past medical history of obstructiv e coronary artery disease status post PCI with a drug-eludi ng stent to the LAD on December 26, 2020 at [facility] Lipid control: atorvastat in 40mgAC: Brilinta 90mg stopped December 26tente d coronary arteryabno rmal stress testFollow ing cardiology The patient is stable and asymptomat ic. The patient is to continue low-dose aspirin for secondary prevention . The patient has been counseled regarding heart healthy diet and exercise. Last visit with cards : Dr. Garner 22 November Screening for malignant neoplasm of colon 275175795 Z12.11 cologuard negative 12/2021, recheck in 2024 Screening mammography 24 549456 Z12.31 DECLINES Cough 64163715 R05.9 chronic cough since march She was [...] She feels much better today Thyroid nodule 569162619 E04.1 Recent LDCT showed a noduleTHYR OID: There is a 1.8 cm nodule in the superior mediastinu m on series 2 image 26 which isinferior to the thyroid isthmus which may be on the basis of a exophytic thyroid nodule. Itmeasures 48 Hounsfield units internal density. This is unchanged from CT of the chest dated2020 EKG: T wave abnormal 164 382084 R94.31 new changes on EKG borderline st dep ov 0.5 t wave inversion on lateral leads and ASA Metoprolol , Nitro (if use this to ER) ETT fairly quickly new changes since Jan 2019 Type 2 tony betes mellitus 46265917 E11.9 Medication s: metformin 500mg bid Reports compliance to medication s and dietDenies any hypoglycem ic episodesDe nies any SE to medication s Recent labs done on: 025- A1C: 6.3- BS: 5- microalbum in: not testedEndo referral and f/u: none Current Symptoms: noneMicrov ascular complicati ons: None Macrovascu lar complicati ons: none L ast eye exam: Apr, [facility]24 [facility] exam: self check advisedLas t [...] sooner for lab f/u Hypertensive disorder 38 335166 I10 BP: 128/80Medi cation: metoprolol succinate ER [...] done Body mass index 30+ - obesity 190990532 Z68.31 Counseled on the Mediterran john diet: [...] be >=150min. Cardiovasc ular stress test abnormal 395335879 R94.39 CARDS [facility] medical history of obstructiv e coronary artery disease status post PCI with a drug-erika ng stent to the LAD on December 26, 2020 at [facility] Pigmented skin lesion 20 3512768 L81.9 not interested in dermbirthm ark Stented co ronary artery 664917037 Z95.5 Not taking any nitro anymoreNo chest pain Anxiety 54783781 F41.9 stable Screening for malignant neoplasm of cervix 451687224 Z12.4 Not interested in seeing a BULK SYSTEM OPERATOR now Body mass index 25-29 - overweight 057748012 Z68.25 stable Exposure t o SARS-CoV-2 611613250 Z20.828 Covid-19 discussion : patient was instructed on safety precaution s including frequent hand washing, social distancing , avoiding touching face with hands, and covering mouth with arm/elbow when coughing or sneezing. the symptoms of Covid 19 were reviewed and the patient was instructed on when to self quarantine , when to call the PCP, and when to seek emergency care. Systolic murmur 96240834 R01.1 - declines echo today - does not know what it is, but sounds? minimal - rec echo after next visit - declined today Bilateral cataracts 9572 2003 H26.9 Done recently and doing well Blood in urine 71151784 R31.9 She had trace blood in the urine past visits.no UTI symptomsch ecking Screening mammography of bilateral breasts 2772038902 80868 Z12.31 not interested Tobacco non-user 6531985 001 37071 Z13.89 never a smoker Ex-drinker 57763942 F10. 21 long time ago Active or passive immunization 909868294 Z23 Encouraged to get shingles and pneumococc alYearly flu and COVID boostersTD AP every 10 years Mixed hyperlipidemia 267 573879 E78.2 34300 Medication : atorvastat in 40mg Labs done on 08/07/2024 Triglyceri charmaine: 86Choleste rol:121LDL :55HDL:49 Reports compliance Denies any SE to the medication continue current regimen as directed. Patient is advised on low fat, low calorie diet, weight loss and regular exercise. Also advised on medication compliance and regular labs every 3 months. Vitamin D deficiency 347 31041 E55.9 vitamin D level: 28 Lab done [...] Eat More Vitamin D-Rich Foods Fatty Fish (Julian, Mackerel, Tuna, Sardines)E gg YolksForti fied Foods (Milk, Columbia Juice, Cereals, Plant-base d Milk)Mushr ooms (Sun-expos ed varieties like Maitake & Shiitake)C od Liver Oil (Very high in Vitamin D)Consider a Vitamin D Supplement Vitamin D3 (cholecalc iferol) is preferred over D2 for better absorption .Typical dosage for deficiency : 4589-6603 IU daily (Check with a doctor for the right dose).Pair with Vitamin K2 & Magnesium Vitamin K2 helps direct calcium to bones (found in fermented foods, dairy, and natto).Mag nesium helps activate Vitamin D (found in nuts, seeds, and leafy greens). Pulmonary emphysema 8743 3001 J43.9 5261571 LDCT: mild emphysema 68043 Ted Torrez MD [facility] [place] [address] [facility] [address] 05/13/2025 09:53:52 05/14/2025 13:06:35 Coronary arteriosclerosis 03788655 I25.10 [id number] #CAD: past medical history of obstructiv e coronary artery disease status post PCI with a drug-eludi ng stent to the LAD on December 26, 2020 at [facility] Lipid control: atorvastat in 40mgAC: Brilinta 90mg stopped December 26tente d coronary arteryabno rmal stress testFollow ing cardiology The patient is stable and asymptomat ic. The patient is to continue low-dose aspirin for secondary prevention . The patient has been counseled regarding heart healthy diet and exercise. Last visit with cards : Dr. Garner 22 November Screening for malignant neoplasm of colon 546287806 Z12.11 cologuard negative 12/2021, recheck in 2024 Screening mammography 24 214429 Z12.31 DECLINES Cough 20793054 R05.9 chronic cough since march She was [...] She feels much better today Thyroid nodule 663724890 E04.1 Recent LDCT showed a noduleTHYR OID: There is a 1.8 cm nodule in the superior mediastinu m on series 2 image 26 which isinferior to the thyroid isthmus which may be on the basis of a exophytic thyroid nodule. Itmeasures 48 Hounsfield units internal density. This is unchanged from CT of the chest dated2020 EKG: T wave abnormal 164 739722 R94.31 new changes on EKG borderline st dep ov 0.5 t wave inversion on lateral leads and ASA Metoprolol , Nitro (if use this to ER) ETT fairly quickly new changes since Jan 2019 Type 2 tony betes mellitus 16859743 E11.9 Medication s: metformin 500mg bid Reports compliance to medication s and dietDenies any hypoglycem ic episodesDe nies any SE to medication s Recent labs done on: 025- A1C: 6.3- BS: 5- microalbum in: not testedEndo referral and f/u: none Current Symptoms: noneMicrov ascular complicati ons: None Macrovascu lar complicati ons: none L ast eye exam: Apr, 2024 [facility] exam: self check advisedLas t [...] sooner for lab f/u Hypertensive disorder 38 030903 I10 BP: elevatedMe dication: metoprolol succinate ER [...] f/u Body mass index 30+ - obesity 110889626 Z68.31 Counseled on the Naseem elainen diet: [...] be >=150min. Cardiovasc ular stress test abnormal 611583812 R94.39 CARDS [facility] medical history of obstructiv e coronary artery disease status post PCI with a drug-eluti ng stent to the LAD on December 26, 2020 at [facility] Pigmented skin lesion 20 1332450 L81.9 not interested in dermbirthm ark Stented co ronary artery 716833033 Z95.5 Not taking any nitro anymoreNo chest pain Anxiety 16942250 F41.9 stable Screening for malignant neoplasm of cervix 499903975 Z12.4 Not interested in seeing a BULK SYSTEM OPERATOR now Body mass index 25-29 - overweight 199861222 Z68.25 stable Exposure t o SARS-CoV-2 894738956 Z20.828 Covid-19 discussion : patient was instructed on safety precaution s including frequent hand washing, social distancing , avoiding touching face with hands, and covering mouth with arm/elbow when coughing or sneezing. the symptoms of Covid 19 were reviewed and the patient was instructed on when to self quarantine , when to call the PCP, and when to seek emergency care. Systolic murmur 55782587 R01.1 - declines echo today - does not know what it is, but sounds? minimal - rec echo after next visit - declined today Bilateral cataracts 9572 2004 H26.9 Done recently and doing well Blood in urine 22834149 R31.9 She had trace blood in the urine past visits.no UTI symptomsch ecking Screening mammography of bilateral breasts 1344541745 67390 Z12.31 not interested Tobacco non-user [id number] 001 31283 Z13.89 never a smoker Ex-drinker 05252804 F10. 21 long time ago Active or passive immunization 823974870 Z23 Encouraged to get shingles and pneumococc alYearly flu and COVID boostersTD AP every 10 years Mixed hyperlipidemia 267 781626 E78.2 79052 Medication : atorvastat in 40mg Labs done on 08/07/2024 Triglyceri charmaine: 86Choleste rol:121LDL :55HDL:49 Reports compliance Denies any SE to the medication continue current regimen as directed. Patient is advised on low fat, low calorie diet, weight loss and regular exercise. Also advised on medication compliance and regular labs every 3 months. Vitamin D deficiency 347 95238 E55.9 vitamin D level: 28 Lab done [...] Eat More Vitamin D-Rich Foods Fatty Fish (Julian, Mackerel, Tuna, Sardines)E gg YolksForti fied Foods (Milk, Columbia Juice, Cereals, Plant-base d Milk)Mushr ooms (Sun-expos ed varieties like Maitake & Shiitake)C od Liver Oil (Very high in Vitamin D)Consider a Vitamin D Supplement Vitamin D3 (cholecalc iferol) is preferred over D2 for better absorption .Typical dosage for deficiency : 3389-5893 IU daily (Check with a doctor for the right dose).Pair with Vitamin K2 & Magnesium Vitamin K2 helps direct calcium to bones (found in fermented foods, dairy, and natto).Mag nesium helps activate Vitamin D (found in nuts, seeds, and leafy greens). Pulmonary emphysema 8743 3001 J43.9 0786243 LDCT: mild emphysema 47454 Ted Torrez MD [facility] [address] [facility] [address] [facility] [address] 05/20/2025 08:08:23 05/21/2025 09:10:21 Coronary arteriosclerosis 10449591 I25.10 [id number] #CAD: past medical history of obstructiv e coronary artery disease status post PCI with a drug-eludi ng stent to the LAD on December 26, 2020 at [facility] Lipid control: atorvastat in 40mgAC: Brilinta 90mg stopped December 26tente d coronary arteryabno rmal stress testFollow ing cardiology The patient is stable and asymptomat ic. The patient is to continue low-dose aspirin for secondary prevention . The patient has been counseled regarding heart healthy diet and exercise. Last visit with cards : Dr. Garner 22 November Screening for malignant neoplasm of colon 887381928 Z12.11 cologuard negative 12/2021, recheck in 2024 Screening mammography 24 894406 Z12.31 DECLINES Cough 50032052 R05.9 chronic cough since march She was [...] She feels much better today Thyroid nodule 854257065 E04.1 Recent LDCT showed a noduleTHYR OID: There is a 1.8 cm nodule in the superior mediastinu m on series 2 image 26 which isinferior to the thyroid isthmus which may be on the basis of a exophytic thyroid nodule. Itmeasures 48 Hounsfield units internal density. This is unchanged from CT of the chest dated2020 EKG: T wave abnormal 164 567562 R94.31 new changes on EKG borderline st dep ov 0.5 t wave inversion on lateral leads and ASA Metoprolol , Nitro (if use this to ER) ETT fairly quickly new changes since Jan 2019 Type 2 tony betes mellitus 23913211 E11.9 Medication s: metformin 500mg bid Reports compliance to medication s and dietDenies any hypoglycem ic episodesDe nies any SE to medication s Recent labs done on: 025- A1C: 6.3- BS: 5- microalbum in: not testedEndo referral and f/u: none Current Symptoms: noneMicrov ascular complicati ons: None Macrovascu lar complicati ons: none L ast eye exam: Apr, 2024 [facility] foot exam: self check advisedLas t [...] sooner for lab f/u Hypertensive disorder 38 180914 I10 BP: elevatedMe dication: metoprolol succinate ER [...] f/u Body mass index 30+ - obesity 818028402 Z68.31 Counseled on the Mediterran john diet: [...] be >=150min. Cardiovasc ular stress test abnormal 939990122 R94.39 CARDS [facility] medical history of obstructiv e coronary artery disease status post PCI with a drug-eluti ng stent to the LAD on December 26, 2020 at [facility] Pigmented skin lesion 20 1169884 L81.9 not interested in dermbirthm ark Stented co ronary artery 634293534 Z95.5 Not taking any nitro anymoreNo chest pain Anxiety 53395398 F41.9 stable Screening for malignant neoplasm of cervix 025793356 Z12.4 Not interested in seeing a BULK SYSTEM OPERATOR now Body mass index 25-29 - overweight 558287159 Z68.25 stable Exposure t o SARS-CoV-2 265432704 Z20.828 Covid-19 discussion : patient was instructed on safety precaution s including frequent hand washing, social distancing , avoiding touching face with hands, and covering mouth with arm/elbow when coughing or sneezing. the symptoms of Covid 19 were reviewed and the patient was instructed on when to self quarantine , when to call the PCP, and when to seek emergency care. Systolic murmur 80608103 R01.1 - declines echo today - does not know what it is, but sounds? minimal - rec echo after next visit - declined today Bilateral cataracts 9572 2003 H26.9 Done recently and doing well Blood in urine 81100597 R31.9 She had trace blood in the urine past visits.no UTI symptomsch ecking Screening mammography of bilateral breasts 5541624656 41765 Z12.31 not interested Tobacco non-user 9734798 001 28783 Z13.89 never a smoker Ex-drinker 56677621 F10. 21 long time ago Active or passive immunization 232526041 Z23 Encouraged to get shingles and pneumococc alYearly flu and COVID boostersTD AP every 10 years Mixed hyperlipidemia 267 072991 E78.2 71567 Medication : atorvastat in 40mg Labs done on 08/07/2024 Triglyceri charmaine: 86Choleste rol:121LDL :55HDL:49 Reports compliance Denies any SE to the medication continue current regimen as directed. Patient is advised on low fat, low calorie diet, weight loss and regular exercise. Also advised on medication compliance and regular labs every 3 months. Vitamin D deficiency 347 08054 E55.9 vitamin D level: 28 Lab done [...] Eat More Vitamin D-Rich Foods Fatty Fish (Julian, Mackerel, Tuna, Sardines)E gg YolksForti fied Foods (Milk, Columbia Juice, Cereals, Plant-base d Milk)Mushr ooms (Sun-expos ed varieties like Maitake & Shiitake)C od Liver Oil (Very high in Vitamin D)Consider a Vitamin D Supplement Vitamin D3 (cholecalc iferol) is preferred over D2 for better absorption .Typical dosage for deficiency : 1715-9650 IU daily (Check with a doctor for the right dose).Pair with Vitamin K2 & Magnesium Vitamin K2 helps direct calcium to bones (found in fermented foods, dairy, and natto).Mag nesium helps activate Vitamin D (found in nuts, seeds, and leafy greens). Pulmonary emphysema 8743 3001 J43.9 1454854 LDCT: mild emphysema Health Concerns Section Related Observation LastModified by Organization Detai ls LastModified Time None Recorded Concern Status LastModified by Organization Details LastModified Time None Recorded Payers Encounter Date Sequence Insurance Name Policy Number Policy Lewis Covered Member ID Lewis Member ID Guarantor Name 05/20/2025 1 MEDICARE B-[place]: [employer] Fatoumata Hewitt [id number] Fatoumata Hewitt 05/20/2025 2 BCBS-ID: [facility] [employer] [id number] Fatoumata Hewitt [id number] Fatoumata Hewitt Notes Date Note Type Note [...] to call to schedule one. KATIE Ravi [address] [place] [address], [address], [place], [address], TIFFANY - PMA/WIP 05/20/2025 22:21:41 OBGyn Episode No OBEpisode recorded.
--- OUTSIDE RECORDS SUMMARY | 2025-05-30 05:58 | XMS_ITS | Continuity of Care Document ---
Author Organization [facility]FF[facility]urel[facility] Address [address] [address] Care Team Providers Care Life Management Teacher Name Role Phone [facility] OTHER [phone] [facility] (CARDIOLOGY) OTHER IWONA ROSENBERG Primary Care Provider [phone] Assessment Encounter Date Assessment Date Assessment LastModified [...] Care The patient finds the commute from [place] difficult and is actively seeking a new [...] her medical records to be sent to [facility] to establish new primary care. Staff [...] Care The patient finds the commute from [place] difficult and is actively seeking a new [...] Orders amlodipine 5 mg tablet 2024 025 [facility]/Pharmacy #[id number], [address] [facility] [place], [address], 15:22:41 Patient TargetsNo targets recorded. Patient Instructions Encounter Date Encounter Id Patient Instructions Last Modified By Organization Details Last Modified Time 05/13/2025 [id number] - You will start a new medication [...] previ ous metho d. Not Available [address], [address], 04/22/2025 12:05:32 04/22/2004/22/2025 COMPR EHENS SUZIE METAB OLIC PANEL sodium 141 mEq/L 133-14 5 normal Not Available [address], [address], 04/22/2025 12:21:53 04/22/2004/22/2025 COMPR EHENS SUZIE METAB OLIC PANEL potassium 4.5 mEq/L 3.5-5. 1 normal Not Available [address], [address], 04/22/2025 12:21:53 04/22/20 25 04/22/2025 COMPR EHENS SUZIE METAB OLIC PANEL chloride 106 mEq/L 98-112 normal Not Available [address], [address], 04/22/2025 12:21:53 04/22/20 25 04/22/2025 COMPR EHENS SUZIE METAB OLIC PANEL carbon dioxide 24 mEq/L 22-31 normal Not Available [address], [address], 04/22/2025 12:21:53 04/22/20 25 04/22/2025 COMPR EHENS SUZIE METAB OLIC PANEL anion gap 11 mEq/L 5-15 normal Not Available [address], [address], 04/22/2025 12:21:53 04/22/20 25 04/22/2025 COMPR EHENS SUZIE METAB OLIC PANEL blood urea nitrogen (BUN) 11 mg/dL 10-20 normal Not Available [address], [address], 04/22/2025 12:21:53 04/22/20 25 04/22/2025 COMPR EHENS SUZIE METAB OLIC PANEL creatinine 0.75 mg/dL 0.50-1 .02 normal Not Available [address], [address], 04/22/2025 12:21:53 04/22/2004/22/2025 COMPR EHENS SUZIE METAB [...] (kidn ey failu re). Not Available [address], [address], 04/22/2025 12:21:53 04/22/2004/22/2025 COMPR EHENS SUZIE METAB OLIC PANEL glucose 100 mg/dL 70-100 normal Fasti ng Refer ence Inter diony: 70-10 0mg/d L Non-f astin g Refer ence Inter diony: 70-14 0mg/d L Not Available [address], [address], 04/22/2025 12:21:53 04/22/20 25 04/22/2025 COMPR EHENS SUZIE METAB OLIC PANEL calcium 9.3 mg/dL 8.4-10 .4 normal Not Available [address], [address], 04/22/2025 12:21:53 04/22/20 25 04/22/2025 COMPR EHENS SUZIE METAB OLIC PANEL bilirubin total 0.6 mg/dL 0.3-1. 2 normal Not Available [address], [address], 04/22/2025 12:21:53 04/22/20 25 04/22/2025 COMPR EHENS SUZIE METAB OLIC PANEL aspartate amino transferase 17 IU/L 11-34 normal Not Available [address], [address], 04/22/2025 12:21:53 04/22/2004/22/2025 COMPR EHENS SUZIE METAB OLIC PANEL alanine aminotransfe rase 14 IU/L <34 Not Available [address], [address], 04/22/2025 12:21:53 04/22/20 25 04/22/2025 COMPR EHENS SUZIE METAB OLIC PANEL total protein 7.5 g/dL 5.8-8. 1 normal Not Available [address], [address], 04/22/2025 12:21:53 04/22/2004/22/2025 COMPR EHENS SUZIE METAB OLIC PANEL albumin 4.0 g/dL 2.5-5. 0 normal Not Available [address], [address], 04/22/2025 12:21:53 04/22/20 25 04/22/2025 COMPR EHENS SUZIE METAB OLIC PANEL alkaline phosphatase 117 IU/L 40-150 normal Not Available [address], [address], 04/22/2025 12:21:53 04/22/20 25 04/22/2025 LIPID PANEL triglyceride s 117 mg/dL normal Audra l <=150 Audra l 150-1 99 Borde rline High 200-4 99 High >=500 Very High Not Available [address], [address], 04/22/2025 12:21:54 04/22/2004/22/2025 LIPID PANEL cholesterol 128 mg/dL normal Keenan able <200 Keenan able 200-2 39 Borde rline High >=240 High Not Available [address], [address], 04/22/2025 12:21:54 04/22/20 25 04/22/2025 LIPID PANEL LDL cholesterol calculated 64 mg/dL normal Optim al <100 Optim al 100-1 29 Near optim al 130-1 59 Borde rline High 160-1 89 High >=190 Very High Not Available [address], [address], 04/22/2025 12:21:54 04/22/20 25 04/22/2025 LIPID PANEL HDL cholesterol 41 mg/dL <40 Low >=60 Optim al Not Available [address], [address], 04/22/2025 12:21:54 Result Notes None recorded. Problems Name Problem SNOMED Code Status Onset Date Resolution Date Notes Provider Name and Address Organization Details Recorded Time Type 2 diabetes mellitus 22294705 Active 2018 KATIE Ravi [address] [place] [address], [place], [address] , [place] - PMA/WIP 5 15:16:55 Hyperten sive disorder 91812808 Active 2018 Not Available [facility] 2 20:28:52 Body mass index 25-29 - overweig ht 875433754 Completed 201811/12/2020 Aleks diaz [place] - PMA/WIP 1 11:37:29 Cardiova scular stress test abnormal 548574491 Active 2020 Not Available [facility] 2 20:28:52 Body mass index 30+ - obesity 328761584 Active 2020 Not Available [facility] 2 20:28:52 Stented coronary artery 843336128 Active 2020 LAD 95% [facility] December 2020 Not Available [facility] 2 20:28:52 Coronary arterios clerosis 71321158 Active 2020 Not Available [facility] 2 20:28:52 Mixed hyperlip idemia 209185278 Active 2024 KATIE Ravi [address] [place] [address], [place], [address] , [place] - PMA/WIP 5 15:16:53 Problem Notes None recorded. Medical Equipment None Reported. Allergies Allergen ID Allergen Name Allergen Category Reaction Reaction Severity Criticality Documentation Date Start Date Code Code System Note Provider Name and Address Organization Details Recorded Time 7018 lisinopri l medicatio n cough Not available Not available 04/01/2025 22283 RxNorm KATIE Ravi [address] [facility], [address], [place], [address], [facility] - PMA/WIP 5 11:41:23 Medications Name Sig [...] Not Available No t Available Fluzone High-Dose 6130-7341 (PF) 180 mcg/0.5 mL intramusc ular syringe [...] Or The Highest Degree You Have Received? [id number] Information not available 08/20/2020 Have There Been [...] adjuvanted, quadrivalent, PF 2 completed KATIE Ravi [address] [place] [address], [address], [place], [address], [place] - PMA/WIP 01/24/2023 12:50:11 COVID-19, mRNA, LNP-S, bivalent, PF, 30 mcg/0.3 mL dose 2 completed KATIE Ravi [address] [place] [address], [place], [address], [facility] - PMA/WIP 04/01/2025 11:37:14 pneumococcal polysaccharide PPV23 9 completed Iwona Rosenberg [place] [address], [place], [address], [place] - PMA/WIP 04/01/2025 11:37:14 Influenza, split virus, quadrivalent, preservative 9 completed Iwona Rosenberg [address], [place] [address], [place], [address], [place] - PMA/WIP 04/01/2025 11:37:14 influenza nasal, unspecified formulation 4 completed Ernestina Otto null, [place] - PMA/WIP 06/27/2024 13:14:39 SARS-COV-2 (COVID-19) vaccine, UNSPECIFIED 4 completed Ernestina Otto null, [place] - PMA/WIP 06/27/2024 13:14:49 Influenza, split virus, quadrivalent, preservative 0 completed Iwona Rosenberg [address] [address], [place], [address], [place] - PMA/WIP 06/17/2023 16:03:45 COVID-19, mRNA, LNP-S, PF, 30 mcg/0.3 mL dose 1 completed Not Available [facility] 05/20/2025 08:08:59 COVID-19, mRNA, LNP-S, PF, 30 mcg/0.3 mL dose 1 completed Not Available [facility] 05/20/2025 08:08:59 Influenza, high-dose, quadrivalent, PF 3 completed Not Available [facility] 05/20/2025 08:08:59 Influenza, high-dose, trivalent, PF 5 completed Not Available [facility] 05/20/2025 08:08:59 COVID-19, mRNA, LNP-S, PF, 30 mcg/0.3 mL dose 1 completed Not Available [facility] 05/20/2025 08:08:59 Influenza, high-dose, quadrivalent, PF 1 completed Not Available [facility] 05/20/2025 08:08:59 COVID-19, mRNA, LNP-S, PF, mary-sucrose, 30 mcg/0.3 mL 5 completed Not Available [facility] 05/20/2025 08:08:59 Influenza, high-dose, trivalent, PF 8 completed Not Available [facility] 05/20/2025 08:08:59 Pneumococcal conjugate PCV 13 8 completed Not Available [facility] 05/20/2025 08:08:59 Influenza, split virus, quadrivalent, PF 9 completed KATIE Ravi [address] [place] [address], [place], [address], [facility] - PMA/WIP 04/01/2025 11:37:14 Past Encounters Encounter ID Performer Location Encounter Start Date Encounter Closed Date Diagnosis/Indication Diagnosis SNOMED-CT Code Diagnosis ICD10 Code Diagnosis IMO Codes Diagnosis Note [id number] Ted Torrez MD [address] [address] 05/06/2025 11:21:05 05/06/2025 13:18:51 Coronary arteriosclerosis 31887117 I25.10 [id number] #CAD: past medical history of obstructiv e coronary artery disease status post PCI with a drug-eludi ng stent to the LAD on December 26, 2020 at [facility] Lipid control: atorvastat in 40mgAC: Brilinta 90mg stopped December 26tente d coronary arteryabno rmal stress testFollow ing cardiology The patient is stable and asymptomat ic. The patient is to continue low-dose aspirin for secondary prevention . The patient has been counseled regarding heart healthy diet and exercise. Last visit with cards : Dr. Garner 22 November Screening for malignant neoplasm of colon 085534403 Z12.11 cologuard negative 12/2021, recheck in 2024 Screening mammography 24 913990 Z12.31 DECLINES Cough 26421752 R05.9 chronic cough since march She was [...] She feels much better today Thyroid nodule 840391692 E04.1 Recent LDCT showed a noduleTHYR OID: There is a 1.8 cm nodule in the superior mediastinu m on series 2 image 26 which isinferior to the thyroid isthmus which may be on the basis of a exophytic thyroid nodule. Itmeasures 48 Hounsfield units internal density. This is unchanged from CT of the chest dated2020 EKG: T wave abnormal 164 700632 R94.31 new changes on EKG borderline st dep ov 0.5 t wave inversion on lateral leads and ASA Metoprolol , Nitro (if use this to ER) ETT fairly quickly new changes since Jan 2019 Type 2 tony betes mellitus 34333098 E11.9 Medication s: metformin 500mg bid Reports compliance to medication s and dietDenies any hypoglycem ic episodesDe nies any SE to medication s Recent labs done on: 025- A1C: 6.3- BS: 5- microalbum in: not testedEndo referral and f/u: none Current Symptoms: noneMicrov ascular complicati ons: None Macrovascu lar complicati ons: none [place] exam: [place], [facility] [facility]: self check advisedLas t [...] sooner for lab f/u Hypertensive disorder 38 251752 I10 BP: 128/80Medi cation: metoprolol succinate ER [...] month Body mass index 30+ - obesity 310520906 Z68.31 Counseled on the Mediterran john diet: [...] be >=150min. 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 the symptoms of Covid 19 were reviewed and the patient was instructed on when to self quarantine , when to call the PCP, and when to seek emergency care. Systolic murmur 25118151 R01.1 - declines echo today - does not know what it is, but sounds? minimal - rec echo after next visit - declined today Bilateral cataracts 9572 2004 H26.9 Done recently and doing well Blood in urine 90709159 R31.9 She had trace blood in the urine past visits.no UTI symptomsch ecking Screening mammography of bilateral breasts 9988022327 47176 Z12.31 not interested Tobacco non-user 5300946 001 [address]4782 Z13.89 never a smoker Ex-drinker 07035825 F10. 21 long time ago Active or passive immunization 902384214 Z23 Encouraged to get shingles and pneumococc alYearly flu and COVID boostersTD AP every 10 years Mixed hyperlipidemia 267 827359 E78.2 55903 Medication : atorvastat in 40mg Labs done on 08/07/2024 Triglyceri charmaine: 86Choleste rol:121LDL :55HDL:49 Reports compliance Denies any SE to the medication continue current regimen as directed. Patient is advised on low fat, low calorie diet, weight loss and regular exercise. Also advised on medication compliance and regular labs every 3 months. Vitamin D deficiency 347 25114 E55.9 vitamin D level: 28 Lab done [...] Eat More Vitamin D-Rich Foods Fatty Fish ([place], Mackerel, Tuna, Sardines)E gg YolksForti fied Foods (Milk, [place] Juice, Cereals, Plant-base d Milk)Mushr ooms (Sun-expos ed varieties like Maitake & Shiitake)C od Liver Oil (Very high in Vitamin D)Consider a Vitamin D Supplement Vitamin D3 (cholecalc iferol) is preferred over D2 for better absorption .Typical dosage for deficiency : 6797-4810 IU daily (Check with a doctor for the right dose).Pair with Vitamin K2 & Magnesium Vitamin K2 helps direct calcium to bones (found in fermented foods, dairy, and natto).Mag nesium helps activate Vitamin D (found in nuts, seeds, and leafy greens). Pulmonary emphysema 8743 3001 J43.9 6191049 [id number] Ted Torrez MD [facility] dimit[address] [place] [address] [place] [address] 05/07/2025 10:55:05 05/07/2025 13:26:21 Coronary arteriosclerosis 77800473 I25.10 [id number] #CAD: past medical history of obstructiv e coronary artery disease status post PCI with a drug-eludi ng stent to the LAD on December 26, 2020 at [facility] Lipid control: atorvastat in 40mgAC: Brilinta 90mg stopped December 26tente d coronary arteryabno rmal stress testFollow ing cardiology The patient is stable and asymptomat ic. The patient is to continue low-dose aspirin for secondary prevention . The patient has been counseled regarding heart healthy diet and exercise. Last visit with cards : Dr. Garner 22 November Screening for malignant neoplasm of colon 563869193 Z12.11 cologuard negative 12/2021, recheck in 2024 Screening mammography 24 867117 Z12.31 DECLINES Cough 89557277 R05.9 chronic cough since march She was [...] She feels much better today Thyroid nodule 377634573 E04.1 Recent LDCT showed a noduleTHYR OID: There is a 1.8 cm nodule in the superior mediastinu m on series 2 image 26 which isinferior to the thyroid isthmus which may be on the basis of a exophytic thyroid nodule. Itmeasures 48 Hounsfield units internal density. This is unchanged from CT of the chest dated2020 EKG: T wave abnormal 164 520383 R94.31 new changes on EKG borderline st dep ov 0.5 t wave inversion on lateral leads and ASA Metoprolol , Nitro (if use this to ER) ETT fairly quickly new changes since Jan 2019 Type 2 tony betes mellitus 49557563 E11.9 Medication s: metformin 500mg bid Reports compliance to medication s and dietDenies any hypoglycem ic episodesDe nies any SE to medication s Recent labs done on: 025- A1C: 6.3- BS: 5- microalbum in: not testedEndo referral and f/u: none Current Symptoms: noneMicrov ascular complicati ons: None Macrovascu lar complicati ons: none L ast eye exam: Apr, 2024 [place] [facility] [place] exam: self check advisedLas t [...] sooner for lab f/u Hypertensive disorder 38 356534 I10 BP: 128/80Medi cation: metoprolol succinate ER [...] month Body mass index 30+ - obesity 553456148 Z68.31 Counseled on the Mediterran john diet: [...] be >=150min. Cardiovasc ular stress test abnormal 658636963 R94.39 CARDS [facility] medical history of obstructiv e coronary artery disease status post PCI with a drug-eluti ng stent to the LAD on December 26, 2020 at [facility] Pigmented skin lesion 20 1513910 L81.9 not interested in dermbirthm ark Stented co ronary artery 313196674 Z95.5 Not taking any nitro anymoreNo chest pain Anxiety 30054947 F41.9 stable Screening for malignant neoplasm of cervix 514825412 Z12.4 Not interested in seeing a G[employer] TR[employer]IVER now Body mass index 25-29 - overweight 727443476 Z68.25 stable Exposure t o SARS-CoV-2 537919049 Z20.828 Covid-19 discussion : patient was instructed on safety precaution s including frequent hand washing, social distancing , avoiding touching face with hands, and covering mouth with arm/elbow when coughing or sneezing. the symptoms of Covid 19 were reviewed and the patient was instructed on when to self quarantine , when to call the PCP, and when to seek emergency care. Systolic murmur 82799912 R01.1 - declines echo today - does not know what it is, but sounds? minimal - rec echo after next visit - declined today Bilateral cataracts 9572 2003 H26.9 Done recently and doing well Blood in urine 66975532 R31.9 She had trace blood in the urine past visits.no UTI symptomsch ecking Screening mammography of bilateral breasts 1194020676 22295 Z12.31 not interested Tobacco non-user 1401904 001 32659 Z13.89 never a smoker Ex-drinker 38931898 F10. 21 long time ago Active or passive immunization 233074791 Z23 Encouraged to get shingles and pneumococc alYearly flu and COVID boostersTD AP every 10 years Mixed hyperlipidemia 267 084306 E78.2 95314 Medication : atorvastat in 40mg Labs done on 08/07/2024 Triglyceri charmaine: 86Choleste rol:121LDL :55HDL:49 Reports compliance Denies any SE to the medication continue current regimen as directed. Patient is advised on low fat, low calorie diet, weight loss and regular exercise. Also advised on medication compliance and regular labs every 3 months. Vitamin D deficiency 347 04784 E55.9 vitamin D level: 28 Lab done [...] Eat More Vitamin D-Rich Foods Fatty Fish ([place], Mackerel, Tuna, Sardines)E gg YolksForti fied Foods (Milk, [place] Juice, Cereals, Plant-base d Milk)Mushr ooms (Sun-expos ed varieties like Maitake & Shiitake)C od Liver Oil (Very high in Vitamin D)Consider a Vitamin D Supplement Vitamin D3 (cholecalc iferol) is preferred over D2 for better absorption .Typical dosage for deficiency : 0645-8706 IU daily (Check with a doctor for the right dose).Pair with Vitamin K2 & Magnesium Vitamin K2 helps direct calcium to bones (found in fermented foods, dairy, and natto).Mag nesium helps activate Vitamin D (found in nuts, seeds, and leafy greens). Pulmonary emphysema 8743 3001 J43.9 2777613 LDCT: mild emphysema [id number] Ted Torrez MD [address] [place] [address] 05/09/2025 13:14:49 05/09/2025 15:49:17 Coronary arteriosclerosis 18522598 I25.10 [id number] #CAD: past medical history of obstructiv e coronary artery disease status post PCI with a drug-eludi ng stent to the LAD on December 26, 2020 at [facility] Lipid control: atorvastat in 40mgAC: Brilinta 90mg stopped December 26tente d coronary arteryabno rmal stress testFollow ing cardiology The patient is stable and asymptomat ic. The patient is to continue low-dose aspirin for secondary prevention . The patient has been counseled regarding heart healthy diet and exercise. Last visit with cards : Dr. Garner 22 November Screening for malignant neoplasm of colon 270112580 Z12.11 cologuard negative 12/2021, recheck in 2024 Screening mammography 24 446448 Z12.31 DECLINES Cough 07290904 R05.9 chronic cough since march She was [...] She feels much better today Thyroid nodule 450151812 E04.1 Recent LDCT showed a noduleTHYR OID: There is a 1.8 cm nodule in the superior mediastinu m on series 2 image 26 which isinferior to the thyroid isthmus which may be on the basis of a exophytic thyroid nodule. Itmeasures 48 Hounsfield units internal density. This is unchanged from CT of the chest dated2020 EKG: T wave abnormal 164 840035 R94.31 new changes on EKG borderline st dep ov 0.5 t wave inversion on lateral leads and ASA Metoprolol , Nitro (if use this to ER) ETT fairly quickly new changes since Jan 2019 Type 2 tony betes mellitus 39299068 E11.9 Medication s: metformin 500mg bid Reports compliance to medication s and dietDenies any hypoglycem ic episodesDe nies any SE to medication s Recent labs done on: 025- A1C: 6.3- BS: 5- microalbum in: not testedEndo referral and f/u: none Current Symptoms: noneMicrov ascular complicati ons: None Macrovascu lar complicati ons: none L ast eye exam: Apr, 2024 [place] [facility] [place] exam: self check advisedLas t [...] sooner for lab f/u Hypertensive disorder 38 823273 I10 BP: 128/80Medi cation: metoprolol succinate ER [...] done Body mass index 30+ - obesity 539423922 Z68.31 Counseled on the Mediterran john diet: [...] be >=150min. 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 the symptoms of Covid 19 were reviewed and the patient was instructed on when to self quarantine , when to call the PCP, and when to seek emergency care. Systolic murmur 33899980 R01.1 - declines echo today - does not know what it is, but sounds? minimal - rec echo after next visit - declined today Bilateral cataracts 9572 2004 H26.9 Done recently and doing well Blood in urine 71362275 R31.9 She had trace blood in the urine past visits.no UTI symptomsch ecking Screening mammography of bilateral breasts 8991088244 89064 Z12.31 not interested Tobacco non-user 0410838 001 83216 Z13.89 never a smoker Ex-drinker 05096137 F10. 21 long time ago Active or passive immunization 924049387 Z23 Encouraged to get shingles and pneumococc alYearly flu and COVID boostersTD AP every 10 years Mixed hyperlipidemia 267 715270 E78.2 90900 Medication : atorvastat in 40mg Labs done on 08/07/2024 Triglyceri charmaine: 86Choleste rol:121LDL :55HDL:49 Reports compliance Denies any SE to the medication continue current regimen as directed. Patient is advised on low fat, low calorie diet, weight loss and regular exercise. Also advised on medication compliance and regular labs every 3 months. Vitamin D deficiency 347 34494 E55.9 vitamin D level: 28 Lab done [...] Eat More Vitamin D-Rich Foods Fatty Fish ([place], Mackerel, Tuna, Sardines)E gg YolksForti fied Foods (Milk, [place] Juice, Cereals, Plant-base d Milk)Mushr ooms (Sun-expos ed varieties like Maitake & Shiitake)C od Liver Oil (Very high in Vitamin D)Consider a Vitamin D Supplement Vitamin D3 (cholecalc iferol) is preferred over D2 for better absorption .Typical dosage for deficiency : 6075-1853 IU daily (Check with a doctor for the right dose).Pair with Vitamin K2 & Magnesium Vitamin K2 helps direct calcium to bones (found in fermented foods, dairy, and natto).Mag nesium helps activate Vitamin D (found in nuts, seeds, and leafy greens). Pulmonary emphysema 8743 3001 J43.9 4887573 LDCT: mild emphysema 52580 MD Sheree Tomlin [address] [address] [place] [address] 05/13/2025 09:53:52 05/14/2025 13:06:35 Coronary arteriosclerosis [id number] I25.10 [id number] #CAD: past medical history of obstructiv e coronary artery disease status post PCI with a drug-eludi ng stent to the LAD on December 26, 2020 at [facility] [place] Lipid control: atorvastat in 40mgAC: Brilinta 90mg stopped December 262Stente d coronary arteryabno rmal stress testFollow ing cardiology The patient is stable and asymptomat ic. The patient is to continue low-dose aspirin for secondary prevention . The patient has been counseled regarding heart healthy diet and exercise. Last visit with cards : Dr. Garner 22 November Screening for malignant neoplasm of colon [id number] Z12.11 cologuard negative 12/2021, recheck in 2024 Screening mammography 24 601934 Z12.31 DECLINES Cough 62937587 R05.9 chronic cough since march She was [...] She feels much better today Thyroid nodule 284553295 E04.1 Recent LDCT showed a noduleTHYR OID: There is a 1.8 cm nodule in the superior mediastinu m on series 2 image 26 which isinferior to the thyroid isthmus which may be on the basis of a exophytic thyroid nodule. Itmeasures 48 Hounsfield units internal density. This is unchanged from CT of the chest dated2020 EKG: T wave abnormal 164 081704 R94.31 new changes on EKG borderline st dep ov 0.5 t wave inversion on lateral leads and ASA Metoprolol , Nitro (if use this to ER) ETT fairly quickly new changes since Jan 2019 Type 2 tony betes mellitus 63184360 E11.9 Medication s: metformin 500mg bid Reports compliance to medication s and dietDenies any hypoglycem ic episodesDe nies any SE to medication s Recent labs done on: 025- A1C: 6.3- BS: 5- microalbum in: not testedEndo referral and f/u: none Current Symptoms: noneMicrov ascular complicati ons: None Macrovascu lar complicati ons: none [place] exam: [place], 20[place] [facility]: self check advisedLas t [...] sooner for lab f/u Hypertensive disorder 38 231836 I10 BP: elevatedMe dication: metoprolol succinate ER [...] f/u Body mass index 30+ - obesity 826831411 Z68.31 Counseled on the Mediterran john diet: [...] be >=150min. Cardiovasc ular stress test abnormal 710210789 R94.39 CARDS [facility] medical history of obstructiv e coronary artery disease status post PCI with a drug-eluti ng stent to the LAD on December 26, 2020 at [facility] [place] Pigmented skin lesion 20 0435316 L81.9 not interested in dermbirthm ark Stented co ronary artery 695695121 Z95.5 Not taking any nitro anymoreNo chest pain Anxiety 44726046 F41.9 stable Screening for malignant neoplasm of cervix 998328441 Z12.4 Not interested in seeing a [employer] now Body mass index 25-29 - overweight 776051512 Z68.25 stable Exposure t o SARS-CoV-2 066729585 Z20.828 Covid-19 discussion : patient was instructed on safety precaution s including frequent hand washing, social distancing , avoiding touching face with hands, and covering mouth with arm/elbow when coughing or sneezing. the symptoms of Covid 19 were reviewed and the patient was instructed on when to self quarantine , when to call the PCP, and when to seek emergency care. Systolic murmur 66095012 R01.1 - declines echo today - does not know what it is, but sounds? minimal - rec echo after next visit - declined today Bilateral cataracts 9572 2004 H26.9 Done recently and doing well Blood in urine 88293637 R31.9 She had trace blood in the urine past visits.no UTI symptomsch ecking Screening mammography of bilateral breasts [id number] 78212 Z12.31 not interested Tobacco non-user 1544597 001 74157 Z13.89 never a smoker Ex-drinker 56420553 F10. 21 long time ago Active or passive immunization 468495812 Z23 Encouraged to get shingles and pneumococc alYearly flu and COVID boostersTD AP every 10 years Mixed hyperlipidemia 267 420527 E78.2 72506 Medication : atorvastat in 40mg Labs done on 08/07/2024 Triglyceri charmaine: 86Choleste rol:121LDL :55HDL:49 Reports compliance Denies any SE to the medication continue current regimen as directed. Patient is advised on low fat, low calorie diet, weight loss and regular exercise. Also advised on medication compliance and regular labs every 3 months. Vitamin D deficiency 347 33412 E55.9 vitamin D level: 28 Lab done [...] Eat More Vitamin D-Rich Foods Fatty Fish ([place], Mackerel, Tuna, Sardines)E gg YolksForti fied Foods (Milk, [place] Juice, Cereals, Plant-base d Milk)Mushr ooms (Sun-expos ed varieties like Maitake & Shiitake)C od Liver Oil (Very high in Vitamin D)Consider a Vitamin D Supplement Vitamin D3 (cholecalc iferol) is preferred over D2 for better absorption .Typical dosage for deficiency : 4572-4739 IU daily (Check with a doctor for the right dose).Pair with Vitamin K2 & Magnesium Vitamin K2 helps direct calcium to bones (found in fermented foods, dairy, and natto).Mag nesium helps activate Vitamin D (found in nuts, seeds, and leafy greens). Pulmonary emphysema 8743 3001 J43.9 2285354 LDCT: mild emphysema Health Concerns Section Related Observation LastModified by Organization Jerrellai ls LastModified Time None Recorded Concern Status LastModified by Organization Details LastModified Time None Recorded Payers Encounter Date Sequence Insurance Name Policy Number Policy Lewis Covered Member ID Lewis Member ID Guarantor Name 05/13/2025 1 MEDICARE B-[place]: [employer] Fatoumata Hewitt [id number] Fatoumata Hewitt 05/13/2025 2 BCBS-ID: [facility] [employer] [id number] Fatoumata Hewitt [id number] Fatoumata Hewitt Notes Date Note Type Note [...] 193.6 pounds this morning. KATIE Ravi [address] [facility] [facility], [address], [place], [address], [place] - PMA/WIP 05/13/2025 21:37:34 OBGyn Episode No OBEpisode recorded.
--- OUTSIDE RECORDS SUMMARY | 2025-05-30 05:58 | XMS_ITS | Continuity of Care Document ---
Author Organization [facility] Address [address] [address] Care Team Providers Care Investment Manager Name Role Phone [facility] OTHER [facility] (CARDIOLOGY) OTHER IWONA SUERO Primary Care [...] Care The patient finds the commute from [place] difficult and is actively seeking a new [...] her medical records to be sent to [facility] to establish new primary care. Staff [...] 90 mcg/actuat ion aerosol inhaler [address] [facility]acy #[id number], [address] [facility], [place], [address], 13:14:07 Patient TargetsNo targets recorded. Patient Instructions Encounter Date Encounter Id Patient Instructions Last Modified By Organization Details Last Modified Time 05/07/2025 [id number] - To take your blood pressure, put the cuff on, sit quietly for five minutes with your legs touching the floor, and then press the start button. - A member of our staff, Argenis, will call you to help with sending your medical records to [facility]. - Expect a call back around [...] to previ ous metho d. Not Available [address], [address], 04/22/2025 12:05:32 04/22/20 25 04/22/2025 COMPR EHENS SUZIE METAB OLIC PANEL sodium 141 mEq/L 133-14 5 normal Not Available [address], [address], 04/22/2025 12:21:53 04/22/202025 COMPR EHENS SUZIE METAB OLIC PANEL potassium 4.5 mEq/L 3.5-5. 1 normal Not Available [address], [address], 04/22/2025 12:21:53 04/22/20 25 04/22/2025 COMPR EHENS SUZIE METAB OLIC PANEL chloride 106 mEq/L 98-112 normal Not Available [address], [address], 04/22/2025 12:21:53 04/22/20 25 04/22/2025 COMPR EHENS SUZIE METAB OLIC PANEL carbon dioxide 24 mEq/L 22-31 normal Not Available [address], [address], 04/22/2025 12:21:53 04/22/20 25 04/22/2025 COMPR EHENS SUZIE METAB OLIC PANEL anion gap 11 mEq/L 5-15 normal Not Available [address], [address], 04/22/2025 12:21:53 04/22/20 25 04/22/2025 COMPR EHENS SUZIE METAB OLIC PANEL blood urea nitrogen (BUN) 11 mg/dL 10-20 normal Not Available [address], [address], 04/22/2025 12:21:53 04/22/20 25 04/22/2025 COMPR EHENS SUZIE METAB OLIC PANEL creatinine 0.75 mg/dL 0.50-1 .02 normal Not Available [address], [address], 04/22/2025 12:21:53 04/22/20 25 04/22/2025 COMPR EHENS [...] G5 (kidn ey failu re). Not Available [address], [address], 04/22/2025 12:21:53 04/22/2004/22/2025 COMPR EHENS SUZIE METAB OLIC PANEL glucose 100 mg/dL 70-100 normal Fasti ng Refer ence Inter diony: 70-10 0mg/d L Non-f astin g Refer ence Inter diony: 70-14 0mg/d L Not Available [address], [address], 04/22/2025 12:21:53 04/22/2004/22/2025 COMPR EHENS SUZIE METAB OLIC PANEL calcium 9.3 mg/dL 8.4-10 .4 normal Not Available [address], [address], 04/22/2025 12:21:53 04/22/2004/22/2025 COMPR EHENS SUZIE METAB OLIC PANEL bilirubin total 0.6 mg/dL 0.3-1. 2 normal Not Available [address], [address], 04/22/2025 12:21:53 04/22/20 25 04/22/2025 COMPR EHENS SUZIE METAB OLIC PANEL aspartate amino transferase 17 IU/L 11-34 normal Not Available [address], [address], 04/22/2025 12:21:53 04/22/20 25 04/22/2025 COMPR EHENS SUZIE METAB OLIC PANEL alanine aminotransfe rase 14 IU/L <34 Not Available [address], [address], 04/22/2025 12:21:53 04/22/20 25 04/22/2025 COMPR EHENS SUZIE METAB OLIC PANEL total protein 7.5 g/dL 5.8-8. 1 normal Not Available [address], [address], 04/22/2025 12:21:53 04/22/20 25 04/22/2025 COMPR EHENS SUZIE METAB OLIC PANEL albumin 4.0 g/dL 2.5-5. 0 normal Not Available [address], [address], 04/22/2025 12:21:53 04/22/20 25 04/22/2025 COMPR EHENS SUZIE METAB OLIC PANEL alkaline phosphatase 117 IU/L 40-150 normal Not Available [address], [address], 04/22/2025 12:21:53 04/22/20 25 04/22/2025 LIPID PANEL triglyceride s 117 mg/dL normal Audra l <=150 Audra l 150-1 99 Borde rline High 200-4 99 High >=500 Very High Not Available [address], [address], 04/22/2025 12:21:54 04/22/20 25 04/22/2025 LIPID PANEL cholesterol 128 mg/dL normal Keenan able <200 Keenan able 200-2 39 Borde rline High >=240 High Not Available [address] [place], [address], 04/22/2025 12:21:54 04/22/2004/22/2025 LIPID PANEL LDL cholesterol calculated 64 mg/dL normal Optim al <100 Optim al 100-1 29 Near optim al 130-1 59 Borde rline High 160-1 89 High >=190 Very High Not Available [place] [address] [place], [address], 04/22/2025 12:21:54 04/22/2004/22/2025 LIPID PANEL HDL cholesterol 41 mg/dL <40 Low >=60 Optim al Not Available [address], [address], 04/22/2025 12:21:54 Result Notes None recorded. Problems Name Problem SNOMED Code Status Onset Date Resolution Date Notes Provider Name and Address Organization Details Recorded Time Type 2 diabetes mellitus 21111841 Active 2018 KATIE Ravi [address] [facility], [address], [place], [address] , [place] - PMA/WIP 5 15:16:55 Hyperten sive disorder 13746229 Active 2018 Not Available [facility] 2 20:28:52 Body mass index 25-29 - overweig ht 547489413 Completed 201811/12/2020 Aleks diaz, [place] - PMA/WIP 1 11:37:29 Cardiova scular stress test abnormal 677192265 Active 2020 Not Available [facility] 2 20:28:52 Body mass index 30+ - obesity 169238875 Active 2020 Not Available [facility] 2 20:28:52 Stented coronary artery 921354807 Active 2020 LAD 95% [facility] December 2020 Not Available [facility] 2 20:28:52 Coronary arterios clerosis 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 Medical Equipment None Reported. Allergies Allergen ID Allergen Name Allergen Category Reaction Reaction Severity Criticality Documentation Date Start Date Code Code System Note Provider Name and Address Organization Details Recorded Time 7018 lisinopri l medicatio n cough Not available Not available 04/01/2025 51680 RxNorm KATIE Ravi [address] [facility], [facility] [address], [place], [address], [place] - PMA/WIP 5 11:41:23 Medications [...] Not Available No t Available Fluzone High-Dose 6525-0012 (PF) 180 mcg/0.5 mL intramusc ular syringe 01/08 completed Not Available Not Available Not Available Vitals None Recorded Social History Question Answer Notes LastModified by Organizat ion Details LastModified Time Tobacco Smoking Status Never Smoker Not Available [facility] 03/20/2020 03:13:01 Do You Have An [...] Or The Highest Degree You Have Received? [id number] Information not available 08/20/2020 Have There Been [...] adjuvanted, quadrivalent, PF 2 completed KATIE Ravi [address] [place] [address], [place], [address], [place] - PMA/WIP 01/24/2023 12:50:11 COVID-19, mRNA, LNP-S, bivalent, PF, 30 mcg/0.3 mL dose 2 completed KATIE Ravi [address] [place] [address], [place], [address], [place] P[place]/WIP 04/01/2025 11:37:14 pneumococcal polysaccharide PPV23 9 completed KATIE Ravi [address] [place] [address], [place], [address], [place] P[place]IP 04/01/2025 11:37:14 Influenza, split virus, quadrivalent, preservative 9 completed KATIE Ravi [address] [place] [address], [place], [address], [place] 04/01/2025 11:37:14 influenza nasal, unspecified formulation 4 completed Ernestina Otto null, [place] - P[place]IP 06/27/2024 13:14:39 SARS-COV-2 (COVID-19) vaccine, UNSPECIFIED 4 completed Ernestina Otto null, [place] 06/27/2024 13:14:49 Influenza, split virus, quadrivalent, preservative 0 completed KATIE Ravi [address] [place] [address], [place], [address], [place] - P[place]IP 06/17/2023 16:03:45 COVID-19, mRNA, LNP-S, PF, 30 mcg/0.3 mL dose 1 completed Not Available [facility] 05/20/2025 08:08:59 COVID-19, mRNA, LNP-S, PF, 30 mcg/0.3 mL dose 1 completed Not Available [facility] 05/20/2025 08:08:59 Influenza, high-dose, quadrivalent, PF 3 completed Not Available [facility] 05/20/2025 08:08:59 Influenza, high-dose, trivalent, PF 5 completed Not Available [facility] 05/20/2025 08:08:59 COVID-19, mRNA, LNP-S, PF, 30 mcg/0.3 mL dose 1 completed Not Available [facility] 05/20/2025 08:08:59 Influenza, high-dose, quadrivalent, PF 1 completed Not Available [facility] 05/20/2025 08:08:59 COVID-19, mRNA, LNP-S, PF, mary-sucrose, 30 mcg/0.3 mL 5 completed Not Available [facility] 05/20/2025 08:08:59 Influenza, high-dose, trivalent, PF 8 completed Not Available [facility] 05/20/2025 08:08:59 Pneumococcal conjugate PCV 13 8 completed Not Available [facility] 05/20/2025 08:08:59 Influenza, split virus, quadrivalent, PF 9 completed KATIE Ravi [address] [facility], [facility] [address], [place], [address], [facility] - PMA/WIP 04/01/2025 11:37:14 Past Encounters Encounter ID Performer Location Encounter Start Date Encounter Closed Date Diagnosis/Indication Diagnosis SNOMED-CT Code Diagnosis ICD10 Code Diagnosis IMO Codes Diagnosis Note [id number] Ted Torrez MD [address] [address] 05/06/2025 11:21:05 05/06/2025 13:18:51 Coronary arteriosclerosis 90109781 I25.10 [id number] #CAD: past medical history of obstructiv e coronary artery disease status post PCI with a drug-eludi ng stent to the LAD on December 26, 2020 at [facility] Lipid control: atorvastat in 40mgAC: [...] November Screening for malignant neoplasm of colon 359241739 Z12.11 cologuard negative 12/2021, recheck in 2024 Screening mammography 24 782654 Z12.31 DECLINES Cough 37980875 R05.9 chronic cough since march She was [...] She feels much better today Thyroid nodule 713844332 E04.1 Recent LDCT showed a noduleTHYR OID: There is a 1.8 cm nodule in the superior mediastinu m on series 2 image 26 which isinferior to the thyroid isthmus which may be on the basis of a exophytic thyroid nodule. Itmeasures 48 Hounsfield units internal density. This is unchanged from CT of the chest dated2020 EKG: T wave abnormal 164 185832 R94.31 new changes on EKG borderline st dep ov 0.5 t wave inversion on lateral leads and ASA Metoprolol , Nitro (if use this to ER) ETT fairly quickly new changes since Jan 2019 Type 2 tony betes mellitus 19691117 E11.9 Medication s: metformin 500mg bid Reports compliance to medication s and dietDenies any hypoglycem ic episodesDe nies any SE to medication s Recent labs done on: 025- A1C: 6.3- BS: 5- microalbum in: not testedEndo referral and f/u: none Current Symptoms: noneMicrov ascular complicati ons: None Macrovascu lar complicati ons: none [facility]: self check advisedLas t [...] sooner for lab f/u Hypertensive disorder 38 744813 I10 BP: 128/80Medi cation: metoprolol succinate ER [...] month Body mass index 30+ - obesity 919111558 Z68.31 Counseled on the Mediterran john diet: [...] be >=150min. 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 the symptoms of Covid 19 were reviewed and the patient was instructed on when to self quarantine , when to call the PCP, and when to seek emergency care. Systolic murmur 20619604 R01.1 - declines echo today - does not know what it is, but sounds? minimal - rec echo after next visit - declined today Bilateral cataracts 9572 2004 H26.9 Done recently and doing well Blood in urine 87980896 R31.9 She had trace blood in the urine past visits.no UTI symptomsch ecking Screening mammography of bilateral breasts 8221739667 59403 Z12.31 not interested Tobacco non-user 6186298 001 48831 Z13.89 never a smoker Ex-drinker 40555020 F10. 21 long time ago Active or passive immunization 948436579 Z23 Encouraged to get shingles and pneumococc alYearly flu and COVID boostersTD AP every 10 years Mixed hyperlipidemia 267 462738 E78.2 02049 Medication : atorvastat in 40mg Labs done on 08/07/2024 Triglyceri charmaine: 86Choleste rol:121LDL :55HDL:49 Reports compliance Denies any SE to the medication continue current regimen as directed. Patient is advised on low fat, low calorie diet, weight loss and regular exercise. Also advised on medication compliance and regular labs every 3 months. Vitamin D deficiency 347 12655 E55.9 vitamin D level: 28 Lab done [...] Eat More Vitamin D-Rich Foods Fatty Fish ([place], Mackerel, Tuna, Sardines)E gg YolksForti fied Foods (Milk, [place] Juice, Cereals, Plant-base d Milk)Mushr ooms (Sun-expos ed varieties like Maitake & Shiitake)C od Liver Oil (Very high in Vitamin D)Consider a Vitamin D Supplement Vitamin D3 (cholecalc iferol) is preferred over D2 for better absorption .Typical dosage for deficiency : 6137-0716 IU daily (Check with a doctor for the right dose).Pair with Vitamin K2 & Magnesium Vitamin K2 helps direct calcium to bones (found in fermented foods, dairy, and natto).Mag nesium helps activate Vitamin D (found in nuts, seeds, and leafy greens). Pulmonary emphysema 8743 3001 J43.9 [id number] Ted Torrez MD [address] [place] [address] 05/07/2025 10:55:05 05/07/2025 13:26:21 Coronary arteriosclerosis 18581796 I25.10 [id number] #CAD: past medical history of obstructiv e coronary artery disease status post PCI with a drug-eludi ng stent to the LAD on December 26, 2020 at [facility] Lipid control: atorvastat in 40mgAC: [...] November Screening for malignant neoplasm of colon 350148405 Z12.11 cologuard negative 12/2021, recheck in 2024 Screening mammography 24 373270 Z12.31 DECLINES Cough 11706284 R05.9 chronic cough since march She was [...] She feels much better today Thyroid nodule 237874229 E04.1 Recent LDCT showed a noduleTHYR OID: There is a 1.8 cm nodule in the superior mediastinu m on series 2 image 26 which isinferior to the thyroid isthmus which may be on the basis of a exophytic thyroid nodule. Itmeasures 48 Hounsfield units internal density. This is unchanged from CT of the chest dated2020 EKG: T wave abnormal 164 739936 R94.31 new changes on EKG borderline st dep ov 0.5 t wave inversion on lateral leads and ASA Metoprolol , Nitro (if use this to ER) ETT fairly quickly new changes since Jan 2019 Type 2 tony betes mellitus 20350152 E11.9 Medication s: metformin 500mg bid Reports compliance to medication s and dietDenies any hypoglycem ic episodesDe nies any SE to medication s Recent labs done on: 025- A1C: 6.3- BS: 5- microalbum in: not testedEndo referral and f/u: none Current Symptoms: noneMicrov ascular complicati ons: None Macrovascu lar complicati ons: none L [facility] eye exam: Apr, 2024 [facility] exam: self check advisedLas t [...] sooner for lab f/u Hypertensive disorder 38 265150 I10 BP: 128/80Medi cation: metoprolol succinate ER [...] month Body mass index 30+ - obesity 895369307 Z68.31 Counseled on the Mediterran john diet: [...] be >=150min. 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 the symptoms of Covid 19 were reviewed and the patient was instructed on when to self quarantine , when to call the PCP, and when to seek emergency care. Systolic murmur 25205880 R01.1 - declines echo today - does not know what it is, but sounds? minimal - rec echo after next visit - declined today Bilateral cataracts 9572 2004 H26.9 Done recently and doing well Blood in urine 06941882 R31.9 She had trace blood in the urine past visits.no UTI symptomsch ecking Screening mammography of bilateral breasts 0203944952 14656 Z12.31 not interested Tobacco non-user 7835788 001 89296 Z13.89 never a smoker Ex-drinker 09772723 F10. 21 long time ago Active or passive immunization 166577481 Z23 Encouraged to get shingles and pneumococc alYearly flu and COVID boostersTD AP every 10 years Mixed hyperlipidemia 267 772618 E78.2 14230 Medication : atorvastat in 40mg Labs done on 08/07/2024 Triglyceri charmaine: 86Choleste rol:121LDL :55HDL:49 Reports compliance Denies any SE to the medication continue current regimen as directed. Patient is advised on low fat, low calorie diet, weight loss and regular exercise. Also advised on medication compliance and regular labs every 3 months. Vitamin D deficiency 347 72921 E55.9 vitamin D level: 28 Lab done [...] Eat More Vitamin D-Rich Foods Fatty Fish ([place], Mackerel, Tuna, Sardines)E gg YolksForti fied Foods (Milk, [place] Juice, Cereals, Plant-base d Milk)Mushr ooms (Sun-expos ed varieties like Maitake & Shiitake)C od Liver Oil (Very high in Vitamin D)Consider a Vitamin D Supplement Vitamin D3 (cholecalc iferol) is preferred over D2 for better absorption .Typical dosage for deficiency : 8363-6432 IU daily (Check with a doctor for the right dose).Pair with Vitamin K2 & Magnesium Vitamin K2 helps direct calcium to bones (found in fermented foods, dairy, and natto).Mag nesium helps activate Vitamin D (found in nuts, seeds, and leafy greens). Pulmonary emphysema 8743 3001 J43.9 0664006 LDCT: mild emphysema Health Concerns Section Related Observation LastModified by Organization Detai ls LastModified Time None Recorded Concern Status LastModified by Organization Details LastModified Time None Recorded Payers Encounter Date Sequence Insurance Name Policy Number Policy Lewis Covered Member ID Lewis Member ID Guarantor Name 05/07/2025 1 MEDICARE B-[place]: [employer] Fatoumata Hewitt [id number] Fatoumata Hewitt 05/07/2025 2 BS-ID: [facility] - [employer] [id number] Fatoumata Hewitt [id number] Fatoumata Hewitt Notes Date Note Type Note [...] reports needing to establish primary care at [facility], which requires her medical records to be sent. KATIE Ravi [address] [place] [address], [address], [place], [address], [place] - PMA/WIP 05/07/2025 13:22:36 OBGyn Episode No OBEpisode recorded.
--- OUTSIDE RECORDS SUMMARY | 2025-05-30 05:58 | XMS_ITS | Continuity of Care Document ---
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 Patient Instructions Encounter Date Encounter Id Patient Instructions Last Modified By Organization Details Last Modified Time 05/09/2025 [id number] - Stop taking losartan. - You can tell the pharmacy that your medication was changed and you will not be picking up the losartan that is ready for you. 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 - Start taking metformin. 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 - Continue checking your blood [...] to previ ous metho d. Not Available [id number] , [place], [address], 04/22/2025 12:05:32 04/22/2004/22/2025 COMPR EHENS SUZIE METAB OLIC PANEL sodium 141 mEq/L 133-14 5 normal Not Available [address], [address], 04/22/2025 12:21:53 04/22/20 25 04/22/2025 COMPR EHENS SUZIE METAB OLIC PANEL potassium 4.5 mEq/L 3.5-5. 1 normal Not Available [address], [address], 04/22/2025 12:21:53 04/22/20 25 04/22/2025 COMPR EHENS SUZIE METAB OLIC PANEL chloride 106 mEq/L 98-112 normal Not Available [address], [address], 04/22/2025 12:21:53 04/22/20 25 04/22/2025 COMPR EHENS SUZIE METAB OLIC PANEL carbon dioxide 24 mEq/L 22-31 normal Not Available [address], [address], 04/22/2025 12:21:53 04/22/20 25 04/22/2025 COMPR EHENS SUZIE METAB OLIC PANEL anion gap 11 mEq/L 5-15 normal Not Available [address], [address], 04/22/2025 12:21:53 04/22/20 25 04/22/2025 COMPR EHENS SUZIE METAB OLIC PANEL blood urea nitrogen (BUN) 11 mg/dL 10-20 normal Not Available [address], [address], 04/22/2025 12:21:53 04/22/20 25 04/22/2025 COMPR EHENS SUZIE METAB OLIC PANEL creatinine 0.75 mg/dL 0.50-1 .02 normal Not Available [address], [address], 04/22/2025 12:21:53 04/22/20 25 04/22/2025 COMPR EHENS [...] G5 (kidn ey failu re). Not Available [address], [address], 04/22/2025 12:21:53 04/22/2004/22/2025 COMPR EHENS SUZIE METAB OLIC PANEL glucose 100 mg/dL 70-100 normal Fasti ng Refer ence Inter diony: 70-10 0mg/d L Non-f astin g Refer ence Inter diony: 70-14 0mg/d L Not Available [address], [address], 04/22/2025 12:21:53 04/22/2004/22/2025 COMPR EHENS SUZIE METAB OLIC PANEL calcium 9.3 mg/dL 8.4-10 .4 normal Not Available [address], [address], 04/22/2025 12:21:53 04/22/2030 0404/22/2025 COMPR EHENS SUZIE METAB OLIC PANEL bilirubin total 0.6 mg/dL 0.3-1. 2 normal Not Available [address], [address], 04/22/2025 12:21:53 04/22/20 25 04/22/2025 COMPR EHENS SUZIE METAB OLIC PANEL aspartate amino transferase 17 IU/L 11-34 normal Not Available [address], [address], 04/22/2025 12:21:53 04/22/20 25 04/22/2025 COMPR EHENS SUZIE METAB OLIC PANEL alanine aminotransfe rase 14 IU/L <34 Not Available [address], [address], 04/22/2025 12:21:53 04/22/20 25 04/22/2025 COMPR EHENS SUZIE METAB OLIC PANEL total protein 7.5 g/dL 5.8-8. 1 normal Not Available [address], [address], 04/22/2025 12:21:53 04/22/20 25 04/22/2025 COMPR EHENS SUZIE METAB OLIC PANEL albumin 4.0 g/dL 2.5-5. 0 normal Not Available [address], [address], 04/22/2025 12:21:53 04/22/20 25 04/22/2025 COMPR EHENS SUZIE METAB OLIC PANEL alkaline phosphatase 117 IU/L 40-150 normal Not Available [address], [address], 04/22/2025 12:21:53 04/22/20 25 04/22/2025 LIPID PANEL triglyceride s 117 mg/dL normal Audra l <=150 Audra l 150-1 99 Borde rline High 200-4 99 High >=500 Very High Not Available [address], [address], 04/22/2025 12:21:54 04/22/2004/22/2025 LIPID PANEL cholesterol 128 mg/dL normal Keenan able <200 Keenan able 200-2 39 Borde rline High >=240 High Not Available [address], [address], 04/22/2025 12:21:54 04/22/2004/22/2025 LIPID PANEL LDL cholesterol calculated 64 mg/dL normal Optim al <100 Optim al 100-1 29 Near optim al 130-1 59 Borde rline High 160-1 89 High >=190 Very High Not Available [address], [address], 04/22/2025 12:21:54 04/22/2004/22/2025 LIPID PANEL HDL cholesterol 41 mg/dL <40 Low >=60 Optim al Not Available [address], [address], 04/22/2025 12:21:54 Result Notes None recorded. Problems Name Problem SNOMED Code Status Onset Date Resolution Date Notes Provider Name and Address Organization Details Recorded Time Type 2 diabetes mellitus 05046362 Active 2018 KATIE Ravi [address] [place] [address], [address], [place], [address] , [place] - PMA/WIP 5 15:16:55 Hyperten sive disorder 08349470 Active 2018 Not Available [facility] 2 20:28:52 Body mass index 25-29 - overweig ht 705121500 Completed 201811/12/2020 Aleks diaz, [place] - PMA/WIP 1 11:37:29 Cardiova scular stress test abnormal 129348184 Active 2020 Not Available [facility] 2 20:28:52 Body mass index 30+ - obesity 843196744 Active 2020 Not Available [facility] 2 20:28:52 Stented coronary artery 157108342 Active 2020 LAD 95% [facility] December 2020 Not Available [facility] 2 20:28:52 Coronary arterios clerosis 88682028 Active 2020 Not Available [facility] 2 20:28:52 Mixed hyperlip idemia 520723582 Active 2024 KATIE Ravi [address] [facility], [address], [place], [address] , [place] - PMA/WIP 5 15:16:53 Problem Notes None recorded. Medical Equipment None Reported. Allergies Allergen ID Allergen Name Allergen Category Reaction Reaction Severity Criticality Documentation Date Start Date Code Code System Note Provider Name and Address Organization Details Recorded Time 70 lisinopri l medicatio n cough Not available Not available 04/01/2025 09430 RxNorm KATIE Ravi [address] [facility], [address], [place], [address], [place] - PMA/WIP 5 11:41:23 Medications [...] Updated DateTime 5 157.48 cm 36.8 kg/m2 91118.0 7 g 96 % 81 /min 160/100 mm[Hg] Jarred power [place] - PMA/WIP 5 13:18:05 Social History Question Answer Notes LastModified by Organizat ion Details LastModified Time Tobacco Smoking Status Never Smoker Not Available [facility] 03/20/2020 03:13:01 Do You Have An [...] Or The Highest Degree You Have Received? [id number] Information not available 08/20/2020 Have There Been [...] adjuvanted, quadrivalent, PF 2 completed KATIE Ravi [address] [place] [address], [place], [address], [place] - PMA/WIP 01/24/2023 12:50:11 COVID-19, mRNA, LNP-S, bivalent, PF, 30 mcg/0.3 mL dose 2 completed KATIE Ravi [address] [place] [address], [place], [address], [place] PMA/WIP 04/01/2025 11:37:14 pneumococcal polysaccharide PPV23 9 completed KATIE Ravi [address] [place] [address], [place], [address], [place] - PMA/WIP 04/01/2025 11:37:14 Influenza, split virus, quadrivalent, preservative 9 completed KATIE Ravi [address] [place] [address], [place], [address], [place] - PMA/WIP 04/01/2025 11:37:14 influenza nasal, unspecified formulation 4 completed Ernestina Otto null, [place] - PMA/WIP 06/27/2024 13:14:39 SARS-COV-2 (COVID-19) vaccine, UNSPECIFIED 4 completed Ernestina Otto null, [place] - PMA/WIP 06/27/2024 13:14:49 Influenza, split virus, quadrivalent, preservative 0 completed KATIE Ravi [address] [place] [address], [place], [address], [place] - PMA/WIP 06/17/2023 16:03:45 COVID-19, mRNA, LNP-S, PF, 30 mcg/0.3 mL dose 1 completed Not Available [facility] 05/20/2025 08:08:59 COVID-19, mRNA, LNP-S, PF, 30 mcg/0.3 mL dose 1 completed Not Available [facility] 05/20/2025 08:08:59 Influenza, high-dose, quadrivalent, PF 3 completed Not Available [facility] 05/20/2025 08:08:59 Influenza, high-dose, trivalent, PF 5 completed Not Available [facility] 05/20/2025 08:08:59 COVID-19, mRNA, LNP-S, PF, 30 mcg/0.3 mL dose 1 completed Not Available [facility] 05/20/2025 08:08:59 Influenza, high-dose, quadrivalent, PF 1 completed Not Available [facility] 05/20/2025 08:08:59 COVID-19, mRNA, LNP-S, PF, mary-sucrose, 30 mcg/0.3 mL 5 completed Not Available [facility] 05/20/2025 08:08:59 Influenza, high-dose, trivalent, PF 8 completed Not Available [facility] 05/20/2025 08:08:59 Pneumococcal conjugate PCV 13 8 completed Not Available [facility] 05/20/2025 08:08:59 Influenza, split virus, quadrivalent, PF 9 completed KATIE Ravi [address] [place] [address], [place], [address], [place] - PMA/WIP 04/01/2025 11:37:14 Past Encounters Encounter ID Performer Location Encounter Start Date Encounter Closed Date Diagnosis/Indication Diagnosis SNOMED-CT Code Diagnosis ICD10 Code Diagnosis IMO Codes Diagnosis Note [id number] MD Paulette Tomlinisabell [place]igg[place] [address] [address] [place] [address] 05/06/2025 11:21:05 05/06/2025 13:18:51 Coronary arteriosclerosis 15013854 I25.10 [id number] #CAD: past medical history of obstructiv e coronary artery disease status post PCI with a drug-eludi ng stent to the LAD on December 26, 2020 at [facility] Lipid control: atorvastat in 40mgAC: Brilinta 90mg stopped December 26tente d coronary arteryabno rmal stress testFollow ing cardiology The patient is stable and asymptomat ic. The patient is to continue low-dose aspirin for secondary prevention . The patient has been counseled regarding heart healthy diet and exercise. Last visit with cards : Dr. Garner 22 November Screening for malignant neoplasm of colon 156850290 Z12.11 cologuard negative 12/2021, recheck in 2024 Screening mammography 24 752442 Z12.31 DECLINES Cough 52996960 R05.9 chronic cough since march She was [...] She feels much better today Thyroid nodule 511739349 E04.1 Recent LDCT showed a noduleTHYR OID: There is a 1.8 cm nodule in the superior mediastinu m on series 2 image 26 which isinferior to the thyroid isthmus which may be on the basis of a exophytic thyroid nodule. Itmeasures 48 Hounsfield units internal density. This is unchanged from CT of the chest dated2020 EKG: T wave abnormal 164 990894 R94.31 new changes on EKG borderline st dep ov 0.5 t wave inversion on lateral leads and ASA Metoprolol , Nitro (if use this to ER) ETT fairly quickly new changes since Jan 2019 Type 2 tony betes mellitus 57250238 E11.9 Medication s: metformin 500mg bid Reports compliance to medication s and dietDenies any hypoglycem ic episodesDe nies any SE to medication s Recent labs done on: 025- A1C: 6.3- BS: 5- microalbum in: not testedEndo referral and f/u: none Current Symptoms: noneMicrov ascular complicati ons: None Macrovascu lar complicati ons: none [place] [facility]: self check advisedLas t [...] sooner for lab f/u Hypertensive disorder 38 236564 I10 BP: 128/80Medi cation: metoprolol succinate ER [...] month Body mass index 30+ - obesity 805266821 Z68.31 Counseled on the Mediterran john diet: [...] be >=150min. Cardiovasc ular stress test abnormal 355456816 R94.39 CARDS [facility] medical history of obstructiv e coronary artery disease status post PCI with a drug-eluti ng stent to the LAD on December 26, 2020 at [facility] Pigmented skin lesion 20 7838831 L81.9 not interested in dermbirthm ark Stented co ronary artery 613865396 Z95.5 Not taking any nitro anymoreNo chest pain Anxiety 82405183 F41.9 stable Screening for malignant neoplasm of cervix 701202086 Z12.4 Not interested in seeing a INSPECTOR [employer] now Body mass index 25-29 - overweight 991834371 Z68.25 stable Exposure t o SARS-CoV-2 861300376 Z20.828 Covid-19 discussion : patient was instructed on safety precaution s including frequent hand washing, social distancing , avoiding touching face with hands, and covering mouth with arm/elbow when coughing or sneezing. the symptoms of Covid 19 were reviewed and the patient was instructed on when to self quarantine , when to call the PCP, and when to seek emergency care. Systolic murmur 11380712 R01.1 - declines echo today - does not know what it is, but sounds? minimal - rec echo after next visit - declined today Bilateral cataracts 9572 2004 H26.9 Done recently and doing well Blood in urine 09338168 R31.9 She had trace blood in the urine past visits.no UTI symptomsch ecking Screening mammography of bilateral breasts 5845769749 18517 Z12.31 not interested Tobacco non-user [id number] 001 26435 Z13.89 never a smoker Ex-drinker 98049582 F10. 21 long time ago Active or passive immunization 301942627 Z23 Encouraged to get shingles and pneumococc alYearly flu and COVID boostersTD AP every 10 years Mixed hyperlipidemia 267 251318 E78.2 13872 Medication : atorvastat in 40mg Labs done on 08/07/2024 Triglyceri charmaine: 86Choleste rol:121LDL :55HDL:49 Reports compliance Denies any SE to the medication continue current regimen as directed. Patient is advised on low fat, low calorie diet, weight loss and regular exercise. Also advised on medication compliance and regular labs every 3 months. Vitamin D deficiency 347 19945 E55.9 vitamin D level: 28 Lab done [...] Eat More Vitamin D-Rich Foods Fatty Fish ([place], Mackerel, Tuna, Sardines)E gg YolksForti fied Foods (Milk, [place] Juice, Cereals, Plant-base d Milk)Mushr ooms (Sun-expos ed varieties like Maitake & Shiitake)C od Liver Oil (Very high in Vitamin D)Consider a Vitamin D Supplement Vitamin D3 (cholecalc iferol) is preferred over D2 for better absorption .Typical dosage for deficiency : 9613-3101 IU daily (Check with a doctor for the right dose).Pair with Vitamin K2 & Magnesium Vitamin K2 helps direct calcium to bones (found in fermented foods, dairy, and natto).Mag nesium helps activate Vitamin D (found in nuts, seeds, and leafy greens). Pulmonary emphysema 8743 3001 J43.9 [id number] Ted Torrez MD [address] [place] [address] 05/07/2025 10:55:05 05/07/2025 13:26:21 Coronary arteriosclerosis 48015315 I25.10 [id number] #CAD: past medical history of obstructiv e coronary artery disease status post PCI with a drug-eludi ng stent to the LAD on December 26, 2020 at [facility] Lipid control: atorvastat in 40mgAC: Brilinta 90mg stopped December 26tente d coronary arteryabno rmal stress testFollow ing cardiology The patient is stable and asymptomat ic. The patient is to continue low-dose aspirin for secondary prevention . The patient has been counseled regarding heart healthy diet and exercise. Last visit with cards : Dr. Garner 22 November Screening for malignant neoplasm of colon 298814365 Z12.11 cologuard negative 12/2021, recheck in 2024 Screening mammography 24 404014 Z12.31 DECLINES Cough 66342092 R05.9 chronic cough since march She was [...] She feels much better today Thyroid nodule 428884682 E04.1 Recent LDCT showed a noduleTHYR OID: There is a 1.8 cm nodule in the superior mediastinu m on series 2 image 26 which isinferior to the thyroid isthmus which may be on the basis of a exophytic thyroid nodule. Itmeasures 48 Hounsfield units internal density. This is unchanged from CT of the chest dated2020 EKG: T wave abnormal 164 126334 R94.31 new changes on EKG borderline st dep ov 0.5 t wave inversion on lateral leads and ASA Metoprolol , Nitro (if use this to ER) ETT fairly quickly new changes since Jan 2019 Type 2 tony betes mellitus 07532972 E11.9 Medication s: metformin 500mg bid Reports compliance to medication s and dietDenies any hypoglycem ic episodesDe nies any SE to medication s Recent labs done on: 025- A1C: 6.3- BS: 5- microalbum in: not testedEndo referral and f/u: none Current Symptoms: noneMicrov ascular complicati ons: None Macrovascu lar complicati ons: none L ast eye exam: Apr, 2024 [facility] exam: self check advisedLas t [...] sooner for lab f/u Hypertensive disorder 38 846609 I10 BP: 128/80Medi cation: metoprolol succinate ER [...] month Body mass index 30+ - obesity 270741121 Z68.31 Counseled on the Mediterran john diet: [...] be >=150min. Cardiovasc ular stress test abnormal 270218234 R94.39 CARDS [facility] medical history of obstructiv e coronary artery disease status post PCI with a drug-eluti ng stent to the LAD on December 26, 2020 at [facility] Pigmented skin lesion 20 9144768 L81.9 not interested in dermbirthm ark Stented co ronary artery 152853833 Z95.5 Not taking any nitro anymoreNo chest pain Anxiety 03295077 F41.9 stable Screening for malignant neoplasm of cervix 083286118 Z12.4 Not interested in seeing a INSPECT[employer] now Body mass index 25-29 - overweight 418503727 Z68.25 stable Exposure t o SARS-CoV-2 132652367 Z20.828 Covid-19 discussion : patient was instructed on safety precaution s including frequent hand washing, social distancing , avoiding touching face with hands, and covering mouth with arm/elbow when coughing or sneezing. the symptoms of Covid 19 were reviewed and the patient was instructed on when to self quarantine , when to call the PCP, and when to seek emergency care. Systolic murmur 41611352 R01.1 - declines echo today - does not know what it is, but sounds? minimal - rec echo after next visit - declined today Bilateral cataracts 9572 2004 H26.9 Done recently and doing well Blood in urine 91862802 R31.9 She had trace blood in the urine past visits.no UTI symptomsch ecking Screening mammography of bilateral breasts 3018340676 48188 Z12.31 not interested Tobacco non-user 2771583 001 72211 Z13.89 never a smoker Ex-drinker 32890481 F10. 21 long time ago Active or passive immunization 385559340 Z23 Encouraged to get shingles and pneumococc alYearly flu and COVID boostersTD AP every 10 years Mixed hyperlipidemia 267 776339 E78.2 16312 Medication : atorvastat in 40mg Labs done on 08/07/2024 Triglyceri charmaine: 86Choleste rol:121LDL :55HDL:49 Reports compliance Denies any SE to the medication continue current regimen as directed. Patient is advised on low fat, low calorie diet, weight loss and regular exercise. Also advised on medication compliance and regular labs every 3 months. Vitamin D deficiency 347 08461 E55.9 vitamin D level: 28 Lab done [...] Eat More Vitamin D-Rich Foods Fatty Fish ([place], Mackerel, Tuna, Sardines)E gg YolksForti fied Foods (Milk, [place] Juice, Cereals, Plant-base d Milk)Mushr ooms (Sun-expos ed varieties like Maitake & Shiitake)C od Liver Oil (Very high in Vitamin D)Consider a Vitamin D Supplement Vitamin D3 (cholecalc iferol) is preferred over D2 for better absorption .Typical dosage for deficiency : 4458-5890 IU daily (Check with a doctor for the right dose).Pair with Vitamin K2 & Magnesium Vitamin K2 helps direct calcium to bones (found in fermented foods, dairy, and natto).Mag nesium helps activate Vitamin D (found in nuts, seeds, and leafy greens). Pulmonary emphysema 8743 3001 J43.9 0857145 LDCT: mild emphysema [id number] Ted Torrez MD [address] [address] 05/09/2025 13:14:49 05/09/2025 15:49:17 Coronary arteriosclerosis 96514944 I25.10 [id number] #CAD: past medical history of obstructiv e coronary artery disease status post PCI with a drug-eludi ng stent to the LAD on December 26, 2020 at [facility] Lipid control: atorvastat in 40mgAC: Brilinta 90mg stopped December 26tente d coronary arteryabno rmal stress testFollow ing cardiology The patient is stable and asymptomat ic. The patient is to continue low-dose aspirin for secondary prevention . The patient has been counseled regarding heart healthy diet and exercise. Last visit with cards : Dr. Garner 22 November Screening for malignant neoplasm of colon 551694474 Z12.11 cologuard negative 12/2021, recheck in 2024 Screening mammography 24 246149 Z12.31 DECLINES Cough 98427913 R05.9 chronic cough since march She was [...] She feels much better today Thyroid nodule 742062805 E04.1 Recent LDCT showed a noduleTHYR OID: There is a 1.8 cm nodule in the superior mediastinu m on series 2 image 26 which isinferior to the thyroid isthmus which may be on the basis of a exophytic thyroid nodule. Itmeasures 48 Hounsfield units internal density. This is unchanged from CT of the chest dated2020 EKG: T wave abnormal 164 128363 R94.31 new changes on EKG borderline st dep ov 0.5 t wave inversion on lateral leads and ASA Metoprolol , Nitro (if use this to ER) ETT fairly quickly new changes since Jan 2019 Type 2 tony betes mellitus 16017825 E11.9 Medication s: metformin 500mg bid Reports compliance to medication s and dietDenies any hypoglycem ic episodesDe nies any SE to medication s Recent labs done on: 025- A1C: 6.3- BS: 5- microalbum in: not testedEndo referral and f/u: none Current Symptoms: noneMicrov ascular complicati ons: None Macrovascu lar complicati ons: none L [place] exam: Apr, [facility] [facility]: self check advisedLas t [...] sooner for lab f/u Hypertensive disorder 38 640969 I10 BP: 128/80Medi cation: metoprolol succinate ER [...] done Body mass index 30+ - obesity 865243330 Z68.31 Counseled on the Mediterran john diet: [...] be >=150min. Cardiovasc ular stress test abnormal 811724419 R94.39 CARDS [facility] medical history of obstructiv e coronary artery disease status post PCI with a drug-erika ng stent to the LAD on December 26, 2020 at [facility] Pigmented skin lesion 20 2270179 L81.9 not interested in dermbirthm ark Stented co ronary artery 646294467 Z95.5 Not taking any nitro anymoreNo chest pain Anxiety 90204858 F41.9 stable Screening for malignant neoplasm of cervix 774972241 Z12.4 Not interested in seeing a INS[employer] now Body mass index 25-29 - overweight 946117420 Z68.25 stable Exposure t o SARS-CoV-2 930912877 Z20.828 Covid-19 discussion : patient was instructed on safety precaution s including frequent hand washing, social distancing , avoiding touching face with hands, and covering mouth with arm/elbow when coughing or sneezing. the symptoms of Covid 19 were reviewed and the patient was instructed on when to self quarantine , when to call the PCP, and when to seek emergency care. Systolic murmur 58861291 R01.1 - declines echo today - does not know what it is, but sounds? minimal - rec echo after next visit - declined today Bilateral cataracts 9572 2003 H26.9 Done recently and doing well Blood in urine 34494100 R31.9 She had trace blood in the urine past visits.no UTI symptomsch ecking Screening mammography of bilateral breasts 7194029648 68050 Z12.31 not interested Tobacco non-user 0364193 001 25248 Z13.89 never a smoker Ex-drinker 59014103 F10. 21 long time ago Active or passive immunization 749628802 Z23 Encouraged to get shingles and pneumococc alYearly flu and COVID boostersTD AP every 10 years Mixed hyperlipidemia 267 385390 E78.2 12335 Medication : atorvastat in 40mg Labs done on 08/07/2024 Triglyceri charmaine: 86Choleste rol:121LDL :55HDL:49 Reports compliance Denies any SE to the medication continue current regimen as directed. Patient is advised on low fat, low calorie diet, weight loss and regular exercise. Also advised on medication compliance and regular labs every 3 months. Vitamin D deficiency 347 39691 E55.9 vitamin D level: 28 Lab done [...] Eat More Vitamin D-Rich Foods Fatty Fish ([place], Mackerel, Tuna, Sardines)E gg YolksForti fied Foods (Milk, [place] Juice, Cereals, Plant-base d Milk)Mushr ooms (Sun-expos ed varieties like Maitake & Shiitake)C od Liver Oil (Very high in Vitamin D)Consider a Vitamin D Supplement Vitamin D3 (cholecalc iferol) is preferred over D2 for better absorption .Typical dosage for deficiency : 4626-8138 IU daily (Check with a doctor for the right dose).Pair with Vitamin K2 & Magnesium Vitamin K2 helps direct calcium to bones (found in fermented foods, dairy, and natto).Mag nesium helps activate Vitamin D (found in nuts, seeds, and leafy greens). Pulmonary emphysema [id number] J43.9 [id number] LDCT: mild emphysema Health Concerns Section Related Observation LastModified by Organization Detai ls LastModified Time None Recorded Concern Status LastModified by Organization Details LastModified Time None Recorded Payers Encounter Date Sequence Insurance Name Policy Number Policy Lewis Covered Member ID Lewis Member ID Guarantor Name 05/09/2025 1 MEDICARE B-[place]: [employer] Fatoumata Hewitt [id number] Fatoumata Hewitt 05/09/2025 2 BS-ID: [facility] [employer] [id number] Fatoumata Hewitt [id number] Fatoumata Hewitt Notes Date Note Type Note [...] advised to start taking metformin. KATIE Ravi [address] [place] [address], [facility] [address], [place], [address], [place] - PMA/WIP 05/09/2025 15:48:28 OBGyn Episode No OBEpisode recorded.
[2025-05-30 06:06] LABS: Magnesium 1.3 mg/dL (1.6-2.6)
[2025-05-30] MEDS: Magnesium Sulfate/H2O 2 GM/50 ML PIGGYBACK IV ×2 (06:22→08:45)
--- NOTE | 2025-05-30 06:32 | PC.NURSE ---
report given to Michael STACY in ICU.
[2025-05-30 06:33] LABS: Uric Acid 5.4 mg/dL (2.4-5.7)
[2025-05-30 06:56] LABS: Glucose, Whole Blood 187 mg/dL (60-115)
[2025-05-30 08:02] LABS: Osmolality, Serum 241 mosm/kg (281-305)
[2025-05-30 09:59] LABS: Appearance Urine Clear; Glucose Urine UA Negative (Negative); PH 6.0 (5.0-9.0); Specific Gravity - Urine 1.010 (1.005-1.025)
[2025-05-30 10:31] LABS: Potassium 2.8 mmol/L (3.3-5.1)
[2025-05-30 10:32] LABS: Alanine Aminotransferase 18 U/L (0-31); Albumin Level 4.1 g/dL (3.5-5.0); Alkaline Phosphatase 111 U/L (39-117); Anion Gap 17 (12-20); Aspartate Amino Transferase 41 U/L (5-31); Blood Urea Nitrogen 19 mg/dL (9-16); Calcium 9.0 mg/dL (8.4-10.2); Carbon Dioxide 26 mmol/L (22-29); Chloride 73 mmol/L (96-108); Creatinine Clr Calc Pharmacy 55.3; Estimated Glomerular Filt Rate 55; Sodium 113 mmol/L (135-145); Total Protein 7.2 g/dL (6.5-8.0)
--- NOTE | 2025-05-30 10:55 | PHA.MEDREC ---
Pharmacy Consult ? Medication Reconciliation Pharmacy has completed the medication reconciliation. Spoke to patient to confirm medication list. Per patient, she is not taking ibuprofen, ondansetron nor lisinopril (makes her cough) anymore. She takes aspirin 81 mg daily. Last dose of medication was yesterday 05/29/25 morning.
--- NOTE | 2025-05-30 10:58 | PM.CCHP ---
History of Present Illness Date of Service: 05/30/25 Chief Complaint: Vomiting 74-year-old lady with past medical history of hypertension, diabetes mellitus, coronary artery disease was seen in the ED 2 days ago following a fall leading to L1 vertebra 1 compressive fracture, which was thought to be the non operable by the ER physician and was sent home on oxycodone and pain medications. Patient had multiple episodes of vomiting since he started taking oxycodone 2 days ago, initially the vomitus was brown, last night turned to be red in color, no relieving factors, associated with poor oral intake and extreme weakness so presented to the ED. In the ED her sodium was noted to be 111 so ICU was consulted for admission. Review of Systems Review of Systems: Const : no body aches, no chills, no excessive sweating and no fatigue Eyes: no blurry vision and no change in vision ENT: no bleeding gums and no change in voice, no dizziness Card: no chest pain, no shortness of breath, no orthopnea, no PND Resp: no cough, no excessive phlegm production, no SOB GI: no abdominal pain and no nausea, no vomiting : no hematuria, no urinary frequency and no difficulty voiding Musc: no abnormal gait, no bone pain Neuro: no abnormal movements, no weakness, no dizziness, no abnormal gait and no behavioral changes Psych: no behavioral changes and no change in appetite Endo: no change in body appearance, no cold intolerance, no excessive sweating and no fatigue PMFSH Past Medical History Medical History (Updated 05/30/25 @ 08:04 by Luz Clark RN) Cataract Hypertension Diabetes mellitus, type 2 Surgical History Surgical History (Updated 05/30/25 @ 08:04 by Luz Clark RN) H/O cardiac catheterization Social History Social History Household Members: None Household Members Other:: 1 Housing: Assisted Living Facility Do you presently have visiting nurse or other home services: No Patient Tobacco Use Status: Never used Tobacco Smoked in Last 30 Days: No Use of substances other than those prescribed or required for medical reasons: No Have you been hit, kicked, punched, or otherwise hurt by someone within the past year? If so, by whom?: No Do you feel safe in your current relationship?: No Current Relationship Is there a partner from a previous relationship who is making you feel unsafe now?: No Are you made to feel afraid or neglected: No [facility] Practices: Faith Advance Directives: No Advance Directives Information Provided: Yes Do you have a plan to hurt others: No Plan Recently lost weight without trying: No Nutrition Risks: No Nutritional Risk Patient : No Meds Allergies Allergy/AdvReac Type Severity Reaction Status Date / Time No Known Allergies Allergy Verified 05/30/25 04:36 Active Medications: Current Medications Heparin Sodium (Porcine) (Heparin Sodium,Porcine 5,000 Unit/Ml Vial) 5,000 unit SUBCUT Q12H ISAMAR Last Admin: 05/30/25 06:22 Dose: 5,000 unit Home Medications ?Medication ?Instructions ?Recorded ?Confirmed ?Last Taken ?Type acetaminophen 500 mg capsule 1,000 mg PO Q6H PRN Pain 05/30/25 05/30/25 05/29/25 History albuterol sulfate 90 mcg/actuation 2 puff inhalation Q4H PRN 05/30/25 05/30/25 Unknown History aerosol inhaler Shortness Of Breath Or Wheezing amlodipine 5 mg tablet 5 mg PO DAILY 05/30/25 05/30/25 05/29/25 History aspirin 81 mg tablet,delayed 81 mg PO DAILY 05/30/25 05/30/25 05/29/25 History release atorvastatin 40 mg tablet 40 mg PO BEDTIME 05/30/25 05/30/25 05/28/25 History chlorthalidone 25 mg tablet 25 mg PO DAILY 05/30/25 05/30/25 05/29/25 History losartan 50 mg tablet 50 mg PO DAILY 05/30/25 05/30/25 Unknown History metformin 500 mg tablet,extended 1,000 mg PO BID 05/30/25 05/30/25 05/29/25 History release 24 hr metoprolol succinate 25 mg 25 mg PO DAILY 05/30/25 05/30/25 05/29/25 History tablet,extended release 24 hr Physical Exam Vital Signs: Vital Signs: Last Vital Signs Temp 98.5 F 05/30/25 04:34 Pulse 82 05/30/25 10:00 Resp 19 05/30/25 10:00 BP 127/66 05/30/25 10:00 Pulse Ox 97 05/30/25 10:00 O2 Del Method Nasal Cannula 05/30/25 10:00 O2 Flow Rate 2 05/30/25 10:00 BMI result Body Mass Index 38.4 General: not in any acute distress, ill appearing Nutritional Appearance: well nourished and overweight Eyes: appearance normal, both eyes and all related structures Neck: No lymphadenopathy, no thyromegaly Resp: bilateral air entry equal, no added sounds present Cardio: Regular rate, regular rhythm; Heart sounds: S1 normal heart sound present and S2 normal heart sound present GI: soft, nontender, no guarding, no hepatosplenomegaly : bladder normal to inspection, bladder normal to palpation, no renal angle tenderness Skin: no rashes or lesions noted and elasticity normal Neuro: alert, oriented x 3, complains of back pains but is able to move both the lower extremities, sensation is normal Results Labs 05/30/25 04:40 05/30/25 09:58 Labs: Laboratory Results - last 24 hr 05/30/25 05/30/25 05/30/25 04:40 06:51 06:57 MCV 76.5 L MCH 28.1 MCHC 36.8 H RDW 12.5 Plt Count 225 MPV 9.0 L Immature Gran % (Auto) 0.3 Neut % (Auto) 82.2 H Lymph % (Auto) 9.0 L [place] % (Auto) 7.9 Eos % (Auto) 0.4 Baso % (Auto) 0.2 Lymph # (Auto) 1.0 L [place] # (Auto) 0.9 Eos # (Auto) 0.0 Baso # (Auto) 0.0 Abs Immat Gran (auto) 0.03 Absolute Neuts (auto) 9.3 H Absolute Nucleated RBC 0.000 Nucleated RBC % (auto) 0.0 PT 13.0 INR 1.1 Anion Gap 18 Estim Creat Clear Calc 44.8 Estimated GFR 43 POC Glucose 187 H Random Glucose 171 H Osmolality 241 L Uric Acid 5.4 Calcium 9.3 Magnesium 1.3 L* Total Bilirubin 1.7 H AST 57 H ALT 21 Alkaline Phosphatase 115 Troponin I High Sens 4.5 Total Protein 7.9 Albumin 4.3 Lipase 28 TSH 1.32 Random Cortisol 22.8 Urine Color Urine Appearance Urine pH Ur Specific [place] Urine Protein Urine Glucose (UA) Urine Ketones Urine Blood Urine Nitrite Ur Leukocyte Esterase Ethyl Alcohol < 10 Influenza Type A (PCR) NEGATIVE Influenza Type B (PCR) NEGATIVE RSV RNA Qual (PCR) NEGATIVE SARS-CoV-2 RNA (RT-PCR) NEGATIVE 05/30/25 05/30/25 09:58 Unknown MCV MCH MCHC RDW Plt Count MPV Immature Gran % (Auto) Neut % (Auto) Lymph % (Auto) [place] % (Auto) Eos % (Auto) Baso % (Auto) Lymph # (Auto) [place] # (Auto) Eos # (Auto) Baso # (Auto) Abs Immat Gran (auto) Absolute Neuts (auto) Absolute Nucleated RBC Nucleated RBC % (auto) PT INR Anion Gap 17 Estim Creat Clear Calc 55.3 Estimated GFR 55 POC Glucose Random Glucose 150 H Osmolality Uric Acid Calcium 9.0 Magnesium Total Bilirubin 1.6 H AST 41 H ALT 18 Alkaline Phosphatase 111 Troponin I High Sens Total Protein 7.2 Albumin 4.1 Lipase TSH Random Cortisol Urine Color Yellow Urine Appearance Clear Urine pH 6.0 Ur Specific [place] 1.010 Urine Protein Negative Urine Glucose (UA) Negative Urine Ketones Negative Urine Blood Negative Urine Nitrite Negative Ur Leukocyte Esterase Negative Ethyl Alcohol Influenza Type A (PCR) Influenza Type B (PCR) RSV RNA Qual (PCR) SARS-CoV-2 RNA (RT-PCR) Assessment and Plan (1) Acute hyponatremia: Status: Acute (2) Nausea and vomiting: Status: Acute Plan Acute hyponatremia: Acute hypokalemia: Presented with a sodium of 111, possibly due to SIADH given her extreme pain and nausea leading to ADH secretion. We will get urine electrolytes and osmolality to confirm. TSH and cortisol normal. Treated with 1 dose of 3% normal saline, we will continue to closely monitor her sodium every 4 hours. She is also getting 40 mEq of potassium in normal saline for correction of acute hypokalemia. Target sodium below 120 until tomorrow morning. We will withhold hydrochlorothiazide. Coronary artery disease: Continue aspirin, statins, metoprolol Hypertension: Continue metoprolol 25, amlodipine 5 mg We will withhold hydrochlorothiazide given hyponatremia Diabetes mellitus: Continue metformin We will add sliding scale insulin if needed
[2025-05-30] MEDS: KCl 40 mEq in 0.9 % Sodium Chl 40 MEQ/1,000 ML IV.SOLN 150 MEQ IVCONT (11:28)
[2025-05-30] MEDS: Metoprolol Succinate ER 25 MG TAB.ER.24H PO (11:28)
[2025-05-30] MEDS: Aspirin Enteric Coated 81 MG TABLET.DR PO (11:28)
--- NOTE | 2025-05-30 14:58 | HO.SKINPHOTO ---
Addendum entered by Lzu Clark RN 05/30/25 18:32: left abdominal fold MASD Original Note: Location: Right Groin MASD Category: Stage: Length: Width: Depth: cm Location:Left Groin MASD Category: Stage: Length: Width: Depth: cm
[2025-05-30 15:34] LABS: Magnesium 2.7 mg/dL (1.6-2.6)
[2025-05-30 15:37] LABS: Alanine Aminotransferase 20 U/L (0-31); Albumin Level 3.8 g/dL (3.5-5.0); Alkaline Phosphatase 111 U/L (39-117); Anion Gap 18 (12-20); Aspartate Amino Transferase 39 U/L (5-31); Blood Urea Nitrogen 16 mg/dL (9-16); Calcium 9.0 mg/dL (8.4-10.2); Carbon Dioxide 23 mmol/L (22-29); Chloride 80 mmol/L (96-108); Creatinine Clr Calc Pharmacy 62.1; Estimated Glomerular Filt Rate > 60; Potassium 2.8 mmol/L (3.3-5.1); Sodium 118 mmol/L (135-145); Total Protein 7.2 g/dL (6.5-8.0)
--- NOTE | 2025-05-30 16:13 | MHC.CM.PN ---
IMM 05/30/25, EMR REVIEWED PT ADMITTED TO ICU W/HYPONATREMIA AND NA 111, CM MET WHO PT WAS ABLE TO ANSWER QUESTIONS, PT REPORTS SHE LIVES ALONE IN PROV PLACE INDEP LIVING, PT USES A FWW AT BASELINE AND ALSO HAS GRAB BARS IN BR, PT IS INDEP W/ADLS/SHOWERS AND PAYS FOR MOTHLY CLEANING, PT'S GOAL FOR DC IS HOME HOWEVER MAY AGREE TO STR IF RECOMMENDED. PT VERIFIES PCP ON FILE IS CORRECT, PT EDUCATED ON AND IS AGREEABLE TO COMPLETE A HCP PRIOR TO DC, CM WILL REVISIT.
[2025-05-30] MEDS: KCl 20 mEq in 5 % Dextrose 20 MEQ/1,000 ML IV.SOLN 100 MEQ IVCONT (16:21)
--- NOTE | 2025-05-30 18:34 | PC.NURSE ---
Patients last sodium 118, IV fluids changed to D5W with 20meq KCL currently infusing. Chemistries continue [id number]. Fentanyl given for pain and tolerated well. took patient for CT of head and chest.
[2025-05-30 19:05] LABS: Anion Gap 14 (12-20); Blood Urea Nitrogen 15 mg/dL (9-16); Calcium 9.0 mg/dL (8.4-10.2); Carbon Dioxide 28 mmol/L (22-29); Chloride 80 mmol/L (96-108); Creatinine Clr Calc Pharmacy 64.3; Estimated Glomerular Filt Rate > 60; Magnesium 2.5 mg/dL (1.6-2.6); Potassium 3.1 mmol/L (3.3-5.1); Sodium 119 mmol/L (135-145)
--- NOTE | 2025-05-30 19:09 | PC.NURSE ---
Per PA increase IVF to 150ml/h. increased in MAR
[2025-05-30 20:19] LABS: Alanine Aminotransferase 18 U/L (0-31); Albumin Level 3.9 g/dL (3.5-5.0); Alkaline Phosphatase 105 U/L (39-117); Anion Gap 15 (12-20); Aspartate Amino Transferase 33 U/L (5-31); Blood Urea Nitrogen 14 mg/dL (9-16); Calcium 9.0 mg/dL (8.4-10.2); Carbon Dioxide 29 mmol/L (22-29); Chloride 80 mmol/L (96-108); Creatinine Clr Calc Pharmacy 62.1; Estimated Glomerular Filt Rate > 60; Magnesium 2.4 mg/dL (1.6-2.6); Potassium 2.7 mmol/L (3.3-5.1); Sodium 121 mmol/L (135-145); Total Protein 6.8 g/dL (6.5-8.0)
[2025-05-30] MEDS: Potassium Chloride Packet 20 MEQ PACKET 40 MEQ PO (20:35)
[2025-05-30] MEDS: Lidocaine 4 % Patch ADH..PATCH 1 PATCH TRANSDERMA (20:36)
[2025-05-30] MEDS: Potassium Chloride/H20 10 MEQ/100 ML PIGGYBACK 100 MEQ IV ×4 (20:43→23:56)
[2025-05-31] VITALS (25 sets, daily range): BP systolic 94–146; BP diastolic 52–72; PULSE 52–83; RESP 11–22; TEMP 35.9–37.1; O2SAT 96–100; BMI 38.3
[2025-05-31 00:08] LABS: Alanine Aminotransferase 18 U/L (0-31); Albumin Level 3.5 g/dL (3.5-5.0); Alkaline Phosphatase 97 U/L (39-117); Anion Gap 12 (12-20); Aspartate Amino Transferase 37 U/L (5-31); Blood Urea Nitrogen 13 mg/dL (9-16); Calcium 8.4 mg/dL (8.4-10.2); Carbon Dioxide 26 mmol/L (22-29); Chloride 81 mmol/L (96-108); Creatinine Clr Calc Pharmacy 65.9; Estimated Glomerular Filt Rate > 60; Potassium 4.3 mmol/L (3.3-5.1); Sodium 115 mmol/L (135-145); Total Protein 6.5 g/dL (6.5-8.0)
--- NOTE | 2025-05-31 00:58 | PC.NURSE ---
D5 decreased from 100ml/hr to 75ml/hr per PA. titrated in MAR
--- NOTE | 2025-05-31 00:58 | PC.NURSE ---
Addendum entered by Kaity De La Torre RN 05/31/25 05:36: increase IVF to 100 per PA. titrated in MAR Original Note: decrease IV fluids to 75ml/hr per PA. titrated in MAR
[2025-05-31 05:05] LABS: MANUAL DIFF FLAG NO
[2025-05-31 05:06] LABS: Hematocrit 34.1 % (37.0-47.0); Hemoglobin 11.9 g/dl (12.0-16.0); Imm Gran Abs Auto 0.02 X10*3/uL (0.00-0.03); Imm Gran Pct Auto 0.3 % (0.0-0.4); Lymphocytes Absolute Auto 0.9 X10*3/uL (1.2-4.9); Mean Corpuscular HGB Conc 34.9 g/dl (31.0-35.0); Mean Corpuscular Hemoglobin 28.2 pg (27.0-33.0); Mean Corpuscular Volume 80.8 fL (80.0-98.0); NRBC Abs Auto 0.000 X10*3/uL (0.0-0.012); NRBC Pct Auto 0.0 /100WBC (0.0-0.2); Platelet Count 168 X10*3/uL (160-400); Red Blood Count 4.22 X10*6/uL (4.20-5.50); White Blood Count 6.1 X10*3/uL (4.8-10.8)
[2025-05-31 05:33] LABS: Alanine Aminotransferase 16 U/L (0-31); Albumin Level 3.6 g/dL (3.5-5.0); Alkaline Phosphatase 98 U/L (39-117); Anion Gap 13 (12-20); Aspartate Amino Transferase 28 U/L (5-31); Blood Urea Nitrogen 12 mg/dL (9-16); Calcium 8.6 mg/dL (8.4-10.2); Carbon Dioxide 29 mmol/L (22-29); Chloride 80 mmol/L (96-108); Creatinine Clr Calc Pharmacy 62.9; Estimated Glomerular Filt Rate > 60; Magnesium 2.3 mg/dL (1.6-2.6); Potassium 3.4 mmol/L (3.3-5.1); Sodium 119 mmol/L (135-145); Total Protein 6.3 g/dL (6.5-8.0)
[2025-05-31] MEDS: Potassium Phosphate/NS 15 MMOL/250 ML PLAST..BAG 62.5 MMOL IV (05:53)
[2025-05-31] MEDS: Aspirin Enteric Coated 81 MG TABLET.DR PO (07:35)
[2025-05-31] MEDS: Metoprolol Succinate ER 25 MG TAB.ER.24H PO (07:36)
[2025-05-31] MEDS: Lidocaine 4 % Patch ADH..PATCH 1 PATCH TRANSDERMA (07:36)
[2025-05-31 07:43] LABS: Glucose, Whole Blood 160 mg/dL (60-115)
--- NOTE | 2025-05-31 11:11 | MHC.CM.PN ---
Pt remains in ICU w/hyponatremia: Sodium not corrected: pt will remain for resolution of labs. Pt from [facility]. Will return when medically stable.
[2025-05-31 11:28] LABS: Glucose, Whole Blood 186 mg/dL (60-115)
--- NOTE | 2025-05-31 11:30 | PM.CCPN ---
Subjective Subjective Date of Service: 05/31/25 Interval History: Sodium was correcting a little bit faster last evening so was started on D5 water we will which it stayed below 120. Today it is okay for the sodium to go above 120 as it is over 30 hours since for sodium. Complaints of back pain Critical Care Time (minutes): 35 Physical Exam Vital Signs: Vital Signs: Last Vital Signs Temp 97.5 F 05/31/25 11:00 Pulse 56 05/31/25 11:00 Resp 14 05/31/25 11:00 BP 101/59 L 05/31/25 11:00 Pulse Ox 97 05/31/25 11:00 O2 Del Method Nasal Cannula 05/31/25 11:00 O2 Flow Rate 2 05/31/25 11:00 BMI result Body Mass Index 38.3 General: not in any acute distress, ill appearing Nutritional Appearance: well nourished and overweight Eyes: appearance normal, both eyes and all related structures; Alignment and Position: alignment normal and position normal Neck: No lymphadenopathy, no thyromegaly Resp: bilateral air entry equal, no added sounds present Cardio: Regular rate, regular rhythm; Heart sounds: S1 normal heart sound present and S2 normal heart sound present GI: soft, nontender, no guarding, no hepatosplenomegaly : bladder normal to inspection, bladder normal to palpation, no renal angle tenderness Skin: no rashes or lesions noted and elasticity normal Neuro: alert, oriented x 3, able to move both the lower extremities, sensations normal Objective Data Labs 05/31/25 04:39 05/31/25 04:39 Labs: Laboratory Results - last 24 hr 05/30/25 05/30/25 05/30/25 09:41 14:54 14:54 WBC RBC Hgb Hct MCV MCH MCHC RDW Plt Count MPV Immature Gran % (Auto) Neut % (Auto) Lymph % (Auto) [place] % (Auto) Eos % (Auto) Baso % (Auto) Lymph # (Auto) [place] # (Auto) Eos # (Auto) Baso # (Auto) Abs Immat Gran (auto) Absolute Neuts (auto) Absolute Nucleated RBC Nucleated RBC % (auto) Sodium 118 L* Cancelled Potassium 2.8 L* Chloride Carbon Dioxide Anion Gap BUN Creatinine Estim Creat Clear Calc Estimated GFR POC Glucose Random Glucose Calcium Phosphorus Magnesium Total Bilirubin AST ALT Alkaline Phosphatase Total Protein Albumin Urine Osmolality 283 L Ur Random Sodium 34.0 Ur Random Potassium 18.9 Ur Random Chloride 36.0 05/30/25 05/30/25 05/30/25 14:54 14:54 14:54 WBC RBC Hgb Hct MCV MCH MCHC RDW Plt Count MPV Immature Gran % (Auto) Neut % (Auto) Lymph % (Auto) [place] % (Auto) Eos % (Auto) Baso % (Auto) Lymph # (Auto) [place] # (Auto) Eos # (Auto) Baso # (Auto) Abs Immat Gran (auto) Absolute Neuts (auto) Absolute Nucleated RBC Nucleated RBC % (auto) Sodium Potassium Cancelled Chloride 80 L Cancelled Carbon Dioxide 23 Cancelled Anion Gap 18 BUN Creatinine Estim Creat Clear Calc Estimated GFR POC Glucose Random Glucose Calcium Phosphorus Magnesium Total Bilirubin AST ALT Alkaline Phosphatase Total Protein Albumin Urine Osmolality Ur Random Sodium Ur Random Potassium Ur Random Chloride 05/30/25 05/30/25 05/30/25 14:54 14:54 14:54 WBC RBC Hgb Hct MCV MCH MCHC RDW Plt Count MPV Immature Gran % (Auto) Neut % (Auto) Lymph % (Auto) [place] % (Auto) Eos % (Auto) Baso % (Auto) Lymph # (Auto) [place] # (Auto) Eos # (Auto) Baso # (Auto) Abs Immat Gran (auto) Absolute Neuts (auto) Absolute Nucleated RBC Nucleated RBC % (auto) Sodium Potassium Chloride Carbon Dioxide Anion Gap Cancelled BUN 16 Cancelled Creatinine 0.88 Cancelled Estim Creat Clear Calc 62.1 Estimated GFR POC Glucose Random Glucose Calcium Phosphorus Magnesium Total Bilirubin AST ALT Alkaline Phosphatase Total Protein Albumin Urine Osmolality Ur Random Sodium Ur Random Potassium Ur Random Chloride 05/30/25 05/30/25 05/30/25 14:54 14:54 14:54 WBC RBC Hgb Hct MCV MCH MCHC RDW Plt Count MPV Immature Gran % (Auto) Neut % (Auto) Lymph % (Auto) [place] % (Auto) Eos % (Auto) Baso % (Auto) Lymph # (Auto) [place] # (Auto) Eos # (Auto) Baso # (Auto) Abs Immat Gran (auto) Absolute Neuts (auto) Absolute Nucleated RBC Nucleated RBC % (auto) Sodium Potassium Chloride Carbon Dioxide Anion Gap BUN Creatinine Estim Creat Clear Calc Cancelled Estimated GFR > 60 Cancelled POC Glucose Random Glucose 126 H Cancelled Calcium 9.0 Phosphorus Magnesium Total Bilirubin AST ALT Alkaline Phosphatase Total Protein Albumin Urine Osmolality Ur Random Sodium Ur Random Potassium Ur Random Chloride 05/30/25 05/30/25 05/30/25 14:54 18:44 19:55 WBC RBC Hgb Hct MCV MCH MCHC RDW Plt Count MPV Immature Gran % (Auto) Neut % (Auto) Lymph % (Auto) [place] % (Auto) Eos % (Auto) Baso % (Auto) Lymph # (Auto) [place] # (Auto) Eos # (Auto) Baso # (Auto) Abs Immat Gran (auto) Absolute Neuts (auto) Absolute Nucleated RBC Nucleated RBC % (auto) Sodium 119 L* 121 L Potassium 3.1 L 2.7 L* Chloride 80 L 80 L Carbon Dioxide 28 29 Anion Gap 14 15 BUN 15 14 Creatinine 0.85 0.88 Estim Creat Clear Calc 64.3 62.1 Estimated GFR > 60 > 60 POC Glucose Random Glucose 169 H 176 H Calcium Cancelled 9.0 9.0 Phosphorus 2.4 L Magnesium 2.7 H 2.5 2.4 Total Bilirubin 1.5 H AST 39 H ALT 20 Alkaline Phosphatase 111 Total Protein 7.2 Albumin 3.8 Urine Osmolality Ur Random Sodium Ur Random Potassium Ur Random Chloride 05/30/25 05/30/25 05/31/25 19:55 23:46 04:39 WBC 6.1 RBC 4.22 Hgb 11.9 L Hct 34.1 L MCV 80.8 MCH 28.2 MCHC 34.9 RDW 12.8 Plt Count 168 D MPV 8.9 L Immature Gran % (Auto) 0.3 Neut % (Auto) 67.6 Lymph % (Auto) 14.1 L [place] % (Auto) 16.4 H Eos % (Auto) 1.3 Baso % (Auto) 0.3 Lymph # (Auto) 0.9 L [place] # (Auto) 1.0 Eos # (Auto) 0.1 Baso # (Auto) 0.0 Abs Immat Gran (auto) 0.02 Absolute Neuts (auto) 4.1 Absolute Nucleated RBC 0.000 Nucleated RBC % (auto) 0.0 Sodium 115 L* 119 L* Potassium 4.3 D 3.4 D Chloride 81 L 80 L Carbon Dioxide 26 29 Anion Gap 12 13 BUN 13 12 Creatinine 0.83 0.87 Estim Creat Clear Calc 65.9 62.9 Estimated GFR > 60 > 60 POC Glucose Random Glucose 187 H 148 H Calcium 8.4 D 8.6 Phosphorus 2.4 L Magnesium Cancelled 2.3 Total Bilirubin 1.2 H 1.0 1.0 AST 33 H 37 H 28 ALT 18 18 16 Alkaline Phosphatase 105 97 98 Total Protein 6.8 6.5 6.3 L Albumin 3.9 3.5 3.6 Urine Osmolality Ur Random Sodium Ur Random Potassium Ur Random Chloride 05/31/25 05/31/25 07:37 11:20 WBC RBC Hgb Hct MCV MCH MCHC RDW Plt Count MPV Immature Gran % (Auto) Neut % (Auto) Lymph % (Auto) [place] % (Auto) Eos % (Auto) Baso % (Auto) Lymph # (Auto) [place] # (Auto) Eos # (Auto) Baso # (Auto) Abs Immat Gran (auto) Absolute Neuts (auto) Absolute Nucleated RBC Nucleated RBC % (auto) Sodium Potassium Chloride Carbon Dioxide Anion Gap BUN Creatinine Estim Creat Clear Calc Estimated GFR POC Glucose 160 H 186 H Random Glucose Calcium Phosphorus Magnesium Total Bilirubin AST ALT Alkaline Phosphatase Total Protein Albumin Urine Osmolality Ur Random Sodium Ur Random Potassium Ur Random Chloride Progress Note: A&P Assessment and plan (1) Nausea and vomiting: Status: Acute (2) Acute hyponatremia: Status: Acute (3) L1 vertebral fracture: Status: Acute (4) Diabetes mellitus: Status: Acute Plan Acute hyponatremia: Acute hypokalemia: Presented with a sodium of 111, possibly due to SIADH given her extreme pain and nausea leading to ADH secretion. TSH and cortisol normal, urine sodium close to 40, urine osmoles around 300. Presented with sodium of 111, 119 this morning after 24 hours. We will let the sodium to reach up to 128- 130 until tomorrow morning. We will stop the D5 water. We will withhold hydrochlorothiazide. L1 vertebral compression fracture: Orthopedics and Interventional Radiology consult placed On fentanyl for pain management Coronary artery disease: Continue aspirin, statins, metoprolol Hypertension: Continue metoprolol 25, amlodipine 5 mg We will withhold hydrochlorothiazide given hyponatremia Diabetes mellitus: Continue metformin sliding scale insulin if needed Diabetic diet added Prophylaxis: Lovenox Quality Stroke Does the patient have a stroke diagnosis?: No VTE Prior VTE?: No VTE Risk Level:: Medical - moderate - high VTE Device Contraindication: N/A - Device Ordered VTE Drug Contraindication: N/A - Med Ordered
--- NOTE | 2025-05-31 11:30 | HO.WOUND ---
Wound Consult: Initial 74 yr old female admitted to [facility] on 05/30/25 - See progress notes and H&P for detailed history. Wound consult placed for abdominal folds/groin. Patient agreeable to assessment. Patient reports she uses cream at home when needed to folds. Folds are moist and pink. left abdominal fold with more pink/red. TT to provider for antifungal powder Recommendations: Abdomen/groin folds: gentle routine hygiene and incontinence care with pH balanced cleanser and bath wipes. antifungal medication per provider orders: apply a light dusting to prevent caking. apply triad paste BID and PRN. use disposable pads underneath patient when in chair or bed. use proactive toileting to promote continence. Re-consult wound care Nurse for wound deterioration or wound changes.
[2025-05-31 13:25] LABS: Alanine Aminotransferase 18 U/L (0-31); Albumin Level 3.2 g/dL (3.5-5.0); Alkaline Phosphatase 101 U/L (39-117); Anion Gap 16 (12-20); Aspartate Amino Transferase 40 U/L (5-31); Blood Urea Nitrogen 11 mg/dL (9-16); Calcium 8.7 mg/dL (8.4-10.2); Carbon Dioxide 23 mmol/L (22-29); Chloride 86 mmol/L (96-108); Creatinine Clr Calc Pharmacy 72.8; Estimated Glomerular Filt Rate > 60; Potassium 3.8 mmol/L (3.3-5.1); Sodium 121 mmol/L (135-145); Total Protein 6.6 g/dL (6.5-8.0)
[2025-05-31 16:28] LABS: Glucose, Whole Blood 131 mg/dL (60-115)
[2025-05-31 17:13] LABS: Reflex Lactate? Lactic Acid Added
[2025-05-31 18:08] LABS: ~Lactic Acid-LAB USE ONLY 3.4 mmol/L (0.5-2.0)
--- NOTE | 2025-05-31 18:30 | PC.NURSE ---
Assumed care for pt at 0700. Pt alert and oriented x4. Pt remains on 2 liters via nasal cannula. D5 fluids d/c per MD. Pt reports back pain, improved with repositioning. Narvaez in place, draining with no issues. Safety and fall precautions maintained. Call park within reach.
[2025-05-31 19:30] LABS: Anion Gap 13 (12-20); Blood Urea Nitrogen 11 mg/dL (9-16); Calcium 9.0 mg/dL (8.4-10.2); Carbon Dioxide 31 mmol/L (22-29); Chloride 85 mmol/L (96-108); Creatinine Clr Calc Pharmacy 65.0; Estimated Glomerular Filt Rate > 60; Potassium 3.9 mmol/L (3.3-5.1); Sodium 125 mmol/L (135-145)
[2025-05-31 19:38] LABS: Reflex Lactate? 2 Y
[2025-05-31 20:33] LABS: ~Lactic Acid-LAB USE ONLY 2.5 mmol/L (0.5-2.0)
[2025-05-31 20:54] LABS: Glucose, Whole Blood 140 mg/dL (60-115)
[2025-05-31 22:03] LABS: Anion Gap 15 (12-20); Blood Urea Nitrogen 12 mg/dL (9-16); Calcium 8.8 mg/dL (8.4-10.2); Carbon Dioxide 27 mmol/L (22-29); Chloride 84 mmol/L (96-108); Creatinine Clr Calc Pharmacy 65.8; Estimated Glomerular Filt Rate > 60; Potassium 3.5 mmol/L (3.3-5.1); Sodium 122 mmol/L (135-145)
[2025-05-31 23:33] LABS: Cancel Lactic Acid Canceled
[2025-06-01] VITALS (11 sets, daily range): BP systolic 91–165; BP diastolic 52–81; PULSE 60–77; RESP 13–20; TEMP 36.1–36.9; O2SAT 96–99; BMI 37.5
[2025-06-01 02:32] LABS: Anion Gap 13 (12-20); Blood Urea Nitrogen 12 mg/dL (9-16); Calcium 8.8 mg/dL (8.4-10.2); Carbon Dioxide 28 mmol/L (22-29); Chloride 87 mmol/L (96-108); Creatinine Clr Calc Pharmacy 65.0; Estimated Glomerular Filt Rate > 60; Potassium 3.3 mmol/L (3.3-5.1); Sodium 125 mmol/L (135-145)
[2025-06-01] MEDS: 0.9 % Sodium Chloride Flush 3 ML SYRINGE IVFLUSH ×4 (05:15→20:07)
--- NOTE | 2025-06-01 05:23 | PM.CCN ---
Critical Care Event Note Summary Date of Service: 06/01/25 Code activated: No Narrative: This case had a high probability of a clinically significant, sudden, or life threatening deterioration of this patient's condition which required my full and direct attention, intervention and personal management. Critical Care Time (minutes): 15 Comment: The patient had a 2 day stay in the ICU for sodium correction therapy.? Her initial sodium was 111; initially the patient was placed on hypertonic saline and subsequently switched to D5.? She had large amount of urine output not some point desmopressin was considered but not administered as her urine output did slow down in her sodium levels stabilized and subsequently corrected.? The patient has back pain with a known L1 compression fracture.? IR consulted. She recently had a mechanical fall sustaining injuries to the right shoulder, right face but with negative CT of the head.? The patient has remained hemodynamically stable and without any further issues. The patient had 1 episode of hypotension overnight while in deep sleep but subsequent blood pressures were normal. Last sodium level this morning is?126; potassium replaced.?Phos 2.5 Neutraphos x 1 ordered. The patient does not need any further ICU level of care. She will be transferred to telemetry. ?Case discussed with Dr. Hopkins internal medicine physician. Critical care time used for critical evaluation of this patient, diagnosis, treatment and coordination of care, review her records and documentation TOTAL CRITICAL CARE TIME 15? MIN . discussion and coordination with consultants, completely separate from any procedures performed. Patient's care was discussed in detail with Dr. Isabel.? He is aware of all the above as well as the plan of care for this patient.
[2025-06-01 05:45] LABS: Hematocrit 34.8 % (37.0-47.0); Hemoglobin 11.9 g/dl (12.0-16.0); Imm Gran Abs Auto 0.02 X10*3/uL (0.00-0.03); Imm Gran Pct Auto 0.3 % (0.0-0.4); Lymphocytes Absolute Auto 1.5 X10*3/uL (1.2-4.9); MANUAL DIFF FLAG NO; Mean Corpuscular HGB Conc 34.2 g/dl (31.0-35.0); Mean Corpuscular Hemoglobin 28.0 pg (27.0-33.0); Mean Corpuscular Volume 81.9 fL (80.0-98.0); NRBC Abs Auto 0.000 X10*3/uL (0.0-0.012); NRBC Pct Auto 0.0 /100WBC (0.0-0.2); Platelet Count 189 X10*3/uL (160-400); Red Blood Count 4.25 X10*6/uL (4.20-5.50); White Blood Count 6.6 X10*3/uL (4.8-10.8)
[2025-06-01 06:01] LABS: Anion Gap 14 (12-20); Blood Urea Nitrogen 11 mg/dL (9-16); Calcium 8.8 mg/dL (8.4-10.2); Carbon Dioxide 29 mmol/L (22-29); Chloride 87 mmol/L (96-108); Creatinine Clr Calc Pharmacy 65.0; Estimated Glomerular Filt Rate > 60; Potassium 3.7 mmol/L (3.3-5.1); Sodium 126 mmol/L (135-145)
[2025-06-01 06:03] LABS: Alanine Aminotransferase 14 U/L (0-31); Albumin Level 3.6 g/dL (3.5-5.0); Alkaline Phosphatase 110 U/L (39-117); Anion Gap 14 (12-20); Aspartate Amino Transferase 23 U/L (5-31); Blood Urea Nitrogen 11 mg/dL (9-16); Calcium 8.9 mg/dL (8.4-10.2); Carbon Dioxide 28 mmol/L (22-29); Chloride 87 mmol/L (96-108); Creatinine Clr Calc Pharmacy 66.6; Estimated Glomerular Filt Rate > 60; Magnesium 2.1 mg/dL (1.6-2.6); Potassium 3.7 mmol/L (3.3-5.1); Sodium 125 mmol/L (135-145); Total Protein 6.3 g/dL (6.5-8.0)
--- NOTE | 2025-06-01 07:05 | PC.NURSE ---
Upon initial assessment at approximately 1900- Pt A+Ox4, able to follow commands, GACRIA weakly. Complaining of back pain, scheduled Tylenol administered with good effect. NSR on tele, MAP >65. +1 edema to BL feet, nonpitting to BLE. 2L NC, SpO2 >90%, expiratory rhonchi throughout. Pt denies any SOB. Abd large, soft, positive bowel sounds. No BM this shift. Passing flatus. Still catheter in place, draining pale yellow urine. Multiple skin integrity impairments, see skin assessment. At approx 0700 still catheter removed, purewick in place, due to void by 1300. Transfer orders in place. Report given to REGIS Head. Patient transferred to [facility] at 0700 with all belongings, including glasses and cellphone. See EMR/ flowsheet for further details.
[2025-06-01 07:44] LABS: Glucose, Whole Blood 134 mg/dL (60-115)
[2025-06-01] MEDS: Sodium,Potassium Phosphates POWD.PACK 2 PACKET PO (08:51)
[2025-06-01] MEDS: Metoprolol Succinate ER 25 MG TAB.ER.24H PO (08:51)
[2025-06-01] MEDS: Aspirin Enteric Coated 81 MG TABLET.DR PO (08:52)
[2025-06-01] MEDS: Lidocaine 4 % Patch ADH..PATCH 1 PATCH TRANSDERMA (09:03)
[2025-06-01 11:17] LABS: Anion Gap 15 (12-20); Blood Urea Nitrogen 12 mg/dL (9-16); Calcium 8.7 mg/dL (8.4-10.2); Carbon Dioxide 26 mmol/L (22-29); Chloride 88 mmol/L (96-108); Creatinine Clr Calc Pharmacy 68.3; Estimated Glomerular Filt Rate > 60; Potassium 4.0 mmol/L (3.3-5.1); Sodium 125 mmol/L (135-145)
[2025-06-01 11:57] LABS: Glucose, Whole Blood 187 mg/dL (60-115)
[2025-06-01 14:00] LABS: Anion Gap 13 (12-20); Blood Urea Nitrogen 11 mg/dL (9-16); Calcium 8.9 mg/dL (8.4-10.2); Carbon Dioxide 30 mmol/L (22-29); Chloride 87 mmol/L (96-108); Creatinine Clr Calc Pharmacy 68.3; Estimated Glomerular Filt Rate > 60; Potassium 3.6 mmol/L (3.3-5.1); Sodium 126 mmol/L (135-145)
[2025-06-01] MEDS: Sodium Chloride Tab 1 GM TABLET PO ×2 (15:06→20:06)
--- NOTE | 2025-06-01 15:53 | P.PNIM_ITS ---
Subjective Subjective Date of Service: 06/01/25 Interval History: ICU notes reviewed. No acute issues overnight. Sodium acceptable this a.m. Review of Systems Denies chest pain Denies shortness of breath Denies nausea vomiting diarrhea Denies fever chills Physical Exam 2 Vital Signs: Vital Signs: Last Vital Signs Temp 97.5 F 06/01/25 15:08 Pulse 71 06/01/25 15:08 Resp 18 06/01/25 15:08 BP 124/81 06/01/25 15:08 Pulse Ox 98 06/01/25 15:08 O2 Del Method Nasal Cannula 06/01/25 15:08 O2 Flow Rate 2 06/01/25 15:08 FiO2 98 05/31/25 23:00 BMI result Body Mass Index 37.5 Const: Other: Awake alert no acute distress Resp: Other: Clear to auscultation bilaterally no rales rhonchi or wheezes Cardio: Other: No S4; positive S1-S2; no S3 murmurs rubs or gallops GI: Other: Soft nontender nondistended normoactive bowel sounds Extrem: Other: No edema bilaterally Objective Data Active Medications Acetaminophen (Acetaminophen 325 Mg Tablet) 975 mg PO Q8H [facility] Last Admin: 06/01/25 12:47 Dose: 975 mg Documented By: CARL Amlodipine Besylate (Amlodipine Besylate 5 Mg Tablet) 5 mg PO DAILY [facility]; Protocol Last Admin: 06/01/25 08:52 Dose: 5 mg Documented By: CARL Aspirin (Aspirin Enteric Coated 81 Mg Tablet.) 81 mg PO DAILY [facility] Last Admin: 06/01/25 08:52 Dose: 81 mg Documented By: CARL Atorvastatin Calcium (Atorvastatin Calcium 40 Mg Tablet) 40 mg PO BEDTIME [facility] Last Admin: 05/31/25 21:08 Dose: 40 mg Documented By: LUCI Dextrose (Dextrose 50 % 25 Gm/50 Ml Syringe) 25 gm IVPUSH Q15M PRN; Protocol PRN Reason: per Hypoglycemia Standing Ord. Enoxaparin Sodium (Enoxaparin Sodium 40 Mg/0.4 Ml Syringe) 40 mg SUBCUT Q24H [facility] Last Admin: 06/01/25 12:47 Dose: 40 mg Documented By: CARL Fentanyl (Fentanyl Citrate/Pf 100 Mcg/2 Ml Vial) 50 mcg IVPUSH Q2H PRN; Protocol PRN Reason: Pain, Moderate(Pain Scale 4-6) Last Admin: 05/30/25 20:56 Dose: 50 mcg Documented By: ALEX Glucose (Glucose Gel 15 Gm Gel..Gram.) 15 gm PO Q15M PRN; Protocol PRN Reason: per Hypoglycemia Standing Ord. Lidocaine (Lidocaine 4 % Patch Adh..Patch) 1 patch TRANSDERMA DAILY [facility]; Protocol Last Admin: 06/01/25 09:03 Dose: 1 patch Documented By: CARL Metformin HCl (Metformin Hcl Er 500 Mg Tab.Er.24h) 1,000 mg PO BID [facility] Last Admin: 06/01/25 08:53 Dose: 1,000 mg Documented By: CARL Metoprolol Succinate (Metoprolol Succinate Er 25 Mg Tab.Er.24h) 25 mg PO DAILY [facility]; Protocol Last Admin: 06/01/25 08:51 Dose: 25 mg Documented By: CARL Sodium Chloride (0.9 % Sodium Chloride Flush 3 Ml Syringe) 3 ml IVFLUSH QSHIFT [facility] Last Admin: 06/01/25 15:06 Dose: 3 ml Documented By: CARL Sodium Chloride (Sodium Chloride Tab 1 Gm Tablet) 1 gm PO TID [facility] Last Admin: 06/01/25 15:06 Dose: 1 gm Documented By: CARL Labs 06/01/25 05:36 06/01/25 13:41 Labs: Laboratory Results - last 24 hr 05/31/25 05/31/25 05/31/25 15:08 16:25 17:30 MCV MCH MCHC RDW Plt Count MPV Immature Gran % (Auto) Neut % (Auto) Lymph % (Auto) [place] % (Auto) Eos % (Auto) Baso % (Auto) Lymph # (Auto) [place] # (Auto) Eos # (Auto) Baso # (Auto) Abs Immat Gran (auto) Absolute Neuts (auto) Absolute Nucleated RBC Nucleated RBC % (auto) Anion Gap Estim Creat Clear Calc Estimated GFR POC Glucose 131 H Random Glucose Lactic Acid 3.4 H* Lactic Acid F/U @ 2Hr 3.4 H* Lactic Acid F/U @ 4Hr Calcium Phosphorus Magnesium Total Bilirubin AST ALT Alkaline Phosphatase Total Protein Albumin 05/31/25 05/31/25 05/31/25 18:05 19:56 20:47 MCV MCH MCHC RDW Plt Count MPV Immature Gran % (Auto) Neut % (Auto) Lymph % (Auto) [place] % (Auto) Eos % (Auto) Baso % (Auto) Lymph # (Auto) [place] # (Auto) Eos # (Auto) Baso # (Auto) Abs Immat Gran (auto) Absolute Neuts (auto) Absolute Nucleated RBC Nucleated RBC % (auto) Anion Gap 13 Estim Creat Clear Calc 65.0 Estimated GFR > 60 POC Glucose 140 H Random Glucose 117 H Lactic Acid Lactic Acid F/U @ 2Hr Lactic Acid F/U @ 4Hr 2.5 H* Calcium 9.0 Phosphorus Magnesium Total Bilirubin AST ALT Alkaline Phosphatase Total Protein Albumin 05/31/25 06/01/25 06/01/25 21:45 01:56 05:36 MCV 81.9 MCH 28.0 MCHC 34.2 RDW 13.0 Plt Count 189 MPV 8.7 L Immature Gran % (Auto) 0.3 Neut % (Auto) 60.5 Lymph % (Auto) 21.8 [place] % (Auto) 14.9 H Eos % (Auto) 2.0 Baso % (Auto) 0.5 Lymph # (Auto) 1.5 [place] # (Auto) 1.0 Eos # (Auto) 0.1 Baso # (Auto) 0.0 Abs Immat Gran (auto) 0.02 Absolute Neuts (auto) 4.0 Absolute Nucleated RBC 0.000 Nucleated RBC % (auto) 0.0 Anion Gap 15 13 14 Estim Creat Clear Calc 65.8 65.0 Estimated GFR > 60 > 60 POC Glucose Random Glucose 146 H 108 Lactic Acid Lactic Acid F/U @ 2Hr Lactic Acid F/U @ 4Hr Calcium 8.8 8.8 Phosphorus Magnesium Total Bilirubin AST ALT Alkaline Phosphatase Total Protein Albumin 06/01/25 06/01/25 06/01/25 05:36 05:36 05:36 MCV MCH MCHC RDW Plt Count MPV Immature Gran % (Auto) Neut % (Auto) Lymph % (Auto) [place] % (Auto) Eos % (Auto) Baso % (Auto) Lymph # (Auto) [place] # (Auto) Eos # (Auto) Baso # (Auto) Abs Immat Gran (auto) Absolute Neuts (auto) Absolute Nucleated RBC Nucleated RBC % (auto) Anion Gap 14 Estim Creat Clear Calc 66.6 65.0 Estimated GFR > 60 > 60 POC Glucose Random Glucose 116 H Lactic Acid Lactic Acid F/U @ 2Hr Lactic Acid F/U @ 4Hr Calcium Phosphorus Magnesium Total Bilirubin AST ALT Alkaline Phosphatase Total Protein Albumin 06/01/25 06/01/25 06/01/25 05:36 05:36 07:39 MCV MCH MCHC RDW Plt Count MPV Immature Gran % (Auto) Neut % (Auto) Lymph % (Auto) [place] % (Auto) Eos % (Auto) Baso % (Auto) Lymph # (Auto) [place] # (Auto) Eos # (Auto) Baso # (Auto) Abs Immat Gran (auto) Absolute Neuts (auto) Absolute Nucleated RBC Nucleated RBC % (auto) Anion Gap Estim Creat Clear Calc Estimated GFR POC Glucose 134 H Random Glucose 115 Lactic Acid Lactic Acid F/U @ 2Hr Lactic Acid F/U @ 4Hr Calcium 8.9 8.8 Phosphorus 2.5 L Magnesium 2.1 Total Bilirubin 0.7 AST 23 ALT 14 Alkaline Phosphatase 110 Total Protein 6.3 L Albumin 3.6 06/01/25 06/01/25 06/01/25 10:08 11:53 13:41 MCV MCH MCHC RDW Plt Count MPV Immature Gran % (Auto) Neut % (Auto) Lymph % (Auto) [place] % (Auto) Eos % (Auto) Baso % (Auto) Lymph # (Auto) [place] # (Auto) Eos # (Auto) Baso # (Auto) Abs Immat Gran (auto) Absolute Neuts (auto) Absolute Nucleated RBC Nucleated RBC % (auto) Anion Gap 15 13 Estim Creat Clear Calc 68.3 68.3 Estimated GFR > 60 > 60 POC Glucose 187 H Random Glucose 176 H 124 H Lactic Acid Lactic Acid F/U @ 2Hr Lactic Acid F/U @ 4Hr Calcium 8.7 8.9 Phosphorus Magnesium Total Bilirubin AST ALT Alkaline Phosphatase Total Protein Albumin Assessment and Plan (1) Acute hyponatremia: Status: Acute (2) L1 vertebral fracture: Status: Acute (3) Diabetes mellitus: Status: Acute Plan 74-year-old lady with past medical history of hypertension, diabetes mellitus, coronary artery disease was seen in the ED 2 days ago following a fall leading to L1 vertebra 1 compressive fracture, which was thought to be the non operable by the ER physician and was sent home on oxycodone and pain medications. Patient had multiple episodes of vomiting since he started taking oxycodone 2 days ago, initially the vomitus was brown, last night turned to be red in color, no relieving factors, associated with poor oral intake and extreme weakness so presented to the ED. In the ED her sodium was noted to be 111 so ICU was consulted for admission. Admitted to ICU and was successfully treated with 3% saline and then slow repletion. Transferred to floor in stable condition 1.Acute hyponatremia/hypokalemia: -responded to therapies. Renal input appreciated -continue sodium tabs 1 g t.i.d. -follow renals/divalens 2.Coronary artery disease -stable and well compensated -continue current therapies 3.Hypertension: -acceptable control off thiazide -continue all other therapies -adjust as clinically indicated 4. Diabetes type 2 -acceptable control on current therapies -lispro correctional scale -continue outpatient therapies -adjust as indicated 5. L1 vertebral fracture -pain management as ordered -IR consult when appropriate Prophylaxis: Lovenox Quality Stroke Does the patient have a stroke diagnosis?: No VTE Prior VTE?: No VTE Risk Level:: Medical - moderate - high VTE Device Contraindication: N/A - Device Ordered VTE Drug Contraindication: N/A - Med Ordered
[2025-06-01 16:12] LABS: Glucose, Whole Blood 95 mg/dL (60-115)
[2025-06-01 18:10] LABS: Anion Gap 14 (12-20); Blood Urea Nitrogen 12 mg/dL (9-16); Calcium 8.7 mg/dL (8.4-10.2); Carbon Dioxide 30 mmol/L (22-29); Chloride 86 mmol/L (96-108); Creatinine Clr Calc Pharmacy 66.6; Estimated Glomerular Filt Rate > 60; Potassium 3.6 mmol/L (3.3-5.1); Sodium 126 mmol/L (135-145)
[2025-06-01 19:39] LABS: Glucose, Whole Blood 153 mg/dL (60-115)
[2025-06-01 22:00] LABS: Anion Gap 13 (12-20); Blood Urea Nitrogen 12 mg/dL (9-16); Calcium 8.7 mg/dL (8.4-10.2); Carbon Dioxide 28 mmol/L (22-29); Chloride 89 mmol/L (96-108); Creatinine Clr Calc Pharmacy 65.8; Estimated Glomerular Filt Rate > 60; Potassium 3.5 mmol/L (3.3-5.1); Sodium 126 mmol/L (135-145)
[2025-06-02 02:27] VITALS: BP 118/56; PULSE 65; RESP 20; TEMP 36.3; O2SAT 98
[2025-06-02 06:00] VITALS: BMI 36.9
--- NOTE | 2025-06-02 06:35 | PC.NURSE ---
Pt seen on bed alert and oriented, forgetfull, still with low back pain, scheduled Tylenol po given, endorsed not having a BM since the , abd SNT + hypoactive BS, meds tolerated.
[2025-06-02 07:40] LABS: Glucose, Whole Blood 135 mg/dL (60-115)
[2025-06-02 08:00] VITALS: BP 147/68; PULSE 82; RESP 18; TEMP 36.2; O2SAT 98
[2025-06-02 08:09] LABS: MANUAL DIFF FLAG NO
[2025-06-02 08:10] LABS: Hematocrit 38.4 % (37.0-47.0); Hemoglobin 13.0 g/dl (12.0-16.0); Imm Gran Abs Auto 0.02 X10*3/uL (0.00-0.03); Imm Gran Pct Auto 0.3 % (0.0-0.4); Lymphocytes Absolute Auto 1.1 X10*3/uL (1.2-4.9); Mean Corpuscular HGB Conc 33.9 g/dl (31.0-35.0); Mean Corpuscular Hemoglobin 28.1 pg (27.0-33.0); Mean Corpuscular Volume 83.1 fL (80.0-98.0); NRBC Abs Auto 0.000 X10*3/uL (0.0-0.012); NRBC Pct Auto 0.0 /100WBC (0.0-0.2); Platelet Count 219 X10*3/uL (160-400); Red Blood Count 4.62 X10*6/uL (4.20-5.50); White Blood Count 7.4 X10*3/uL (4.8-10.8)
[2025-06-02 08:47] LABS: Alanine Aminotransferase 22 U/L (0-31); Albumin Level 4.0 g/dL (3.5-5.0); Alkaline Phosphatase 119 U/L (39-117); Anion Gap 14 (12-20); Aspartate Amino Transferase 29 U/L (5-31); Blood Urea Nitrogen 9 mg/dL (9-16); Calcium 9.3 mg/dL (8.4-10.2); Carbon Dioxide 30 mmol/L (22-29); Chloride 90 mmol/L (96-108); Creatinine Clr Calc Pharmacy 66.8; Estimated Glomerular Filt Rate > 60; Potassium 3.7 mmol/L (3.3-5.1); Sodium 130 mmol/L (135-145); Total Protein 7.2 g/dL (6.5-8.0)
[2025-06-02] MEDS: Aspirin Enteric Coated 81 MG TABLET.DR PO (09:15)
[2025-06-02] MEDS: Sodium Chloride Tab 1 GM TABLET PO ×3 (09:15→22:00)
[2025-06-02] MEDS: Metoprolol Succinate ER 25 MG TAB.ER.24H PO (09:15)
[2025-06-02] MEDS: 0.9 % Sodium Chloride Flush 3 ML SYRINGE IVFLUSH ×3 (09:16→22:01)
[2025-06-02] MEDS: Lidocaine 4 % Patch ADH..PATCH 1 PATCH TRANSDERMA (09:16)
[2025-06-02 11:31] VITALS: BP 130/67; PULSE 75; RESP 18; TEMP 36.6; O2SAT 98
[2025-06-02 11:44] LABS: Glucose, Whole Blood 139 mg/dL (60-115)
--- NOTE | 2025-06-02 15:00 | P.PNIM_ITS ---
Subjective Subjective Date of Service: 06/02/25 Interval History: No acute issues overnight. Tolerating salt tabs Review of Systems Denies chest pain Denies shortness of breath Denies nausea vomiting diarrhea Denies fever chills Physical Exam 2 Vital Signs: Vital Signs: Last Vital Signs Temp 97.9 F 06/02/25 11:31 Pulse 75 06/02/25 11:31 Resp 18 06/02/25 11:31 BP 130/67 06/02/25 11:31 Pulse Ox 98 06/02/25 11:31 O2 Del Method Nasal Cannula 06/02/25 11:31 O2 Flow Rate 2 06/02/25 11:31 FiO2 98 05/31/25 23:00 BMI result Body Mass Index 36.9 Const: Other: Awake alert no acute distress Resp: Other: Clear to auscultation bilaterally no rales rhonchi or wheezes Cardio: Other: No S4; positive S1-S2; no S3 murmurs rubs or gallops GI: Other: Soft nontender nondistended normoactive bowel sounds Extrem: Other: No edema bilaterally Objective Data Active Medications Acetaminophen (Acetaminophen 325 Mg Tablet) 975 mg PO Q8H [facility] Last Admin: 06/02/25 11:50 Dose: 975 mg Documented By: CARL Amlodipine Besylate (Amlodipine Besylate 5 Mg Tablet) 5 mg PO DAILY [facility]; Protocol Last Admin: 06/02/25 09:16 Dose: 5 mg Documented By: CARL Aspirin (Aspirin Enteric Coated 81 Mg Tablet.) 81 mg PO DAILY [facility] Last Admin: 06/02/25 09:15 Dose: 81 mg Documented By: CARL Atorvastatin Calcium (Atorvastatin Calcium 40 Mg Tablet) 40 mg PO BEDTIME [facility] Last Admin: 06/01/25 20:06 Dose: 40 mg Documented By: CASTILShannon Dextrose (Dextrose 50 % 25 Gm/50 Ml Syringe) 25 gm IVPUSH Q15M PRN; Protocol PRN Reason: per Hypoglycemia Standing Ord. Enoxaparin Sodium (Enoxaparin Sodium 40 Mg/0.4 Ml Syringe) 40 mg SUBCUT Q24H [facility] Last Admin: 06/02/25 11:51 Dose: 40 mg Documented By: CARL Fentanyl (Fentanyl Citrate/Pf 100 Mcg/2 Ml Vial) 50 mcg IVPUSH Q2H PRN; Protocol PRN Reason: Pain, Moderate(Pain Scale 4-6) Last Admin: 05/30/25 20:56 Dose: 50 mcg Documented By: ALEX Glucose (Glucose Gel 15 Gm Gel..Gram.) 15 gm PO Q15M PRN; Protocol PRN Reason: per Hypoglycemia Standing Ord. Lidocaine (Lidocaine 4 % Patch Adh..Patch) 1 patch TRANSDERMA DAILY [facility]; Protocol Last Admin: 06/02/25 09:16 Dose: 1 patch Documented By: CARL Metformin HCl (Metformin Hcl Er 500 Mg Tab.Er.24h) 1,000 mg PO BID [facility] Last Admin: 06/02/25 09:16 Dose: 1,000 mg Documented By: CARL Metoprolol Succinate (Metoprolol Succinate Er 25 Mg Tab.Er.24h) 25 mg PO DAILY [facility]; Protocol Last Admin: 06/02/25 09:15 Dose: 25 mg Documented By: CARL Sodium Chloride (0.9 % Sodium Chloride Flush 3 Ml Syringe) 3 ml IVFLUSH QSHIFT [facility] Last Admin: 06/02/25 09:16 Dose: 3 ml Documented By: CARL Sodium Chloride (Sodium Chloride Tab 1 Gm Tablet) 1 gm PO TID [facility] Last Admin: 06/02/25 09:15 Dose: 1 gm Documented By: CARL Labs 06/02/25 08:03 06/02/25 08:03 Labs: Laboratory Results - last 24 hr 06/01/25 06/01/25 06/01/25 15:59 17:36 19:30 MCV MCH MCHC RDW Plt Count MPV Immature Gran % (Auto) Neut % (Auto) Lymph % (Auto) [place] % (Auto) Eos % (Auto) Baso % (Auto) Lymph # (Auto) [place] # (Auto) Eos # (Auto) Baso # (Auto) Abs Immat Gran (auto) Absolute Neuts (auto) Absolute Nucleated RBC Nucleated RBC % (auto) Anion Gap 14 Estim Creat Clear Calc 66.6 Estimated GFR > 60 POC Glucose 95 153 H Random Glucose 138 H Fasting Glucose Calcium 8.7 Total Bilirubin AST ALT Alkaline Phosphatase Total Protein Albumin 06/01/25 06/02/25 06/02/25 21:43 07:11 08:03 MCV 83.1 MCH 28.1 MCHC 33.9 RDW 13.2 Plt Count 219 MPV 8.6 L Immature Gran % (Auto) 0.3 Neut % (Auto) 71.7 Lymph % (Auto) 14.9 L [place] % (Auto) 10.9 Eos % (Auto) 1.9 Baso % (Auto) 0.3 Lymph # (Auto) 1.1 L [place] # (Auto) 0.8 Eos # (Auto) 0.1 Baso # (Auto) 0.0 Abs Immat Gran (auto) 0.02 Absolute Neuts (auto) 5.3 Absolute Nucleated RBC 0.000 Nucleated RBC % (auto) 0.0 Anion Gap 13 14 Estim Creat Clear Calc 65.8 66.8 Estimated GFR > 60 > 60 POC Glucose 135 H Random Glucose 134 H Fasting Glucose 140 H Calcium 8.7 9.3 D Total Bilirubin 0.7 AST 29 ALT 22 Alkaline Phosphatase 119 H Total Protein 7.2 Albumin 4.0 06/02/25 11:29 MCV MCH MCHC RDW Plt Count MPV Immature Gran % (Auto) Neut % (Auto) Lymph % (Auto) [place] % (Auto) Eos % (Auto) Baso % (Auto) Lymph # (Auto) [place] # (Auto) Eos # (Auto) Baso # (Auto) Abs Immat Gran (auto) Absolute Neuts (auto) Absolute Nucleated RBC Nucleated RBC % (auto) Anion Gap Estim Creat Clear Calc Estimated GFR POC Glucose 139 H Random Glucose Fasting Glucose Calcium Total Bilirubin AST ALT Alkaline Phosphatase Total Protein Albumin Microbiology Microbiology Results: Microbiology 05/31/25 15:08 Blood Culture - Preliminary Blood - Venous No growth after 24 hours. 05/31/25 15:08 Blood Culture - Preliminary Blood - Venous No growth after 24 hours. Assessment and Plan (1) Acute hyponatremia: Status: Acute (2) Diabetes mellitus: Status: Acute Plan 74-year-old lady with past medical history of hypertension, diabetes mellitus, coronary artery disease was seen in the ED 2 days ago following a fall leading to L1 vertebra 1 compressive fracture, which was thought to be the non operable by the ER physician and was sent home on oxycodone and pain medications. Patient had multiple episodes of vomiting since he started taking oxycodone 2 days ago, initially the vomitus was brown, last night turned to be red in color, no relieving factors, associated with poor oral intake and extreme weakness so presented to the ED. In the ED her sodium was noted to be 111 so ICU was consulted for admission. Admitted to ICU and was successfully treated with 3% saline and then slow repletion. Transferred to floor in stable condition 1.Acute hyponatremia/hypokalemia: -responded to therapies. -continue sodium tabs 1 g t.i.d. (tolerating well by patient) -follow renals/divalens 2.Coronary artery disease -stable and well compensated -continue current therapies 3.Hypertension: -acceptable control off thiazide -continue all other therapies -adjust as clinically indicated 4. Diabetes type 2 -acceptable control on current therapies -lispro correctional scale -continue outpatient therapies -adjust as indicated 5. L1 vertebral fracture -pain management as ordered -IR consult when appropriate Prophylaxis: Lovenox Quality Stroke Does the patient have a stroke diagnosis?: No VTE Prior VTE?: No VTE Risk Level:: Medical - moderate - high VTE Device Contraindication: N/A - Device Ordered VTE Drug Contraindication: N/A - Med Ordered
[2025-06-02 15:47] VITALS: BP 128/59; PULSE 77; RESP 18; TEMP 36.1; O2SAT 98
[2025-06-02 16:08] LABS: Glucose, Whole Blood 155 mg/dL (60-115)
[2025-06-02 20:00] VITALS: BP 134/62; PULSE 76; RESP 14; TEMP 36.6; O2SAT 98
[2025-06-02 21:02] LABS: Glucose, Whole Blood 110 mg/dL (60-115)
[2025-06-02 23:42] VITALS: BP 134/63; PULSE 72; RESP 16; TEMP 36.2; O2SAT 99
[2025-06-03 03:15] VITALS: BP 116/71; PULSE 74; RESP 16; TEMP 36.2; O2SAT 98
[2025-06-03 06:00] VITALS: BMI 36.9
[2025-06-03 07:58] LABS: Alanine Aminotransferase 32 U/L (0-31); Albumin Level 3.7 g/dL (3.5-5.0); Alkaline Phosphatase 115 U/L (39-117); Anion Gap 14 (12-20); Aspartate Amino Transferase 34 U/L (5-31); Blood Urea Nitrogen 7 mg/dL (9-16); Calcium 9.1 mg/dL (8.4-10.2); Carbon Dioxide 27 mmol/L (22-29); Chloride 96 mmol/L (96-108); Creatinine Clr Calc Pharmacy 76.4; Estimated Glomerular Filt Rate > 60; Potassium 3.7 mmol/L (3.3-5.1); Sodium 133 mmol/L (135-145); Total Protein 6.7 g/dL (6.5-8.0)
[2025-06-03 08:00] VITALS: BP 133/60; PULSE 72; RESP 20; TEMP 36.4; O2SAT 100
[2025-06-03 08:17] LABS: Glucose, Whole Blood 122 mg/dL (60-115)
--- NOTE | 2025-06-03 08:29 | P.CDIM_ITS ---
PROVIDER RESPONSE TEXT: To clarify, the appropriate diagnosis supported by the clinical indicators: Obesity: class 2 QUERY TEXT: PHYSICIAN'S DOCUMENTATION REQUEST Date of Query: 06/03/2025 07:44 AM EST Patient Name: Fatoumata Hewitt Admit Date: 05/30/2025 Dear Valeriano Park DO, A review of the medical record indicates additional documentation may be needed. Please review below and update the documentation accordingly. Clinical Indicators: Height: 5ft 2in Weight: 91.6kg BMI: 36.9 Other Clinical Notes Supporting Significance of the BMI: Nursing notes Height and Weight: Class II Obesity with BMI 36.9 If possible, please provide an associated diagnosis related to the abnormal BMI, such as: Obesity Class I, II, III Obesity Due to other cause Specify the other cause Other (explain) Clinically unable to determine (explain) Thank you, Marlen Bess, CCS, CDIS Use of terms such as suspected, likely, concern for, or probable (associated with a specific diagnosis that is being evaluated, monitored, or treated as if it exists) are acceptable and can be coded in the inpatient setting, when documented at the time of discharge. Please use your independent medical judgment in providing your response. THIS QUERY IS PART OF THE PERMANENT MEDICAL RECORD
[2025-06-03] MEDS: Lidocaine 4 % Patch ADH..PATCH 1 PATCH TRANSDERMA (09:19)
[2025-06-03] MEDS: 0.9 % Sodium Chloride Flush 3 ML SYRINGE IVFLUSH ×2 (09:20→16:43)
[2025-06-03] MEDS: Aspirin Enteric Coated 81 MG TABLET.DR PO (09:21)
[2025-06-03] MEDS: Metoprolol Succinate ER 25 MG TAB.ER.24H PO (09:21)
[2025-06-03] MEDS: Sodium Chloride Tab 1 GM TABLET PO ×3 (09:21→20:18)
[2025-06-03 11:25] VITALS: BP 143/65; PULSE 72; RESP 20; TEMP 36.4; O2SAT 98
[2025-06-03 11:34] LABS: Glucose, Whole Blood 133 mg/dL (60-115)
--- NOTE | 2025-06-03 13:13 | P.PNNP_ITS ---
Subjective Subjective Date of Service: 06/03/25 Interval history: No acute issues overnight. Tolerating salt tabs well, sodium improved to 133 Physical Exam 2 Vital Signs: Vital Signs: Last Vital Signs Temp 97.5 F 06/03/25 11:25 Pulse 72 06/03/25 11:25 Resp 20 06/03/25 11:25 BP 143/65 H 06/03/25 11:25 Pulse Ox 98 06/03/25 11:25 O2 Del Method Nasal Cannula 06/03/25 11:25 O2 Flow Rate 2 06/03/25 11:25 FiO2 98 05/31/25 23:00 BMI result Body Mass Index 36.9 General: not in any acute distress, ill appearing Nutritional Appearance: well nourished and overweight Eyes: appearance normal, both eyes and all related structures; Alignment and Position: alignment normal and position normal Neck: No lymphadenopathy, no thyromegaly Resp: bilateral air entry equal, no added sounds present Cardio: Regular rate, regular rhythm; Heart sounds: S1 normal heart sound present and S2 normal heart sound present GI: soft, nontender, no guarding, no hepatosplenomegaly : bladder normal to inspection, bladder normal to palpation, no renal angle tenderness Skin: no rashes or lesions noted and elasticity normal Neuro: alert, oriented x 3, moves all extremities Objective Data Labs 06/02/25 08:03 06/03/25 07:18 Labs: Laboratory Results - last 24 hr 06/02/25 06/02/25 06/03/25 15:54 20:54 07:18 Sodium 133 L Potassium 3.7 Chloride 96 Carbon Dioxide 27 Anion Gap 14 BUN 7 L Creatinine 0.70 Estim Creat Clear Calc 76.4 Estimated GFR > 60 POC Glucose 155 H 110 Fasting Glucose 121 H Calcium 9.1 Total Bilirubin 0.5 AST 34 H ALT 32 H Alkaline Phosphatase 115 Total Protein 6.7 Albumin 3.7 06/03/25 06/03/25 08:08 11:24 Sodium Potassium Chloride Carbon Dioxide Anion Gap BUN Creatinine Estim Creat Clear Calc Estimated GFR POC Glucose 122 H 133 H Fasting Glucose Calcium Total Bilirubin AST ALT Alkaline Phosphatase Total Protein Albumin Microbiology Microbiology Results: Microbiology 05/31/25 15:08 Blood - Venous Blood Culture - Preliminary No growth after 48 hours. 05/31/25 15:08 Blood - Venous Blood Culture - Preliminary No growth after 48 hours. Procedures Date of Service Date of Service: 06/03/25 Assessment & Plan Assessment and plan (1) Acute hyponatremia: Status: Acute (2) SIADH (syndrome of inappropriate ADH production): Status: Acute Plan Acute hyponatremia: SIADH: Hypertension: Presented with a sodium of 111, possibly due to SIADH given her extreme pain and nausea leading to ADH secretion. TSH and cortisol normal, urine sodium close to 40, urine osmoles around 300 suggestive of inappropriate ADH release in the setting of hyponatremia. Sodium slowly corrected up to 133 this morning, can discontinue salt tablets tomorrow. Continue withholding hydrochlorothiazide upon discharge, can increase the dose of metoprolol to 100 mg daily if needed Adequate control of pain, plan for kyphoplasty by IR We will schedule an outpatient follow-up with the [facility]phrology [facility], nephrology will sign off Time Spent With Patient Time: Total time managing care of this patient today ____ minutes. Progress Note: Quality Stroke Does the patient have a stroke diagnosis?: No
--- NOTE | 2025-06-03 14:37 | P.PNIM_ITS ---
Subjective Subjective Date of Service: 06/03/25 Interval History: Continues to improve; sodium 133 this a.m. Review of Systems Denies chest pain Denies shortness of breath Denies nausea vomiting diarrhea Denies fever chills Physical Exam 2 Vital Signs: Vital Signs: Last Vital Signs Temp 97.5 F 06/03/25 11:25 Pulse 72 06/03/25 11:25 Resp 20 06/03/25 11:25 BP 143/65 H 06/03/25 11:25 Pulse Ox 98 06/03/25 11:25 O2 Del Method Nasal Cannula 06/03/25 11:25 O2 Flow Rate 2 06/03/25 11:25 FiO2 98 05/31/25 23:00 BMI result Body Mass Index 36.9 Const: Other: Awake alert no acute distress Resp: Other: Clear to auscultation bilaterally no rales rhonchi or wheezes Cardio: Other: No S4; positive S1-S2; no S3 murmurs rubs or gallops GI: Other: Soft nontender nondistended normoactive bowel sounds Extrem: Other: No edema bilaterally Objective Data Active Medications Acetaminophen (Acetaminophen 325 Mg Tablet) 975 mg PO Q8H [facility] Last Admin: 06/03/25 13:29 Dose: 975 mg Documented By: ENMANUEL Amlodipine Besylate (Amlodipine Besylate 5 Mg Tablet) 5 mg PO DAILY [facility]; Protocol Last Admin: 06/03/25 09:21 Dose: 5 mg Documented By: CHETAN Aspirin (Aspirin Enteric Coated 81 Mg Tablet.) 81 mg PO DAILY [facility] Last Admin: 06/03/25 09:21 Dose: 81 mg Documented By: CHETAN Atorvastatin Calcium (Atorvastatin Calcium 40 Mg Tablet) 40 mg PO BEDTIME [facility] Last Admin: 06/02/25 22:00 Dose: 40 mg Documented By: MARY Dextrose (Dextrose 50 % 25 Gm/50 Ml Syringe) 25 gm IVPUSH Q15M PRN; Protocol PRN Reason: per Hypoglycemia Standing Ord. Enoxaparin Sodium (Enoxaparin Sodium 40 Mg/0.4 Ml Syringe) 40 mg SUBCUT Q24H [facility] Last Admin: 06/03/25 13:30 Dose: 40 mg Documented By: ENMANUEL Fentanyl (Fentanyl Citrate/Pf 100 Mcg/2 Ml Vial) 50 mcg IVPUSH Q2H PRN; Protocol PRN Reason: Pain, Moderate(Pain Scale 4-6) Last Admin: 05/30/25 20:56 Dose: 50 mcg Documented By: ALEX Glucose (Glucose Gel 15 Gm Gel..Gram.) 15 gm PO Q15M PRN; Protocol PRN Reason: per Hypoglycemia Standing Ord. Lidocaine (Lidocaine 4 % Patch Adh..Patch) 1 patch TRANSDERMA DAILY [facility]; Protocol Last Admin: 06/03/25 09:19 Dose: 1 patch Documented By: CHETAN Metformin HCl (Metformin Hcl Er 500 Mg Tab.Er.24h) 1,000 mg PO BID [facility] Last Admin: 06/03/25 09:21 Dose: 1,000 mg Documented By: CHETAN Metoprolol Succinate (Metoprolol Succinate Er 25 Mg Tab.Er.24h) 25 mg PO DAILY [facility]; Protocol Last Admin: 06/03/25 09:21 Dose: 25 mg Documented By: CHETAN Sodium Chloride (0.9 % Sodium Chloride Flush 3 Ml Syringe) 3 ml IVFLUSH QSHIFT [facility] Last Admin: 06/03/25 09:20 Dose: 3 ml Documented By: CHETAN Sodium Chloride (Sodium Chloride Tab 1 Gm Tablet) 1 gm PO TID [facility] Last Admin: 06/03/25 09:21 Dose: 1 gm Documented By: CHETAN Labs 06/02/25 08:03 06/03/25 07:18 Labs: Laboratory Results - last 24 hr 06/02/25 06/02/25 06/03/25 15:54 20:54 07:18 Anion Gap 14 Estim Creat Clear Calc 76.4 Estimated GFR > 60 POC Glucose 155 H 110 Fasting Glucose 121 H Calcium 9.1 Total Bilirubin 0.5 AST 34 H ALT 32 H Alkaline Phosphatase 115 Total Protein 6.7 Albumin 3.7 06/03/25 06/03/25 08:08 11:24 Anion Gap Estim Creat Clear Calc Estimated GFR POC Glucose 122 H 133 H Fasting Glucose Calcium Total Bilirubin AST ALT Alkaline Phosphatase Total Protein Albumin Microbiology Microbiology Results: Microbiology 05/31/25 15:08 Blood Culture - Preliminary Blood - Venous No growth after 48 hours. 05/31/25 15:08 Blood Culture - Preliminary Blood - Venous No growth after 48 hours. Assessment and Plan (1) Acute hyponatremia: Status: Acute (2) Diabetes mellitus: Status: Acute Plan 74-year-old lady with past medical history of hypertension, diabetes mellitus, coronary artery disease was seen in the ED 2 days ago following a fall leading to L1 vertebra 1 compressive fracture, which was thought to be the non operable by the ER physician and was sent home on oxycodone and pain medications. Patient had multiple episodes of vomiting since he started taking oxycodone 2 days ago, initially the vomitus was brown, last night turned to be red in color, no relieving factors, associated with poor oral intake and extreme weakness so presented to the ED. In the ED her sodium was noted to be 111 so ICU was consulted for admission. Admitted to ICU and was successfully treated with 3% saline and then slow repletion. Transferred to floor in stable condition 1.Acute hyponatremia/hypokalemia: -responded to therapies. Sodium now 133 -discontinue sodium tabs -follow renals/divalens 2.Coronary artery disease -stable and well compensated -continue current therapies 3.Hypertension: -acceptable control off thiazide -continue all other therapies -adjust as clinically indicated 4. Diabetes type 2 -acceptable control on current therapies -lispro correctional scale -continue outpatient therapies -adjust as indicated 5. L1 vertebral fracture -pain management as ordered -IR consulted Prophylaxis: Lovenox Quality Stroke Does the patient have a stroke diagnosis?: No VTE Prior VTE?: No VTE Risk Level:: Medical - moderate - high VTE Device Contraindication: N/A - Device Ordered VTE Drug Contraindication: N/A - Med Ordered
[2025-06-03 15:48] VITALS: BP 126/65; PULSE 77; RESP 20; TEMP 36.6; O2SAT 99
--- NOTE | 2025-06-03 16:37 | MHC.CM.PN ---
Pt not medically cleared to DC. PT and OT rec. STR. CM met with pt to discuss STR. She said she would rather have a procedure, and became upset. CM let her know that we can discuss again tomorrow. Ref. into [facility], as pt. is a resident of [facility].
[2025-06-03 16:53] LABS: Glucose, Whole Blood 106 mg/dL (60-115)
[2025-06-03 19:04] VITALS: BP 127/59; PULSE 90; RESP 16; TEMP 36.6; O2SAT 98
[2025-06-03 20:13] LABS: Glucose, Whole Blood 112 mg/dL (60-115)
[2025-06-04] VITALS: BP 140/74; PULSE 80; RESP 17; TEMP 36.4; O2SAT 100
[2025-06-04] MEDS: 0.9 % Sodium Chloride Flush 3 ML SYRINGE IVFLUSH ×3 (00:15→16:16)
[2025-06-04 04:00] VITALS: BP 140/65; PULSE 72; RESP 19; TEMP 36.1; O2SAT 99
[2025-06-04 06:00] VITALS: BMI 36.9
[2025-06-04 06:55] LABS: MANUAL DIFF FLAG NO
[2025-06-04 07:19] LABS: Alanine Aminotransferase 44 U/L (0-31); Albumin Level 3.5 g/dL (3.5-5.0); Alkaline Phosphatase 113 U/L (39-117); Anion Gap 13 (12-20); Aspartate Amino Transferase 47 U/L (5-31); Blood Urea Nitrogen 9 mg/dL (9-16); Calcium 8.8 mg/dL (8.4-10.2); Carbon Dioxide 25 mmol/L (22-29); Chloride 98 mmol/L (96-108); Creatinine Clr Calc Pharmacy 79.9; Estimated Glomerular Filt Rate > 60; Potassium 3.8 mmol/L (3.3-5.1); Sodium 132 mmol/L (135-145); Total Protein 6.6 g/dL (6.5-8.0)
[2025-06-04 07:22] LABS: Hematocrit 37.3 % (37.0-47.0); Hemoglobin 12.6 g/dl (12.0-16.0); Imm Gran Abs Auto 0.02 X10*3/uL (0.00-0.03); Imm Gran Pct Auto 0.4 % (0.0-0.4); Lymphocytes Absolute Auto 1.6 X10*3/uL (1.2-4.9); Mean Corpuscular HGB Conc 33.8 g/dl (31.0-35.0); Mean Corpuscular Hemoglobin 28.3 pg (27.0-33.0); Mean Corpuscular Volume 83.8 fL (80.0-98.0); NRBC Abs Auto 0.000 X10*3/uL (0.0-0.012); NRBC Pct Auto 0.0 /100WBC (0.0-0.2); Platelet Count 222 X10*3/uL (160-400); Red Blood Count 4.45 X10*6/uL (4.20-5.50); White Blood Count 5.5 X10*3/uL (4.8-10.8)
--- NOTE | 2025-06-04 07:32 | HO.PM.IMPN ---
Subjective Subjective Date of Service: 06/04/25 Physical Exam Vital Signs: Vital Signs: Last Vital Signs Temp 97.0 F 06/04/25 04:00 Pulse 72 06/04/25 04:00 Resp 19 06/04/25 04:00 BP 140/65 H 06/04/25 04:00 Pulse Ox 99 06/04/25 04:00 O2 Del Method Nasal Cannula 06/04/25 04:00 O2 Flow Rate 2 06/04/25 04:00 FiO2 98 05/31/25 23:00 BMI result Body Mass Index 36.9 Objective Data Active Medications Acetaminophen (Acetaminophen 325 Mg Tablet) 975 mg PO Q8H [facility] Last Admin: 06/04/25 06:53 Dose: Not Given Documented By: CHET Non-Admin Reason: Patient Asleep Amlodipine Besylate (Amlodipine Besylate 5 Mg Tablet) 5 mg PO DAILY [facility]; Protocol Last Admin: 06/03/25 09:21 Dose: 5 mg Documented By: CHETAN Aspirin (Aspirin Enteric Coated 81 Mg Tablet.Dr) 81 mg PO DAILY [facility] Last Admin: 06/03/25 09:21 Dose: 81 mg Documented By: CHETAN Atorvastatin Calcium (Atorvastatin Calcium 40 Mg Tablet) 40 mg PO BEDTIME [facility] Last Admin: 06/03/25 20:18 Dose: 40 mg Documented By: CHET Dextrose (Dextrose 50 % 25 Gm/50 Ml Syringe) 25 gm IVPUSH Q15M PRN; Protocol PRN Reason: per Hypoglycemia Standing Ord. Enoxaparin Sodium (Enoxaparin Sodium 40 Mg/0.4 Ml Syringe) 40 mg SUBCUT Q24H [facility] Last Admin: 06/03/25 13:30 Dose: 40 mg Documented By: ROCAELDONAdrian Fentanyl (Fentanyl Citrate/Pf 100 Mcg/2 Ml Vial) 50 mcg IVPUSH Q2H PRN; Protocol PRN Reason: Pain, Moderate(Pain Scale 4-6) Last Admin: 05/30/25 20:56 Dose: 50 mcg Documented By: ALEX Glucose (Glucose Gel 15 Gm Gel..Gram.) 15 gm PO Q15M PRN; Protocol PRN Reason: per Hypoglycemia Standing Ord. Lidocaine (Lidocaine 4 % Patch Adh..Patch) 1 patch TRANSDERMA DAILY [facility]; Protocol Last Admin: 06/03/25 09:19 Dose: 1 patch Documented By: CHETAN Metformin HCl (Metformin Hcl Er 500 Mg Tab.Er.24h) 1,000 mg PO BID [facility] Last Admin: 06/03/25 20:18 Dose: 1,000 mg Documented By: CHET Metoprolol Succinate (Metoprolol Succinate Er 25 Mg Tab.Er.24h) 25 mg PO DAILY [facility]; Protocol Last Admin: 06/03/25 09:21 Dose: 25 mg Documented By: CHETAN Sodium Chloride (0.9 % Sodium Chloride Flush 3 Ml Syringe) 3 ml IVFLUSH QSHIFT [facility] Last Admin: 06/04/25 00:15 Dose: 3 ml Documented By: CHET Sodium Chloride (Sodium Chloride Tab 1 Gm Tablet) 1 gm PO TID [facility] Last Admin: 06/03/25 20:18 Dose: 1 gm Documented By: CHET Labs 06/04/25 06:19 06/04/25 06:19 Labs: Laboratory Results - last 24 hr 06/03/25 06/03/25 06/03/25 07:18 08:08 11:24 MCV MCH MCHC RDW Plt Count MPV Immature Gran % (Auto) Neut % (Auto) Lymph % (Auto) [place] % (Auto) Eos % (Auto) Baso % (Auto) Lymph # (Auto) [place] # (Auto) Eos # (Auto) Baso # (Auto) Abs Immat Gran (auto) Absolute Neuts (auto) Absolute Nucleated RBC Nucleated RBC % (auto) Anion Gap 14 Estim Creat Clear Calc 76.4 Estimated GFR > 60 POC Glucose 122 H 133 H Fasting Glucose 121 H Calcium 9.1 Total Bilirubin 0.5 AST 34 H ALT 32 H Alkaline Phosphatase 115 Total Protein 6.7 Albumin 3.7 06/03/25 06/03/25 06/04/25 15:58 20:04 06:19 MCV 83.8 MCH 28.3 MCHC 33.8 RDW 13.4 Plt Count 222 MPV 8.5 L Immature Gran % (Auto) 0.4 Neut % (Auto) 55.7 Lymph % (Auto) 28.8 [place] % (Auto) 11.0 Eos % (Auto) 3.5 Baso % (Auto) 0.6 Lymph # (Auto) 1.6 [place] # (Auto) 0.6 Eos # (Auto) 0.2 Baso # (Auto) 0.0 Abs Immat Gran (auto) 0.02 Absolute Neuts (auto) 3.0 Absolute Nucleated RBC 0.000 Nucleated RBC % (auto) 0.0 Anion Gap 13 Estim Creat Clear Calc 79.9 Estimated GFR > 60 POC Glucose 106 112 Fasting Glucose 103 H Calcium 8.8 Total Bilirubin 0.5 AST 47 H ALT 44 H Alkaline Phosphatase 113 Total Protein 6.6 Albumin 3.5 Quality Stroke Does the patient have a stroke diagnosis?: No VTE Prior VTE?: No VTE Risk Level:: Medical - moderate - high VTE Device Contraindication: N/A - Device Ordered VTE Drug Contraindication: N/A - Med Ordered
[2025-06-04 08:00] VITALS: BP 167/75; PULSE 92; RESP 20; TEMP 36.4; O2SAT 96
[2025-06-04 08:42] LABS: Glucose, Whole Blood 107 mg/dL (60-115)
[2025-06-04] MEDS: Lidocaine 4 % Patch ADH..PATCH 1 PATCH TRANSDERMA (09:01)
[2025-06-04] MEDS: Metoprolol Succinate ER 25 MG TAB.ER.24H PO (09:02)
[2025-06-04] MEDS: Aspirin Enteric Coated 81 MG TABLET.DR PO (09:02)
[2025-06-04] MEDS: Sodium Chloride Tab 1 GM TABLET PO ×2 (09:03→16:16)
[2025-06-04 11:51] LABS: Glucose, Whole Blood 153 mg/dL (60-115)
[2025-06-04 12:00] VITALS: BP 140/77; PULSE 88; RESP 20; TEMP 36.5; O2SAT 96
--- NOTE | 2025-06-04 14:13 | MHC.CM.PN ---
Second IMM 06/04/25, Pt. has been medically cleared to DC today, she will go to [facility] for STR via BLS.
--- NOTE | 2025-06-04 15:36 | P.DS_ITS ---
DS: Providers Provider Date of admission: 05/30/25 05:54 Date of discharge: 06/04/25 Primary care physician: KATIE Will Consults: 05/30/25 13:35 Consult to Wound Care Routine Consulting Provider: [facility] [place]ound Care Management Reason for consultation: MASD bilateral groin DS: Diagnosis Discharge Diagnosis (1) Acute hyponatremia: Status: Acute (2) L1 vertebral fracture: Status: Acute DS: Summary Hospital Course Hospital Course: Chief Complaint: Vomiting 74-year-old lady with past medical history of hypertension, diabetes mellitus, coronary artery disease was seen in the ED 2 days ago following a fall leading to L1 vertebra 1 compressive fracture, which was thought to be the non operable by the ER physician and was sent home on oxycodone and pain medications. Patient had multiple episodes of vomiting since he started taking oxycodone 2 days ago, initially the vomitus was brown, last night turned to be red in color, no relieving factors, associated with poor oral intake and extreme weakness so presented to the ED. In the ED her sodium was noted to be 111 so ICU was consulted for admission. Hospital course : Acute severe symptomatic hyponatremia SIADH Presented with a sodium of 111, possibly due to SIADH given her extreme pain and nausea leading to ADH secretion. TSH and cortisol normal, urine sodium close to 40, urine osmoles around 300 suggestive of inappropriate ADH release in the setting of hyponatremia. Sodium slowly corrected up to 133 this morning, hence with Nephrology input, we are discontinuing salt tablets prior to discharge as we are holding the most likely culprit medication which is hydrochlorothiazide. Patient's vitals were stable hence we are not adjusting metoprolol but per Nephrology, suggested that if needed metoprolol dose can be increased to 100 mg if needed. Patient has outpatient Nephrology that Nephrology Clinic we will schedule. L1 vertebral compression fracture which was likely nearly a week ago managed non operatively given patient's choice. Adequate pain control with Tylenol, lidocaine, outpatient pain clinic, outpatient spine surgery consult. Patient agreeable to the plan Patient is going to a short-term rehab HTN Held hydrochlorothiazide which was likely causing her SIADH , follow up with PCP for medication adjustments if needed DM type 2 No changes in medications. Euglycemia was maintained with sliding scale Follow Up - Primary care physician within 1 week - Repeat BMP within 1 week - Orthopedics or Interventional Radiology follow?up for L1 fracture - Cardiology followup as scheduled Time spent discussing smoking cessation with patient: more than 10 minutes Status at Discharge Functional status at discharge: bed bound Overall status at discharge: patient is not back to baseline Time Attestation Discharge Coordination Time (in mins): 95 Quality: Safe Use of Opioids Does Pt have an Active Cancer Diagnosis on the Problem List?: No Quality: Stroke Does the patient have a stroke diagnosis?: No Physical Exam Vital Signs: Vital Signs: Last Vital Signs Temp 97.7 F 06/04/25 12:00 Pulse 88 06/04/25 12:00 Resp 20 06/04/25 12:00 BP 140/77 H 06/04/25 12:00 Pulse Ox 96 06/04/25 12:00 O2 Del Method Nasal Cannula 06/04/25 12:00 O2 Flow Rate 2 06/04/25 12:00 FiO2 98 05/31/25 23:00 BMI result Body Mass Index 36.9 DS: Data Data Completed and Pending Labs on day of discharge: Laboratory Results - last 24 hr 06/03/25 06/03/25 06/04/25 15:58 20:04 06:19 WBC 5.5 RBC 4.45 Hgb 12.6 Hct 37.3 MCV 83.8 MCH 28.3 MCHC 33.8 RDW 13.4 Plt Count 222 MPV 8.5 L Immature Gran % (Auto) 0.4 Neut % (Auto) 55.7 Lymph % (Auto) 28.8 [place] % (Auto) 11.0 Eos % (Auto) 3.5 Baso % (Auto) 0.6 Lymph # (Auto) 1.6 [place] # (Auto) 0.6 Eos # (Auto) 0.2 Baso # (Auto) 0.0 Abs Immat Gran (auto) 0.02 Absolute Neuts (auto) 3.0 Absolute Nucleated RBC 0.000 Nucleated RBC % (auto) 0.0 Sodium 132 L Potassium 3.8 Chloride 98 Carbon Dioxide 25 Anion Gap 13 BUN 9 Creatinine 0.67 Estim Creat Clear Calc 79.9 Estimated GFR > 60 POC Glucose 106 112 Fasting Glucose 103 H Calcium 8.8 Total Bilirubin 0.5 AST 47 H ALT 44 H Alkaline Phosphatase 113 Total Protein 6.6 Albumin 3.5 06/04/25 06/04/25 07:41 11:46 WBC RBC Hgb Hct MCV MCH MCHC RDW Plt Count MPV Immature Gran % (Auto) Neut % (Auto) Lymph % (Auto) [place] % (Auto) Eos % (Auto) Baso % (Auto) Lymph # (Auto) [place] # (Auto) Eos # (Auto) Baso # (Auto) Abs Immat Gran (auto) Absolute Neuts (auto) Absolute Nucleated RBC Nucleated RBC % (auto) Sodium Potassium Chloride Carbon Dioxide Anion Gap BUN Creatinine Estim Creat Clear Calc Estimated GFR POC Glucose 107 153 H Fasting Glucose Calcium Total Bilirubin AST ALT Alkaline Phosphatase Total Protein Albumin Preliminary micro results at discharge 05/31/25 15:08 Blood Culture - Preliminary Blood - Venous No growth after 48 hours. 05/31/25 15:08 Blood Culture - Preliminary Blood - Venous No growth after 48 hours. Discharge Plan Discharge Anticipated Discharge Date/Time: 06/04/25 14:08 Patient Disposition: Xfer SNF Discharge Diagnosis: Acute symptomatic hyponatremia likely in the setting of SIADH Referrals: [facility] [place] Pain Management [Provider Group, Pain Management] - 1 Week Demarcus Lott [facility] [Outside] - 1 Week Keith Choi MD [Physician, Pain Management] - 1 Week Adama Mena PA [Physician Tax Director, Neuro Spine] - 1 Week Brea Garcia PA [Primary Care Provider, Hospitalist] - 1 Week Discharge Medications: Continued oxycodone 5 mg tablet 5 mg PO Q6H PRN (Reason: pain) Qty: 10 0RF Rx Instructions: Partial Fill upon patient request. losartan 50 mg tablet 50 mg PO DAILY atorvastatin 40 mg tablet 40 mg PO BEDTIME amlodipine 5 mg tablet 5 mg PO DAILY metoprolol succinate 25 mg tablet extended release 24 hr 25 mg PO DAILY albuterol sulfate 90 mcg/actuation HFA aerosol inhaler 2 puff inhalation Q4H PRN (Reason: Shortness Of Breath Or Wheezing) metformin 500 mg tablet extended release 24 hr 1,000 mg PO BID aspirin 81 mg Tablet,Delayed Release (Dr/Ec) 81 mg PO DAILY acetaminophen 500 mg capsule 1,000 mg PO Q6H 30 Days Qty: 30 0RF Changed lidocaine 5 % adhesive patch,medicated 2 patch topical DAILY PRN (Reason: pain) Qty: 15 0RF Rx Instructions: leave on most painful area for up to 12 hrs Discontinued chlorthalidone 25 mg tablet 25 mg PO DAILY Discharge Orders: Discharge Order (Routine); Ordered 06/04/25 Ordered By: Desirae Jennings Diet: Low salt diet Activity on Discharge: Rest with bed elevated Stand Alone Forms: Patient Portal Discharge page Print Language: Amharic Care Plan Goals: Discharge Instructions: Hyponatremia (Low Sodium Level) What this means: Your blood sodium level was low during your hospital stay. Sodium helps control fluid balance, blood pressure, and nerve and muscle function. Your levels improved, but continued care is important. What to do at home: - Follow the fluid restriction given to you at discharge, if instructed - Take medications exactly as prescribed - Maintain a balanced diet unless otherwise directed - Avoid excessive free water intake (large amounts of plain water) When to seek medical care immediately: - New or worsening confusion - Severe headache - Nausea or vomiting that does not improve - Muscle cramps, weakness, or tremors - Seizures or fainting Follow-up: - Blood work may be needed to recheck your sodium level - Follow up with your primary care provider as scheduled Discharge Instructions: Chronic L1 Compression Fracture What this means: You have a chronic compression fracture at the L1 vertebra. This is an old injury and does not require emergency surgery at this time. Pain Management (Outpatient) - Use acetaminophen (Tylenol) as needed for pain - Avoid NSAIDs unless approved by your physician - Use heat or ice to the lower back as tolerated - Avoid heavy lifting, bending, or twisting movements - Gradually increase activity as tolerated Activity - Walking is encouraged - Avoid activities that worsen pain - Use assistive devices if recommended Spine Surgery Follow-Up - Outpatient follow-up with spine surgery or neurosurgery has been recommended - Surgical intervention is not urgent and will be evaluated based on symptoms and imaging - Bring copies of imaging studies if available When to seek urgent medical attention: - New weakness or numbness in the legs - Difficulty walking - Loss of bowel or bladder control - Severe or worsening back pain not controlled with medication General Instructions - Take all medications as prescribed - Keep all follow-up appointments - Return to the emergency department for any concerning or worsening symptoms Health Concerns: See above Plan of Treatment: See above Assessment: See above
[2025-06-04 16:00] VITALS: BP 128/73; PULSE 78; RESP 18; TEMP 36.6; O2SAT 96
[2025-06-04 16:34] LABS: Glucose, Whole Blood 114 mg/dL (60-115)
== END 2025-06-04 17:25 | disposition skilled nursing facility (03) | DRG 644 ==
LOC: HO.ED 05:54 → HO.EDOVER 06:11 → HO.ICU 06:13 → HO.IMC 06-01 06:41
PROVIDERS: Hospitalist; Internal Medicine Critical Care Medicine; Admitting Provider Physician Assistant Medical; Emergency Provider Emergency Medicine; PCP Physician Assistant; Visit Provider Student in an Organized Health Care Education/Training Program
DX: E22.2 Syndrome of inappropriate secretion of antidiuretic hormone (principal); S32.018A Other fracture of first lumbar vertebra, initial encounter for closed fracture; E66.812 Obesity, class 2; I10 Essential (primary) hypertension; I25.10 Atherosclerotic heart disease of native coronary artery without angina pectoris; E11.9 Type 2 diabetes mellitus without complications; E87.6 Hypokalemia; T50.2X5A Adverse effect of carbonic-anhydrase inhibitors, benzothiadiazides and other diuretics, initial encounter; W19.XXXA Unspecified fall, initial encounter; Z20.822 Contact with and (suspected) exposure to COVID-19; Z68.36 Body mass index [BMI] 36.0-36.9, adult; Z79.82 Long term (current) use of aspirin; Z79.84 Long term (current) use of oral hypoglycemic drugs; Z79.899 Other long term (current) drug therapy
CPT/HCPCS: 36415; 70450; 71045; 71250; 72131; 74176; 80048; 80053; 80307; 81003; 82436; 82533; 82947; 83605; 83690; 83735; 83930; 83935; 84100; 84133; 84300; 84443; 84484; 84550; 85025; 85610; 87040; 87637; 93005; 97162; 97530; 99285; J1308; J1644; J1650; J1885; J2405; J3010; J3475; J3480; J7120; J7131

== ENCOUNTER → 2025-05-30 04:33 | Outpatient (BNV) | payer MEDICARE, BC, SELFPAY | PROVIDERS: Emergency Provider Emergency Medicine; PCP Physician Assistant; Visit Provider Radiology Diagnostic Radiology | DX: K80.20 Calculus of gallbladder without cholecystitis without obstruction (principal); J98.11 Atelectasis; S32.010A Wedge compression fracture of first lumbar vertebra, initial encounter for closed fracture; S09.90XA Unspecified injury of head, initial encounter; J43.8 Other emphysema | CPT/HCPCS: 70450; 71250; 72131 ==

== ENCOUNTER → 2025-05-30 04:36 | Outpatient (BNV) | payer MEDICARE, BC, SELFPAY | PROVIDERS: Admitting Provider Physician Assistant Medical; Emergency Provider Emergency Medicine; PCP Physician Assistant; Visit Provider Internal Medicine Cardiovascular Disease | DX: R94.31 Abnormal electrocardiogram [ECG] [EKG] (principal); R11.2 Nausea with vomiting, unspecified | CPT/HCPCS: 93010 ==

== ENCOUNTER → 2025-05-30 05:54 | Outpatient (BNV) | payer MEDICARE, BC, SELFPAY | PROVIDERS: Admitting Provider Physician Assistant Medical; Emergency Provider Emergency Medicine; PCP Physician Assistant; Visit Provider Hospitalist | DX: E87.1 Hypo-osmolality and hyponatremia (principal); S32.019A Unspecified fracture of first lumbar vertebra, initial encounter for closed fracture; E11.9 Type 2 diabetes mellitus without complications | CPT/HCPCS: 99233 ==

== ENCOUNTER → 2025-05-30 05:54 | Outpatient (BNV) | payer MEDICARE, BC, SELFPAY | PROVIDERS: Admitting Provider Physician Assistant Medical; Emergency Provider Emergency Medicine; PCP Physician Assistant; Visit Provider Internal Medicine Critical Care Medicine | DX: E87.1 Hypo-osmolality and hyponatremia (principal); E22.2 Syndrome of inappropriate secretion of antidiuretic hormone | CPT/HCPCS: 99223; 99233 ==